=== PATIENT | female | born 1965 | race Caucasian/White ===

== ENCOUNTER 2018-10-06 17:13 | Inpatient (IN) | payer OTHER, MEDICAID ==
[~2018-10-06] VITALS: Ht 162.6 cm; Wt 74.8 kg
[2018-10-06 17:23] VITALS: BP_SYST 112
[2018-10-06] MEDS ORDERED: LORazepam 2 MG/ML VIAL (FOR ER USE) ONE (17:27)
[2018-10-06] MEDS ORDERED: LORazepam 2 MG/ML VIAL (FOR ER USE) IVP ONE (17:30)
[2018-10-06] MEDS ORDERED: LORA-259 GT (17:46)
[2018-10-06] MEDS ORDERED: FOLI-43 GT (17:46)
[2018-10-06] MEDS ORDERED: SENN8.6T19 GT (17:46)
[2018-10-06] MEDS ORDERED: FLUD0.1T GT (17:46)
[2018-10-06] MEDS ORDERED: MOM PO (17:46)
[2018-10-06] MEDS ORDERED: FER300L GT (17:46)
[2018-10-06] MEDS ORDERED: GENT3.5O7 GT (17:46)
[2018-10-06] MEDS ORDERED: LEVE1000 PO (17:46)
[2018-10-06] MEDS ORDERED: MULT-1117 GT (17:46)
[2018-10-06] MEDS ORDERED: BISA-79 RC (17:46)
[2018-10-06] MEDS ORDERED: LORA10TA7 GT (17:46)
[2018-10-06] MEDS ORDERED: ACET-2165 GT (17:46)
[2018-10-06] MEDS ORDERED: PIPE4.5F2 IV (17:46)
[2018-10-06] MEDS ORDERED: BALS750C6 PO (17:46)
[2018-10-06] MEDS ORDERED: CLOB10TA PO (17:46)
[2018-10-06] MEDS ORDERED: FLEETMO RC (17:46)
[2018-10-06] MEDS ORDERED: METO200T3 GT (17:46)
[2018-10-06] MEDS ORDERED: DOCU-144 PO (17:46)
[2018-10-06 17:52] LABS: BASOPHILS % (AUTO) 0.2 % (0.0-2.0); EOSINOPHILS % (AUTO) 0.4 % (0.0-4.0); HEMATOCRIT 37.8 % (36-48); HEMOGLOBIN 12.5 g/dL (12.0-16.0); LYMPHOCYTES # (AUTO) 0.9 K/uL (1.0-5.5); LYMPHOCYTES % (AUTO) 10.2 % (20.5-51.5); MEAN CORPUSCULAR HEMOGLOBIN 31 pg (27-31); MEAN CORPUSCULAR HGB CONC 33 % (32-36); MEAN CORPUSCULAR VOLUME 95 fL (79.0-98.0); MONOCYTES # (AUTO) 0.3 K/uL (0.0-1.0); MONOCYTES % (AUTO) 3.2 % (1.7-9.3); NEUTROPHILS # (AUTO) 7.3 K/uL (1.8-7.7); PLATELET COUNT (AUTO) 302 K/uL (130-430); RED BLOOD CELL COUNT(AUTO) 3.98 MIL/uL (4.2-6.2); RED CELL DISTRIBUTION WIDTH 13.2 % (9.0-15.0); WHITE BLOOD COUNT (AUTO) 8.5 K/uL (4.8-10.8)
[2018-10-06 18:04] LABS: INR 1.1 (0.8-1.2); PROTHROMBIN TIME 11.2 SECS (9.5-12.5)
[2018-10-06 18:14] LABS: CALCIUM 8.6 mg/dL (8.4-11.0); CREATININE 0.67 mg/dL (0.55-1.30); POTASSIUM 3.3 mmol/L (3.5-5.1)
[2018-10-06 18:19] LABS: ALBUMIN 2.8 g/dL (3.4-4.8); TOTAL BILIRUBIN 0.3 mg/dL (0.0-1.0)
[2018-10-06 18:29] LABS: BILIRUBIN,URINE NEGATIVE (NEGATIVE); BLOOD, URINE TRACE (NEGATIVE); CLARITY/URINE SL CLOUDY (CLEAR); COLOR,URINE YELLOW (YELLOW); GLUCOSE,URINE NEGATIVE (NEGATIVE); KETONES,URINE NEGATIVE (NEGATIVE); LEUKOCYTE ESTERASE ,URINE 3+ (NEGATIVE); NITRITE, URINE NEGATIVE (NEGATIVE); PH,URINE 7.5 (5.0-8.0); PROTEIN URINE 1+ (NEGATIVE); UROBILINOGEN,URINE 0.2 (0.2-1.0)
[2018-10-06 18:38] LABS: BACTERIA,URINE MANY /HPF (None Seen); WBC,URINE >100 /HPF (0-3)
[2018-10-06 18:40] LABS: BARBITURATE, URINE NEGATIVE (NEG <=200); BENZODIAZEPINE, URINE POSITIVE (NEG <=150); CANNABINOID, URINE NEGATIVE (NEG <=50); COCAINE, URINE NEGATIVE (NEG <=150); METHAMPHETAMINES SCREEN,URINE NEGATIVE (NEG <=500); OPIATE, URINE NEGATIVE (NEG <=100); PHENCYCLIDINE SCREEN,URINE NEGATIVE (NEG <=25); UR TRICYCLIC ANTIDEPRESSANTS NEGATIVE (NEG <=300); URINE AMPHETAMINE NEGATIVE (NEG <=500); URINE METHADONE NEGATIVE (NEG <=200); URINE OXYCODONE SCREEN NEGATIVE (NEG <=100); URINE PROPOXYPHENE SCREEN NEGATIVE (NEG <=300)
[2018-10-06] MEDS ORDERED: cefTRIAXone 1 GM IVPB PREMIX 50 ML IV ONE (18:45)
[2018-10-06] MEDS ORDERED: PIPERACILLIN/TAZO 3.375 GM in NS 50 ML IV ONE (19:15)
[2018-10-06] MEDS ORDERED: VANCOMYCIN HCL 1,000 MG in NS 250 ML IV ONE (19:15)
[2018-10-06] MEDS ORDERED: PIPERACILLIN/TAZOBACTAM 3.375 GM/VIAL (ZOSYN) IV ONE ×2 (19:16→22:13)
[2018-10-06] MEDS ORDERED: VANCOMYCIN HCL 1000 MG/VIAL IV ONE (19:17)
[2018-10-06 20:10] VITALS: BP_SYST 111
[2018-10-06] MEDS ORDERED: CLOBAZAM 10 MG PO SCH (21:00)
[2018-10-06] MEDS ORDERED: ACETAMINOPHEN 325 MG TABLET GT SCH (21:00)
[2018-10-06] MEDS: FOLIC ACID 1 MG TABLET GT SCH (22:54)
[2018-10-06] MEDS: levETIRAcetam 500 MG TABLET PO SCH (22:54)
[2018-10-06] MEDS: PIPERACILLIN/TAZO 3.375/DEX-IS 50 ML IV SCH (23:21)
[2018-10-07 00:28] VITALS: BP_SYST 97
[2018-10-07] MEDS: PIPERACILLIN/TAZO 3.375/DEX-IS 50 ML IV SCH ×2 (05:21→11:48)
[2018-10-07 07:39] LABS: BASOPHILS % (AUTO) 0.7 % (0.0-2.0); EOSINOPHILS # (AUTO) 0.1 K/uL (0.0-0.4); EOSINOPHILS % (AUTO) 1.5 % (0.0-4.0); HEMATOCRIT 34.1 % (36-48); HEMOGLOBIN 11.5 g/dL (12.0-16.0); LYMPHOCYTES # (AUTO) 1.2 K/uL (1.0-5.5); LYMPHOCYTES % (AUTO) 23.2 % (20.5-51.5); MEAN CORPUSCULAR HEMOGLOBIN 32 pg (27-31); MEAN CORPUSCULAR HGB CONC 34 % (32-36); MEAN CORPUSCULAR VOLUME 96 fL (79.0-98.0); MONOCYTES # (AUTO) 0.6 K/uL (0.0-1.0); MONOCYTES % (AUTO) 11.5 % (1.7-9.3); NEUTROPHILS # (AUTO) 3.1 K/uL (1.8-7.7); NEUTROPHILS % (AUTO) 63.1 % (40.0-70.0); PLATELET COUNT (AUTO) 251 K/uL (130-430); RED BLOOD CELL COUNT(AUTO) 3.57 MIL/uL (4.2-6.2); RED CELL DISTRIBUTION WIDTH 13.1 % (9.0-15.0)
[2018-10-07 07:51] LABS: ALBUMIN 2.6 g/dL (3.4-4.8); CALCIUM 8.5 mg/dL (8.4-11.0); CREATININE 0.52 mg/dL (0.55-1.30); POTASSIUM 3.8 mmol/L (3.5-5.1); THYROID STIMULATING HORMONE 0.14 uIu/mL (0.34-4.82); TOTAL BILIRUBIN 0.4 mg/dL (0.0-1.0)
[2018-10-07 07:58] VITALS: BP_SYST 94
[2018-10-07] MEDS ORDERED: METOPROLOL SUCCINATE 50 MG TAB.SR.24H (TOPROL XL) PO SCH (09:00)
[2018-10-07] MEDS ORDERED: DOCUSATE SODIUM 100 MG CAPSULE PO SCH (09:00)
[2018-10-07] MEDS: levETIRAcetam 500 MG TABLET PO SCH (09:22)
[2018-10-07] MEDS: FOLIC ACID 1 MG TABLET GT SCH ×2 (09:22→20:13)
[2018-10-07 11:40] VITALS: BP_SYST 102
[2018-10-07] MEDS ORDERED: cefTRIAXone 1 GM in D5W 50 ML IV SCH (13:00)
[2018-10-07] MEDS: metroNIDAZOLE 500 mg/NS 100 ML IV SCH (13:15)
[2018-10-07 16:02] VITALS: BP_SYST 122
[2018-10-07 20:00] VITALS: BP_SYST 123
[2018-10-07] MEDS: levETIRAcetam 500 MG TABLET GT SCH (20:13)
[2018-10-07] MEDS: LORazepam 2 MG/ML VIAL IVP PRN ×2 (21:14→23:43)
[2018-10-08] VITALS (14 sets, daily range): BP systolic 100–144
[2018-10-08] MEDS: metroNIDAZOLE 500 mg/NS 100 ML IV SCH ×2 (01:09→14:24)
[2018-10-08 08:27] LABS: ALBUMIN 3.1 g/dL (3.4-4.8); CALCIUM 9.6 mg/dL (8.4-11.0); CREATININE 0.63 mg/dL (0.55-1.30); POTASSIUM 3.9 mmol/L (3.5-5.1); TOTAL BILIRUBIN 0.3 mg/dL (0.0-1.0)
[2018-10-08 08:51] LABS: HEMATOCRIT 41.9 % (36-48); HEMOGLOBIN 13.8 g/dL (12.0-16.0); MEAN CORPUSCULAR HEMOGLOBIN 32 pg (27-31); MEAN CORPUSCULAR HGB CONC 33 % (32-36); MEAN CORPUSCULAR VOLUME 98 fL (79.0-98.0); RED BLOOD CELL COUNT(AUTO) 4.28 MIL/uL (4.2-6.2); WHITE BLOOD COUNT (AUTO) 11.3 K/uL (4.8-10.8)
[2018-10-08 08:52] LABS: BASOPHILS % (AUTO) 0.3 % (0.0-2.0); LYMPHOCYTES # (AUTO) 1.1 K/uL (1.0-5.5); LYMPHOCYTES % (AUTO) 9.5 % (20.5-51.5); MONOCYTES # (AUTO) 0.5 K/uL (0.0-1.0); MONOCYTES % (AUTO) 4.2 % (1.7-9.3); NEUTROPHILS # (AUTO) 9.7 K/uL (1.8-7.7); PLATELET COUNT (AUTO) 354 K/uL (130-430); RED CELL DISTRIBUTION WIDTH 14.4 % (9.0-15.0)
[2018-10-08] MEDS: FOLIC ACID 1 MG TABLET GT SCH ×2 (09:06→21:57)
[2018-10-08] MEDS: levETIRAcetam 500 MG TABLET GT SCH ×2 (09:06→21:57)
[2018-10-08] MEDS: DOCUSATE SODIUM 100 MG/10 ML UDC GT SCH (09:06)
[2018-10-08] MEDS: LORazepam 2 MG/ML VIAL IVP PRN ×5 (09:13→19:06)
[2018-10-08] MEDS: ACETAMINOPHEN 650 MG/20.3 ML UDC GT PRN ×2 (09:54→21:57)
[2018-10-08] MEDS ORDERED: IPRATROPIUM/ALBUTEROL SULFATE 3 ML AMPUL.NEB (DUONEB) INH ONE (11:15)
[2018-10-08] MEDS ORDERED: IPRATROPIUM/ALBUTEROL SULFATE 3 ML AMPUL.NEB (DUONEB) ONE (11:20)
[2018-10-08] MEDS ORDERED: METOPROLOL TARTRATE 25 MG TABLET GT ONE (11:30)
[2018-10-08] MEDS: NACL 0.9% 1,000 ML IV SCH ×2 (12:07→23:15)
[2018-10-08] MEDS ORDERED: clonazePAM 0.5 MG TABLET GT ONE (13:40)
[2018-10-08] MEDS ORDERED: CEFEPIME 1 GM in D5W 50 ML IV SCH (21:00)
[2018-10-08] MEDS: METOPROLOL TARTRATE 25 MG TABLET GT SCH (21:00)
[2018-10-08] MEDS: clonazePAM 0.5 MG TABLET GT SCH (21:58)
[2018-10-08] MEDS: PIPERACILLIN/TAZO 4.5GM/DEX-IS 100 ML IV SCH (22:00)
[2018-10-08] MEDS ORDERED: PIPERACILLIN/TAZOBACTAM 4.5 GM/VIAL (ZOSYN) IV ONE (22:36)
[2018-10-09] VITALS (19 sets, daily range): BP systolic 99–155
[2018-10-09] MEDS: metroNIDAZOLE 500 mg/NS 100 ML IV SCH ×2 (02:51→14:06)
[2018-10-09 05:56] LABS: CALCIUM 8.5 mg/dL (8.4-11.0); CREATININE 0.55 mg/dL (0.55-1.30); POTASSIUM 3.8 mmol/L (3.5-5.1)
[2018-10-09 06:04] LABS: ALBUMIN 2.6 g/dL (3.4-4.8); TOTAL BILIRUBIN 0.3 mg/dL (0.0-1.0)
[2018-10-09 06:16] LABS: HEMATOCRIT 32.9 % (36-48); HEMOGLOBIN 11.2 g/dL (12.0-16.0); MEAN CORPUSCULAR HEMOGLOBIN 34 pg (27-31); MEAN CORPUSCULAR HGB CONC 34 % (32-36); MEAN CORPUSCULAR VOLUME 98 fL (79.0-98.0); PLATELET COUNT (AUTO) 249 K/uL (130-430); RED BLOOD CELL COUNT(AUTO) 3.35 MIL/uL (4.2-6.2); RED CELL DISTRIBUTION WIDTH 14.4 % (9.0-15.0); WHITE BLOOD COUNT (AUTO) 6.6 K/uL (4.8-10.8)
[2018-10-09] MEDS: PIPERACILLIN/TAZO 4.5GM/DEX-IS 100 ML IV SCH ×4 (06:16→23:34)
[2018-10-09 06:17] LABS: BASOPHILS % (AUTO) 0.2 % (0.0-2.0); LYMPHOCYTES % (AUTO) 15.5 % (20.5-51.5); MONOCYTES % (AUTO) 7.7 % (1.7-9.3); NEUTROPHILS % (AUTO) 76.6 % (40.0-70.0)
[2018-10-09 06:18] LABS: MONOCYTES # (AUTO) 0.5 K/uL (0.0-1.0)
[2018-10-09] MEDS: NACL 0.9% 1,000 ML IV SCH ×2 (07:15→14:07)
[2018-10-09] MEDS: levETIRAcetam 500 MG TABLET GT SCH ×2 (08:35→23:26)
[2018-10-09] MEDS: FOLIC ACID 1 MG TABLET GT SCH ×2 (08:36→23:28)
[2018-10-09] MEDS: clonazePAM 0.5 MG TABLET GT SCH ×2 (08:36→23:28)
[2018-10-09] MEDS: DOCUSATE SODIUM 100 MG/10 ML UDC GT SCH (08:37)
[2018-10-09] MEDS: METOPROLOL TARTRATE 25 MG TABLET GT SCH ×2 (08:37→23:27)
[2018-10-09] MEDS: ACETAMINOPHEN 650 MG/20.3 ML UDC GT PRN (11:46)
[2018-10-09] MEDS: LORazepam 2 MG/ML VIAL IVP PRN (12:56)
[2018-10-09] MEDS: 0.45% NACL 1,000 ML IV SCH (16:19)
[2018-10-09] MEDS: BALSALAZIDE 750 MG GT SCH (16:22)
[2018-10-09] MEDS ORDERED: ENOXAPARIN SODIUM 40 MG/0.4 ML SYRINGE SUBCUT ONE (16:30)
[2018-10-10 00:22] VITALS: BP_SYST 117
[2018-10-10] MEDS: 0.45% NACL 1,000 ML IV SCH ×2 (01:55→11:43)
[2018-10-10] MEDS: metroNIDAZOLE 500 mg/NS 100 ML IV SCH ×2 (03:33→13:28)
[2018-10-10] MEDS: PIPERACILLIN/TAZO 4.5GM/DEX-IS 100 ML IV SCH ×3 (05:54→21:06)
[2018-10-10 08:24] LABS: CALCIUM 8.3 mg/dL (8.4-11.0); CREATININE 0.67 mg/dL (0.55-1.30); POTASSIUM 3.2 mmol/L (3.5-5.1)
[2018-10-10 08:45] VITALS: BP_SYST 127
[2018-10-10] MEDS: levETIRAcetam 500 MG TABLET GT SCH ×2 (08:48→20:57)
[2018-10-10] MEDS: ENOXAPARIN SODIUM 40 MG/0.4 ML SYRINGE SUBCUT SCH (08:48)
[2018-10-10] MEDS: DOCUSATE SODIUM 100 MG/10 ML UDC GT SCH (08:48)
[2018-10-10] MEDS: clonazePAM 0.5 MG TABLET GT SCH ×2 (08:49→20:58)
[2018-10-10] MEDS: METOPROLOL TARTRATE 25 MG TABLET GT SCH ×2 (08:49→21:00)
[2018-10-10] MEDS: FOLIC ACID 1 MG TABLET GT SCH ×2 (08:49→20:57)
[2018-10-10] MEDS: BALSALAZIDE 750 MG GT SCH ×3 (09:25→21:04)
[2018-10-10] MEDS: FLUDROCORTISONE 0.1 MG GT SCH (09:26)
[2018-10-10] MEDS: LORazepam 2 MG/ML VIAL IVP PRN (11:51)
[2018-10-10 12:22] VITALS: BP_SYST 113
[2018-10-10] MEDS ORDERED: POTASSIUM CHLORIDE 20 MEQ/PKT PACKET GT ONE (13:00)
[2018-10-10] MEDS: FLUCONAZOLE 100 mg/ NS 50 ML IV SCH (16:00)
[2018-10-10 16:25] VITALS: BP_SYST 121
[2018-10-10] MEDS: ACETAMINOPHEN 650 MG/20.3 ML UDC GT PRN (17:07)
[2018-10-10 19:05] VITALS: BP_SYST 99
[2018-10-11] VITALS (7 sets, daily range): BP systolic 98–136
[2018-10-11] MEDS: PIPERACILLIN/TAZO 4.5GM/DEX-IS 100 ML IV SCH ×3 (05:30→21:16)
[2018-10-11] MEDS: 0.45% NACL 1,000 ML IV SCH ×2 (05:30→22:04)
[2018-10-11 07:26] LABS: CREATININE 0.53 mg/dL (0.55-1.30); POTASSIUM 3.4 mmol/L (3.5-5.1)
[2018-10-11] MEDS: levETIRAcetam 500 MG TABLET GT SCH ×2 (08:02→21:08)
[2018-10-11] MEDS: METOPROLOL TARTRATE 25 MG TABLET GT SCH ×2 (08:03→21:00)
[2018-10-11] MEDS: FOLIC ACID 1 MG TABLET GT SCH ×2 (08:03→21:08)
[2018-10-11] MEDS: BALSALAZIDE 750 MG GT SCH ×3 (08:06→21:09)
[2018-10-11] MEDS: clonazePAM 0.5 MG TABLET GT SCH ×2 (08:06→21:09)
[2018-10-11] MEDS: ENOXAPARIN SODIUM 40 MG/0.4 ML SYRINGE SUBCUT SCH (08:08)
[2018-10-11] MEDS: FLUDROCORTISONE 0.1 MG GT SCH (08:09)
[2018-10-11] MEDS: DOCUSATE SODIUM 100 MG/10 ML UDC GT SCH (08:09)
[2018-10-11] MEDS: LORazepam 2 MG/ML VIAL IVP PRN ×2 (08:14→13:33)
[2018-10-11] MEDS: FLUCONAZOLE 100 mg/ NS 50 ML IV SCH (14:45)
[2018-10-11] MEDS ORDERED: POTASSIUM CHLORIDE 10 MEQ TAB.PRT.SR GT ONE (15:45)
[2018-10-12 00:06] VITALS: BP_SYST 105
[2018-10-12] MEDS: LORazepam 2 MG/ML VIAL IVP PRN ×2 (03:26→14:00)
[2018-10-12] MEDS: PIPERACILLIN/TAZO 4.5GM/DEX-IS 100 ML IV SCH (06:00)
[2018-10-12 07:50] VITALS: BP_SYST 100
[2018-10-12 07:59] LABS: CALCIUM 8.5 mg/dL (8.4-11.0); CREATININE 0.45 mg/dL (0.55-1.30); POTASSIUM 3.9 mmol/L (3.5-5.1)
[2018-10-12 08:23] LABS: WHITE BLOOD COUNT (AUTO) 3.8 K/uL (4.8-10.8)
[2018-10-12 08:24] LABS: EOSINOPHILS % (AUTO) 1.5 % (0.0-4.0); HEMATOCRIT 32.7 % (36-48); HEMOGLOBIN 11.1 g/dL (12.0-16.0); LYMPHOCYTES % (AUTO) 27.1 % (20.5-51.5); MEAN CORPUSCULAR HEMOGLOBIN 33 pg (27-31); MEAN CORPUSCULAR HGB CONC 34 % (32-36); MEAN CORPUSCULAR VOLUME 97 fL (79.0-98.0); MONOCYTES % (AUTO) 9.5 % (1.7-9.3); PLATELET COUNT (AUTO) 219 K/uL (130-430); RED BLOOD CELL COUNT(AUTO) 3.37 MIL/uL (4.2-6.2); RED CELL DISTRIBUTION WIDTH 14.7 % (9.0-15.0)
[2018-10-12] MEDS: METOPROLOL TARTRATE 25 MG TABLET GT SCH (09:00)
[2018-10-12] MEDS: FOLIC ACID 1 MG TABLET GT SCH (09:34)
[2018-10-12] MEDS: DOCUSATE SODIUM 100 MG/10 ML UDC GT SCH (09:34)
[2018-10-12] MEDS: FLUDROCORTISONE 0.1 MG GT SCH (09:35)
[2018-10-12] MEDS: BALSALAZIDE 750 MG GT SCH ×2 (09:37→15:12)
[2018-10-12] MEDS: levETIRAcetam 500 MG TABLET GT SCH (09:40)
[2018-10-12] MEDS: ENOXAPARIN SODIUM 40 MG/0.4 ML SYRINGE SUBCUT SCH (09:41)
[2018-10-12] MEDS: clonazePAM 0.5 MG TABLET GT SCH (09:42)
[2018-10-12 11:03] LABS: BASOPHILS % (AUTO) 0.6 % (0.0-2.0); EOSINOPHILS # (AUTO) 0.1 K/uL (0.0-0.4); MONOCYTES # (AUTO) 0.4 K/uL (0.0-1.0); NEUTROPHILS # (AUTO) 2.3 K/uL (1.8-7.7); NEUTROPHILS % (AUTO) 61.3 % (40.0-70.0)
[2018-10-12] MEDS ORDERED: cefTRIAXone 1 GM in D5W 50 ML IV SCH (11:15)
[2018-10-12 11:26] VITALS: BP_SYST 119
[2018-10-12] MEDS ORDERED: metroNIDAZOLE 500 mg/NS 100 ML IV SCH (14:00)
[2018-10-12] MEDS ORDERED: METO200T3 GT (15:08)
[2018-10-12] MEDS: FLUCONAZOLE 100 mg/ NS 50 ML IV SCH (15:13)
[2018-10-12 15:42] VITALS: BP_SYST 97
[2018-10-12 17:27] VITALS: BP_SYST 97
== END 2018-10-12 18:30 | DRG 871 ==
LOC: SED 17:13 → STU 19:09 → SIC 10-08 11:32 → STU 10-09 18:47
PROVIDERS: ADMIT Internal Medicine; ATTEND Internal Medicine
DX: A41.9 Sepsis, unspecified organism (principal); J69.0 Pneumonitis due to inhalation of food and vomit; J96.20 Acute and chronic respiratory failure, unspecified whether with hypoxia or hypercapnia; N39.0 Urinary tract infection, site not specified; G93.40 Encephalopathy, unspecified; K51.90 Ulcerative colitis, unspecified, without complications; B19.10 Unspecified viral hepatitis B without hepatic coma; E87.0 Hyperosmolality and hypernatremia; G40.401 Other generalized epilepsy and epileptic syndromes, not intractable, with status epilepticus; F79 Unspecified intellectual disabilities; G80.9 Cerebral palsy, unspecified; I10 Essential (primary) hypertension; R13.10 Dysphagia, unspecified; E87.6 Hypokalemia; Z79.899 Other long term (current) drug therapy; Z88.1 Allergy status to other antibiotic agents; Z87.440 Personal history of urinary (tract) infections; Z93.1 Gastrostomy status; Z74.01 Bed confinement status
CPT/HCPCS: 36415; 36600; 70450-TC; 71045; 80048; 80053; 80307; 81000-TC; 82803-TC; 83605; 83735-TC; 84439; 84443-TC; 84484; 84702-TC; 85025; 85610-TC; 85730-TC; 87040-TC; 87081; 87086; 87230-TC; 93005; 95816; 96365; 96366; 96367; 96375; 99285; G0378; G0480; G0481; J0692; J0696; J1450; J1650; J2060; J2543; J3370; J3490; J7030; J7060; J7620

== ENCOUNTER 2021-01-29 00:55 | Inpatient (IN) | payer OTHER, MEDICAID, SELFPAY ==
[2021-01-29] VITALS (27 sets, daily range): BP systolic 87–152
[~2021-01-29] VITALS: Ht 167.6 cm; Wt 85.3 kg
[~2021-01-29 00:55] MED LIST: ACET325T GT; BALS750C6 PO; BISA-79 RC; CLOB10TA PO; DOCU-144 PO; FER300L GT; FLEETMO RC; FLUD0.1T GT; FOLI-43 GT; GENT3.5O7 GT; LEVE1000 PO; LORA-259 GT; LORA10TA7 GT; METO200T3 GT; MOM PO; MULT-1117 GT; SENN8.6T19 GT
--- NOTE | 2021-01-29 00:55 | NUR ---
Patient to ER bed 1 to gown for evaluation. Side rails up. Report given to Carolina
--- NOTE | 2021-01-29 00:55 | NUR ---
Came in ER brought per gurluke brought by ALS paramedics from [facility] Chief complaints- hypotension and altered LOC Airway- trach to bag mask ventilation Breathing- spontaneous, bilateral chest clear Circulation- slightly cool to touch, pinkish face, bilateral hands mottled, left heel diabetic foot with PEG tube in place patent for feeding GCS- EYES-1 V- 1 ON TRACH, MOTOR-4 WITHDRAWS TO PAIN HX-Cerebral palsy, Seizure, dysphagia, UTI, COVID 19, PNEUMONIA,ANEMIA IN CKD, ULCERATIVE COLITIS, SEVERE MALNUTRITION, CHF, MRSA, CHRONIC RESPIRATORY FAILURE, DM 2, HTN, ADRENOCORTICAL INSUFFICIENCY, QUADRIPLEGIA, VENTILATOR DEPENDENT ALLERGY- Quinolones, Ciprofloxacin
--- NOTE | 2021-01-29 00:56 | NUR ---
Dr. Ramirez bedside for pt eval
--- NOTE | 2021-01-29 01:15 | NUR ---
Dr. Ramirez bedside for TLC Central Cath procedure, Pt remains VSS, and well tolerated
--- NOTE | 2021-01-29 01:33 | NUR ---
Dr. Ramirez remains bedside continuing TLC central line insertion
--- NOTE | 2021-01-29 02:10 | NUR ---
Dr. Ramirez attempted to insert a CENTRAL LINE guided ultrasound for 3 times but failed
--- NOTE | 2021-01-29 02:30 | NUR ---
# 20 gauge angiocath placed to righ groin. Use of asceptic technique. Opsite placed over site. Blood return noted. Flushed with 10 cc of normal saline. No evidence of infiltration noted. Patient tolerated well.
[2021-01-29 03:02] LABS: HEMATOCRIT 34.3 % (36-48); HEMOGLOBIN 11.1 g/dL (12.0-16.0); MEAN CORPUSCULAR HEMOGLOBIN 28 pg (27-31); MEAN CORPUSCULAR HGB CONC 32 % (32-36); MEAN CORPUSCULAR VOLUME 86 fL (79.0-98.0); PLATELET COUNT (AUTO) 132 K/uL (130-430); RED BLOOD CELL COUNT(AUTO) 4.01 MIL/uL (4.2-6.2); RED CELL DISTRIBUTION WIDTH 17.5 % (9.0-15.0); WHITE BLOOD COUNT (AUTO) 18.1 K/uL (4.8-10.8)
[2021-01-29 03:07] LABS: CALCIUM 9.1 mg/dL (8.4-11.0); CREATININE 2.72 mg/dL (0.55-1.30); POTASSIUM 4.5 mmol/L (3.5-5.1)
--- NOTE | 2021-01-29 03:10 | NUR ---
# 16 FR Ny catheter with use of sterile technique. Immediate return of 20 cc cloudy urine noted. Bedside drainage bag placed below level of bladder. Urine sample collected and sent to lab. Pt tolerated procedure well. Patient arrived with yn in place, changed due to standard of practice prior to admission. Patient unable to toilet self.
[2021-01-29] MEDS ORDERED: cefTRIAXone 1 GM in D5W 50 ML IV ONE (03:15)
[2021-01-29] MEDS ORDERED: NACL 0.9% 1,000 ML IV ONE ×2 (03:15→03:45)
[2021-01-29 03:22] LABS: ALBUMIN 2.4 g/dL (3.4-4.8); TOTAL BILIRUBIN 0.6 mg/dL (0.0-1.0)
[2021-01-29] MEDS ORDERED: cefTRIAXone 1 GM VIAL ONE (03:25)
[2021-01-29 03:42] LABS: BAND % (MANUAL) 26 % (0-6); BASOPHILS % (MANUAL) 0 % (0-2); EOSINOPHILS % (MANUAL) 0 % (0-7); LYMPHOCYTES % (MANUAL) 1 % (20-46); METAMYELOCYTES % 8 % (0-0); MONOCYTES % (MANUAL) 5 % (0-11)
--- NOTE | 2021-01-29 04:05 | NUR ---
Patient's code status is FULL CODE as per the POLST from [facility], paperwork completed and placed in chart.
[2021-01-29 04:11] LABS: BILIRUBIN,URINE NEGATIVE (NEGATIVE); BLOOD, URINE 3+ (NEGATIVE); CLARITY/URINE TURBID (CLEAR); COLOR,URINE YELLOW (YELLOW); GLUCOSE,URINE NEGATIVE (NEGATIVE); KETONES,URINE NEGATIVE (NEGATIVE); LEUKOCYTE ESTERASE ,URINE 3+ (NEGATIVE); NITRITE, URINE NEGATIVE (NEGATIVE); PROTEIN URINE 2+ (NEGATIVE); UROBILINOGEN,URINE 0.2 (0.2-1.0)
[2021-01-29] MEDS ORDERED: VANCOMYCIN HCL 1,000 MG in NS 250 ML IV ONE (04:15)
--- NOTE | 2021-01-29 04:15 | NUR ---
sap technical developer at bedside, Blood drawn for repeat lactic acid
[2021-01-29 04:22] LABS: BACTERIA,URINE MANY /HPF (None Seen); RBC,URINE 20-50 /HPF (0-3); WBC,URINE >100 /HPF (0-3)
[2021-01-29] MEDS ORDERED: BACL10TA PO (04:44)
[2021-01-29] MEDS ORDERED: INSU100V42 (04:44)
[2021-01-29] MEDS ORDERED: LANS30CA56 GT (04:44)
[2021-01-29] MEDS ORDERED: TRAM50TA PO (04:44)
[2021-01-29] MEDS ORDERED: LORA10TA7 PO (04:44)
[2021-01-29] MEDS ORDERED: LEVE750T66 PO (04:44)
[2021-01-29] MEDS ORDERED: CRAN1CAP5 PO (04:44)
[2021-01-29] MEDS ORDERED: ASCO500T20 PO (04:44)
[2021-01-29] MEDS ORDERED: CARB30DR OP (04:44)
[2021-01-29] MEDS ORDERED: ALBMDI INH (04:44)
[2021-01-29] MEDS ORDERED: AMIN30LI2 PO (04:44)
[2021-01-29] MEDS ORDERED: LACO10SO3 PO (04:44)
--- NOTE | 2021-01-29 04:44 | NUR ---
Medication reconciliation completed with information provided by medical record from [facility]. Any prior medication reconciliation on file was reviewed and corrected.
--- NOTE | 2021-01-29 05:01 | NUR ---
Portable X Ray bedside, well tolerated
--- NOTE | 2021-01-29 05:10 | NUR ---
Dr. Arrieta called back to adm pt to ICU
[2021-01-29] MEDS ORDERED: VANCOMYCIN HCL 1000 MG/VIAL IV ONE (05:12)
[2021-01-29] MEDS ORDERED: NOREPINEPHRINE BITARTRATE 32 MG in NS 218 ML IV PRN (05:15)
--- NOTE | 2021-01-29 05:23 | NUR ---
Patient will be admitted to care of as a case Septic Shock. Admitted to ICU unit. Will go to room 7. Belongings list completed. Complete and up to date summary report printed. SBAR report to be given at bedside with opportunity for questions.
--- NOTE | 2021-01-29 05:31 | NUR ---
Transfer to ICU 7 via ACLS protocol. Licensed nurse present. IV present no signs or symptoms of infiltration.
--- NOTE | 2021-01-29 06:00 | NUR ---
RECEIVED FROM ER DEPT A 55 YO W F W/ DIAGNOSIS OF SEPTIC SHOCK. OBTUNDED. RESPONDS TO PAINFUL STIMULI. TRACH TO VENT. SUCTIONED WITH SCANT MUCUS OBTAINED. RIGHT ARM CONTRACTED. LEGS CONTRACTED. LEFT HEEL WITH DIABETIC WOUND. GT CLAMPED. DUENAS CATH PATENT DRAINING SCANT CLEAR CLEAR YELLOW URINE TO GRAVITY. SINUS TACH. RIGHT GROIN PIV YUDELKA D/I.
--- NOTE | 2021-01-29 06:58 | NUR ---
OPENING NOTE: REPORT RCVD AT BEDSIDE FROM NOC RN, ALL CARES RCVD. ALL SAFETY PRECAUTIONS IN PLACE.
[2021-01-29] MEDS: D5NS 1,000 ML IV SCH ×3 (08:10→20:01)
[2021-01-29] MEDS: CEFEPIME 1 GM in D5W 50 ML IV SCH ×2 (08:10→21:21)
--- NOTE | 2021-01-29 08:28 | NUR ---
DR. JACKMAN: MD AT BEDSIDE, VERBAL REPORT GIVEN.
[2021-01-29] MEDS ORDERED: HEPARIN SODIUM,PORCINE 5,000 UNITS/ML VIAL SUBCUT ONE (09:15)
[2021-01-29] MEDS ORDERED: ASCORBIC ACID 500 MG TABLET PO ONE (09:15)
[2021-01-29] MEDS ORDERED: traMADol HCL HCL 50 MG TABLET (ULTRAM) PO PRN (09:15)
[2021-01-29] MEDS ORDERED: LORATADINE 10 MG TABLET GT PRN (09:15)
[2021-01-29] MEDS ORDERED: BACLOFEN 10 MG TABLET PO ONE (09:15)
[2021-01-29] MEDS ORDERED: ACETAMINOPHEN 325 MG TABLET GT PRN (09:15)
[2021-01-29] MEDS ORDERED: LANSOPRAZOLE 30 MG CAPSULE.DR GT ONE (10:00)
--- NOTE | 2021-01-29 10:28 | NUR ---
RT: AT BEDSIDE PERFORMING SPUTUM CULTURE ASPIRATE.
[2021-01-29] MEDS ORDERED: LACOSAMIDE 100 MG TABLET GT ONE (10:30)
--- NOTE | 2021-01-29 11:35 | NUR ---
FAMILY: SPOKE WITH FATHER OVER PHONE, VERBAL UPDATE GIVEN. CONSENT OBTAINED FOR PICC LINE PLACEMENT.
[2021-01-29 12:35] LABS: INR 1.2 (0.8-1.2); PROTHROMBIN TIME 12.3 SECS (9.5-12.5)
--- NOTE | 2021-01-29 13:55 | NUR ---
PICC NURSE: AT BEDSIDE PLACING NEW PICC LINE INTO PATIENT.
--- NOTE | 2021-01-29 14:10 | NUR ---
DR. HEIN AT BEDSIDE, VERBAL REPORT GIVEN.
--- NOTE | 2021-01-29 14:21 | NUR ---
PICC PLACED CONFIRMED WITH X-RAY
[2021-01-29] MEDS: BACLOFEN 10 MG TABLET PO SCH ×2 (14:22→21:21)
--- NOTE | 2021-01-29 15:34 | NUR ---
LAB RESULT: LAB REPORTED GRAM NEG RODS X 4 BOTTLES, MD DR. GILBERTO ADLER. PENDING RETURN CALL.
--- NOTE | 2021-01-29 15:45 | NUR ---
DR. MACIAS: AWARE OF LAB RESULTS, WILL COME AND SEE PATIENT AT BEDSIDE.
--- NOTE | 2021-01-29 17:00 | NUR ---
DR. MACIAS: MD AT BEDSIDE, VERBAL REPORT GIVEN. MD TO PLACE NEW ORDERS.
--- NOTE | 2021-01-29 18:59 | NUR ---
RN ROUNDS: PATIENT LINENS CHANGED, TURNED AND REPOSITIONED, ALL SAFETY PRECAUTIONS IN PLACE, BED LOW AND LOCKED.
[2021-01-29] MEDS ORDERED: GENTAMICIN 120 MG/ ISO-OSM 100 ML PREMIX IV SCH (20:00)
--- NOTE | 2021-01-29 20:00 | NUR ---
RESPONDS TO NOXIOUS STIMULI. TRACH TO VENT. SUCTIONED WITH SMALL AMOUNT OF THIN WHITE MUCUS OBTAINED. ORAL CARE GIVEN. GT FEEDING WITH GLUCERNA 1.2 AT 40CC/HR. RESIDUAL CHECK 0. LEFT UPPER ARM PICC LINE DRSG D/I. EXTREMITIES CONTRACTED. ON LEVOPHED AT 0.1 MCG/KG/MIN. DUENAS CATH PATENT DRAINING SCANT CAROL URINE TO GRAVITY. PARENTS VISITED MOMENTARILY. .
[2021-01-29] MEDS ORDERED: LACOSAMIDE 10 MG PO SCH (21:00)
[2021-01-29] MEDS: FERROUS SULFATE 300 MG/5 ML UDC GT SCH (21:20)
[2021-01-29] MEDS: FOLIC ACID 1 MG TABLET GT SCH (21:21)
[2021-01-29] MEDS: LACOSAMIDE 100 MG TABLET GT SCH (21:21)
[2021-01-29] MEDS: LevETIRAcetam 500 MG/5 ML UDC ORAL LIQUID PO SCH (21:22)
[2021-01-29] MEDS: HEPARIN SODIUM,PORCINE 5,000 UNITS/ML VIAL SUBCUT SCH (21:22)
--- NOTE | 2021-01-29 22:00 | NUR ---
HS CARE GIVEN.
[2021-01-30] VITALS (33 sets, daily range): BP systolic 99–138
--- NOTE | 2021-01-30 | NUR ---
GT FLUSHED WITH 100CC H2O. ORAL CARE DONE. SUCTIONED AND REPOSITIONED.
--- NOTE | 2021-01-30 04:00 | NUR ---
BP 131/77, LEVOPHED OFF. ORAL CARE DONE.
[2021-01-30] MEDS: D5NS 1,000 ML IV SCH (05:10)
--- NOTE | 2021-01-30 06:00 | NUR ---
UO ADEQUATE. 1 MODERATE FORMED SOFT BROWN STOOL DEFECATED, JUAN ALBERTO-CARE GIVEN. BACK CARE, DUENAS CARE, SKIN CARE RENDERED. PARTIAL LINEN CHANGE DONE. DOES NOT ASSIST WITH TURNING. SSEAR PROC WELL. GT FLUSHED WITH 100CC H2O. REMAINS IN GUARDED CONDITION.
[2021-01-30 06:33] LABS: CALCIUM 8.7 mg/dL (8.4-11.0); CREATININE 3.42 mg/dL (0.55-1.30)
--- NOTE | 2021-01-30 06:37 | NUR ---
Nutrition Update Ronnie Scale 13 noted. Pt admitted for Septic shock Diet: Glucerna 1.2 at 40ml/hr, FWF 100ml Q6H via GT BMI: 27.4 kg/m2 RD to follow per nutrition care standards.
[2021-01-30 06:41] LABS: BASOPHILS % (AUTO) 0.2 % (0.0-2.0); EOSINOPHILS # (AUTO) 0.1 K/uL (0.0-0.4); EOSINOPHILS % (AUTO) 0.7 % (0.0-4.0); HEMATOCRIT 27.5 % (36-48); HEMOGLOBIN 9.2 g/dL (12.0-16.0); MEAN CORPUSCULAR HEMOGLOBIN 28 pg (27-31); MEAN CORPUSCULAR HGB CONC 34 % (32-36); MEAN CORPUSCULAR VOLUME 84 fL (79.0-98.0); MONOCYTES # (AUTO) 0.7 K/uL (0.0-1.0); MONOCYTES % (AUTO) 5.3 % (1.7-9.3); NEUTROPHILS # (AUTO) 10.6 K/uL (1.8-7.7); NEUTROPHILS % (AUTO) 85.8 % (40.0-70.0); PLATELET COUNT (AUTO) 79 K/uL (130-430); RED BLOOD CELL COUNT(AUTO) 3.26 MIL/uL (4.2-6.2); RED CELL DISTRIBUTION WIDTH 17.8 % (9.0-15.0); WHITE BLOOD COUNT (AUTO) 12.3 K/uL (4.8-10.8)
--- NOTE | 2021-01-30 06:54 | NUR ---
OPENING NOTE: REPORT RC'VD AT BEDSIDE FROM GREGG ROMANO, ALL CARES RC'VD. ALL SAFETY PRECAUTIONS IN PLACE. Addendum: 01/30/21 at 0818 by Louise Caldera RN WRONG CHART
[2021-01-30 07:21] LABS: POTASSIUM 4.5 mmol/L (3.5-5.1)
--- NOTE | 2021-01-30 07:40 | NUR ---
Opening note patient resting in bed, eyes closed, does not open eyes to voice or tactile stimulation, does not follow commands, patient is trach to vent, vent settings AC 16, TV 450, Fio2 30%, peep 5, tolerating well thus far, G tube intact, no residual output at this time, left upper arm PICC line dressing is clean, dry and intact, infusing well, extremities are contracted, Amador Catheter draining to gravity, continuing to monitor patient, bed in lowest position, three side rails up, bed alarm on, fall and aspiration precautions in place.
--- NOTE | 2021-01-30 07:44 | NUR ---
Dr. Contreras rounds assessed patient, received order for Renal US and change in IVF, will follow up.
[2021-01-30] MEDS: CEFEPIME 1 GM in D5W 50 ML IV SCH ×2 (08:47→20:27)
[2021-01-30] MEDS: LACOSAMIDE 100 MG TABLET GT SCH ×2 (08:47→20:16)
[2021-01-30] MEDS: LevETIRAcetam 500 MG/5 ML UDC ORAL LIQUID PO SCH ×2 (08:47→20:19)
[2021-01-30] MEDS: FLUDROCORTISONE ACETATE 0.1 MG TABLET( FLORINEF) GT SCH (08:47)
[2021-01-30] MEDS: DOCUSATE SODIUM 100 MG/10 ML UDC GT SCH (08:47)
[2021-01-30] MEDS: BACLOFEN 10 MG TABLET PO SCH ×3 (08:48→20:17)
[2021-01-30] MEDS: ASCORBIC ACID 500 MG TABLET PO SCH (08:48)
[2021-01-30] MEDS: NACL 0.9% 1,000 ML IV SCH ×2 (08:48→16:18)
[2021-01-30] MEDS: MULTIVITAMINS TAB 1 TABLET GT SCH (08:48)
[2021-01-30] MEDS ORDERED: DOCUSATE SODIUM 100 MG CAPSULE PO SCH (09:00)
--- NOTE | 2021-01-30 09:32 | NUR ---
Called Pharmacy missing two medications scheduled for this morning, informed Raad in pharmacy, will follow up as needed.
[2021-01-30] MEDS: LANSOPRAZOLE 30 MG CAPSULE.DR GT SCH (09:39)
[2021-01-30] MEDS: FOLIC ACID 1 MG TABLET GT SCH ×2 (09:39→20:17)
[2021-01-30] MEDS: HEPARIN SODIUM,PORCINE 5,000 UNITS/ML VIAL SUBCUT SCH ×2 (09:40→20:22)
--- NOTE | 2021-01-30 10:45 | NUR ---
Called Ultrasound to follow up on Renal US orders from this morning, no answer in Radiology, will continue to follow up. Addendum: 01/30/21 at 1216 by Larry Martin RN Called to follow up on Renal US - spoke with Alena - US tech is with another patient but Alena will inform US tech to call when finished, will continue to follow up. Addendum: 01/30/21 at 1337 by Larry Martin RN Renal US being performed at this time, patient tolerating well. Noted new consult for Dr. Contreras for renal failure.
--- NOTE | 2021-01-30 12:10 | NUR ---
Dr. Arrieta rounds assessed patient, MD made aware of new orders from Dr. Contreras, patient's labs, and generalized edema - will follow up with any new orders.
--- NOTE | 2021-01-30 13:54 | NUR ---
CONSULT NEPHRO. CONSULTING MD: DR. LOVING PERSON NOTIFIED: ALONA DIALED: [phone] ORDERED BY: DR. HEIN
--- NOTE | 2021-01-30 14:24 | NUR ---
Wound Evaluation: Wound Consult ordered for Low Ronnie Score. Patient evaluated for a low Ronnie score of 13. Patient was obtunded, nonverbal, nonresponsive to verbal commands, on tracheostomy to ventilator, and received in a Pocola Bed with an Isoflex EBENEZER mattress. Patient is immobile and needs to be turned in bed. Skin assessment: 1. Left Posterior Heel: Scar tissue from a pressure ulcer of prior unknown stage, present on admission. Recommend: Cover site with foam dressing. Offload site at all times with one pillow lengthwise under each extremity at all times. Use an extra pillow if heel touches bed. Do not allow heel to touch bed or other surfaces at any time. Recommend reposition patient side to side only every 2 hours with pillow support. Elevate, off-load and float bilateral heels with pillows. Offload pressure areas with pillows for pressure re-distribution. Perform skin care and monitor skin integrity Q shift. Use moisture barrier cream on moisture susceptible areas QID and PRN for soiling. Initiate low air-loss therapy.
--- NOTE | 2021-01-30 14:42 | NUR ---
Dr. Contreras rounds assessed patient, updated on patient status - will follow up with any new orders.
--- NOTE | 2021-01-30 18:31 | NUR ---
Closing note patient resting in bed, eyes closed, breathing is even and unlabored, all needs met, will endorse report to NOC shift nurse, bed in lowest position, three side rails up, fall, aspiration and contact precautions in place.
--- NOTE | 2021-01-30 19:15 | NUR ---
OPENING NOTE: REPORT RECEIVED FROM RN USING SBAR REPORTING. ALL CARE ASSUMED.
[2021-01-30] MEDS: FERROUS SULFATE 300 MG/5 ML UDC GT SCH (20:16)
[2021-01-30] MEDS: MUPIROCIN 2% TOPICAL OINTMENT 22 GM TP SCH (20:19)
[2021-01-31] VITALS (35 sets, daily range): BP systolic 89–170
[2021-01-31] MEDS: NACL 0.9% 1,000 ML IV SCH ×2 (03:45→14:39)
--- NOTE | 2021-01-31 06:24 | NUR ---
PAGED FOR ORDERS DIALED: [phone] SPOKE TO: MEDINA
--- NOTE | 2021-01-31 07:24 | NUR ---
Opening Note Received plan of care via sbar from RN.
--- NOTE | 2021-01-31 07:30 | NUR ---
Dr. Contreras at bedside. Provided patient update. Received orders for daily cbc/bmp labs in AM.
--- NOTE | 2021-01-31 08:02 | NUR ---
CONSULT SURGERY CONSULTING MD: DR. MASON PERSON NOTIFIED: DR. MASON DIALED: [phone] ORDERED BY: DR. LOVING
--- NOTE | 2021-01-31 08:05 | NUR ---
Dr. Contreras at bedside. Provided patient update. Received order for dialysis and dialysis catheter placement.
[2021-01-31] MEDS: HEPARIN SODIUM,PORCINE 5,000 UNITS/ML VIAL SUBCUT SCH ×2 (09:00→20:24)
[2021-01-31 09:03] LABS: BASOPHILS % (AUTO) 0.6 % (0.0-2.0); EOSINOPHILS # (AUTO) 0.1 K/uL (0.0-0.4); EOSINOPHILS % (AUTO) 1.2 % (0.0-4.0); HEMATOCRIT 25.3 % (36-48); HEMOGLOBIN 8.5 g/dL (12.0-16.0); LYMPHOCYTES # (AUTO) 0.5 K/uL (1.0-5.5); MEAN CORPUSCULAR HEMOGLOBIN 28 pg (27-31); MEAN CORPUSCULAR HGB CONC 34 % (32-36); MEAN CORPUSCULAR VOLUME 84 fL (79.0-98.0); MONOCYTES # (AUTO) 0.1 K/uL (0.0-1.0); MONOCYTES % (AUTO) 2.7 % (1.7-9.3); NEUTROPHILS # (AUTO) 4.6 K/uL (1.8-7.7); NEUTROPHILS % (AUTO) 86.5 % (40.0-70.0); PLATELET COUNT (AUTO) 53 K/uL (130-430); RED BLOOD CELL COUNT(AUTO) 3.03 MIL/uL (4.2-6.2); RED CELL DISTRIBUTION WIDTH 17.6 % (9.0-15.0); WHITE BLOOD COUNT (AUTO) 5.3 K/uL (4.8-10.8)
[2021-01-31 09:17] LABS: CALCIUM 8.4 mg/dL (8.4-11.0); CREATININE 4.02 mg/dL (0.55-1.30); POTASSIUM 4.9 mmol/L (3.5-5.1)
[2021-01-31] MEDS: DOCUSATE SODIUM 100 MG/10 ML UDC GT SCH (09:40)
[2021-01-31] MEDS: MUPIROCIN 2% TOPICAL OINTMENT 22 GM TP SCH (09:40)
[2021-01-31] MEDS: FLUDROCORTISONE ACETATE 0.1 MG TABLET( FLORINEF) GT SCH (09:40)
[2021-01-31] MEDS: MULTIVITAMINS TAB 1 TABLET GT SCH (09:40)
[2021-01-31] MEDS: LACOSAMIDE 100 MG TABLET GT SCH ×2 (09:41→20:21)
[2021-01-31] MEDS: ASCORBIC ACID 500 MG TABLET PO SCH (09:41)
[2021-01-31] MEDS: FOLIC ACID 1 MG TABLET GT SCH ×2 (09:41→20:22)
[2021-01-31] MEDS: BACLOFEN 10 MG TABLET PO SCH ×3 (09:41→20:21)
[2021-01-31] MEDS: LevETIRAcetam 500 MG/5 ML UDC ORAL LIQUID PO SCH ×2 (09:41→20:21)
[2021-01-31] MEDS: LANSOPRAZOLE 30 MG CAPSULE.DR GT SCH (09:41)
[2021-01-31] MEDS: CEFEPIME 1 GM in D5W 50 ML IV SCH ×2 (09:41→20:22)
--- NOTE | 2021-01-31 11:41 | NUR ---
Dietitian Recommendations *Recommend: modify EN formula (pt will start dialysis). *Recommend: Nepro at 35ml/hr (goal rate) FWF per physician via GT Provides: 1512 kcal, 68gm protein and 610ml free water daily. Meets: 97% of estimated calorie needs and 89% of lower end of estimated protein needs. Please see Nutritional Assessment for details. CUSTODIAL, RD
--- NOTE | 2021-01-31 12:48 | NUR ---
Dr. Arrieta at bedside. Provided patient update. No new orders.
[2021-01-31] MEDS ORDERED: HEPARIN SODIUM,PORCINE 5,000 UNITS/ML VIAL SUBCUT ONE (13:30)
[2021-01-31] MEDS ORDERED: HEPARIN SODIUM,PORCINE 5,000 UNITS/ML VIAL ONE (13:35)
--- NOTE | 2021-01-31 17:44 | NUR ---
Called Dr. Contreras and provided update on cpap trial. Received orders to place patient back to full support, AC 18, TV 450, 40% FIO2, Peep 5. Cpap trial at 8AM for 1 hour followed by ABG and chest xray. Addendum: 01/31/21 at 1745 by Emmett Martinez RN placed note in error. Wrong patient.
--- NOTE | 2021-01-31 19:20 | NUR ---
OPENING NOTE: REPORT RECEIVED FROM RN USING SBAR REPORTING. ALL CARE ASSUMED.
[2021-01-31] MEDS ORDERED: HEPARIN SODIUM,PORCINE 5,000 UNITS/ML VIAL MC ONE ×2 (20:15)
[2021-01-31] MEDS: FERROUS SULFATE 300 MG/5 ML UDC GT SCH (20:21)
[2021-02-01] VITALS (36 sets, daily range): BP systolic 81–146
[2021-02-01] MEDS: NACL 0.9% 1,000 ML IV SCH ×2 (00:33→09:35)
[2021-02-01] MEDS: MUPIROCIN 2% TOPICAL OINTMENT 22 GM TP SCH ×3 (00:34→20:52)
[2021-02-01 06:47] LABS: CREATININE 3.07 mg/dL (0.55-1.30); POTASSIUM 4.2 mmol/L (3.5-5.1)
--- NOTE | 2021-02-01 07:16 | NUR ---
CLOSING NOTE: REPORT GIVEN TO RN USING SBAR REPORTING.
--- NOTE | 2021-02-01 07:30 | NUR ---
Opening Note Received plan of care via sbar from endorsing RN.
[2021-02-01 08:41] LABS: BASOPHILS % (AUTO) 0.4 % (0.0-2.0); EOSINOPHILS # (AUTO) 0.1 K/uL (0.0-0.4); EOSINOPHILS % (AUTO) 1.8 % (0.0-4.0); HEMATOCRIT 24.9 % (36-48); HEMOGLOBIN 8.4 g/dL (12.0-16.0); LYMPHOCYTES # (AUTO) 0.4 K/uL (1.0-5.5); LYMPHOCYTES % (AUTO) 10.6 % (20.5-51.5); MEAN CORPUSCULAR HEMOGLOBIN 28 pg (27-31); MEAN CORPUSCULAR HGB CONC 34 % (32-36); MEAN CORPUSCULAR VOLUME 84 fL (79.0-98.0); MONOCYTES # (AUTO) 0.4 K/uL (0.0-1.0); MONOCYTES % (AUTO) 8.9 % (1.7-9.3); NEUTROPHILS # (AUTO) 3.3 K/uL (1.8-7.7); RED BLOOD CELL COUNT(AUTO) 2.97 MIL/uL (4.2-6.2); WHITE BLOOD COUNT (AUTO) 4.2 K/uL (4.8-10.8)
[2021-02-01] MEDS: HEPARIN SODIUM,PORCINE 5,000 UNITS/ML VIAL SUBCUT SCH (09:00)
[2021-02-01 09:10] LABS: PLATELET COUNT (AUTO) 48 K/uL (130-430)
[2021-02-01 09:11] LABS: NEUTROPHILS % (AUTO) 78.3 % (40.0-70.0)
[2021-02-01] MEDS: MULTIVITAMINS TAB 1 TABLET GT SCH (09:33)
[2021-02-01] MEDS: LANSOPRAZOLE 30 MG CAPSULE.DR GT SCH (09:33)
[2021-02-01] MEDS: BACLOFEN 10 MG TABLET PO SCH ×3 (09:33→20:51)
[2021-02-01] MEDS: DOCUSATE SODIUM 100 MG/10 ML UDC GT SCH (09:33)
[2021-02-01] MEDS: FLUDROCORTISONE ACETATE 0.1 MG TABLET( FLORINEF) GT SCH (09:33)
[2021-02-01] MEDS: ASCORBIC ACID 500 MG TABLET PO SCH (09:34)
[2021-02-01] MEDS: FOLIC ACID 1 MG TABLET GT SCH ×2 (09:34→20:49)
[2021-02-01] MEDS: LACOSAMIDE 100 MG TABLET GT SCH ×2 (09:34→20:50)
[2021-02-01] MEDS: CEFEPIME 1 GM in D5W 50 ML IV SCH (09:56)
[2021-02-01] MEDS: LevETIRAcetam 500 MG/5 ML UDC ORAL LIQUID PO SCH ×2 (09:57→20:52)
--- NOTE | 2021-02-01 10:38 | NUR ---
Received call from Dr. Simmons, provided patient update. Discussed platelet count and MD to change antibiotics.
--- NOTE | 2021-02-01 12:18 | NUR ---
Dr. Contreras at bedside. Provided patient update. Received orders to DC heparin medication due to low platelet.
--- NOTE | 2021-02-01 16:04 | NUR ---
Called Dr. Connel[place] 21776 units heparin for alfredo catheter flush (dialysis).
--- NOTE | 2021-02-01 16:05 | NUR ---
HIGH ALERT NOTE: Called Dr. Contreras back at [phone] identified within the medical roster to verify physician authenticity.
[2021-02-01] MEDS ORDERED: HEPARIN SODIUM,PORCINE 5,000 UNITS/ML VIAL MC ONE (16:15)
[2021-02-01 19:21] LABS: INR 0.9 (0.8-1.2); PROTHROMBIN TIME 9.6 SECS (9.5-12.5)
--- NOTE | 2021-02-01 20:40 | NUR ---
PAGED DR. MACIAS ORDERS [phone] SPOKE TO CHINEDU
[2021-02-01] MEDS: MEROPENEM 500 MG in NS 50 ML IV SCH (20:50)
[2021-02-01] MEDS ORDERED: DEXMEDETOMIDINE HCL 200 MCG in NS 48 ML IV PRN (21:45)
[2021-02-01] MEDS ORDERED: OLANZapine IntraMuscular 10 MG VIAL (FOR I.M. INJECTION ONLY) IM ONE (21:45)
[2021-02-02] VITALS (36 sets, daily range): BP systolic 91–151
[2021-02-02 07:28] LABS: CALCIUM 8.7 mg/dL (8.4-11.0); CREATININE 2.58 mg/dL (0.55-1.30); POTASSIUM 3.7 mmol/L (3.5-5.1)
--- NOTE | 2021-02-02 07:30 | NUR ---
OPENING NOTE: REPORT RECEIVED FROM RN USING SBAR REPORTING. ALL CARE ASSUMED.
[2021-02-02 07:46] LABS: BASOPHILS % (AUTO) 0.5 % (0.0-2.0); EOSINOPHILS # (AUTO) 1.4 K/uL (0.0-0.4); LYMPHOCYTES # (AUTO) 0.7 K/uL (1.0-5.5); LYMPHOCYTES % (AUTO) 8.6 % (20.5-51.5); MEAN CORPUSCULAR HEMOGLOBIN 34 pg (27-31); MONOCYTES # (AUTO) 0.6 K/uL (0.0-1.0); MONOCYTES % (AUTO) 6.5 % (1.7-9.3); NEUTROPHILS # (AUTO) 5.8 K/uL (1.8-7.7); NEUTROPHILS % (AUTO) 67.4 % (40.0-70.0)
[2021-02-02] MEDS: MEROPENEM 500 MG in NS 50 ML IV SCH ×2 (08:33→21:41)
[2021-02-02] MEDS: FLUDROCORTISONE ACETATE 0.1 MG TABLET( FLORINEF) GT SCH (08:36)
[2021-02-02] MEDS: DOCUSATE SODIUM 100 MG/10 ML UDC GT SCH (08:36)
[2021-02-02] MEDS: BACLOFEN 10 MG TABLET PO SCH ×3 (08:36→21:41)
[2021-02-02] MEDS: LACOSAMIDE 100 MG TABLET GT SCH ×2 (08:36→21:41)
[2021-02-02] MEDS: FOLIC ACID 1 MG TABLET GT SCH ×2 (08:36→21:41)
[2021-02-02] MEDS: LevETIRAcetam 500 MG/5 ML UDC ORAL LIQUID PO SCH ×2 (08:36→21:41)
[2021-02-02] MEDS: MULTIVITAMINS TAB 1 TABLET GT SCH (08:37)
[2021-02-02] MEDS: ASCORBIC ACID 500 MG TABLET PO SCH (08:38)
[2021-02-02] MEDS: MUPIROCIN 2% TOPICAL OINTMENT 22 GM TP SCH ×2 (08:42→21:42)
[2021-02-02 09:22] LABS: HEMATOCRIT 22.1 % (36-48); MEAN CORPUSCULAR HGB CONC 40 % (32-36); MEAN CORPUSCULAR VOLUME 82 fL (79.0-98.0); PLATELET COUNT (AUTO) 356 K/uL (130-430); RED BLOOD CELL COUNT(AUTO) 2.68 MIL/uL (4.2-6.2); RED CELL DISTRIBUTION WIDTH 19.9 % (9.0-15.0); WHITE BLOOD COUNT (AUTO) 7.9 K/uL (4.8-10.8)
[2021-02-02] MEDS: LANSOPRAZOLE 30 MG CAPSULE.DR GT SCH (09:45)
--- NOTE | 2021-02-02 10:10 | NUR ---
RN ROUNDS: LINENS CHANGED, NEW GOWN APPLIED, ALL SAFETY PRECAUTIONS IN PLACE, BED LOW AND LOCKED.
[2021-02-02] MEDS ORDERED: HEPARIN SODIUM,PORCINE 5,000 UNITS/ML VIAL MC ONE (12:45)
--- NOTE | 2021-02-02 12:46 | NUR ---
HD: PATIENT RECEIVING HEMODIALYSIS, TOLERATING WELL AT THIS TIME.
--- NOTE | 2021-02-02 14:00 | NUR ---
MD JACKMAN: MD AT BEDSIDE, VERBAL REPORT GIVEN.
--- NOTE | 2021-02-02 16:06 | NUR ---
HD COMPLETE 3 LITERS REMOVED, PATIENT TOLERATED WELL WITH NO ADVERSE REACTION/
--- NOTE | 2021-02-02 17:13 | NUR ---
NUTRITION FOLLOW UP NOTE Admitting Diagnosis: Septic shock Medical History Comment: Pt w/: septic shock, Pneumonia, Urinary infection, dehydration, Acute renal failure, cerebral palsy, acute on chronic hypoxic respiratory failure, seizure disorder per MD notes. PSH: S/P Trach and PEG RD Note (02/02/21): Pt tolerating TF, GRV= 10 mL per pts primary nurse , Pts nurse reported that the pt has no urine output and that HD removing a lot of fluid. According to pts nurse, pt has been receiving FWF 50 mL Q6H due to pt accumulating fluid. Pt weighed at time of visit via bedscale, pt weighed 189.1 lbs. At time of visit, pt was beginning to receive dialysis, dialysis nurse at bedside. Per dialysis nurse, 3 L removed s/p dialysis. Pt will be transferring to [place] per pts primary RN. Current Diet Order/Nutrition Support: Nepro 35 mL/hr, 100 mL Q6H FWF EN infusion: 240 mL per nursing notes Pertinent Medications Colace, VIT C, MVI, Heparin, Keppra, Folic acid, Ferrous sulfate, lansoprazole Pertinent Labs: H/H: 9/22.1 L, BUN/create: 35/258 mL, est. GFR: 21L Skin Integrity Comment: Ronnie scale: 13. sustainability specialist note 01/30: 1. Left Posterior Heel: Scar tissue from a pressure ulcer of prior unknown stage, present on admission. Per nursing notes: L posterior heel scar Edema: Per RN notes, non-pitting edema bilateral generalized GI: Distended ABD, active bowel sounds, Last BM 02/02/21 x 1 Height: 5 ft 6 inch Weight: (02/02): 189.1 lbs, 85.6 kg via bedscale (01/31) 170 lbs, 77.091187 kilograms + 19.1 lbs- most likely fluid changes (pre- dialysis weight, 3 L removed from dialysis today) BMI: (02/02) 30.5 kg/m2 (01/31) 27.44 kg/m2 %IBW: 131 Labelle/Adjusted Body Weight : 130#/ 59kg; Adj IBWL 140#/ 64kg Weight Status: Overweight Estimated Energy Expenditure (kcals/day) 1552 kcal/day (PSU 2003b for vent support) Estimated Protein Required (g/day) 76-83 gm/day (1.2-1.3 Adj IBW for renal disease on HD) Estimated Fluid Required (l/day) 500-1000 mL/day + urine output or per MD (Renal Dz) Problem/Etiology/Signs/Symptoms 1)Altered nutrition related labs r/t renal dysfunction AEB elevated BUN/Creatinine levels, low GFR (modified, ongoing) 2)Increased nutrient needs r/t metabolic demands AEB estimated nutrient needs for sepsis (ongoing) Expected Outcomes/Goals Monitor EN tolerance and intake w/ goal of pt meeting more than 75% of estimated nutritional needs, labs trending WNL, normal GI function, skin integrity/wt maintenance. Dietitian Recommendations Continue Nepro at 35ml/hr (goal rate) FWF per physician via GT, Provides: 1512 kcal, 68gm protein and 610ml free water daily. FWF provides 400 mL daily. Total fluid with FWF: 1010 mL, Meets: 97% of estimated calorie needs and 89% of lower end of estimated protein needs. Follow Up High Risk: F/U in 2-3days KW, SE
--- NOTE | 2021-02-02 18:08 | NUR ---
RN ROUNDS: ALL CARES PROVIDED AND NEEDS MET AT THIS TIME. PATIENT REMAINS STABLE IN NO ACUTE DISTRESS AND OR DISCOMFORT. BED LOW AND LOCKED FOR SAFETY.
--- NOTE | 2021-02-02 19:25 | NUR ---
OPENING NOTE Received SBAR report from off coming RN for continuity of care. Pt laying in bed with eyes open, no s/s of distress noted. Pt on trach and intubated. Tube feeding infusing through G tube. Amador catheter in place, draining to gravity. Seizure precautions in place. Bed locked and in lowest position, safety precautions in place.
[2021-02-03] VITALS (16 sets, daily range): BP systolic 91–132
--- NOTE | 2021-02-03 00:14 | NUR ---
Pt laying in bed with eyes open, no s/s of distress noted. Pt does not follow commands but opens eyes spontaneously. Pt withdraws to painful stimuli. Pt has trach and is intubated. PO care and suctioning provided, pt tolerated well. Tube feeding infusing through G tube, no residuals obtained. Amador catheter in place, draining to gravity. Turned and repositioned, pt tolerated well. Seizure precautions in place. Bed locked and in lowest position, safety precautions in place.
--- NOTE | 2021-02-03 06:00 | NUR ---
Pt transferred to [facility] room 116 via bed accompanied by RN and RT following ACLS. Pt tolerated transfer well, no s/s of distress noted. All belongings sent with pt. Bedside report endorsed to RN, all questions answered.
--- NOTE | 2021-02-03 06:10 | NUR ---
Received pt from ICU Report received from JUAN ANTONIO Lee. Pt eyes open. Mechanical vent dependent. VSS, afebrile. GT feeding Glucerna 1.2. Suction set up done. PICC L. arm dressing C/D/I. Amador catheter draining to gravity clear, yellow drainage. Contact isolation maintained. Seizure precaution in place. Bed low, locked, siderails upx3, alarm on. To endorse to AM nurse.
[2021-02-03 07:14] LABS: CALCIUM 8.5 mg/dL (8.4-11.0); CREATININE 1.75 mg/dL (0.55-1.30); POTASSIUM 3.5 mmol/L (3.5-5.1)
--- NOTE | 2021-02-03 07:33 | NUR ---
Opening note received SBAR from night RN, patient in bed, vent settings as ordered, ny draining by gravity. Respirations even, non labored, bed in low and locked position, call light within reach, bed alarm on
[2021-02-03 08:24] LABS: BASOPHILS % (AUTO) 0.4 % (0.0-2.0); EOSINOPHILS # (AUTO) 0.1 K/uL (0.0-0.4); EOSINOPHILS % (AUTO) 1.3 % (0.0-4.0); LYMPHOCYTES # (AUTO) 1.1 K/uL (1.0-5.5); LYMPHOCYTES % (AUTO) 18.5 % (20.5-51.5); MEAN CORPUSCULAR HEMOGLOBIN 28 pg (27-31); MEAN CORPUSCULAR HGB CONC 34 % (32-36); MEAN CORPUSCULAR VOLUME 83 fL (79.0-98.0); MONOCYTES # (AUTO) 0.8 K/uL (0.0-1.0); NEUTROPHILS # (AUTO) 3.8 K/uL (1.8-7.7); NEUTROPHILS % (AUTO) 65.8 % (40.0-70.0); PLATELET COUNT (AUTO) 64 K/uL (130-430); RED BLOOD CELL COUNT(AUTO) 3.26 MIL/uL (4.2-6.2); RED CELL DISTRIBUTION WIDTH 17.9 % (9.0-15.0); WHITE BLOOD COUNT (AUTO) 5.8 K/uL (4.8-10.8)
[2021-02-03] MEDS: FLUDROCORTISONE ACETATE 0.1 MG TABLET( FLORINEF) GT SCH (08:50)
[2021-02-03] MEDS: LACOSAMIDE 100 MG TABLET GT SCH ×2 (08:50→20:52)
[2021-02-03] MEDS: DOCUSATE SODIUM 100 MG/10 ML UDC GT SCH (08:50)
[2021-02-03] MEDS: MEROPENEM 500 MG in NS 50 ML IV SCH ×2 (08:50→20:51)
[2021-02-03] MEDS: BACLOFEN 10 MG TABLET PO SCH ×3 (08:51→20:51)
[2021-02-03] MEDS: FOLIC ACID 1 MG TABLET GT SCH ×2 (08:51→20:52)
[2021-02-03] MEDS: MULTIVITAMINS TAB 1 TABLET GT SCH (08:51)
[2021-02-03] MEDS: LevETIRAcetam 500 MG/5 ML UDC ORAL LIQUID PO SCH ×2 (08:51→20:51)
[2021-02-03] MEDS: ASCORBIC ACID 500 MG TABLET PO SCH (08:51)
[2021-02-03] MEDS: MUPIROCIN 2% TOPICAL OINTMENT 22 GM TP SCH ×2 (08:52→20:53)
[2021-02-03] MEDS: LANSOPRAZOLE 30 MG CAPSULE.DR GT SCH (10:26)
--- NOTE | 2021-02-03 10:32 | NUR ---
NURSE NOTE ADMINISTERED MEDICATION VIA GTUBE, FLUSHED FREELY
--- NOTE | 2021-02-03 10:48 | NUR ---
scd applied bilateral scd's as ordered
--- NOTE | 2021-02-03 11:36 | NUR ---
NURSE NOTE PROVIDED ORAL CARE, SUCTIONED. NO SIGNS OF DISTRESS NOTED
--- NOTE | 2021-02-03 12:41 | NUR ---
GTUBE 0 RESIDUAL FLUSHED WITH 100ML OF WATER, NO SIGNS OF DISTRESS NOTED
--- NOTE | 2021-02-03 15:36 | NUR ---
NURSE NOTE PROVIDED PATIENT WITH BED BATH, INCONTINENT OF BOWEL, PROVIDED JUAN ALBERTO CARE, CHANGED LINENS, REPOSITIONED PATIENT, PROVIDED ORAL CARE, NO SIGNS OF DISTRESS NOTED
--- NOTE | 2021-02-03 16:18 | NUR ---
WOUND CARE CLEANSED WITH NS, APPLIED FOAM DRESSING. LEFT HEEL IS DRY AND FLAKEY WITH BLANCHABLE REDNESS, RIGHT HEEL BLANCHABLE REDNESS
--- NOTE | 2021-02-03 18:19 | NUR ---
nurse note hung new gtube feeding and tubing. flushed freely with 100ml water, attached feeding, running as ordered. no signs of distress noted
--- NOTE | 2021-02-03 19:08 | NUR ---
Closing note Provided SBAR to night RN, patient in bed, vent settings as ordered. PICC line flushed freely saline locked, IJ dressing clean dry intact. Amador draining by gravity, gtube feeding running as ordered. endorsed care to night RN
--- NOTE | 2021-02-03 22:15 | NUR ---
Patient non verbal Trach to Ventilator minimal vent. alarming noted HOB kept elevated Respirations Remain Regular also unlabored 02 SAT 96 %
--- NOTE | 2021-02-04 | NUR ---
TUBE FEEDING Nephro @ 35 ML hour Tube Residual 10 ML , patent water flush tolerate no s/sx of aspiration HOB kept elevated .
[2021-02-04 00:31] VITALS: BP_SYST 113
--- NOTE | 2021-02-04 05:09 | NUR ---
Trach suction up right position moderste amount of thick white sputum chest movement Remains symmetrical activity tolerated no SOB noted / .
--- NOTE | 2021-02-04 07:41 | NUR ---
OPENING NOTE RECEIVED PATIENT FROM NIGHT NURSE. PATIENT IS ON VENTILATOR, SETTINGS FIO2 30%, TV 450, AC 16, PEEP 5.0. TOLERATING WELL. PICC LINE IN LEFT UPPER ARM IS PATENT, SALINE LOCKED. G-TUBE FEEDINGS RUNNING AT 35 ML/HR. TOLERATING WELL. DUENAS CATHETER ATTACHED, DRAINING BY GRAVITY. BED LOCKED AND IN LOWEST POSITION. CALL LIGHT WITHIN REACH. BED ALARM ON. SAFETY, ASPIRATION, SEIZURE PRECAUTIONS IN PLACE. WILL CONTINUE TO MONITOR.
[2021-02-04 08:00] VITALS: BP_SYST 129
[2021-02-04] MEDS: BACLOFEN 10 MG TABLET PO SCH ×3 (08:54→21:52)
[2021-02-04] MEDS: ASCORBIC ACID 500 MG TABLET PO SCH (08:54)
[2021-02-04] MEDS: LACOSAMIDE 100 MG TABLET GT SCH ×2 (08:54→21:58)
[2021-02-04] MEDS: MULTIVITAMINS TAB 1 TABLET GT SCH (08:54)
[2021-02-04] MEDS: FOLIC ACID 1 MG TABLET GT SCH ×2 (08:54→21:52)
[2021-02-04] MEDS: DOCUSATE SODIUM 100 MG/10 ML UDC GT SCH (08:54)
[2021-02-04] MEDS: FLUDROCORTISONE ACETATE 0.1 MG TABLET( FLORINEF) GT SCH (08:54)
[2021-02-04] MEDS: MEROPENEM 500 MG in NS 50 ML IV SCH ×2 (08:55→21:52)
[2021-02-04] MEDS: LevETIRAcetam 500 MG/5 ML UDC ORAL LIQUID PO SCH ×2 (08:55→21:53)
[2021-02-04] MEDS: MUPIROCIN 2% TOPICAL OINTMENT 22 GM TP SCH (08:56)
[2021-02-04 09:00] VITALS: BP_SYST 113
[2021-02-04 09:11] LABS: BASOPHILS % (AUTO) 0.6 % (0.0-2.0); EOSINOPHILS # (AUTO) 0.1 K/uL (0.0-0.4); EOSINOPHILS % (AUTO) 1.5 % (0.0-4.0); HEMATOCRIT 26.8 % (36-48); HEMOGLOBIN 8.9 g/dL (12.0-16.0); LYMPHOCYTES # (AUTO) 1.1 K/uL (1.0-5.5); LYMPHOCYTES % (AUTO) 18.8 % (20.5-51.5); MEAN CORPUSCULAR HEMOGLOBIN 27 pg (27-31); MEAN CORPUSCULAR HGB CONC 33 % (32-36); MEAN CORPUSCULAR VOLUME 83 fL (79.0-98.0); MONOCYTES # (AUTO) 0.7 K/uL (0.0-1.0); MONOCYTES % (AUTO) 11.1 % (1.7-9.3); NEUTROPHILS # (AUTO) 4.1 K/uL (1.8-7.7); PLATELET COUNT (AUTO) 102 K/uL (130-430); RED BLOOD CELL COUNT(AUTO) 3.24 MIL/uL (4.2-6.2); RED CELL DISTRIBUTION WIDTH 17.3 % (9.0-15.0)
[2021-02-04 09:22] LABS: CALCIUM 9.9 mg/dL (8.4-11.0); CREATININE 1.2 mg/dL (0.55-1.30); POTASSIUM 3.2 mmol/L (3.5-5.1)
[2021-02-04] MEDS: LANSOPRAZOLE 30 MG CAPSULE.DR GT SCH (09:41)
[2021-02-04] MEDS ORDERED: LANSOPRAZOLE 30 MG CAPSULE.DR ONE (09:44)
[2021-02-04 12:08] VITALS: BP_SYST 146
[2021-02-04] MEDS ORDERED: POTASSIUM CHLORIDE 20 MEQ/PKT PACKET GT ONE (12:30)
[2021-02-04 16:05] VITALS: BP_SYST 137
--- NOTE | 2021-02-04 18:30 | NUR ---
CLOSING NOTE PATIENT IS RESTING IN BED, EYES CLOSED. PATIENT IS ON VENTILATOR, SETTINGS FIO2 30%, TV 450, AC 16, PEEP 5.0. TOLERATING WELL. PICC LINE IN LEFT UPPER ARM IS PATENT, SALINE LOCKED. G-TUBE FEEDINGS RUNNING AT 35 ML/HR. TOLERATING WELL. DUENAS CATHETER ATTACHED, DRAINING BY GRAVITY. BED LOCKED AND IN LOWEST POSITION. CALL LIGHT WITHIN REACH. BED ALARM ON. SAFETY, ASPIRATION, SEIZURE PRECAUTIONS REMAIN IN PLACE. ALL NEEDS MET THROUGHOUT SHIFT. WILL ENDORSE TO NIGHT NURSE.
--- NOTE | 2021-02-04 19:30 | NUR ---
OPENING NOTE RECEIVED PATIENT FROM DAY SHIFT RN. PATIENT IS ON VENTILATOR, SETTINGS FIO2 30%, TV 450, AC 16, PEEP 5.0. TOLERATING WELL. NO SIGNS OF RESPIRATORY DISTRESS NOTED. PICC LINE IN LEFT UPPER ARM IS PATENT, SALINE LOCKED. G-TUBE FEEDINGS RUNNING AT 35 ML/HR. TOLERATING WELL. DUENAS CATHETER ATTACHED, DRAINING BY GRAVITY. BED LOCKED AND IN LOWEST POSITION. CALL LIGHT WITHIN REACH. BED ALARM ON. SAFETY, ASPIRATION, SEIZURE PRECAUTIONS IN PLACE. WILL CONTINUE TO MONITOR.
[2021-02-04 20:00] VITALS: BP_SYST 135
[2021-02-05] VITALS (7 sets, daily range): BP systolic 118–142
--- NOTE | 2021-02-05 06:51 | NUR ---
CLOSING NOTE PATIENT REMAINS ON VENTILATOR SETTINGS FIO2 30%, TV 450, AC 16, PEEP 5.0. TOLERATING WELL. NO SIGNS OF RESPIRATORY DISTRESS NOTED. PICC LINE IN LEFT UPPER ARM IS PATENT, SALINE LOCKED. G-TUBE FEEDINGS RUNNING AT 35 ML/HR. TOLERATING WELL. DUENAS CATHETER ATTACHED, DRAINING BY GRAVITY. BED LOCKED AND IN LOWEST POSITION. CALL LIGHT WITHIN REACH. BED ALARM ON. SAFETY, ASPIRATION, SEIZURE PRECAUTIONS IN PLACE. WILL CONTINUE TO MONITOR UNTIL ENDORSE TO DAY SHIFT RN. Addendum: 02/05/21 at 0654 by Bg Natarajan RN DISCARD
--- NOTE | 2021-02-05 06:54 | NUR ---
CLOSING NOTE PATIENT REMAINS ON VENTILATOR SETTINGS FIO2 30%, TV 450, AC 16, PEEP 5.0. TOLERATING WELL. NO SIGNS OF RESPIRATORY DISTRESS NOTED. PICC LINE IN LEFT UPPER ARM IS PATENT, SALINE LOCKED. G-TUBE FEEDINGS RUNNING AT 35 ML/HR. TOLERATING WELL. DUENAS CATHETER ATTACHED, DRAINING BY GRAVITY. BED LOCKED AND IN LOWEST POSITION. CALL LIGHT WITHIN REACH. BED ALARM ON. SAFETY, ASPIRATION, SEIZURE PRECAUTIONS IN PLACE. ALL NEEDS ARE MET THROUGHOUT SHIFT. WILL CONTINUE TO MONITOR UNTIL ENDORSE TO DAY SHIFT RN.
[2021-02-05 07:30] LABS: BASOPHILS # (AUTO) 0.1 K/uL (0.0-0.2); BASOPHILS % (AUTO) 0.7 % (0.0-2.0); EOSINOPHILS # (AUTO) 0.1 K/uL (0.0-0.4); EOSINOPHILS % (AUTO) 0.8 % (0.0-4.0); HEMATOCRIT 25.1 % (36-48); HEMOGLOBIN 8.4 g/dL (12.0-16.0); LYMPHOCYTES # (AUTO) 1.3 K/uL (1.0-5.5); LYMPHOCYTES % (AUTO) 16.8 % (20.5-51.5); MEAN CORPUSCULAR HEMOGLOBIN 28 pg (27-31); MEAN CORPUSCULAR HGB CONC 34 % (32-36); MEAN CORPUSCULAR VOLUME 83 fL (79.0-98.0); MONOCYTES # (AUTO) 0.6 K/uL (0.0-1.0); MONOCYTES % (AUTO) 7.3 % (1.7-9.3); NEUTROPHILS # (AUTO) 5.8 K/uL (1.8-7.7); NEUTROPHILS % (AUTO) 74.4 % (40.0-70.0); PLATELET COUNT (AUTO) 124 K/uL (130-430); RED BLOOD CELL COUNT(AUTO) 3.02 MIL/uL (4.2-6.2); RED CELL DISTRIBUTION WIDTH 17.6 % (9.0-15.0); WHITE BLOOD COUNT (AUTO) 7.8 K/uL (4.8-10.8)
--- NOTE | 2021-02-05 07:30 | NUR ---
OPENING NOTES: RECEIVED PATIENT FROM NIGHT NURSE. PATIENT IS ON VENTILATOR, SETTINGS FIO2 30%, TV 450, AC 16, PEEP 5.0. TOLERATING WELL. PICC LINE IN LEFT UPPER ARM IS PATENT, SALINE LOCKED. G-TUBE FEEDINGS RUNNING AT 35 ML/HR. TOLERATING WELL. DUENAS CATHETER ATTACHED, DRAINING BY GRAVITY. BED LOCKED AND IN LOWEST POSITION. SAFETY, ASPIRATION, SEIZURE PRECAUTIONS ARE IN PLACE. BED LOCKED IN LOWEST POSITION AND CALL LIGHT IN REACH. WILL CONTINUE TO MONITOR PATIENT FOR ANY CHANGES.
[2021-02-05 07:48] LABS: CALCIUM 9.4 mg/dL (8.4-11.0); CREATININE 1.26 mg/dL (0.55-1.30); POTASSIUM 3.6 mmol/L (3.5-5.1)
[2021-02-05] MEDS: MEROPENEM 500 MG in NS 50 ML IV SCH ×2 (10:03→21:12)
[2021-02-05] MEDS: BACLOFEN 10 MG TABLET PO SCH ×3 (10:04→21:12)
[2021-02-05] MEDS: LevETIRAcetam 500 MG/5 ML UDC ORAL LIQUID PO SCH ×2 (10:04→21:13)
[2021-02-05] MEDS: FLUDROCORTISONE ACETATE 0.1 MG TABLET( FLORINEF) GT SCH (10:04)
[2021-02-05] MEDS: DOCUSATE SODIUM 100 MG/10 ML UDC GT SCH (10:04)
[2021-02-05] MEDS: ASCORBIC ACID 500 MG TABLET PO SCH (10:05)
[2021-02-05] MEDS: MULTIVITAMINS TAB 1 TABLET GT SCH (10:05)
[2021-02-05] MEDS: FOLIC ACID 1 MG TABLET GT SCH ×2 (10:05→21:12)
[2021-02-05] MEDS: LACOSAMIDE 100 MG TABLET GT SCH ×2 (10:21→21:12)
[2021-02-05] MEDS: LANSOPRAZOLE 30 MG CAPSULE.DR GT SCH (10:21)
--- NOTE | 2021-02-05 18:30 | NUR ---
CLOSING NOTES: PATIENT IS ON VENTILATOR, SETTINGS FIO2 30%, TV 450, AC 16, PEEP 5.0. TOLERATING WELL. PICC LINE IN LEFT UPPER ARM IS PATENT, SALINE LOCKED. G-TUBE FEEDINGS RUNNING AT 35 ML/HR. TOLERATING WELL. DUENAS CATHETER ATTACHED, DRAINING BY GRAVITY. SAFETY, ASPIRATION, SEIZURE PRECAUTIONS REMAINED IN PLACE. BED LOCKED IN LOWEST POSITION AND CALL LIGHT IN REACH. WILL ENDORSE PATIENT CARE TO ONCOMING HAND WASHER NURSE.
--- NOTE | 2021-02-05 19:15 | NUR ---
OPENING NOTES Patient resting in bed - no s/s pain or distress noted. Respirations even and unlabored - head of bed elevated ventilator support. IV site patent - no s/s redness, infection, or infiltration. Amador catheter secure and draining by gravity. Bed locked and in lowest position. Call light within reach - bed alarm on.
[2021-02-06] VITALS: BP_SYST 129
[2021-02-06 08:00] VITALS: BP_SYST 145
[2021-02-06] MEDS: FOLIC ACID 1 MG TABLET GT SCH (09:22)
[2021-02-06] MEDS: LANSOPRAZOLE 30 MG CAPSULE.DR GT SCH (09:22)
[2021-02-06] MEDS: DOCUSATE SODIUM 100 MG/10 ML UDC GT SCH (09:22)
[2021-02-06] MEDS: FLUDROCORTISONE ACETATE 0.1 MG TABLET( FLORINEF) GT SCH (09:22)
[2021-02-06] MEDS: MULTIVITAMINS TAB 1 TABLET GT SCH (09:22)
[2021-02-06] MEDS: ASCORBIC ACID 500 MG TABLET PO SCH (09:22)
[2021-02-06] MEDS: LACOSAMIDE 100 MG TABLET GT SCH (09:22)
[2021-02-06] MEDS: BACLOFEN 10 MG TABLET PO SCH ×2 (09:23→14:08)
[2021-02-06] MEDS: LevETIRAcetam 500 MG/5 ML UDC ORAL LIQUID PO SCH (09:24)
[2021-02-06] MEDS: MEROPENEM 500 MG in NS 50 ML IV SCH (09:26)
[2021-02-06 12:28] VITALS: BP_SYST 117
--- NOTE | 2021-02-06 13:47 | NUR ---
Nutrition F/U Admitting Diagnosis: Septic shock Medical History Comment: Pt w/: septic shock, Pneumonia, Urinary infection, dehydration, Acute renal failure, cerebral palsy, acute on chronic hypoxic respiratory failure, seizure disorder per MD notes. PSH: S/P Trach and PEG Subjective Information: Follow up done. Pt seen, EN infusing as ordered. Per EMR review, abdomen is soft and nondistended w/ active bowel sounds, last B< 02/04 x3, EN rate: 35ml (02/05), GRV: 0ml (02/05). Pt has been tolerating EN well, no issues per RN notes. Ronnie scale: 16. marketing technology specialist note 01/30, no pressure injury, 2+ pitting bilateral generalized edema. Current EN regimen remains adequate and appropriate. Current Diet Order/Nutrition Support: Nepro 35 mL/hr, FW 100 mL Q6H via GT Pertinent Medications Colace, VIT C, MVI, Heparin, Keppra, Folic acid Pertinent Labs: 02/05 Na 149H, K 3.6WNL, BG 126H, BUN 37H, Cre 1.26WNL. Height: 5 ft 6 inch Weight: (02/02): 189.1 lbs, 85.6 kg via bedscale (01/31) 170 lbs, 77.682609 kilograms; (02/05) 200#/ 90.8kg --30# weight gain, possibly d/t fluid shifts in renal disease. BMI: (02/02) 30.5 kg/m2 (01/31) 27.44 kg/m2; (02/05) 30.4 kg/m2. [place]/Adjusted Body Weight : 130#/ 59kg; Adj IBWL 140#/ 64kg Weight Status: Overweight NEW Estimated Energy Expenditure (kcals/day) 6517-9050 kcal/day (30-35 kcal/kg IBW for sepsis) NEW Estimated Protein Required (g/day) 71-77 gm/day (1.2-1.3 IBW for renal disease on HD) NEW Estimated Fluid Required (l/day) per MD (Renal Dz) Problem/Etiology/Signs/Symptoms Altered nutrition related labs r/t renal dysfunction AEB elevated BUN levels, low GFR (modified, ongoing) Increased nutrient needs r/t metabolic demands AEB estimated nutrient needs for sepsis (ongoing) Expected Outcomes/Goals Monitor EN tolerance and intake w/ goal of pt meeting more than 75% of estimated nutritional needs, labs trending WNL, normal GI function, skin integrity/wt maintenance. Dietitian Recommendations *Continue Nepro at 35ml/hr (goal rate) FWF per physician via GT Provides: 1512 kcal, 68gm protein and 611ml free water daily. Meets: 85% of lower end of estimated calorie needs and 89% of lower end of estimated protein needs. Follow Up High Risk: F/U in 2-3days
--- NOTE | 2021-02-06 13:55 | NUR ---
Dietitian Recommendations *Continue Nepro at 35ml/hr (goal rate) FWF per physician via GT Provides: 1512 kcal, 68gm protein and 611ml free water daily. Meets: 85% of lower end of estimated calorie needs and 89% of lower end of estimated protein needs. Please see Nutrition F/U note for details. RC, RD
--- NOTE | 2021-02-06 14:33 | NUR ---
CM note: Faxed dc order and referral package attn to [facility]. The pt is accepting back to room 43. Tata/mother made aware and agreed with the transfer back today. >> Booked with Will, dispatcher, Medic 1 for CCT transfer, picking machine operator helper time between 5:30 to 6 pm. -- JUAN ANTONIO Balderas aware, dc package placed in MST. Disposition : 03/sub acute.
[2021-02-06 15:37] VITALS: BP_SYST 117
--- NOTE | 2021-02-06 15:45 | NUR ---
CALLED SHIRLEY ATKINS AND SPOKE TO ADELA (JUAN ANTONIO) AND GAVE REPORT. FAMILY AWARE ABOUT THE TRANSFER.
--- NOTE | 2021-02-06 16:30 | NUR ---
SPOKE TO DR. HEIN AND GAVE ORDER TO D/C DUENAS CATHETER AND RIGHT IJ ORTEAG CATHETER.
[2021-02-06 16:40] VITALS: BP_SYST 131
--- NOTE | 2021-02-06 17:00 | NUR ---
RIGHT IJ ORTEGA CATHETER REMOVED WITH NO ACTIVE BLEEDING NOTED.
--- NOTE | 2021-02-06 18:46 | NUR ---
D/C Patient Patient relative given medication reconciliation form and D/C instructions. Exit Care provided. Patient relative verbalized understanding. discussed with patient relative the results and treatment provided. discharge Agustín Sime[facility]. Patient in stable condition, ID band removed. IV catheter removed, intact and dressing applied, no active bleeding. Patient educated on pain management. All belongings sent with patient.
== END 2021-02-06 18:46 | DRG 870 ==
LOC: SED 00:55 → SIC 05:10 → STU 02-03 06:00
PROVIDERS: ADMIT Family Medicine; ATTEND Family Medicine
PROC: 5A1955Z Respiratory Ventilation, Greater than 96 Consecutive Hours (ICD-10-PCS; principal; 2021-01-29)
PROC: 02HV33Z Insertion of Infusion Device into Superior Vena Cava, Percutaneous Approach (ICD-10-PCS; 2021-01-31)
PROC: B548ZZA Ultrasonography of Superior Vena Cava, Guidance (ICD-10-PCS; 2021-01-31)
PROC: 5A1D70Z Performance of Urinary Filtration, Intermittent, Less than 6 Hours Per Day (ICD-10-PCS; 2021-01-31)
PROC: 5A1D70Z Performance of Urinary Filtration, Intermittent, Less than 6 Hours Per Day (ICD-10-PCS; 2021-02-01)
PROC: 5A1D70Z Performance of Urinary Filtration, Intermittent, Less than 6 Hours Per Day (ICD-10-PCS; 2021-02-02)
DX: A41.50 Gram-negative sepsis, unspecified (principal); R65.21 Severe sepsis with septic shock; J18.9 Pneumonia, unspecified organism; J96.21 Acute and chronic respiratory failure with hypoxia; N17.9 Acute kidney failure, unspecified; Z99.11 Dependence on respirator [ventilator] status; N10 Acute pyelonephritis; E27.40 Unspecified adrenocortical insufficiency; G93.40 Encephalopathy, unspecified; I10 Essential (primary) hypertension; G40.909 Epilepsy, unspecified, not intractable, without status epilepticus; E86.0 Dehydration; G80.9 Cerebral palsy, unspecified; D69.6 Thrombocytopenia, unspecified; Z20.822 Contact with and (suspected) exposure to COVID-19; Z88.1 Allergy status to other antibiotic agents; Z88.8 Allergy status to other drugs, medicaments and biological substances; Z79.899 Other long term (current) drug therapy; Z93.0 Tracheostomy status
CPT/HCPCS: 36415; 36600; 71045; 74018; 76770; 80048; 80053; 80170; 81000; 82803-TC; 83605; 85007; 85025; 85027; 85384; 85610-TC; 85730-TC; 86710; 87040-TC; 87070-TC; 87081; 87086; 87205-TC; 94002; 94003; 94640; 94760; 96361; 96365; 96367; 99291; G0378; J0692; J0696; J1580; J1644; J2185; J3370; J3490; J7050; J7060

== ENCOUNTER 2022-02-16 12:07 | Inpatient (IN) | payer OTHER, MEDICAID ==
[~2022-02-16] VITALS: Ht 170.2 cm; Wt 88.9 kg
[~2022-02-16 12:07] MED LIST changes: +ALBMDI INH; +ALBU2.5V7 INH; +ASCO500T20 PO; +BACL10TA PO; -BALS750C6 PO; -BISA-79 RC; +CARB30DR OP; +CLON-433 GT; -DOCU-144 PO; +DOCU50CA13 GT; -FER300L GT; +FERR15DR25 PEG; +FERR220S6 GT; -FLEETMO RC; -FOLI-43 GT; +FOLI0.8C GT; -GENT3.5O7 GT; +GLYC2TAB21 GT; +IPRA0.2S6 INH; +LACO10SO3 PO; +LANS30CA56 GT; -LEVE1000 PO; +LEVE100S PEG; -LORA-259 GT; +LORA2DIS4 IM/IV; +LORA2TAB95 PEG; -METO200T3 GT; -MOM PO; +OMEP40CA PEG; -SENN8.6T19 GT; +TYLL650 PEG; +VALP500S4 GT; +[UNRECOGNIZED DRUG - OTHER] PEG
[2022-02-16 12:56] VITALS: BP_SYST 112
[2022-02-16] MEDS ORDERED: LIDOCAINE JECT 2% PF 100 MG/5ML SYRINGE ONE (12:59)
[2022-02-16] MEDS ORDERED: PIPERACILLIN/TAZO 3.38 GM in D5W 50 ML IV ONE (14:15)
[2022-02-16] MEDS ORDERED: VANCOMYCIN HCL 1,000 MG in D5W 250 ML IV ONE (14:15)
[2022-02-16] MEDS ORDERED: ACETAMINOPHEN 650 MG SUPP.RECT RC ONE (14:15)
[2022-02-16] MEDS ORDERED: NS 1000 ML IV.SOLN IV ONE (14:15)
[2022-02-16 14:31] LABS: BILIRUBIN,URINE NEGATIVE (NEGATIVE); BLOOD, URINE 1+ (NEGATIVE); COLOR,URINE YELLOW (YELLOW); GLUCOSE,URINE NEGATIVE (NEGATIVE); KETONES,URINE NEGATIVE (NEGATIVE); LEUKOCYTE ESTERASE ,URINE 3+ (NEGATIVE); NITRITE, URINE POSITIVE (NEGATIVE); PH,URINE 7.5 (5.0-8.0); PROTEIN URINE TRACE (NEGATIVE); UROBILINOGEN,URINE 0.2 (0.2-1.0)
[2022-02-16 14:33] LABS: CLARITY/URINE HAZY (CLEAR)
[2022-02-16 14:39] LABS: BASOPHILS % (AUTO) 0.3 % (0.0-2.0); EOSINOPHILS % (AUTO) 0.7 % (0.0-4.0); HEMATOCRIT 30.9 % (36-48); HEMOGLOBIN 10.6 g/dL (12.0-16.0); LYMPHOCYTES # (AUTO) 1.2 K/uL (1.0-5.5); LYMPHOCYTES % (AUTO) 31.7 % (20.5-51.5); MEAN CORPUSCULAR HEMOGLOBIN 35 pg (27-31); MEAN CORPUSCULAR HGB CONC 34 % (32-36); MEAN CORPUSCULAR VOLUME 101 fL (79.0-98.0); MONOCYTES # (AUTO) 0.4 K/uL (0.0-1.0); NEUTROPHILS # (AUTO) 2.1 K/uL (1.8-7.7); NEUTROPHILS % (AUTO) 57.3 % (40.0-70.0); PLATELET COUNT (AUTO) 81 K/uL (130-430); RED BLOOD CELL COUNT(AUTO) 3.08 MIL/uL (4.2-6.2); RED CELL DISTRIBUTION WIDTH 16.8 % (9.0-15.0); WHITE BLOOD COUNT (AUTO) 3.7 K/uL (4.8-10.8)
[2022-02-16 14:46] LABS: ANION GAP 8 (5-15); CALCIUM 8.5 mg/dL (8.4-11.0); CHLORIDE 105 mmol/L (98-107); CREATININE 0.97 mg/dL (0.55-1.30); GLUCOSE 91 mg/dL (70-99); POTASSIUM 4.1 mmol/L (3.5-5.1); SODIUM SERUM 141 mmol/L (136-145); UREA NITROGEN, BLOOD 33 mg/dL (8-21)
[2022-02-16 14:48] LABS: GFR AFRICAN AMERICAN 77 mL/min (>90)
[2022-02-16 14:49] LABS: PROTHROMBIN TIME 10.6 SECS (9.5-12.5)
[2022-02-16 14:51] LABS: BACTERIA,URINE MODERATE /HPF (None Seen); WBC,URINE 20-50 /HPF (0-3)
[2022-02-16 14:52] LABS: MUCUS,URINE 1+ /LPF (None Seen)
[2022-02-16] MEDS ORDERED: PIPERACILLIN/TAZOBACTAM 3.375 GM/VIAL (ZOSYN) IV ONE ×2 (14:58→23:36)
[2022-02-16 15:00] LABS: ALANINE AMINOTRANSFERASE 39 U/L (12-78); ALBUMIN 2.7 g/dL (3.4-4.8); ASPARTATE AMINOTRANSFERASE 37 U/L (10-37); TOTAL BILIRUBIN 0.5 mg/dL (0.0-1.0)
[2022-02-16] MEDS ORDERED: VANCOMYCIN HCL 1000 MG/VIAL IV ONE (15:00)
[2022-02-16] MEDS ORDERED: D5LR 500 ML IV ONE (16:00)
[2022-02-16] MEDS ORDERED: ACETAMINOPHEN 650 MG/20.3 ML UDC GT PRN (16:30)
[2022-02-16 16:46] VITALS: BP_SYST 99
[2022-02-16 17:15] LABS: THYROID STIMULATING HORMONE 6.25 uIu/mL (0.36-3.74)
[2022-02-16 17:21] VITALS: BP_SYST 112
[2022-02-16] MEDS: IPRATROPIUM BROM 0.5 MG/2.5 ML VIAL.NEB (ATROVENT) INH SCH ×2 (17:21→23:40)
[2022-02-16 19:30] VITALS: BP_SYST 108
[2022-02-16] MEDS ORDERED: LACOSAMIDE PO SCH (21:00)
[2022-02-16] MEDS: LevETIRAcetam 500 MG/5 ML UDC ORAL LIQUID GT SCH (21:00)
[2022-02-16] MEDS: HYDROCORTISONE 2.5%, 30 GM TOPICAL CREAM TP SCH (21:00)
[2022-02-16] MEDS ORDERED: CLOBAZAM 10 MG PO SCH (21:00)
[2022-02-16] MEDS: PEG 400/HYPROMELLOSE/GLYCERIN 15 ML DROPS BOTH EYES SCH (22:00)
[2022-02-16] MEDS ORDERED: levETIRAcetam 500 MG TABLET PO ONE (22:45)
[2022-02-16] MEDS: DOCUSATE SODIUM 100 MG/10 ML UDC GT SCH (23:33)
[2022-02-16] MEDS: BACLOFEN 10 MG TABLET GT SCH (23:33)
[2022-02-16] MEDS: GLYCOPYRROLATE 1 MG TABLET GT SCH (23:33)
[2022-02-16] MEDS: VALPROIC ACID ORAL SYRUP 250 MG/5 ML UDC GT SCH (23:33)
[2022-02-17] VITALS (7 sets, daily range): BP systolic 99–136
[2022-02-17] MEDS ORDERED: PIPERACILLIN/TAZO 3.375 GM in NS 50 ML IV SCH ×2
[2022-02-17] MEDS: PIPERACILLIN/TAZO 3.375 GM in NS 50 ML IV SCH ×4 (00:56→18:41)
[2022-02-17] MEDS: PEG 400/HYPROMELLOSE/GLYCERIN 15 ML DROPS BOTH EYES SCH ×3 (06:00→22:00)
[2022-02-17 07:41] LABS: BILIRUBIN,URINE NEGATIVE (NEGATIVE); BLOOD, URINE 3+ (NEGATIVE); CLARITY/URINE SL CLOUDY (CLEAR); COLOR,URINE YELLOW (YELLOW); GLUCOSE,URINE NEGATIVE (NEGATIVE); KETONES,URINE NEGATIVE (NEGATIVE); LEUKOCYTE ESTERASE ,URINE 3+ (NEGATIVE); NITRITE, URINE POSITIVE (NEGATIVE); PH,URINE 6.5 (5.0-8.0); PROTEIN URINE 2+ (NEGATIVE); UROBILINOGEN,URINE 0.2 (0.2-1.0)
[2022-02-17 07:59] LABS: BASOPHILS % (AUTO) 0.2 % (0.0-2.0); EOSINOPHILS % (AUTO) 0.8 % (0.0-4.0); HEMOGLOBIN 10.9 g/dL (12.0-16.0); LYMPHOCYTES # (AUTO) 0.3 K/uL (1.0-5.5); MEAN CORPUSCULAR HEMOGLOBIN 35 pg (27-31); MEAN CORPUSCULAR HGB CONC 34 % (32-36); MEAN CORPUSCULAR VOLUME 102 fL (79.0-98.0); MONOCYTES # (AUTO) 0.3 K/uL (0.0-1.0); MONOCYTES % (AUTO) 10.7 % (1.7-9.3); NEUTROPHILS % (AUTO) 77.3 % (40.0-70.0); PLATELET COUNT (AUTO) 70 K/uL (130-430); RED BLOOD CELL COUNT(AUTO) 3.15 MIL/uL (4.2-6.2); RED CELL DISTRIBUTION WIDTH 16.6 % (9.0-15.0); WHITE BLOOD COUNT (AUTO) 2.6 K/uL (4.8-10.8)
[2022-02-17 08:48] LABS: ALBUMIN 2.7 g/dL (3.4-4.8); CALCIUM 8.5 mg/dL (8.4-11.0); CREATININE 1.12 mg/dL (0.55-1.30); POTASSIUM 3.5 mmol/L (3.5-5.1); TOTAL BILIRUBIN 0.6 mg/dL (0.0-1.0)
[2022-02-17 08:55] LABS: RBC,URINE 20-50 /HPF (0-3)
[2022-02-17 08:56] LABS: BACTERIA,URINE FEW /HPF (None Seen); WBC,URINE 50-80 /HPF (0-3)
[2022-02-17] MEDS: DOCUSATE SODIUM 100 MG/10 ML UDC GT SCH ×2 (10:17→20:28)
[2022-02-17] MEDS: FERROUS SULFATE 300 MG/5 ML UDC PO SCH (10:17)
[2022-02-17] MEDS: ASCORBIC ACID 500 MG TABLET GT SCH (10:18)
[2022-02-17] MEDS: FOLIC ACID 1 MG TABLET GT SCH (10:18)
[2022-02-17] MEDS: LANSOPRAZOLE 30 MG CAPSULE.DR GT SCH (10:18)
[2022-02-17] MEDS: LORATADINE 10 MG TABLET GT SCH (10:18)
[2022-02-17] MEDS: MULTIVITAMINS TAB 1 TABLET GT SCH (10:18)
[2022-02-17] MEDS: BACLOFEN 10 MG TABLET GT SCH ×3 (10:18→20:29)
[2022-02-17] MEDS: GLYCOPYRROLATE 1 MG TABLET GT SCH ×3 (10:18→20:28)
[2022-02-17] MEDS: IPRATROPIUM BROM 0.5 MG/2.5 ML VIAL.NEB (ATROVENT) INH SCH ×3 (10:34→20:34)
[2022-02-17] MEDS: LevETIRAcetam 500 MG/5 ML UDC ORAL LIQUID GT SCH ×2 (11:15→20:29)
[2022-02-17] MEDS: HYDROCORTISONE 2.5%, 30 GM TOPICAL CREAM TP SCH ×3 (11:15→20:30)
[2022-02-17] MEDS: VALPROIC ACID ORAL SYRUP 250 MG/5 ML UDC GT SCH ×3 (11:16→20:29)
[2022-02-17] MEDS: FLUDROCORTISONE ACETATE 0.1 MG TABLET( FLORINEF) GT SCH (15:57)
[2022-02-17] MEDS ORDERED: VANCOMYCIN HCL 1.25 GM/NS 250 ML IV ONE (18:00)
[2022-02-17] MEDS: THEOPHYLLINE ANHYDROUS 300 MG TAB.SR.12H PO SCH (20:28)
[2022-02-18] VITALS: BP_SYST 149
[2022-02-18 01:30] VITALS: BP_SYST 149
[2022-02-18] MEDS: PIPERACILLIN/TAZO 3.375 GM in NS 50 ML IV SCH ×5 (05:49→17:01)
[2022-02-18] MEDS: PEG 400/HYPROMELLOSE/GLYCERIN 15 ML DROPS BOTH EYES SCH ×3 (05:50→21:59)
[2022-02-18] MEDS: LEVOTHYROXINE SODIUM 0.025 MG TABLET PO SCH (05:50)
[2022-02-18 07:30] LABS: BASOPHILS % (AUTO) 0.2 % (0.0-2.0); EOSINOPHILS % (AUTO) 0.9 % (0.0-4.0); HEMATOCRIT 30.1 % (36-48); HEMOGLOBIN 10.3 g/dL (12.0-16.0); LYMPHOCYTES # (AUTO) 0.5 K/uL (1.0-5.5); LYMPHOCYTES % (AUTO) 9.1 % (20.5-51.5); MEAN CORPUSCULAR HEMOGLOBIN 35 pg (27-31); MEAN CORPUSCULAR HGB CONC 34 % (32-36); MEAN CORPUSCULAR VOLUME 101 fL (79.0-98.0); MONOCYTES # (AUTO) 0.5 K/uL (0.0-1.0); NEUTROPHILS # (AUTO) 4.3 K/uL (1.8-7.7); NEUTROPHILS % (AUTO) 80.8 % (40.0-70.0); PLATELET COUNT (AUTO) 70 K/uL (130-430); RED BLOOD CELL COUNT(AUTO) 2.98 MIL/uL (4.2-6.2); RED CELL DISTRIBUTION WIDTH 16.7 % (9.0-15.0); WHITE BLOOD COUNT (AUTO) 5.4 K/uL (4.8-10.8)
[2022-02-18] MEDS: IPRATROPIUM BROM 0.5 MG/2.5 ML VIAL.NEB (ATROVENT) INH SCH ×4 (07:35→19:42)
[2022-02-18 08:00] VITALS: BP_SYST 122
[2022-02-18 08:06] LABS: FOLATE (FOLIC ACID) >20.0 ng/mL (>3.0)
[2022-02-18 08:10] LABS: CALCIUM 8.2 mg/dL (8.4-11.0); CREATININE 0.93 mg/dL (0.55-1.30); POTASSIUM 3.2 mmol/L (3.5-5.1)
[2022-02-18] MEDS: FLUDROCORTISONE ACETATE 0.1 MG TABLET( FLORINEF) GT SCH (09:00)
[2022-02-18] MEDS: THEOPHYLLINE ANHYDROUS 300 MG TAB.SR.12H PO SCH ×2 (09:00→22:06)
[2022-02-18] MEDS: LORATADINE 10 MG TABLET GT SCH (09:00)
[2022-02-18] MEDS: BACLOFEN 10 MG TABLET GT SCH ×3 (09:00→21:58)
[2022-02-18] MEDS: FERROUS SULFATE 300 MG/5 ML UDC PO SCH (09:00)
[2022-02-18] MEDS: DOCUSATE SODIUM 100 MG/10 ML UDC GT SCH ×2 (09:00→21:58)
[2022-02-18] MEDS: GLYCOPYRROLATE 1 MG TABLET GT SCH ×3 (09:00→22:06)
[2022-02-18] MEDS: FOLIC ACID 1 MG TABLET GT SCH (09:00)
[2022-02-18] MEDS: VALPROIC ACID ORAL SYRUP 250 MG/5 ML UDC GT SCH ×3 (09:00→21:00)
[2022-02-18] MEDS: LevETIRAcetam 500 MG/5 ML UDC ORAL LIQUID GT SCH ×2 (09:00→21:58)
[2022-02-18] MEDS: ASCORBIC ACID 500 MG TABLET GT SCH (09:00)
[2022-02-18] MEDS: MULTIVITAMINS TAB 1 TABLET GT SCH (09:10)
[2022-02-18] MEDS ORDERED: POTASSIUM CHLORIDE 20 MEQ/PKT PACKET GT ONE (09:45)
[2022-02-18] MEDS: LANSOPRAZOLE 30 MG CAPSULE.DR GT SCH (10:42)
[2022-02-18] MEDS: HYDROCORTISONE 2.5%, 30 GM TOPICAL CREAM TP SCH ×3 (10:42→22:02)
[2022-02-18] MEDS: VANCOMYCIN HCL 1,000 MG in NS 250 ML IV SCH ×2 (10:51→22:01)
[2022-02-18 12:00] VITALS: BP_SYST 130
[2022-02-18 16:00] VITALS: BP_SYST 110
[2022-02-18 20:00] VITALS: BP_SYST 145
[2022-02-18] MEDS: CLOBAZAM 10 MG PO SCH (21:00)
[2022-02-18] MEDS: LACOSAMIDE 100 MG TABLET PO SCH (22:06)
[2022-02-19] VITALS: BP_SYST 130
[2022-02-19] MEDS: PIPERACILLIN/TAZO 3.375 GM in NS 50 ML IV SCH ×4 (00:13→18:24)
[2022-02-19] MEDS: PEG 400/HYPROMELLOSE/GLYCERIN 15 ML DROPS BOTH EYES SCH ×3 (06:11→22:26)
[2022-02-19] MEDS: LEVOTHYROXINE SODIUM 0.025 MG TABLET PO SCH (06:14)
[2022-02-19 07:15] LABS: BASOPHILS % (AUTO) 0.3 % (0.0-2.0); EOSINOPHILS % (AUTO) 0.4 % (0.0-4.0); HEMATOCRIT 30.7 % (36-48); HEMOGLOBIN 10.5 g/dL (12.0-16.0); LYMPHOCYTES # (AUTO) 0.4 K/uL (1.0-5.5); LYMPHOCYTES % (AUTO) 10.1 % (20.5-51.5); MEAN CORPUSCULAR HEMOGLOBIN 35 pg (27-31); MEAN CORPUSCULAR HGB CONC 34 % (32-36); MEAN CORPUSCULAR VOLUME 102 fL (79.0-98.0); MONOCYTES # (AUTO) 0.3 K/uL (0.0-1.0); MONOCYTES % (AUTO) 7.7 % (1.7-9.3); NEUTROPHILS # (AUTO) 3.6 K/uL (1.8-7.7); NEUTROPHILS % (AUTO) 81.5 % (40.0-70.0); PLATELET COUNT (AUTO) 81 K/uL (130-430); RED BLOOD CELL COUNT(AUTO) 3.02 MIL/uL (4.2-6.2); RED CELL DISTRIBUTION WIDTH 16.2 % (9.0-15.0); WHITE BLOOD COUNT (AUTO) 4.4 K/uL (4.8-10.8)
[2022-02-19 07:51] LABS: ALBUMIN 2.7 g/dL (3.4-4.8); CALCIUM 8.9 mg/dL (8.4-11.0); CREATININE 0.96 mg/dL (0.55-1.30); POTASSIUM 4.5 mmol/L (3.5-5.1); TOTAL BILIRUBIN 0.8 mg/dL (0.0-1.0)
[2022-02-19 07:55] VITALS: BP_SYST 129
[2022-02-19] MEDS: IPRATROPIUM BROM 0.5 MG/2.5 ML VIAL.NEB (ATROVENT) INH SCH ×4 (07:58→20:26)
[2022-02-19 08:10] VITALS: BP_SYST 129
[2022-02-19] MEDS: CLOBAZAM 10 MG PO SCH ×2 (09:00→21:00)
[2022-02-19] MEDS: GLYCOPYRROLATE 1 MG TABLET GT SCH ×2 (10:35→15:43)
[2022-02-19] MEDS: FLUDROCORTISONE ACETATE 0.1 MG TABLET( FLORINEF) GT SCH (10:36)
[2022-02-19] MEDS: FOLIC ACID 1 MG TABLET GT SCH (10:36)
[2022-02-19] MEDS: BACLOFEN 10 MG TABLET GT SCH ×3 (10:36→21:05)
[2022-02-19] MEDS: MULTIVITAMINS TAB 1 TABLET GT SCH (10:36)
[2022-02-19] MEDS: FERROUS SULFATE 300 MG/5 ML UDC PO SCH (10:36)
[2022-02-19] MEDS: DOCUSATE SODIUM 100 MG/10 ML UDC GT SCH ×2 (10:36→21:05)
[2022-02-19] MEDS: LORATADINE 10 MG TABLET GT SCH (10:36)
[2022-02-19] MEDS: ASCORBIC ACID 500 MG TABLET GT SCH (10:36)
[2022-02-19] MEDS: HYDROCORTISONE 2.5%, 30 GM TOPICAL CREAM TP SCH ×3 (10:37→22:26)
[2022-02-19] MEDS: LevETIRAcetam 500 MG/5 ML UDC ORAL LIQUID GT SCH ×2 (10:37→22:25)
[2022-02-19] MEDS: LANSOPRAZOLE 30 MG CAPSULE.DR GT SCH (10:37)
[2022-02-19] MEDS: LACOSAMIDE 100 MG TABLET PO SCH (10:42)
[2022-02-19] MEDS: THEOPHYLLINE ANHYDROUS 300 MG TAB.SR.12H PO SCH (10:43)
[2022-02-19] MEDS: VALPROIC ACID ORAL SYRUP 250 MG/5 ML UDC GT SCH ×3 (11:00→22:25)
[2022-02-19] MEDS: LORazepam 2 MG/ML VIAL IVP PRN (11:14)
[2022-02-19] MEDS: VANCOMYCIN HCL 1,000 MG in NS 250 ML IV SCH (12:02)
[2022-02-19] MEDS ORDERED: THEOPHYLLINE ANHYDROUS 300 MG TAB.SR.12H PO SCH (15:00)
[2022-02-19] MEDS: THEOPHYLLINE ANHYDROUS 80 MG/15 ML UDC PO SCH ×2 (15:40→22:24)
[2022-02-19 15:50] VITALS: BP_SYST 113
[2022-02-19 20:00] VITALS: BP_SYST 112
[2022-02-20] VITALS (7 sets, daily range): BP systolic 99–127
[2022-02-20] MEDS: PIPERACILLIN/TAZO 3.375 GM in NS 50 ML IV SCH ×4 (00:59→17:00)
[2022-02-20] MEDS: GLYCOPYRROLATE 1 MG TABLET GT SCH ×4 (01:07→21:55)
[2022-02-20] MEDS: LACOSAMIDE 100 MG TABLET PO SCH ×3 (01:08→21:55)
[2022-02-20] MEDS: PEG 400/HYPROMELLOSE/GLYCERIN 15 ML DROPS BOTH EYES SCH ×3 (05:43→21:27)
[2022-02-20] MEDS: LEVOTHYROXINE SODIUM 0.025 MG TABLET PO SCH (05:48)
[2022-02-20 06:45] LABS: BASOPHILS % (AUTO) 0.3 % (0.0-2.0); EOSINOPHILS % (AUTO) 0.6 % (0.0-4.0); HEMATOCRIT 26.5 % (36-48); HEMOGLOBIN 9.1 g/dL (12.0-16.0); LYMPHOCYTES # (AUTO) 0.9 K/uL (1.0-5.5); LYMPHOCYTES % (AUTO) 25.8 % (20.5-51.5); MEAN CORPUSCULAR HEMOGLOBIN 35 pg (27-31); MEAN CORPUSCULAR HGB CONC 34 % (32-36); MEAN CORPUSCULAR VOLUME 101 fL (79.0-98.0); MONOCYTES # (AUTO) 0.4 K/uL (0.0-1.0); MONOCYTES % (AUTO) 11.6 % (1.7-9.3); NEUTROPHILS # (AUTO) 2.2 K/uL (1.8-7.7); NEUTROPHILS % (AUTO) 61.7 % (40.0-70.0); PLATELET COUNT (AUTO) 82 K/uL (130-430); RED BLOOD CELL COUNT(AUTO) 2.63 MIL/uL (4.2-6.2); RED CELL DISTRIBUTION WIDTH 16.9 % (9.0-15.0); WHITE BLOOD COUNT (AUTO) 3.5 K/uL (4.8-10.8)
[2022-02-20 07:45] LABS: CALCIUM 9.4 mg/dL (8.4-11.0); CREATININE 0.9 mg/dL (0.55-1.30); POTASSIUM 3.4 mmol/L (3.5-5.1)
[2022-02-20] MEDS: IPRATROPIUM BROM 0.5 MG/2.5 ML VIAL.NEB (ATROVENT) INH SCH ×4 (07:48→19:03)
[2022-02-20] MEDS: CLOBAZAM 10 MG PO SCH ×2 (09:00→21:00)
[2022-02-20 09:16] LABS: VANCOMYCIN,RANDOM 43.1 ug/mL
[2022-02-20] MEDS: FOLIC ACID 1 MG TABLET GT SCH (09:18)
[2022-02-20] MEDS: FERROUS SULFATE 300 MG/5 ML UDC PO SCH (09:19)
[2022-02-20] MEDS: BACLOFEN 10 MG TABLET GT SCH ×3 (09:19→21:25)
[2022-02-20] MEDS: LORATADINE 10 MG TABLET GT SCH (09:19)
[2022-02-20] MEDS: LANSOPRAZOLE 30 MG CAPSULE.DR GT SCH (09:19)
[2022-02-20] MEDS: MULTIVITAMINS TAB 1 TABLET GT SCH (09:19)
[2022-02-20] MEDS: ASCORBIC ACID 500 MG TABLET GT SCH (09:19)
[2022-02-20] MEDS: DOCUSATE SODIUM 100 MG/10 ML UDC GT SCH ×2 (09:21→21:00)
[2022-02-20] MEDS: THEOPHYLLINE ANHYDROUS 80 MG/15 ML UDC PO SCH ×3 (09:22→21:26)
[2022-02-20] MEDS: VALPROIC ACID ORAL SYRUP 250 MG/5 ML UDC GT SCH ×3 (09:23→21:27)
[2022-02-20] MEDS: LevETIRAcetam 500 MG/5 ML UDC ORAL LIQUID GT SCH ×2 (09:24→21:26)
[2022-02-20] MEDS: HYDROCORTISONE 2.5%, 30 GM TOPICAL CREAM TP SCH ×3 (09:31→21:56)
[2022-02-20] MEDS: FLUDROCORTISONE ACETATE 0.1 MG TABLET( FLORINEF) GT SCH (10:00)
[2022-02-20] MEDS ORDERED: POTASSIUM CHLORIDE 20 MEQ/PKT PACKET GT ONE (11:15)
[2022-02-21] VITALS (10 sets, daily range): BP systolic 91–154
[2022-02-21] MEDS: PIPERACILLIN/TAZO 3.375 GM in NS 50 ML IV SCH ×4 (01:53→18:50)
[2022-02-21] MEDS: LEVOTHYROXINE SODIUM 0.025 MG TABLET PO SCH (05:21)
[2022-02-21] MEDS: PEG 400/HYPROMELLOSE/GLYCERIN 15 ML DROPS BOTH EYES SCH ×3 (05:22→21:56)
[2022-02-21] MEDS: IPRATROPIUM BROM 0.5 MG/2.5 ML VIAL.NEB (ATROVENT) INH SCH ×4 (07:16→19:53)
[2022-02-21] MEDS: HYDROCORTISONE 2.5%, 30 GM TOPICAL CREAM TP SCH ×3 (09:00→21:56)
[2022-02-21] MEDS: CLOBAZAM 10 MG PO SCH (09:00)
[2022-02-21] MEDS: MULTIVITAMINS TAB 1 TABLET GT SCH (09:07)
[2022-02-21] MEDS: FERROUS SULFATE 300 MG/5 ML UDC PO SCH (09:07)
[2022-02-21] MEDS: ASCORBIC ACID 500 MG TABLET GT SCH (09:08)
[2022-02-21] MEDS: LORATADINE 10 MG TABLET GT SCH (09:08)
[2022-02-21] MEDS: BACLOFEN 10 MG TABLET GT SCH ×3 (09:08→20:44)
[2022-02-21] MEDS: FOLIC ACID 1 MG TABLET GT SCH (09:08)
[2022-02-21] MEDS: DOCUSATE SODIUM 100 MG/10 ML UDC GT SCH ×2 (09:09→21:00)
[2022-02-21] MEDS: LevETIRAcetam 500 MG/5 ML UDC ORAL LIQUID GT SCH ×2 (09:10→20:43)
[2022-02-21] MEDS: THEOPHYLLINE ANHYDROUS 80 MG/15 ML UDC PO SCH ×3 (09:10→20:43)
[2022-02-21] MEDS: VALPROIC ACID ORAL SYRUP 250 MG/5 ML UDC GT SCH ×3 (09:11→20:44)
[2022-02-21] MEDS: FLUDROCORTISONE ACETATE 0.1 MG TABLET( FLORINEF) GT SCH (10:17)
[2022-02-21] MEDS: LACOSAMIDE 100 MG TABLET PO SCH ×2 (10:17→21:20)
[2022-02-21] MEDS: LANSOPRAZOLE 30 MG CAPSULE.DR GT SCH (10:17)
[2022-02-21] MEDS: GLYCOPYRROLATE 1 MG TABLET GT SCH ×3 (10:17→21:20)
[2022-02-21] MEDS: LORazepam 2 MG/ML VIAL IVP PRN (20:52)
[2022-02-21] MEDS ORDERED: clonazePAM 0.5 MG TABLET GT ONE (21:45)
[2022-02-21] MEDS ORDERED: VANCOMYCIN HCL 1 GM/NS PREMIX 250 ML IV ONE (23:45)
[2022-02-22] VITALS (16 sets, daily range): BP systolic 65–122
[2022-02-22] MEDS: PIPERACILLIN/TAZO 3.375 GM in NS 50 ML IV SCH ×4 (00:08→18:44)
[2022-02-22] MEDS ORDERED: VANCOMYCIN HCL 1000 MG/VIAL IV ONE (00:40)
[2022-02-22] MEDS: LORazepam 2 MG/ML VIAL IVP PRN ×2 (04:59→09:07)
[2022-02-22] MEDS: LEVOTHYROXINE SODIUM 0.025 MG TABLET PO SCH (04:59)
[2022-02-22] MEDS ORDERED: NACL 0.9% 1,000 ML IV ONE (07:00)
[2022-02-22] MEDS: IPRATROPIUM BROM 0.5 MG/2.5 ML VIAL.NEB (ATROVENT) INH SCH ×4 (07:20→19:08)
[2022-02-22] MEDS ORDERED: THEOPHYLLINE ANHYDROUS 80 MG/15 ML UDC GT ONE (07:30)
[2022-02-22] MEDS: PEG 400/HYPROMELLOSE/GLYCERIN 15 ML DROPS BOTH EYES SCH ×3 (07:50→21:03)
[2022-02-22] MEDS: DOCUSATE SODIUM 100 MG/10 ML UDC GT SCH ×2 (09:00→21:10)
[2022-02-22] MEDS: BACLOFEN 10 MG TABLET GT SCH ×3 (09:31→21:10)
[2022-02-22] MEDS: LACOSAMIDE 100 MG TABLET PO SCH ×2 (09:31→21:11)
[2022-02-22] MEDS: GLYCOPYRROLATE 1 MG TABLET GT SCH ×3 (09:31→21:00)
[2022-02-22] MEDS: FERROUS SULFATE 300 MG/5 ML UDC PO SCH (09:32)
[2022-02-22] MEDS: FOLIC ACID 1 MG TABLET GT SCH (09:35)
[2022-02-22] MEDS: LORATADINE 10 MG TABLET GT SCH (09:35)
[2022-02-22] MEDS: clonazePAM 0.5 MG TABLET GT SCH ×3 (09:35→21:11)
[2022-02-22] MEDS: ASCORBIC ACID 500 MG TABLET GT SCH (09:35)
[2022-02-22] MEDS: MULTIVITAMINS TAB 1 TABLET GT SCH (09:35)
[2022-02-22] MEDS: HYDROCORTISONE 2.5%, 30 GM TOPICAL CREAM TP SCH ×3 (09:37→21:04)
[2022-02-22] MEDS: LevETIRAcetam 500 MG/5 ML UDC ORAL LIQUID GT SCH ×2 (09:38→21:10)
[2022-02-22] MEDS: VALPROIC ACID ORAL SYRUP 250 MG/5 ML UDC GT SCH ×3 (09:38→21:10)
[2022-02-22] MEDS: FLUDROCORTISONE ACETATE 0.1 MG TABLET( FLORINEF) GT SCH (09:42)
[2022-02-22] MEDS: LANSOPRAZOLE 30 MG CAPSULE.DR GT SCH (10:00)
[2022-02-22] MEDS ORDERED: ALBUMIN HUMAN 25% 100 ML IV ONE (10:00)
[2022-02-22 11:00] LABS: BASOPHILS % (AUTO) 0.6 % (0.0-2.0); EOSINOPHILS # (AUTO) 0.1 K/uL (0.0-0.4); EOSINOPHILS % (AUTO) 2.2 % (0.0-4.0); HEMATOCRIT 23.2 % (36-48); HEMOGLOBIN 7.9 g/dL (12.0-16.0); LYMPHOCYTES # (AUTO) 1.1 K/uL (1.0-5.5); LYMPHOCYTES % (AUTO) 43.9 % (20.5-51.5); MEAN CORPUSCULAR HEMOGLOBIN 35 pg (27-31); MEAN CORPUSCULAR HGB CONC 34 % (32-36); MEAN CORPUSCULAR VOLUME 102 fL (79.0-98.0); MONOCYTES # (AUTO) 0.4 K/uL (0.0-1.0); MONOCYTES % (AUTO) 15.5 % (1.7-9.3); NEUTROPHILS % (AUTO) 37.8 % (40.0-70.0); PLATELET COUNT (AUTO) 63 K/uL (130-430); RED BLOOD CELL COUNT(AUTO) 2.28 MIL/uL (4.2-6.2); RED CELL DISTRIBUTION WIDTH 16.8 % (9.0-15.0); WHITE BLOOD COUNT (AUTO) 2.5 K/uL (4.8-10.8)
[2022-02-22 11:17] LABS: CALCIUM 8.4 mg/dL (8.4-11.0); CREATININE 0.76 mg/dL (0.55-1.30)
[2022-02-22 11:19] LABS: POTASSIUM 4.4 mmol/L (3.5-5.1)
[2022-02-22 11:21] LABS: PROTHROMBIN TIME 10.6 SECS (9.5-12.5)
[2022-02-22 11:24] LABS: TOTAL BILIRUBIN 0.5 mg/dL (0.0-1.0)
[2022-02-22] MEDS: THEOPHYLLINE ANHYDROUS 80 MG/15 ML UDC PO SCH ×2 (16:32→21:21)
[2022-02-22] MEDS: HYDROCORTISONE SOD SUCC 100 MG/2 ML VIAL IVP SCH (18:43)
[2022-02-22] MEDS: CLOBAZAM 10 MG PO SCH (21:00)
[2022-02-23] VITALS (29 sets, daily range): BP systolic 79–151
[2022-02-23] MEDS: PIPERACILLIN/TAZO 3.375 GM in NS 50 ML IV SCH ×4 (00:13→17:37)
[2022-02-23] MEDS: HYDROCORTISONE SOD SUCC 100 MG/2 ML VIAL IVP SCH ×4 (00:14→17:37)
[2022-02-23] MEDS: LORazepam 2 MG/ML VIAL IVP PRN ×4 (03:45→19:35)
[2022-02-23] MEDS: PEG 400/HYPROMELLOSE/GLYCERIN 15 ML DROPS BOTH EYES SCH ×3 (06:05→20:44)
[2022-02-23 06:39] LABS: HEMATOCRIT 30.6 % (36-48); HEMOGLOBIN 10.7 g/dL (12.0-16.0); MEAN CORPUSCULAR HEMOGLOBIN 35 pg (27-31); MEAN CORPUSCULAR HGB CONC 35 % (32-36); MEAN CORPUSCULAR VOLUME 100 fL (79.0-98.0); PLATELET COUNT (AUTO) 93 K/uL (130-430); RED BLOOD CELL COUNT(AUTO) 3.06 MIL/uL (4.2-6.2); RED CELL DISTRIBUTION WIDTH 16.4 % (9.0-15.0); WHITE BLOOD COUNT (AUTO) 2.7 K/uL (4.8-10.8)
[2022-02-23 06:54] LABS: ALBUMIN 3.2 g/dL (3.4-4.8); CALCIUM 10.2 mg/dL (8.4-11.0); CREATININE 0.9 mg/dL (0.55-1.30); POTASSIUM 3.4 mmol/L (3.5-5.1); TOTAL BILIRUBIN 0.6 mg/dL (0.0-1.0)
[2022-02-23] MEDS: LEVOTHYROXINE SODIUM 0.025 MG TABLET PO SCH (07:43)
[2022-02-23] MEDS: IPRATROPIUM BROM 0.5 MG/2.5 ML VIAL.NEB (ATROVENT) INH SCH ×3 (08:08→19:57)
[2022-02-23] MEDS: FERROUS SULFATE 300 MG/5 ML UDC PO SCH (08:30)
[2022-02-23] MEDS: LORATADINE 10 MG TABLET GT SCH (08:30)
[2022-02-23] MEDS: PANTOPRAZOLE SODIUM 40 MG/VIAL (PROTONIX) IVP SCH (08:30)
[2022-02-23] MEDS: GLYCOPYRROLATE 1 MG TABLET GT SCH ×3 (08:30→20:41)
[2022-02-23] MEDS: MULTIVITAMINS TAB 1 TABLET GT SCH (08:30)
[2022-02-23] MEDS: LACOSAMIDE 100 MG TABLET PO SCH ×2 (08:32→20:41)
[2022-02-23] MEDS: clonazePAM 0.5 MG TABLET GT SCH ×3 (08:33→20:41)
[2022-02-23] MEDS: BACLOFEN 10 MG TABLET GT SCH ×3 (08:33→20:40)
[2022-02-23] MEDS: FLUDROCORTISONE ACETATE 0.1 MG TABLET( FLORINEF) GT SCH (08:33)
[2022-02-23] MEDS: FOLIC ACID 1 MG TABLET GT SCH (08:33)
[2022-02-23] MEDS: ASCORBIC ACID 500 MG TABLET GT SCH (08:33)
[2022-02-23] MEDS: THEOPHYLLINE ANHYDROUS 80 MG/15 ML UDC PO SCH ×3 (08:34→20:42)
[2022-02-23] MEDS: VALPROIC ACID ORAL SYRUP 250 MG/5 ML UDC GT SCH ×3 (08:34→20:42)
[2022-02-23] MEDS: LevETIRAcetam 500 MG/5 ML UDC ORAL LIQUID GT SCH ×2 (08:34→20:42)
[2022-02-23] MEDS: HYDROCORTISONE 2.5%, 30 GM TOPICAL CREAM TP SCH ×3 (08:35→20:44)
[2022-02-23] MEDS: DOCUSATE SODIUM 100 MG/10 ML UDC GT SCH ×2 (08:36→20:41)
[2022-02-23] MEDS: LANSOPRAZOLE 30 MG CAPSULE.DR GT SCH (10:14)
[2022-02-23] MEDS ORDERED: POTASSIUM CHLORIDE 20 MEQ/PKT PACKET PO ONE (12:30)
[2022-02-23 12:41] LABS: VANCOMYCIN,RANDOM 22.7 ug/mL
[2022-02-23 12:54] LABS: BAND % (MANUAL) 0 % (0-6); LYMPHOCYTES % (MANUAL) 24 % (20-46); MONOCYTES % (MANUAL) 15 % (0-11)
[2022-02-23 12:55] LABS: BASOPHILS % (MANUAL) 0 % (0-2); EOSINOPHILS % (MANUAL) 0 % (0-7)
[2022-02-23] MEDS: DOPamine PREMIX 250 ML IV PRN (15:42)
[2022-02-23] MEDS: MIDAZOLAM IN NACL,ISO-OSMOT/PF 100 ML IV PRN (16:15)
[2022-02-23] MEDS ORDERED: LORazepam 2 MG/ML VIAL ONE ×2 (20:30→20:51)
[2022-02-23] MEDS: CLOBAZAM 10 MG PO SCH (21:00)
[2022-02-23] MEDS: LORAZEPAM IV PRN (21:32)
[2022-02-23] MEDS: NS IV PRN (21:32)
[2022-02-24] VITALS (31 sets, daily range): BP systolic 117–178
[2022-02-24] MEDS: PIPERACILLIN/TAZO 3.375 GM in NS 50 ML IV SCH ×4 (00:13→17:05)
[2022-02-24] MEDS: HYDROCORTISONE SOD SUCC 100 MG/2 ML VIAL IVP SCH ×4 (00:15→17:06)
[2022-02-24] MEDS: MIDAZOLAM IN NACL,ISO-OSMOT/PF 100 ML IV PRN (03:44)
[2022-02-24] MEDS: PEG 400/HYPROMELLOSE/GLYCERIN 15 ML DROPS BOTH EYES SCH ×3 (06:00→20:55)
[2022-02-24] MEDS: LEVOTHYROXINE SODIUM 0.025 MG TABLET PO SCH (06:19)
[2022-02-24] MEDS: DOPamine PREMIX 250 ML IV PRN ×2 (06:34→15:11)
[2022-02-24] MEDS: IPRATROPIUM BROM 0.5 MG/2.5 ML VIAL.NEB (ATROVENT) INH SCH ×4 (07:35→22:11)
[2022-02-24] MEDS: LORAZEPAM IV PRN (08:07)
[2022-02-24] MEDS: NS IV PRN (08:07)
[2022-02-24 08:20] LABS: BASOPHILS % (AUTO) 0.2 % (0.0-2.0); HEMATOCRIT 26.3 % (36-48); LYMPHOCYTES # (AUTO) 0.7 K/uL (1.0-5.5); LYMPHOCYTES % (AUTO) 22.5 % (20.5-51.5); MEAN CORPUSCULAR HEMOGLOBIN 35 pg (27-31); MEAN CORPUSCULAR HGB CONC 34 % (32-36); MEAN CORPUSCULAR VOLUME 101 fL (79.0-98.0); MONOCYTES # (AUTO) 0.2 K/uL (0.0-1.0); MONOCYTES % (AUTO) 7.5 % (1.7-9.3); NEUTROPHILS # (AUTO) 2.2 K/uL (1.8-7.7); NEUTROPHILS % (AUTO) 69.8 % (40.0-70.0); PLATELET COUNT (AUTO) 105 K/uL (130-430); RED BLOOD CELL COUNT(AUTO) 2.59 MIL/uL (4.2-6.2); RED CELL DISTRIBUTION WIDTH 17.1 % (9.0-15.0); WHITE BLOOD COUNT (AUTO) 3.1 K/uL (4.8-10.8)
[2022-02-24] MEDS: FOLIC ACID 1 MG TABLET GT SCH (08:24)
[2022-02-24] MEDS: BACLOFEN 10 MG TABLET GT SCH ×3 (08:24→20:54)
[2022-02-24] MEDS: FLUDROCORTISONE ACETATE 0.1 MG TABLET( FLORINEF) GT SCH (08:25)
[2022-02-24] MEDS: LORATADINE 10 MG TABLET GT SCH (08:25)
[2022-02-24] MEDS: clonazePAM 0.5 MG TABLET GT SCH ×3 (08:25→20:54)
[2022-02-24] MEDS: FERROUS SULFATE 300 MG/5 ML UDC PO SCH (08:25)
[2022-02-24] MEDS: ASCORBIC ACID 500 MG TABLET GT SCH (08:26)
[2022-02-24] MEDS: MULTIVITAMINS TAB 1 TABLET GT SCH (08:26)
[2022-02-24] MEDS: LACOSAMIDE 100 MG TABLET PO SCH ×2 (08:26→20:54)
[2022-02-24] MEDS: GLYCOPYRROLATE 1 MG TABLET GT SCH ×3 (08:26→20:53)
[2022-02-24] MEDS: THEOPHYLLINE ANHYDROUS 80 MG/15 ML UDC PO SCH ×3 (08:27→20:52)
[2022-02-24] MEDS: HYDROCORTISONE 2.5%, 30 GM TOPICAL CREAM TP SCH ×3 (08:27→20:55)
[2022-02-24] MEDS: VALPROIC ACID ORAL SYRUP 250 MG/5 ML UDC GT SCH ×3 (08:28→20:53)
[2022-02-24] MEDS: LevETIRAcetam 500 MG/5 ML UDC ORAL LIQUID GT SCH ×2 (08:28→20:52)
[2022-02-24] MEDS: PANTOPRAZOLE SODIUM 40 MG/VIAL (PROTONIX) IVP SCH (08:29)
[2022-02-24] MEDS: DOCUSATE SODIUM 100 MG/10 ML UDC GT SCH ×2 (08:53→20:54)
[2022-02-24] MEDS: CLOBAZAM 10 MG PO SCH ×2 (08:54→20:55)
[2022-02-24 09:36] LABS: ALBUMIN 2.8 g/dL (3.4-4.8); CALCIUM 9.4 mg/dL (8.4-11.0); CREATININE 1.01 mg/dL (0.55-1.30); POTASSIUM 3.2 mmol/L (3.5-5.1); TOTAL BILIRUBIN 0.4 mg/dL (0.0-1.0)
[2022-02-24] MEDS: LANSOPRAZOLE 30 MG CAPSULE.DR GT SCH (10:11)
[2022-02-24] MEDS: POTASSIUM CHLORIDE 20 MEQ/PKT PACKET PO PRN (10:15)
[2022-02-24] MEDS: D5W 1,000 ML IV SCH ×2 (12:08→20:55)
[2022-02-24] MEDS: VANCOMYCIN HCL 1,500 MG in NS 250 ML IV SCH (12:08)
[2022-02-24] MEDS: LORazepam 2 MG/ML VIAL IVP PRN (17:27)
[2022-02-25] VITALS (31 sets, daily range): BP systolic 104–175
[2022-02-25] MEDS: PIPERACILLIN/TAZO 3.375 GM in NS 50 ML IV SCH ×4 (00:17→18:28)
[2022-02-25] MEDS: HYDROCORTISONE SOD SUCC 100 MG/2 ML VIAL IVP SCH ×4 (00:18→18:28)
[2022-02-25] MEDS: DOPamine PREMIX 250 ML IV PRN ×4 (03:14→20:52)
[2022-02-25] MEDS: LEVOTHYROXINE SODIUM 0.025 MG TABLET PO SCH (07:00)
[2022-02-25 07:25] LABS: ALBUMIN 2.8 g/dL (3.4-4.8); CALCIUM 9.6 mg/dL (8.4-11.0); CREATININE 0.96 mg/dL (0.55-1.30); POTASSIUM 3.6 mmol/L (3.5-5.1); TOTAL BILIRUBIN 0.6 mg/dL (0.0-1.0)
[2022-02-25] MEDS: IPRATROPIUM BROM 0.5 MG/2.5 ML VIAL.NEB (ATROVENT) INH SCH ×4 (07:27→19:08)
[2022-02-25] MEDS: D5W 1,000 ML IV SCH ×2 (07:30→18:28)
[2022-02-25] MEDS: PEG 400/HYPROMELLOSE/GLYCERIN 15 ML DROPS BOTH EYES SCH ×3 (07:50→21:51)
[2022-02-25] MEDS: PANTOPRAZOLE SODIUM 40 MG/VIAL (PROTONIX) IVP SCH (08:15)
[2022-02-25] MEDS: MULTIVITAMINS TAB 1 TABLET GT SCH (08:15)
[2022-02-25] MEDS: GLYCOPYRROLATE 1 MG TABLET GT SCH ×3 (08:15→21:47)
[2022-02-25] MEDS: ASCORBIC ACID 500 MG TABLET GT SCH (08:16)
[2022-02-25] MEDS: FLUDROCORTISONE ACETATE 0.1 MG TABLET( FLORINEF) GT SCH (08:16)
[2022-02-25] MEDS: LACOSAMIDE 100 MG TABLET PO SCH ×2 (08:16→21:50)
[2022-02-25] MEDS: FOLIC ACID 1 MG TABLET GT SCH (08:16)
[2022-02-25] MEDS: LORATADINE 10 MG TABLET GT SCH (08:16)
[2022-02-25] MEDS: BACLOFEN 10 MG TABLET GT SCH ×3 (08:16→21:47)
[2022-02-25] MEDS: clonazePAM 0.5 MG TABLET GT SCH ×3 (08:17→21:47)
[2022-02-25] MEDS: LevETIRAcetam 500 MG/5 ML UDC ORAL LIQUID GT SCH ×2 (08:17→21:49)
[2022-02-25] MEDS: VALPROIC ACID ORAL SYRUP 250 MG/5 ML UDC GT SCH ×3 (08:17→21:49)
[2022-02-25] MEDS: FERROUS SULFATE 300 MG/5 ML UDC PO SCH (08:18)
[2022-02-25] MEDS: THEOPHYLLINE ANHYDROUS 80 MG/15 ML UDC PO SCH ×3 (08:18→21:50)
[2022-02-25] MEDS: CLOBAZAM 10 MG PO SCH ×2 (08:19→21:00)
[2022-02-25] MEDS: HYDROCORTISONE 2.5%, 30 GM TOPICAL CREAM TP SCH ×3 (08:19→21:50)
[2022-02-25] MEDS: DOCUSATE SODIUM 100 MG/10 ML UDC GT SCH ×2 (08:19→21:46)
[2022-02-25] MEDS: LANSOPRAZOLE 30 MG CAPSULE.DR GT SCH (10:54)
[2022-02-25] MEDS: VANCOMYCIN HCL 1,500 MG in NS 250 ML IV SCH (11:01)
[2022-02-25] MEDS ORDERED: LORazepam 2 MG/ML VIAL IVP PRN ×2 (16:45→17:00)
[2022-02-26] VITALS (36 sets, daily range): BP systolic 89–157
[2022-02-26] MEDS: ACETAMINOPHEN 650 MG/20.3 ML UDC GT PRN (00:08)
[2022-02-26] MEDS: HYDROCORTISONE SOD SUCC 100 MG/2 ML VIAL IVP SCH ×5 (00:22→23:54)
[2022-02-26] MEDS: PIPERACILLIN/TAZO 3.375 GM in NS 50 ML IV SCH (00:23)
[2022-02-26] MEDS: D5W 1,000 ML IV SCH ×3 (03:30→23:55)
[2022-02-26] MEDS: PEG 400/HYPROMELLOSE/GLYCERIN 15 ML DROPS BOTH EYES SCH ×3 (06:00→20:52)
[2022-02-26 06:47] LABS: BASOPHILS # (AUTO) 0.1 K/uL (0.0-0.2); BASOPHILS % (AUTO) 0.7 % (0.0-2.0); EOSINOPHILS % (AUTO) 0.1 % (0.0-4.0); HEMATOCRIT 24.5 % (36-48); HEMOGLOBIN 8.7 g/dL (12.0-16.0); LYMPHOCYTES # (AUTO) 1.9 K/uL (1.0-5.5); LYMPHOCYTES % (AUTO) 22.4 % (20.5-51.5); MEAN CORPUSCULAR HEMOGLOBIN 35 pg (27-31); MEAN CORPUSCULAR HGB CONC 36 % (32-36); MEAN CORPUSCULAR VOLUME 98 fL (79.0-98.0); MONOCYTES # (AUTO) 0.6 K/uL (0.0-1.0); MONOCYTES % (AUTO) 7.5 % (1.7-9.3); NEUTROPHILS # (AUTO) 5.8 K/uL (1.8-7.7); NEUTROPHILS % (AUTO) 69.3 % (40.0-70.0); PLATELET COUNT (AUTO) 113 K/uL (130-430); RED BLOOD CELL COUNT(AUTO) 2.49 MIL/uL (4.2-6.2); RED CELL DISTRIBUTION WIDTH 16.7 % (9.0-15.0); WHITE BLOOD COUNT (AUTO) 8.4 K/uL (4.8-10.8)
[2022-02-26 06:48] LABS: CREATININE 0.95 mg/dL (0.55-1.30); PHOSPHORUS 3.5 mg/dL (2.7-4.5); POTASSIUM 3.2 mmol/L (3.5-5.1)
[2022-02-26] MEDS: LEVOTHYROXINE SODIUM 0.025 MG TABLET PO SCH (07:00)
[2022-02-26] MEDS: IPRATROPIUM BROM 0.5 MG/2.5 ML VIAL.NEB (ATROVENT) INH SCH ×4 (07:32→19:03)
[2022-02-26] MEDS: DOPamine PREMIX 250 ML IV PRN (08:17)
[2022-02-26] MEDS: CLOBAZAM 10 MG PO SCH ×2 (09:00→20:55)
[2022-02-26] MEDS: DOCUSATE SODIUM 100 MG/10 ML UDC GT SCH ×3 (09:00→20:48)
[2022-02-26] MEDS: LevETIRAcetam 500 MG/5 ML UDC ORAL LIQUID GT SCH ×2 (09:23→20:50)
[2022-02-26] MEDS: THEOPHYLLINE ANHYDROUS 80 MG/15 ML UDC PO SCH ×3 (09:24→20:50)
[2022-02-26] MEDS: VALPROIC ACID ORAL SYRUP 250 MG/5 ML UDC GT SCH ×3 (09:24→20:50)
[2022-02-26] MEDS: POTASSIUM CHLORIDE 20 MEQ/PKT PACKET PO PRN (09:25)
[2022-02-26] MEDS: FERROUS SULFATE 300 MG/5 ML UDC PO SCH (09:25)
[2022-02-26] MEDS: clonazePAM 0.5 MG TABLET GT SCH ×3 (09:26→20:51)
[2022-02-26] MEDS: PANTOPRAZOLE SODIUM 40 MG/VIAL (PROTONIX) IVP SCH (09:26)
[2022-02-26] MEDS: BACLOFEN 10 MG TABLET GT SCH ×3 (09:26→20:49)
[2022-02-26] MEDS: MULTIVITAMINS TAB 1 TABLET GT SCH (09:26)
[2022-02-26] MEDS: ASCORBIC ACID 500 MG TABLET GT SCH (09:27)
[2022-02-26] MEDS: LORATADINE 10 MG TABLET GT SCH (09:27)
[2022-02-26] MEDS: FOLIC ACID 1 MG TABLET GT SCH (09:27)
[2022-02-26] MEDS: LACOSAMIDE 100 MG TABLET PO SCH ×2 (09:27→20:51)
[2022-02-26] MEDS: GLYCOPYRROLATE 1 MG TABLET GT SCH ×3 (09:27→20:51)
[2022-02-26] MEDS: FLUDROCORTISONE ACETATE 0.1 MG TABLET( FLORINEF) GT SCH (09:28)
[2022-02-26] MEDS: HYDROCORTISONE 2.5%, 30 GM TOPICAL CREAM TP SCH ×3 (09:29→20:52)
[2022-02-26] MEDS: LANSOPRAZOLE 30 MG CAPSULE.DR GT SCH (12:13)
[2022-02-26] MEDS: VANCOMYCIN HCL 1,500 MG in NS 250 ML IV SCH (12:14)
[2022-02-26] MEDS ORDERED: POTASSIUM CHLORIDE 20 MEQ/PKT PACKET PO ONE (13:45)
[2022-02-26] MEDS ORDERED: MAGNESIUM SULFATE IN WATER 100 ML IV ONE (15:00)
[2022-02-27] VITALS (36 sets, daily range): BP systolic 94–130
[2022-02-27] MEDS: DOPamine PREMIX 250 ML IV PRN (01:49)
[2022-02-27] MEDS: PEG 400/HYPROMELLOSE/GLYCERIN 15 ML DROPS BOTH EYES SCH ×3 (05:40→21:07)
[2022-02-27] MEDS: HYDROCORTISONE SOD SUCC 100 MG/2 ML VIAL IVP SCH ×3 (05:40→17:22)
[2022-02-27 06:13] LABS: BASOPHILS % (AUTO) 0.3 % (0.0-2.0); EOSINOPHILS % (AUTO) 0.4 % (0.0-4.0); HEMATOCRIT 24.8 % (36-48); HEMOGLOBIN 8.9 g/dL (12.0-16.0); LYMPHOCYTES % (AUTO) 29.2 % (20.5-51.5); MEAN CORPUSCULAR HEMOGLOBIN 35 pg (27-31); MEAN CORPUSCULAR HGB CONC 36 % (32-36); MEAN CORPUSCULAR VOLUME 98 fL (79.0-98.0); MONOCYTES # (AUTO) 0.3 K/uL (0.0-1.0); MONOCYTES % (AUTO) 7.4 % (1.7-9.3); NEUTROPHILS # (AUTO) 2.2 K/uL (1.8-7.7); NEUTROPHILS % (AUTO) 62.7 % (40.0-70.0); PLATELET COUNT (AUTO) 71 K/uL (130-430); RED BLOOD CELL COUNT(AUTO) 2.54 MIL/uL (4.2-6.2); RED CELL DISTRIBUTION WIDTH 16.3 % (9.0-15.0); WHITE BLOOD COUNT (AUTO) 3.6 K/uL (4.8-10.8)
[2022-02-27 06:26] LABS: CALCIUM 8.8 mg/dL (8.4-11.0); CREATININE 0.86 mg/dL (0.55-1.30)
[2022-02-27] MEDS: LEVOTHYROXINE SODIUM 0.025 MG TABLET PO SCH (07:25)
[2022-02-27] MEDS: IPRATROPIUM BROM 0.5 MG/2.5 ML VIAL.NEB (ATROVENT) INH SCH ×3 (07:28→15:21)
[2022-02-27 08:12] LABS: TOTAL IRON BIND. CAPACITY 245 ug/dL (250-450)
[2022-02-27] MEDS: FERROUS SULFATE 300 MG/5 ML UDC PO SCH (08:58)
[2022-02-27] MEDS: LACOSAMIDE 100 MG TABLET PO SCH ×2 (08:58→21:00)
[2022-02-27] MEDS: VALPROIC ACID ORAL SYRUP 250 MG/5 ML UDC GT SCH ×3 (08:58→21:11)
[2022-02-27] MEDS: PANTOPRAZOLE SODIUM 40 MG/VIAL (PROTONIX) IVP SCH (08:59)
[2022-02-27] MEDS: THEOPHYLLINE ANHYDROUS 80 MG/15 ML UDC PO SCH ×3 (08:59→21:10)
[2022-02-27] MEDS: ASCORBIC ACID 500 MG TABLET GT SCH (08:59)
[2022-02-27] MEDS: FLUDROCORTISONE ACETATE 0.1 MG TABLET( FLORINEF) GT SCH (09:00)
[2022-02-27] MEDS: FOLIC ACID 1 MG TABLET GT SCH (09:00)
[2022-02-27] MEDS ORDERED: POTASSIUM CHLORIDE 20 MEQ/PKT PACKET PO SCH (09:00)
[2022-02-27] MEDS: CLOBAZAM 10 MG PO SCH ×2 (09:00→21:31)
[2022-02-27] MEDS: GLYCOPYRROLATE 1 MG TABLET GT SCH ×3 (09:00→21:17)
[2022-02-27] MEDS: clonazePAM 0.5 MG TABLET GT SCH ×3 (09:00→21:18)
[2022-02-27] MEDS: LORATADINE 10 MG TABLET GT SCH (09:00)
[2022-02-27] MEDS: DOCUSATE SODIUM 100 MG/10 ML UDC GT SCH ×2 (09:00→21:01)
[2022-02-27] MEDS: BACLOFEN 10 MG TABLET GT SCH ×3 (09:00→21:13)
[2022-02-27] MEDS: MULTIVITAMINS TAB 1 TABLET GT SCH (09:00)
[2022-02-27] MEDS: HYDROCORTISONE 2.5%, 30 GM TOPICAL CREAM TP SCH ×3 (09:01→21:08)
[2022-02-27] MEDS: LevETIRAcetam 500 MG/5 ML UDC ORAL LIQUID GT SCH ×2 (09:01→21:09)
[2022-02-27] MEDS: LANSOPRAZOLE 30 MG CAPSULE.DR GT SCH (11:19)
[2022-02-27] MEDS: D5W 1,000 ML IV SCH (11:20)
[2022-02-27] MEDS: SOD FERRIC GLUC COMPLEX/SUC 125 MG in NS 100 ML IV SCH (12:11)
[2022-02-27] MEDS: VANCOMYCIN HCL 1,500 MG in NS 250 ML IV SCH (13:11)
[2022-02-27] MEDS: POTASSIUM CHLORIDE 20 MEQ/PKT PACKET PO SCH (21:04)
[2022-02-28] VITALS (31 sets, daily range): BP systolic 89–132
[2022-02-28] MEDS: HYDROCORTISONE SOD SUCC 100 MG/2 ML VIAL IVP SCH ×4 (00:06→17:41)
[2022-02-28] MEDS: PEG 400/HYPROMELLOSE/GLYCERIN 15 ML DROPS BOTH EYES SCH ×3 (05:31→21:57)
[2022-02-28] MEDS: HYDROCORTISONE 2.5%, 30 GM TOPICAL CREAM TP SCH ×3 (05:32→20:42)
[2022-02-28 06:51] LABS: ALBUMIN 2.5 g/dL (3.4-4.8); CALCIUM 8.8 mg/dL (8.4-11.0); CREATININE 0.8 mg/dL (0.55-1.30); PHOSPHORUS 2.9 mg/dL (2.7-4.5); POTASSIUM 4.1 mmol/L (3.5-5.1); TOTAL BILIRUBIN 0.6 mg/dL (0.0-1.0)
[2022-02-28] MEDS: LEVOTHYROXINE SODIUM 0.025 MG TABLET PO SCH (07:36)
[2022-02-28] MEDS: IPRATROPIUM BROM 0.5 MG/2.5 ML VIAL.NEB (ATROVENT) INH SCH ×4 (07:36→21:17)
[2022-02-28 07:53] LABS: HEMATOCRIT 27.4 % (36-48); HEMOGLOBIN 9.8 g/dL (12.0-16.0); MEAN CORPUSCULAR HEMOGLOBIN 35 pg (27-31); MEAN CORPUSCULAR HGB CONC 36 % (32-36); MEAN CORPUSCULAR VOLUME 99 fL (79.0-98.0); PLATELET COUNT (AUTO) 77 K/uL (130-430); RED BLOOD CELL COUNT(AUTO) 2.76 MIL/uL (4.2-6.2); RED CELL DISTRIBUTION WIDTH 16.3 % (9.0-15.0); WHITE BLOOD COUNT (AUTO) 5.4 K/uL (4.8-10.8)
[2022-02-28] MEDS: FOLIC ACID 1 MG TABLET GT SCH (08:29)
[2022-02-28] MEDS: FLUDROCORTISONE ACETATE 0.1 MG TABLET( FLORINEF) GT SCH (08:29)
[2022-02-28] MEDS: PANTOPRAZOLE SODIUM 40 MG/VIAL (PROTONIX) IVP SCH (08:29)
[2022-02-28] MEDS: MULTIVITAMINS TAB 1 TABLET GT SCH (08:29)
[2022-02-28] MEDS: ASCORBIC ACID 500 MG TABLET GT SCH (08:29)
[2022-02-28] MEDS: BACLOFEN 10 MG TABLET GT SCH ×3 (08:30→20:40)
[2022-02-28] MEDS: LACOSAMIDE 100 MG TABLET PO SCH ×2 (08:30→20:43)
[2022-02-28] MEDS: LORATADINE 10 MG TABLET GT SCH (08:30)
[2022-02-28] MEDS: GLYCOPYRROLATE 1 MG TABLET GT SCH ×3 (08:30→20:46)
[2022-02-28] MEDS: clonazePAM 0.5 MG TABLET GT SCH ×3 (08:30→20:41)
[2022-02-28] MEDS: THEOPHYLLINE ANHYDROUS 80 MG/15 ML UDC PO SCH ×3 (08:31→20:42)
[2022-02-28] MEDS: FERROUS SULFATE 300 MG/5 ML UDC PO SCH (08:32)
[2022-02-28] MEDS: POTASSIUM CHLORIDE 20 MEQ/PKT PACKET PO SCH ×2 (08:32→20:42)
[2022-02-28] MEDS: DOCUSATE SODIUM 100 MG/10 ML UDC GT SCH ×2 (08:33→20:40)
[2022-02-28] MEDS: LevETIRAcetam 500 MG/5 ML UDC ORAL LIQUID GT SCH ×2 (08:34→20:41)
[2022-02-28] MEDS: CLOBAZAM 10 MG PO SCH ×2 (08:59→20:50)
[2022-02-28] MEDS: D5W 1,000 ML IV SCH (09:00)
[2022-02-28] MEDS: LANSOPRAZOLE 30 MG CAPSULE.DR GT SCH (09:18)
[2022-02-28] MEDS: VALPROIC ACID ORAL SYRUP 250 MG/5 ML UDC GT SCH ×3 (09:18→20:41)
[2022-02-28] MEDS: SOD FERRIC GLUC COMPLEX/SUC 125 MG in NS 100 ML IV SCH (10:17)
[2022-02-28 11:18] LABS: BAND % (MANUAL) 12 % (0-6); BASOPHILS % (MANUAL) 0 % (0-2); CORRECTED WHITE BLOOD COUNT 4.4 K/uL (4.5-11.0); EOSINOPHILS % (MANUAL) 0 % (0-7); LYMPHOCYTES % (MANUAL) 19 % (20-46); MONOCYTES % (MANUAL) 3 % (0-11)
[2022-02-28 11:19] LABS: METAMYELOCYTES % 2 % (0-0)
[2022-02-28] MEDS: VANCOMYCIN HCL 1,500 MG in NS 250 ML IV SCH (11:25)
[2022-03-01] VITALS (28 sets, daily range): BP systolic 93–133
[2022-03-01] MEDS: HYDROCORTISONE SOD SUCC 100 MG/2 ML VIAL IVP SCH ×4 (01:03→17:30)
[2022-03-01 05:58] LABS: BASOPHILS % (AUTO) 0.2 % (0.0-2.0); HEMATOCRIT 25.4 % (36-48); HEMOGLOBIN 8.8 g/dL (12.0-16.0); LYMPHOCYTES # (AUTO) 1.7 K/uL (1.0-5.5); LYMPHOCYTES % (AUTO) 15.5 % (20.5-51.5); MEAN CORPUSCULAR HEMOGLOBIN 35 pg (27-31); MEAN CORPUSCULAR HGB CONC 35 % (32-36); MEAN CORPUSCULAR VOLUME 101 fL (79.0-98.0); MONOCYTES # (AUTO) 0.4 K/uL (0.0-1.0); MONOCYTES % (AUTO) 3.9 % (1.7-9.3); NEUTROPHILS # (AUTO) 8.7 K/uL (1.8-7.7); PLATELET COUNT (AUTO) 68 K/uL (130-430); RED BLOOD CELL COUNT(AUTO) 2.52 MIL/uL (4.2-6.2); RED CELL DISTRIBUTION WIDTH 17.3 % (9.0-15.0); WHITE BLOOD COUNT (AUTO) 10.8 K/uL (4.8-10.8)
[2022-03-01 06:32] LABS: CALCIUM 8.9 mg/dL (8.4-11.0); CREATININE 0.88 mg/dL (0.55-1.30); POTASSIUM 3.9 mmol/L (3.5-5.1)
[2022-03-01] MEDS: PEG 400/HYPROMELLOSE/GLYCERIN 15 ML DROPS BOTH EYES SCH ×3 (06:58→21:01)
[2022-03-01 07:32] LABS: NEUTROPHILS % (AUTO) 80.4 % (40.0-70.0)
[2022-03-01] MEDS: IPRATROPIUM BROM 0.5 MG/2.5 ML VIAL.NEB (ATROVENT) INH SCH ×4 (07:39→19:19)
[2022-03-01] MEDS: CLOBAZAM 10 MG PO SCH ×2 (09:00→21:00)
[2022-03-01] MEDS: DOCUSATE SODIUM 100 MG/10 ML UDC GT SCH ×2 (09:26→21:12)
[2022-03-01] MEDS: FERROUS SULFATE 300 MG/5 ML UDC PO SCH (09:26)
[2022-03-01] MEDS: GLYCOPYRROLATE 1 MG TABLET GT SCH ×3 (09:27→21:11)
[2022-03-01] MEDS: clonazePAM 0.5 MG TABLET GT SCH ×3 (09:27→21:11)
[2022-03-01] MEDS: FLUDROCORTISONE ACETATE 0.1 MG TABLET( FLORINEF) GT SCH (09:27)
[2022-03-01] MEDS: LEVOTHYROXINE SODIUM 0.025 MG TABLET PO SCH (09:27)
[2022-03-01] MEDS: LACOSAMIDE 100 MG TABLET PO SCH ×2 (09:27→21:11)
[2022-03-01] MEDS: BACLOFEN 10 MG TABLET GT SCH ×3 (09:27→21:12)
[2022-03-01] MEDS: FOLIC ACID 1 MG TABLET GT SCH (09:27)
[2022-03-01] MEDS: ASCORBIC ACID 500 MG TABLET GT SCH (09:27)
[2022-03-01] MEDS: LevETIRAcetam 500 MG/5 ML UDC ORAL LIQUID GT SCH ×2 (09:33→20:59)
[2022-03-01] MEDS: PANTOPRAZOLE SODIUM 40 MG/VIAL (PROTONIX) IVP SCH (09:33)
[2022-03-01] MEDS: MULTIVITAMINS TAB 1 TABLET GT SCH (09:33)
[2022-03-01] MEDS: POTASSIUM CHLORIDE 20 MEQ/PKT PACKET PO SCH ×2 (09:33→21:12)
[2022-03-01] MEDS: LORATADINE 10 MG TABLET GT SCH (09:33)
[2022-03-01] MEDS: VALPROIC ACID ORAL SYRUP 250 MG/5 ML UDC GT SCH ×3 (09:34→20:59)
[2022-03-01] MEDS: HYDROCORTISONE 2.5%, 30 GM TOPICAL CREAM TP SCH ×3 (09:35→21:01)
[2022-03-01] MEDS: THEOPHYLLINE ANHYDROUS 80 MG/15 ML UDC PO SCH ×3 (09:50→21:00)
[2022-03-01] MEDS: LANSOPRAZOLE 30 MG CAPSULE.DR GT SCH (10:51)
[2022-03-01] MEDS: SOD FERRIC GLUC COMPLEX/SUC 125 MG in NS 100 ML IV SCH (11:01)
[2022-03-01] MEDS: VANCOMYCIN HCL 1,500 MG in NS 250 ML IV SCH (12:57)
[2022-03-01] MEDS: MIDODRINE HCL 5 MG TABLET (PROAMATINE) GT SCH ×2 (17:29→21:00)
[2022-03-02] VITALS (24 sets, daily range): BP systolic 92–172
[2022-03-02] MEDS: HYDROCORTISONE SOD SUCC 100 MG/2 ML VIAL IVP SCH ×3 (00:36→12:40)
[2022-03-02] MEDS: PEG 400/HYPROMELLOSE/GLYCERIN 15 ML DROPS BOTH EYES SCH ×3 (06:14→22:05)
[2022-03-02 06:42] LABS: BASOPHILS % (AUTO) 0.4 % (0.0-2.0); EOSINOPHILS % (AUTO) 0.3 % (0.0-4.0); HEMATOCRIT 25.8 % (36-48); HEMOGLOBIN 8.9 g/dL (12.0-16.0); LYMPHOCYTES # (AUTO) 3.5 K/uL (1.0-5.5); LYMPHOCYTES % (AUTO) 34.4 % (20.5-51.5); MEAN CORPUSCULAR HEMOGLOBIN 36 pg (27-31); MEAN CORPUSCULAR HGB CONC 35 % (32-36); MEAN CORPUSCULAR VOLUME 103 fL (79.0-98.0); MONOCYTES # (AUTO) 0.6 K/uL (0.0-1.0); MONOCYTES % (AUTO) 5.6 % (1.7-9.3); NEUTROPHILS # (AUTO) 6.1 K/uL (1.8-7.7); PLATELET COUNT (AUTO) 100 K/uL (130-430); WHITE BLOOD COUNT (AUTO) 10.3 K/uL (4.8-10.8)
[2022-03-02 07:30] LABS: CALCIUM 9.1 mg/dL (8.4-11.0); CREATININE 0.84 mg/dL (0.55-1.30); POTASSIUM 3.9 mmol/L (3.5-5.1)
[2022-03-02] MEDS: IPRATROPIUM BROM 0.5 MG/2.5 ML VIAL.NEB (ATROVENT) INH SCH ×4 (07:42→20:57)
[2022-03-02 08:11] LABS: NEUTROPHILS % (AUTO) 59.3 % (40.0-70.0)
[2022-03-02] MEDS: LORATADINE 10 MG TABLET GT SCH (08:57)
[2022-03-02] MEDS: FERROUS SULFATE 300 MG/5 ML UDC PO SCH (08:57)
[2022-03-02] MEDS: DOCUSATE SODIUM 100 MG/10 ML UDC GT SCH ×2 (08:57→22:03)
[2022-03-02] MEDS: MULTIVITAMINS TAB 1 TABLET GT SCH (08:57)
[2022-03-02] MEDS: FOLIC ACID 1 MG TABLET GT SCH (08:57)
[2022-03-02] MEDS: PANTOPRAZOLE SODIUM 40 MG/VIAL (PROTONIX) IVP SCH (08:57)
[2022-03-02] MEDS: BACLOFEN 10 MG TABLET GT SCH ×3 (08:57→22:02)
[2022-03-02] MEDS: FLUDROCORTISONE ACETATE 0.1 MG TABLET( FLORINEF) GT SCH (08:58)
[2022-03-02] MEDS: LACOSAMIDE 100 MG TABLET PO SCH ×2 (08:58→22:05)
[2022-03-02] MEDS: ASCORBIC ACID 500 MG TABLET GT SCH (08:58)
[2022-03-02] MEDS: GLYCOPYRROLATE 1 MG TABLET GT SCH ×3 (08:58→22:04)
[2022-03-02] MEDS: POTASSIUM CHLORIDE 20 MEQ/PKT PACKET PO SCH ×2 (08:58→22:04)
[2022-03-02] MEDS: clonazePAM 0.5 MG TABLET GT SCH ×3 (08:58→22:03)
[2022-03-02] MEDS: LEVOTHYROXINE SODIUM 0.025 MG TABLET PO SCH (08:58)
[2022-03-02] MEDS: CLOBAZAM 10 MG PO SCH ×2 (09:00→21:00)
[2022-03-02] MEDS: VALPROIC ACID ORAL SYRUP 250 MG/5 ML UDC GT SCH ×3 (09:01→22:03)
[2022-03-02] MEDS: THEOPHYLLINE ANHYDROUS 80 MG/15 ML UDC PO SCH ×3 (09:02→22:04)
[2022-03-02] MEDS: HYDROCORTISONE 2.5%, 30 GM TOPICAL CREAM TP SCH ×3 (09:03→22:05)
[2022-03-02] MEDS: LevETIRAcetam 500 MG/5 ML UDC ORAL LIQUID GT SCH ×2 (09:03→22:03)
[2022-03-02] MEDS: MIDODRINE HCL 5 MG TABLET (PROAMATINE) GT SCH ×3 (09:03→22:03)
[2022-03-02] MEDS: LANSOPRAZOLE 30 MG CAPSULE.DR GT SCH (09:04)
[2022-03-02] MEDS: SOD FERRIC GLUC COMPLEX/SUC 125 MG in NS 100 ML IV SCH (12:37)
[2022-03-02] MEDS: VANCOMYCIN HCL 1,500 MG in NS 250 ML IV SCH (12:39)
[2022-03-03] VITALS (24 sets, daily range): BP systolic 89–138
[2022-03-03] MEDS: HYDROCORTISONE SOD SUCC 100 MG/2 ML VIAL IVP SCH ×5 (01:04→23:52)
[2022-03-03 06:51] LABS: BASOPHILS # (AUTO) 0.1 K/uL (0.0-0.2); BASOPHILS % (AUTO) 0.5 % (0.0-2.0); EOSINOPHILS # (AUTO) 0.2 K/uL (0.0-0.4); EOSINOPHILS % (AUTO) 1.5 % (0.0-4.0); HEMATOCRIT 24.5 % (36-48); HEMOGLOBIN 8.5 g/dL (12.0-16.0); LYMPHOCYTES # (AUTO) 3.7 K/uL (1.0-5.5); LYMPHOCYTES % (AUTO) 32.7 % (20.5-51.5); MEAN CORPUSCULAR HEMOGLOBIN 37 pg (27-31); MEAN CORPUSCULAR HGB CONC 35 % (32-36); MEAN CORPUSCULAR VOLUME 105 fL (79.0-98.0); MONOCYTES # (AUTO) 0.7 K/uL (0.0-1.0); MONOCYTES % (AUTO) 5.9 % (1.7-9.3); NEUTROPHILS # (AUTO) 6.8 K/uL (1.8-7.7); NEUTROPHILS % (AUTO) 59.4 % (40.0-70.0); PLATELET COUNT (AUTO) 108 K/uL (130-430); RED BLOOD CELL COUNT(AUTO) 2.34 MIL/uL (4.2-6.2); RED CELL DISTRIBUTION WIDTH 17.9 % (9.0-15.0); WHITE BLOOD COUNT (AUTO) 11.4 K/uL (4.8-10.8)
[2022-03-03] MEDS: PEG 400/HYPROMELLOSE/GLYCERIN 15 ML DROPS BOTH EYES SCH ×3 (07:01→22:00)
[2022-03-03 07:12] LABS: CALCIUM 9.2 mg/dL (8.4-11.0); CREATININE 0.82 mg/dL (0.55-1.30); POTASSIUM 4.1 mmol/L (3.5-5.1)
[2022-03-03] MEDS: IPRATROPIUM BROM 0.5 MG/2.5 ML VIAL.NEB (ATROVENT) INH SCH ×4 (07:37→23:12)
[2022-03-03] MEDS: BACLOFEN 10 MG TABLET GT SCH ×3 (08:46→20:55)
[2022-03-03] MEDS: LACOSAMIDE 100 MG TABLET PO SCH ×2 (08:46→20:55)
[2022-03-03] MEDS: POTASSIUM CHLORIDE 20 MEQ/PKT PACKET PO SCH ×2 (08:46→20:55)
[2022-03-03] MEDS: FLUDROCORTISONE ACETATE 0.1 MG TABLET( FLORINEF) GT SCH (08:46)
[2022-03-03] MEDS: GLYCOPYRROLATE 1 MG TABLET GT SCH ×3 (08:47→20:55)
[2022-03-03] MEDS: FOLIC ACID 1 MG TABLET GT SCH (08:47)
[2022-03-03] MEDS: clonazePAM 0.5 MG TABLET GT SCH ×3 (08:47→20:55)
[2022-03-03] MEDS: DOCUSATE SODIUM 100 MG/10 ML UDC GT SCH ×2 (08:47→20:55)
[2022-03-03] MEDS: LORATADINE 10 MG TABLET GT SCH (08:47)
[2022-03-03] MEDS: MULTIVITAMINS TAB 1 TABLET GT SCH (08:47)
[2022-03-03] MEDS: ASCORBIC ACID 500 MG TABLET GT SCH (08:47)
[2022-03-03] MEDS: FERROUS SULFATE 300 MG/5 ML UDC PO SCH (08:48)
[2022-03-03] MEDS: PANTOPRAZOLE SODIUM 40 MG/VIAL (PROTONIX) IVP SCH (08:48)
[2022-03-03] MEDS: LevETIRAcetam 500 MG/5 ML UDC ORAL LIQUID GT SCH ×2 (08:52→20:54)
[2022-03-03] MEDS: VALPROIC ACID ORAL SYRUP 250 MG/5 ML UDC GT SCH ×3 (08:53→20:55)
[2022-03-03] MEDS: THEOPHYLLINE ANHYDROUS 80 MG/15 ML UDC PO SCH ×3 (08:54→20:54)
[2022-03-03] MEDS: MIDODRINE HCL 5 MG TABLET (PROAMATINE) GT SCH ×3 (08:55→20:55)
[2022-03-03] MEDS: HYDROCORTISONE 2.5%, 30 GM TOPICAL CREAM TP SCH ×3 (08:56→20:56)
[2022-03-03] MEDS: LEVOTHYROXINE SODIUM 0.025 MG TABLET PO SCH (09:00)
[2022-03-03] MEDS: CLOBAZAM 10 MG PO SCH ×2 (09:00→20:55)
[2022-03-03] MEDS: LANSOPRAZOLE 30 MG CAPSULE.DR GT SCH (10:46)
[2022-03-03] MEDS: SOD FERRIC GLUC COMPLEX/SUC 125 MG in NS 100 ML IV SCH (10:51)
[2022-03-03] MEDS: VANCOMYCIN HCL 750 MG in NS 250 ML IV SCH ×2 (16:13→19:30)
[2022-03-04] VITALS (31 sets, daily range): BP systolic 93–147
[2022-03-04] MEDS: PEG 400/HYPROMELLOSE/GLYCERIN 15 ML DROPS BOTH EYES SCH ×3 (05:51→21:27)
[2022-03-04] MEDS: HYDROCORTISONE SOD SUCC 100 MG/2 ML VIAL IVP SCH ×3 (06:27→17:14)
[2022-03-04] MEDS: LEVOTHYROXINE SODIUM 0.025 MG TABLET PO SCH (06:27)
[2022-03-04 06:50] LABS: CALCIUM 8.7 mg/dL (8.4-11.0); CREATININE 0.83 mg/dL (0.55-1.30)
[2022-03-04 07:05] LABS: BASOPHILS % (AUTO) 0.3 % (0.0-2.0); HEMOGLOBIN 8.5 g/dL (12.0-16.0); LYMPHOCYTES # (AUTO) 1.2 K/uL (1.0-5.5); LYMPHOCYTES % (AUTO) 17.8 % (20.5-51.5); MEAN CORPUSCULAR HEMOGLOBIN 36 pg (27-31); MEAN CORPUSCULAR HGB CONC 34 % (32-36); MEAN CORPUSCULAR VOLUME 105 fL (79.0-98.0); MONOCYTES # (AUTO) 0.3 K/uL (0.0-1.0); MONOCYTES % (AUTO) 3.8 % (1.7-9.3); NEUTROPHILS # (AUTO) 5.4 K/uL (1.8-7.7); NEUTROPHILS % (AUTO) 78.1 % (40.0-70.0); PLATELET COUNT (AUTO) 90 K/uL (130-430); RED BLOOD CELL COUNT(AUTO) 2.38 MIL/uL (4.2-6.2); RED CELL DISTRIBUTION WIDTH 19.7 % (9.0-15.0); WHITE BLOOD COUNT (AUTO) 6.9 K/uL (4.8-10.8)
[2022-03-04] MEDS: IPRATROPIUM BROM 0.5 MG/2.5 ML VIAL.NEB (ATROVENT) INH SCH ×4 (08:04→20:19)
[2022-03-04] MEDS: FERROUS SULFATE 300 MG/5 ML UDC PO SCH (08:43)
[2022-03-04] MEDS: THEOPHYLLINE ANHYDROUS 80 MG/15 ML UDC PO SCH ×3 (08:44→21:17)
[2022-03-04] MEDS: VALPROIC ACID ORAL SYRUP 250 MG/5 ML UDC GT SCH ×3 (08:45→21:05)
[2022-03-04] MEDS: LevETIRAcetam 500 MG/5 ML UDC ORAL LIQUID GT SCH ×2 (08:45→21:05)
[2022-03-04] MEDS: MIDODRINE HCL 5 MG TABLET (PROAMATINE) GT SCH ×3 (08:45→21:04)
[2022-03-04] MEDS: LORATADINE 10 MG TABLET GT SCH (08:45)
[2022-03-04] MEDS: FOLIC ACID 1 MG TABLET GT SCH (08:45)
[2022-03-04] MEDS: BACLOFEN 10 MG TABLET GT SCH ×3 (08:46→21:02)
[2022-03-04] MEDS: LACOSAMIDE 100 MG TABLET PO SCH ×2 (08:46→21:02)
[2022-03-04] MEDS: FLUDROCORTISONE ACETATE 0.1 MG TABLET( FLORINEF) GT SCH (08:46)
[2022-03-04] MEDS: ASCORBIC ACID 500 MG TABLET GT SCH (08:46)
[2022-03-04] MEDS: MULTIVITAMINS TAB 1 TABLET GT SCH (08:46)
[2022-03-04] MEDS: clonazePAM 0.5 MG TABLET GT SCH ×3 (08:46→21:02)
[2022-03-04] MEDS: GLYCOPYRROLATE 1 MG TABLET GT SCH ×3 (08:46→21:02)
[2022-03-04] MEDS: POTASSIUM CHLORIDE 20 MEQ/PKT PACKET PO SCH ×2 (08:46→21:01)
[2022-03-04] MEDS: PANTOPRAZOLE SODIUM 40 MG/VIAL (PROTONIX) IVP SCH (08:47)
[2022-03-04] MEDS: ACETAMINOPHEN 650 MG/20.3 ML UDC GT PRN (08:47)
[2022-03-04] MEDS: HYDROCORTISONE 2.5%, 30 GM TOPICAL CREAM TP SCH ×3 (08:48→21:09)
[2022-03-04] MEDS: CLOBAZAM 10 MG PO SCH ×2 (08:48→21:18)
[2022-03-04] MEDS: DOCUSATE SODIUM 100 MG/10 ML UDC GT SCH ×2 (08:48→21:01)
[2022-03-04] MEDS: LANSOPRAZOLE 30 MG CAPSULE.DR GT SCH (10:34)
[2022-03-04] MEDS: SOD FERRIC GLUC COMPLEX/SUC 125 MG in NS 100 ML IV SCH (11:01)
[2022-03-04] MEDS: VANCOMYCIN HCL 750 MG in NS 250 ML IV SCH (17:15)
[2022-03-05] VITALS (31 sets, daily range): BP systolic 91–159
[2022-03-05 00:26] LABS: THEOPHYLLINE 17.9 ug/mL (10.0-20.0)
[2022-03-05] MEDS: HYDROCORTISONE SOD SUCC 100 MG/2 ML VIAL IVP SCH ×4 (03:38→17:01)
[2022-03-05] MEDS: PEG 400/HYPROMELLOSE/GLYCERIN 15 ML DROPS BOTH EYES SCH ×3 (06:03→21:12)
[2022-03-05 06:28] LABS: BASOPHILS % (AUTO) 0.2 % (0.0-2.0); EOSINOPHILS % (AUTO) 0.1 % (0.0-4.0); HEMATOCRIT 24.7 % (36-48); HEMOGLOBIN 8.3 g/dL (12.0-16.0); LYMPHOCYTES # (AUTO) 1.4 K/uL (1.0-5.5); LYMPHOCYTES % (AUTO) 23.8 % (20.5-51.5); MEAN CORPUSCULAR HEMOGLOBIN 36 pg (27-31); MEAN CORPUSCULAR HGB CONC 34 % (32-36); MEAN CORPUSCULAR VOLUME 107 fL (79.0-98.0); MONOCYTES # (AUTO) 0.4 K/uL (0.0-1.0); MONOCYTES % (AUTO) 6.7 % (1.7-9.3); NEUTROPHILS # (AUTO) 4.2 K/uL (1.8-7.7); NEUTROPHILS % (AUTO) 69.2 % (40.0-70.0); PLATELET COUNT (AUTO) 87 K/uL (130-430); RED BLOOD CELL COUNT(AUTO) 2.32 MIL/uL (4.2-6.2); WHITE BLOOD COUNT (AUTO) 6.1 K/uL (4.8-10.8)
[2022-03-05] MEDS: LEVOTHYROXINE SODIUM 0.025 MG TABLET PO SCH (07:12)
[2022-03-05 07:28] LABS: CALCIUM 9.1 mg/dL (8.4-11.0); CREATININE 0.8 mg/dL (0.55-1.30); POTASSIUM 3.7 mmol/L (3.5-5.1); THYROID STIMULATING HORMONE 0.51 uIu/mL (0.36-3.74)
[2022-03-05] MEDS: THEOPHYLLINE ANHYDROUS 80 MG/15 ML UDC PO SCH ×3 (08:09→21:11)
[2022-03-05] MEDS: LevETIRAcetam 500 MG/5 ML UDC ORAL LIQUID GT SCH ×2 (08:10→21:10)
[2022-03-05] MEDS: PANTOPRAZOLE SODIUM 40 MG/VIAL (PROTONIX) IVP SCH (08:11)
[2022-03-05] MEDS: FERROUS SULFATE 300 MG/5 ML UDC PO SCH (08:11)
[2022-03-05] MEDS: MIDODRINE HCL 5 MG TABLET (PROAMATINE) GT SCH ×3 (08:12→21:10)
[2022-03-05] MEDS: POTASSIUM CHLORIDE 20 MEQ/PKT PACKET PO SCH ×2 (08:12→21:11)
[2022-03-05] MEDS: VALPROIC ACID ORAL SYRUP 250 MG/5 ML UDC GT SCH ×3 (08:12→21:09)
[2022-03-05] MEDS: ASCORBIC ACID 500 MG TABLET GT SCH (08:12)
[2022-03-05] MEDS: BACLOFEN 10 MG TABLET GT SCH ×3 (08:12→21:09)
[2022-03-05] MEDS: GLYCOPYRROLATE 1 MG TABLET GT SCH ×3 (08:13→21:10)
[2022-03-05] MEDS: MULTIVITAMINS TAB 1 TABLET GT SCH (08:13)
[2022-03-05] MEDS: LACOSAMIDE 100 MG TABLET PO SCH ×2 (08:13→21:11)
[2022-03-05] MEDS: clonazePAM 0.5 MG TABLET GT SCH ×3 (08:13→21:10)
[2022-03-05] MEDS: FLUDROCORTISONE ACETATE 0.1 MG TABLET( FLORINEF) GT SCH (08:13)
[2022-03-05] MEDS: FOLIC ACID 1 MG TABLET GT SCH (08:13)
[2022-03-05] MEDS: LORATADINE 10 MG TABLET GT SCH (08:13)
[2022-03-05] MEDS: HYDROCORTISONE 2.5%, 30 GM TOPICAL CREAM TP SCH ×3 (08:14→21:12)
[2022-03-05] MEDS: CLOBAZAM 10 MG PO SCH (08:14)
[2022-03-05] MEDS: IPRATROPIUM BROM 0.5 MG/2.5 ML VIAL.NEB (ATROVENT) INH SCH ×4 (08:15→19:44)
[2022-03-05] MEDS: DOCUSATE SODIUM 100 MG/10 ML UDC GT SCH ×2 (08:15→21:09)
[2022-03-05 08:23] LABS: RED CELL DISTRIBUTION WIDTH 22.4 % (9.0-15.0)
[2022-03-05] MEDS: LANSOPRAZOLE 30 MG CAPSULE.DR GT SCH (10:05)
[2022-03-05] MEDS: SOD FERRIC GLUC COMPLEX/SUC 125 MG in NS 100 ML IV SCH (10:05)
[2022-03-05] MEDS: VANCOMYCIN HCL 750 MG in NS 250 ML IV SCH (16:59)
[2022-03-06] VITALS (24 sets, daily range): BP systolic 102–154
[2022-03-06] MEDS: HYDROCORTISONE SOD SUCC 100 MG/2 ML VIAL IVP SCH ×5 (00:32→23:47)
[2022-03-06] MEDS: PEG 400/HYPROMELLOSE/GLYCERIN 15 ML DROPS BOTH EYES SCH ×3 (05:43→21:24)
[2022-03-06] MEDS: LEVOTHYROXINE SODIUM 0.025 MG TABLET PO SCH (05:44)
[2022-03-06] MEDS: IPRATROPIUM BROM 0.5 MG/2.5 ML VIAL.NEB (ATROVENT) INH SCH ×4 (07:49→21:38)
[2022-03-06] MEDS: FERROUS SULFATE 300 MG/5 ML UDC PO SCH (08:09)
[2022-03-06] MEDS: PANTOPRAZOLE SODIUM 40 MG/VIAL (PROTONIX) IVP SCH (08:09)
[2022-03-06] MEDS: VALPROIC ACID ORAL SYRUP 250 MG/5 ML UDC GT SCH ×3 (08:09→20:14)
[2022-03-06] MEDS: LevETIRAcetam 500 MG/5 ML UDC ORAL LIQUID GT SCH ×2 (08:10→20:14)
[2022-03-06] MEDS: POTASSIUM CHLORIDE 20 MEQ/PKT PACKET PO SCH ×2 (08:10→20:17)
[2022-03-06] MEDS: FOLIC ACID 1 MG TABLET GT SCH (08:11)
[2022-03-06] MEDS: LORATADINE 10 MG TABLET GT SCH (08:11)
[2022-03-06] MEDS: GLYCOPYRROLATE 1 MG TABLET GT SCH ×3 (08:11→20:13)
[2022-03-06] MEDS: clonazePAM 0.5 MG TABLET GT SCH ×3 (08:11→20:13)
[2022-03-06] MEDS: MULTIVITAMINS TAB 1 TABLET GT SCH (08:11)
[2022-03-06] MEDS: BACLOFEN 10 MG TABLET GT SCH ×3 (08:11→20:12)
[2022-03-06] MEDS: ASCORBIC ACID 500 MG TABLET GT SCH (08:11)
[2022-03-06] MEDS: FLUDROCORTISONE ACETATE 0.1 MG TABLET( FLORINEF) GT SCH (08:11)
[2022-03-06] MEDS: DOCUSATE SODIUM 100 MG/10 ML UDC GT SCH ×2 (08:12→20:13)
[2022-03-06] MEDS: LACOSAMIDE 100 MG TABLET PO SCH ×2 (08:12→20:13)
[2022-03-06] MEDS: CLOBAZAM 10 MG PO SCH ×2 (08:12→20:17)
[2022-03-06] MEDS: HYDROCORTISONE 2.5%, 30 GM TOPICAL CREAM TP SCH ×3 (08:13→20:17)
[2022-03-06 08:27] LABS: ALBUMIN 2.9 g/dL (3.4-4.8); CALCIUM 8.9 mg/dL (8.4-11.0); CREATININE 0.82 mg/dL (0.55-1.30); POTASSIUM 4.1 mmol/L (3.5-5.1); TOTAL BILIRUBIN 0.4 mg/dL (0.0-1.0)
[2022-03-06] MEDS: MIDODRINE HCL 5 MG TABLET (PROAMATINE) GT SCH ×3 (08:27→20:13)
[2022-03-06] MEDS ORDERED: THEOPHYLLINE ANHYDROUS 80 MG/15 ML UDC PO SCH ×2 (09:00→10:47)
[2022-03-06] MEDS: SOD FERRIC GLUC COMPLEX/SUC 125 MG in NS 100 ML IV SCH (10:13)
[2022-03-06] MEDS: LANSOPRAZOLE 30 MG CAPSULE.DR GT SCH (10:13)
[2022-03-06] MEDS: THEOPHYLLINE ANHYDROUS 80 MG/15 ML UDC GT SCH ×2 (15:05→20:15)
[2022-03-06] MEDS: VANCOMYCIN HCL 750 MG in NS 250 ML IV SCH (17:33)
[2022-03-07] VITALS (32 sets, daily range): BP systolic 98–163
[2022-03-07] MEDS: THEOPHYLLINE ANHYDROUS 80 MG/15 ML UDC GT SCH ×4 (03:10→21:38)
[2022-03-07] MEDS: LEVOTHYROXINE SODIUM 0.025 MG TABLET PO SCH (06:25)
[2022-03-07] MEDS: PEG 400/HYPROMELLOSE/GLYCERIN 15 ML DROPS BOTH EYES SCH ×3 (06:25→21:39)
[2022-03-07] MEDS: HYDROCORTISONE SOD SUCC 100 MG/2 ML VIAL IVP SCH ×4 (06:25→23:38)
[2022-03-07 06:36] LABS: BASOPHILS % (AUTO) 0.5 % (0.0-2.0); EOSINOPHILS % (AUTO) 0.1 % (0.0-4.0); HEMATOCRIT 26.8 % (36-48); LYMPHOCYTES % (AUTO) 23.2 % (20.5-51.5); MEAN CORPUSCULAR HEMOGLOBIN 36 pg (27-31); MEAN CORPUSCULAR HGB CONC 34 % (32-36); MEAN CORPUSCULAR VOLUME 106 fL (79.0-98.0); MONOCYTES # (AUTO) 0.4 K/uL (0.0-1.0); MONOCYTES % (AUTO) 8.9 % (1.7-9.3); NEUTROPHILS # (AUTO) 2.9 K/uL (1.8-7.7); NEUTROPHILS % (AUTO) 67.3 % (40.0-70.0); PLATELET COUNT (AUTO) 148 K/uL (130-430); RED BLOOD CELL COUNT(AUTO) 2.54 MIL/uL (4.2-6.2); RED CELL DISTRIBUTION WIDTH 21.6 % (9.0-15.0); WHITE BLOOD COUNT (AUTO) 4.4 K/uL (4.8-10.8)
[2022-03-07 06:39] LABS: ALBUMIN 2.6 g/dL (3.4-4.8); CALCIUM 8.7 mg/dL (8.4-11.0); CREATININE 0.83 mg/dL (0.55-1.30); POTASSIUM 3.6 mmol/L (3.5-5.1); TOTAL BILIRUBIN 0.3 mg/dL (0.0-1.0)
[2022-03-07] MEDS: IPRATROPIUM BROM 0.5 MG/2.5 ML VIAL.NEB (ATROVENT) INH SCH (07:16)
[2022-03-07] MEDS ORDERED: LORazepam 2 MG/ML VIAL IVP PRN (08:45)
[2022-03-07] MEDS: DOCUSATE SODIUM 100 MG/10 ML UDC GT SCH ×2 (09:00→21:37)
[2022-03-07] MEDS: CLOBAZAM 10 MG PO SCH ×2 (09:00→21:00)
[2022-03-07] MEDS: FERROUS SULFATE 300 MG/5 ML UDC PO SCH (09:36)
[2022-03-07] MEDS: FOLIC ACID 1 MG TABLET GT SCH (09:37)
[2022-03-07] MEDS: clonazePAM 0.5 MG TABLET GT SCH ×3 (09:37→21:37)
[2022-03-07] MEDS: BACLOFEN 10 MG TABLET GT SCH ×3 (09:37→21:37)
[2022-03-07] MEDS: ASCORBIC ACID 500 MG TABLET GT SCH (09:37)
[2022-03-07] MEDS: LACOSAMIDE 100 MG TABLET PO SCH ×2 (09:37→21:37)
[2022-03-07] MEDS: MULTIVITAMINS TAB 1 TABLET GT SCH (09:37)
[2022-03-07] MEDS: FLUDROCORTISONE ACETATE 0.1 MG TABLET( FLORINEF) GT SCH (09:37)
[2022-03-07] MEDS: GLYCOPYRROLATE 1 MG TABLET GT SCH ×3 (09:37→21:37)
[2022-03-07] MEDS: LORATADINE 10 MG TABLET GT SCH (09:37)
[2022-03-07] MEDS: POTASSIUM CHLORIDE 20 MEQ/PKT PACKET PO SCH ×2 (09:37→21:36)
[2022-03-07] MEDS: MIDODRINE HCL 5 MG TABLET (PROAMATINE) GT SCH ×3 (09:38→21:37)
[2022-03-07] MEDS: LevETIRAcetam 500 MG/5 ML UDC ORAL LIQUID GT SCH ×2 (09:38→21:38)
[2022-03-07] MEDS: PANTOPRAZOLE SODIUM 40 MG/VIAL (PROTONIX) IVP SCH (09:38)
[2022-03-07] MEDS: VALPROIC ACID ORAL SYRUP 250 MG/5 ML UDC GT SCH ×3 (09:48→21:37)
[2022-03-07] MEDS: MENTHOL/ZINC OXIDE 113 GM OINT. TP PRN (09:48)
[2022-03-07] MEDS: HYDROCORTISONE 2.5%, 30 GM TOPICAL CREAM TP SCH ×3 (09:49→21:38)
[2022-03-07] MEDS: LANSOPRAZOLE 30 MG CAPSULE.DR GT SCH (11:16)
[2022-03-07] MEDS ORDERED: VANCOMYCIN HCL 500 MG in NS 100 ML IV SCH (17:00)
[2022-03-08] VITALS (28 sets, daily range): BP systolic 102–157
[2022-03-08] MEDS: THEOPHYLLINE ANHYDROUS 80 MG/15 ML UDC GT SCH ×3 (02:38→14:13)
[2022-03-08] MEDS: HYDROCORTISONE SOD SUCC 100 MG/2 ML VIAL IVP SCH ×4 (05:43→23:51)
[2022-03-08] MEDS: PEG 400/HYPROMELLOSE/GLYCERIN 15 ML DROPS BOTH EYES SCH ×3 (05:43→20:57)
[2022-03-08] MEDS: LEVOTHYROXINE SODIUM 0.05 MG TABLET PO SCH (06:23)
[2022-03-08] MEDS: IPRATROPIUM BROM 0.5 MG/2.5 ML VIAL.NEB (ATROVENT) INH SCH ×4 (07:17→22:29)
[2022-03-08 07:32] LABS: CALCIUM 9.1 mg/dL (8.4-11.0); CREATININE 0.71 mg/dL (0.55-1.30); POTASSIUM 4.9 mmol/L (3.5-5.1)
[2022-03-08] MEDS: ASCORBIC ACID 500 MG TABLET GT SCH (08:14)
[2022-03-08] MEDS: POTASSIUM CHLORIDE 20 MEQ/PKT PACKET PO SCH ×2 (08:14→20:56)
[2022-03-08] MEDS: FLUDROCORTISONE ACETATE 0.1 MG TABLET( FLORINEF) GT SCH (08:15)
[2022-03-08] MEDS: GLYCOPYRROLATE 1 MG TABLET GT SCH ×3 (08:15→20:56)
[2022-03-08] MEDS: FOLIC ACID 1 MG TABLET GT SCH (08:15)
[2022-03-08] MEDS: clonazePAM 0.5 MG TABLET GT SCH ×3 (08:15→20:56)
[2022-03-08] MEDS: LORATADINE 10 MG TABLET GT SCH (08:15)
[2022-03-08] MEDS: MULTIVITAMINS TAB 1 TABLET GT SCH (08:15)
[2022-03-08] MEDS: LACOSAMIDE 100 MG TABLET PO SCH ×2 (08:15→20:56)
[2022-03-08] MEDS: PANTOPRAZOLE SODIUM 40 MG/VIAL (PROTONIX) IVP SCH (08:15)
[2022-03-08] MEDS: BACLOFEN 10 MG TABLET GT SCH ×3 (08:15→20:56)
[2022-03-08] MEDS: FERROUS SULFATE 300 MG/5 ML UDC PO SCH (08:16)
[2022-03-08] MEDS: LevETIRAcetam 500 MG/5 ML UDC ORAL LIQUID GT SCH ×2 (08:16→20:55)
[2022-03-08] MEDS: VALPROIC ACID ORAL SYRUP 250 MG/5 ML UDC GT SCH ×3 (08:17→20:55)
[2022-03-08] MEDS: HYDROCORTISONE 2.5%, 30 GM TOPICAL CREAM TP SCH ×3 (08:18→20:58)
[2022-03-08] MEDS: DOCUSATE SODIUM 100 MG/10 ML UDC GT SCH ×2 (08:18→20:55)
[2022-03-08] MEDS: CLOBAZAM 10 MG PO SCH ×2 (08:19→20:57)
[2022-03-08] MEDS: MIDODRINE HCL 5 MG TABLET (PROAMATINE) GT SCH ×3 (08:19→20:56)
[2022-03-08 08:39] LABS: BASOPHILS % (AUTO) 0.4 % (0.0-2.0); EOSINOPHILS % (AUTO) 0.1 % (0.0-4.0); HEMATOCRIT 29.3 % (36-48); HEMOGLOBIN 9.7 g/dL (12.0-16.0); LYMPHOCYTES # (AUTO) 0.7 K/uL (1.0-5.5); LYMPHOCYTES % (AUTO) 17.9 % (20.5-51.5); MEAN CORPUSCULAR HEMOGLOBIN 35 pg (27-31); MEAN CORPUSCULAR HGB CONC 33 % (32-36); MEAN CORPUSCULAR VOLUME 105 fL (79.0-98.0); MONOCYTES # (AUTO) 0.3 K/uL (0.0-1.0); MONOCYTES % (AUTO) 8.5 % (1.7-9.3); NEUTROPHILS # (AUTO) 2.8 K/uL (1.8-7.7); NEUTROPHILS % (AUTO) 73.1 % (40.0-70.0); PLATELET COUNT (AUTO) 143 K/uL (130-430); WHITE BLOOD COUNT (AUTO) 3.8 K/uL (4.8-10.8)
[2022-03-08] MEDS: LANSOPRAZOLE 30 MG CAPSULE.DR GT SCH (09:07)
[2022-03-08 09:20] LABS: RED CELL DISTRIBUTION WIDTH 20.9 % (9.0-15.0)
[2022-03-08 19:40] LABS: THEOPHYLLINE 25.8 ug/mL (10.0-20.0)
[2022-03-09] VITALS (37 sets, daily range): BP systolic 118–169
[2022-03-09] MEDS: PEG 400/HYPROMELLOSE/GLYCERIN 15 ML DROPS BOTH EYES SCH ×3 (06:38→20:38)
[2022-03-09] MEDS: HYDROCORTISONE SOD SUCC 100 MG/2 ML VIAL IVP SCH ×4 (06:39→23:57)
[2022-03-09] MEDS: THEOPHYLLINE ANHYDROUS 80 MG/15 ML UDC GT SCH ×3 (06:39→20:37)
[2022-03-09] MEDS: LEVOTHYROXINE SODIUM 0.05 MG TABLET PO SCH (06:39)
[2022-03-09] MEDS: IPRATROPIUM BROM 0.5 MG/2.5 ML VIAL.NEB (ATROVENT) INH SCH ×4 (07:21→21:02)
[2022-03-09] MEDS: FERROUS SULFATE 300 MG/5 ML UDC PO SCH (08:07)
[2022-03-09] MEDS: FLUDROCORTISONE ACETATE 0.1 MG TABLET( FLORINEF) GT SCH (08:07)
[2022-03-09] MEDS: LORATADINE 10 MG TABLET GT SCH (08:07)
[2022-03-09] MEDS: GLYCOPYRROLATE 1 MG TABLET GT SCH ×3 (08:07→20:36)
[2022-03-09] MEDS: LevETIRAcetam 500 MG/5 ML UDC ORAL LIQUID GT SCH ×2 (08:07→20:36)
[2022-03-09] MEDS: VALPROIC ACID ORAL SYRUP 250 MG/5 ML UDC GT SCH ×3 (08:07→20:36)
[2022-03-09] MEDS: CLOBAZAM 10 MG PO SCH ×2 (08:08→20:38)
[2022-03-09] MEDS: clonazePAM 0.5 MG TABLET GT SCH ×3 (08:08→20:36)
[2022-03-09] MEDS: ASCORBIC ACID 500 MG TABLET GT SCH (08:08)
[2022-03-09] MEDS: MULTIVITAMINS TAB 1 TABLET GT SCH (08:08)
[2022-03-09] MEDS: PANTOPRAZOLE SODIUM 40 MG/VIAL (PROTONIX) IVP SCH (08:08)
[2022-03-09] MEDS: BACLOFEN 10 MG TABLET GT SCH ×3 (08:08→20:38)
[2022-03-09] MEDS: LACOSAMIDE 100 MG TABLET PO SCH ×2 (08:08→20:36)
[2022-03-09] MEDS: FOLIC ACID 1 MG TABLET GT SCH (08:08)
[2022-03-09] MEDS: MIDODRINE HCL 5 MG TABLET (PROAMATINE) GT SCH ×3 (08:09→20:36)
[2022-03-09] MEDS: HYDROCORTISONE 2.5%, 30 GM TOPICAL CREAM TP SCH ×3 (08:09→20:37)
[2022-03-09] MEDS: POTASSIUM CHLORIDE 20 MEQ/PKT PACKET PO SCH ×2 (08:09→20:36)
[2022-03-09] MEDS: DOCUSATE SODIUM 100 MG/10 ML UDC GT SCH ×2 (08:09→20:35)
[2022-03-09] MEDS: LANSOPRAZOLE 30 MG CAPSULE.DR GT SCH (10:30)
[2022-03-09 11:15] LABS: BASOPHILS % (AUTO) 0.8 % (0.0-2.0); EOSINOPHILS % (AUTO) 1.3 % (0.0-4.0); HEMATOCRIT 30.4 % (36-48); HEMOGLOBIN 10.4 g/dL (12.0-16.0); LYMPHOCYTES # (AUTO) 0.6 K/uL (1.0-5.5); LYMPHOCYTES % (AUTO) 16.5 % (20.5-51.5); MEAN CORPUSCULAR HEMOGLOBIN 35 pg (27-31); MEAN CORPUSCULAR HGB CONC 34 % (32-36); MEAN CORPUSCULAR VOLUME 103 fL (79.0-98.0); MONOCYTES # (AUTO) 0.3 K/uL (0.0-1.0); MONOCYTES % (AUTO) 7.6 % (1.7-9.3); NEUTROPHILS # (AUTO) 2.7 K/uL (1.8-7.7); NEUTROPHILS % (AUTO) 73.8 % (40.0-70.0); PLATELET COUNT (AUTO) 156 K/uL (130-430); RED BLOOD CELL COUNT(AUTO) 2.95 MIL/uL (4.2-6.2); WHITE BLOOD COUNT (AUTO) 3.7 K/uL (4.8-10.8)
[2022-03-09 11:48] LABS: CALCIUM 9.1 mg/dL (8.4-11.0); CREATININE 0.81 mg/dL (0.55-1.30); POTASSIUM 3.9 mmol/L (3.5-5.1)
[2022-03-10] VITALS (24 sets, daily range): BP systolic 103–175
[2022-03-10] MEDS: HYDROCORTISONE SOD SUCC 100 MG/2 ML VIAL IVP SCH ×3 (06:07→18:05)
[2022-03-10] MEDS: PEG 400/HYPROMELLOSE/GLYCERIN 15 ML DROPS BOTH EYES SCH ×3 (06:07→22:53)
[2022-03-10] MEDS: LEVOTHYROXINE SODIUM 0.05 MG TABLET PO SCH (06:07)
[2022-03-10] MEDS: THEOPHYLLINE ANHYDROUS 80 MG/15 ML UDC GT SCH ×3 (06:07→21:08)
[2022-03-10] MEDS: IPRATROPIUM BROM 0.5 MG/2.5 ML VIAL.NEB (ATROVENT) INH SCH ×3 (07:17→16:03)
[2022-03-10] MEDS: FLUDROCORTISONE ACETATE 0.1 MG TABLET( FLORINEF) GT SCH (08:10)
[2022-03-10] MEDS: MULTIVITAMINS TAB 1 TABLET GT SCH (08:10)
[2022-03-10] MEDS: BACLOFEN 10 MG TABLET GT SCH ×3 (08:10→21:09)
[2022-03-10] MEDS: PANTOPRAZOLE SODIUM 40 MG/VIAL (PROTONIX) IVP SCH (08:10)
[2022-03-10] MEDS: FOLIC ACID 1 MG TABLET GT SCH (08:10)
[2022-03-10] MEDS: GLYCOPYRROLATE 1 MG TABLET GT SCH ×3 (08:10→21:57)
[2022-03-10] MEDS: POTASSIUM CHLORIDE 20 MEQ/PKT PACKET PO SCH ×2 (08:10→21:09)
[2022-03-10] MEDS: LevETIRAcetam 500 MG/5 ML UDC ORAL LIQUID GT SCH ×2 (08:11→21:00)
[2022-03-10] MEDS: clonazePAM 0.5 MG TABLET GT SCH ×3 (08:11→21:09)
[2022-03-10] MEDS: LACOSAMIDE 100 MG TABLET PO SCH ×2 (08:11→21:57)
[2022-03-10] MEDS: VALPROIC ACID ORAL SYRUP 250 MG/5 ML UDC GT SCH ×3 (08:11→21:09)
[2022-03-10] MEDS: LORATADINE 10 MG TABLET GT SCH (08:11)
[2022-03-10] MEDS: LANSOPRAZOLE 30 MG CAPSULE.DR GT SCH (08:12)
[2022-03-10] MEDS: DOCUSATE SODIUM 100 MG/10 ML UDC GT SCH ×2 (08:14→21:09)
[2022-03-10] MEDS: MIDODRINE HCL 5 MG TABLET (PROAMATINE) GT SCH ×3 (08:14→21:09)
[2022-03-10] MEDS: HYDROCORTISONE 2.5%, 30 GM TOPICAL CREAM TP SCH ×3 (08:14→21:00)
[2022-03-10] MEDS: CLOBAZAM 10 MG PO SCH ×2 (08:14→21:00)
[2022-03-10 09:16] LABS: CALCIUM 9.3 mg/dL (8.4-11.0); CREATININE 0.82 mg/dL (0.55-1.30)
[2022-03-10 09:23] LABS: BASOPHILS % (AUTO) 0.4 % (0.0-2.0); EOSINOPHILS % (AUTO) 0.2 % (0.0-4.0); HEMATOCRIT 33.9 % (36-48); HEMOGLOBIN 11.4 g/dL (12.0-16.0); LYMPHOCYTES # (AUTO) 0.6 K/uL (1.0-5.5); LYMPHOCYTES % (AUTO) 9.7 % (20.5-51.5); MEAN CORPUSCULAR HEMOGLOBIN 35 pg (27-31); MEAN CORPUSCULAR HGB CONC 34 % (32-36); MEAN CORPUSCULAR VOLUME 104 fL (79.0-98.0); MONOCYTES # (AUTO) 0.5 K/uL (0.0-1.0); MONOCYTES % (AUTO) 8.5 % (1.7-9.3); NEUTROPHILS % (AUTO) 81.2 % (40.0-70.0); PLATELET COUNT (AUTO) 167 K/uL (130-430); RED BLOOD CELL COUNT(AUTO) 3.26 MIL/uL (4.2-6.2); RED CELL DISTRIBUTION WIDTH 19.7 % (9.0-15.0)
[2022-03-10 12:31] LABS: WHITE BLOOD COUNT (AUTO) 6.2 K/uL (4.8-10.8)
[2022-03-10] MEDS: MENTHOL/ZINC OXIDE 113 GM OINT. TP PRN (21:23)
[2022-03-11 00:53] VITALS: BP_SYST 117
[2022-03-11] MEDS: HYDROCORTISONE SOD SUCC 100 MG/2 ML VIAL IVP SCH ×4 (06:00→18:00)
[2022-03-11 06:43] LABS: BASOPHILS % (AUTO) 0.5 % (0.0-2.0); EOSINOPHILS % (AUTO) 0.4 % (0.0-4.0); HEMATOCRIT 32.1 % (36-48); HEMOGLOBIN 10.9 g/dL (12.0-16.0); LYMPHOCYTES # (AUTO) 1.9 K/uL (1.0-5.5); LYMPHOCYTES % (AUTO) 33.3 % (20.5-51.5); MEAN CORPUSCULAR HEMOGLOBIN 36 pg (27-31); MEAN CORPUSCULAR HGB CONC 34 % (32-36); MEAN CORPUSCULAR VOLUME 104 fL (79.0-98.0); MONOCYTES # (AUTO) 0.5 K/uL (0.0-1.0); MONOCYTES % (AUTO) 9.2 % (1.7-9.3); NEUTROPHILS # (AUTO) 3.2 K/uL (1.8-7.7); NEUTROPHILS % (AUTO) 56.6 % (40.0-70.0); PLATELET COUNT (AUTO) 148 K/uL (130-430); RED BLOOD CELL COUNT(AUTO) 3.07 MIL/uL (4.2-6.2); RED CELL DISTRIBUTION WIDTH 19.7 % (9.0-15.0); WHITE BLOOD COUNT (AUTO) 5.7 K/uL (4.8-10.8)
[2022-03-11] MEDS: THEOPHYLLINE ANHYDROUS 80 MG/15 ML UDC GT SCH ×3 (06:46→21:33)
[2022-03-11] MEDS: LEVOTHYROXINE SODIUM 0.05 MG TABLET PO SCH (06:46)
[2022-03-11] MEDS: PEG 400/HYPROMELLOSE/GLYCERIN 15 ML DROPS BOTH EYES SCH ×3 (06:46→20:53)
[2022-03-11] MEDS: IPRATROPIUM BROM 0.5 MG/2.5 ML VIAL.NEB (ATROVENT) INH SCH ×4 (07:23→23:37)
[2022-03-11 08:23] LABS: CALCIUM 8.8 mg/dL (8.4-11.0); CREATININE 0.74 mg/dL (0.55-1.30); POTASSIUM 4.1 mmol/L (3.5-5.1)
[2022-03-11] MEDS: CLOBAZAM 10 MG PO SCH ×2 (09:00→21:00)
[2022-03-11] MEDS: MENTHOL/ZINC OXIDE 113 GM OINT. TP PRN ×2 (10:13→21:15)
[2022-03-11] MEDS: PANTOPRAZOLE SODIUM 40 MG/VIAL (PROTONIX) IVP SCH (10:16)
[2022-03-11] MEDS: DOCUSATE SODIUM 100 MG/10 ML UDC GT SCH ×2 (10:17→20:53)
[2022-03-11] MEDS: FOLIC ACID 1 MG TABLET GT SCH (10:17)
[2022-03-11] MEDS: LANSOPRAZOLE 30 MG CAPSULE.DR GT SCH (10:18)
[2022-03-11] MEDS: POTASSIUM CHLORIDE 20 MEQ/PKT PACKET PO SCH ×2 (10:18→20:52)
[2022-03-11] MEDS: MIDODRINE HCL 5 MG TABLET (PROAMATINE) GT SCH ×3 (10:18→20:52)
[2022-03-11] MEDS: clonazePAM 0.5 MG TABLET GT SCH ×3 (10:18→20:52)
[2022-03-11] MEDS: MULTIVITAMINS TAB 1 TABLET GT SCH (10:19)
[2022-03-11] MEDS: LORATADINE 10 MG TABLET GT SCH (10:19)
[2022-03-11] MEDS: BACLOFEN 10 MG TABLET GT SCH ×3 (10:19→20:52)
[2022-03-11] MEDS: FLUDROCORTISONE ACETATE 0.1 MG TABLET( FLORINEF) GT SCH (10:50)
[2022-03-11] MEDS: GLYCOPYRROLATE 1 MG TABLET GT SCH ×3 (10:50→22:16)
[2022-03-11] MEDS: LACOSAMIDE 100 MG TABLET PO SCH ×2 (10:50→22:16)
[2022-03-11] MEDS: VALPROIC ACID ORAL SYRUP 250 MG/5 ML UDC GT SCH ×3 (10:59→20:53)
[2022-03-11] MEDS: LevETIRAcetam 500 MG/5 ML UDC ORAL LIQUID GT SCH ×2 (11:10→20:53)
[2022-03-11] MEDS: HYDROCORTISONE 2.5%, 30 GM TOPICAL CREAM TP SCH ×3 (11:10→21:12)
[2022-03-11 11:21] VITALS: BP_SYST 149
[2022-03-11 15:29] VITALS: BP_SYST 141
[2022-03-11 20:03] VITALS: BP_SYST 150
[2022-03-11 20:36] LABS: THEOPHYLLINE 11.3 ug/mL (10.0-20.0)
[2022-03-12] VITALS: BP_SYST 146
[2022-03-12] MEDS: IPRATROPIUM BROM 0.5 MG/2.5 ML VIAL.NEB (ATROVENT) INH SCH ×3 (07:06→15:19)
[2022-03-12] MEDS: LEVOTHYROXINE SODIUM 0.05 MG TABLET PO SCH (07:19)
[2022-03-12] MEDS: HYDROCORTISONE SOD SUCC 100 MG/2 ML VIAL IVP SCH ×2 (07:20→12:00)
[2022-03-12] MEDS: PEG 400/HYPROMELLOSE/GLYCERIN 15 ML DROPS BOTH EYES SCH (07:20)
[2022-03-12] MEDS: THEOPHYLLINE ANHYDROUS 80 MG/15 ML UDC GT SCH (07:21)
[2022-03-12 07:48] VITALS: BP_SYST 126
[2022-03-12] MEDS: clonazePAM 0.5 MG TABLET GT SCH (09:40)
[2022-03-12] MEDS: MIDODRINE HCL 5 MG TABLET (PROAMATINE) GT SCH (09:40)
[2022-03-12] MEDS: LANSOPRAZOLE 30 MG CAPSULE.DR GT SCH (09:40)
[2022-03-12] MEDS: FOLIC ACID 1 MG TABLET GT SCH (09:40)
[2022-03-12] MEDS: BACLOFEN 10 MG TABLET GT SCH (09:40)
[2022-03-12] MEDS: LORATADINE 10 MG TABLET GT SCH (09:40)
[2022-03-12] MEDS: DOCUSATE SODIUM 100 MG/10 ML UDC GT SCH (09:40)
[2022-03-12] MEDS: MULTIVITAMINS TAB 1 TABLET GT SCH (09:40)
[2022-03-12] MEDS: POTASSIUM CHLORIDE 20 MEQ/PKT PACKET PO SCH (09:41)
[2022-03-12] MEDS: LevETIRAcetam 500 MG/5 ML UDC ORAL LIQUID GT SCH (09:43)
[2022-03-12] MEDS: VALPROIC ACID ORAL SYRUP 250 MG/5 ML UDC GT SCH (09:43)
[2022-03-12] MEDS: HYDROCORTISONE 2.5%, 30 GM TOPICAL CREAM TP SCH (10:07)
[2022-03-12 11:34] VITALS: BP_SYST 142
[2022-03-12] MEDS: PANTOPRAZOLE SODIUM 40 MG/VIAL (PROTONIX) IVP SCH (12:04)
[2022-03-12] MEDS: GLYCOPYRROLATE 1 MG TABLET GT SCH (14:04)
[2022-03-12] MEDS: FLUDROCORTISONE ACETATE 0.1 MG TABLET( FLORINEF) GT SCH (14:04)
[2022-03-12 14:32] VITALS: BP_SYST 142
[2022-03-12 15:27] VITALS: BP_SYST 162
[2022-03-13] MEDS ORDERED: ENOXAPARIN SODIUM 40 MG/0.4 ML SYRINGE SUBCUT SCH (09:00)
== END 2022-03-12 16:35 | disposition short-term general hospital (02) | DRG 870 ==
LOC: SED 12:07 → STU 15:44 → SIC 02-22 10:29 → STU 03-10 19:30
PROVIDERS: ADMIT Internal Medicine; ATTEND Internal Medicine
PROC: 5A1955Z Respiratory Ventilation, Greater than 96 Consecutive Hours (ICD-10-PCS; principal; 2022-02-16)
PROC: 05HY33Z Insertion of Infusion Device into Upper Vein, Percutaneous Approach (ICD-10-PCS; 2022-02-16)
PROC: B54NZZA Ultrasonography of Left Upper Extremity Veins, Guidance (ICD-10-PCS; 2022-02-16)
PROC: 02HV33Z Insertion of Infusion Device into Superior Vena Cava, Percutaneous Approach (ICD-10-PCS; 2022-02-22)
PROC: B548ZZA Ultrasonography of Superior Vena Cava, Guidance (ICD-10-PCS; 2022-02-22)
DX: A40.9 Streptococcal sepsis, unspecified (principal); R65.21 Severe sepsis with septic shock; J95.851 Ventilator associated pneumonia; D61.818 Other pancytopenia; E44.0 Moderate protein-calorie malnutrition; N39.0 Urinary tract infection, site not specified; J96.10 Chronic respiratory failure, unspecified whether with hypoxia or hypercapnia; Z99.11 Dependence on respirator [ventilator] status; G93.1 Anoxic brain damage, not elsewhere classified; E87.0 Hyperosmolality and hypernatremia; G80.9 Cerebral palsy, unspecified; Z20.822 Contact with and (suspected) exposure to COVID-19; D69.6 Thrombocytopenia, unspecified; I50.9 Heart failure, unspecified; D63.8 Anemia in other chronic diseases classified elsewhere; G40.901 Epilepsy, unspecified, not intractable, with status epilepticus; E87.6 Hypokalemia; B96.4 Proteus (mirabilis) (morganii) as the cause of diseases classified elsewhere; E03.9 Hypothyroidism, unspecified; I11.0 Hypertensive heart disease with heart failure; E66.9 Obesity, unspecified; T48.6X5A Adverse effect of antiasthmatics, initial encounter; Y92.89 Other specified places as the place of occurrence of the external cause; Z88.8 Allergy status to other drugs, medicaments and biological substances; Z88.1 Allergy status to other antibiotic agents; Z79.899 Other long term (current) drug therapy; Z68.30 Body mass index [BMI] 30.0-30.9, adult; Z93.1 Gastrostomy status; Z93.0 Tracheostomy status; Z74.01 Bed confinement status
CPT/HCPCS: 36415; 36600; 71045; 76700-TC; 80048; 80053; 80164; 80198; 80202; 81000; 82272; 82607; 82728; 82746; 82803-TC; 83540; 83550; 83605; 83735; 84100; 84439; 84443; 84484; 85007; 85025; 85027; 85610-TC; 85730-TC; 87040; 87070-TC; 87081; 87086; 87186-TC; 87205-TC; 87230-TC; 93005; 93306; 94002; 94003; 94640; 94760; 95816; 96374; 96375; 99285; C9113; G0378; J1265; J1720; J2060; J2543; J2916; J3370; J3475; J7030; J7050

== ENCOUNTER 2022-10-17 11:37 | Inpatient (IN) | payer OTHER, MEDICAID ==
[~2022-10-17] VITALS: Ht 147.3 cm; Wt 82.6 kg
[2022-10-17 11:44] VITALS: BP_SYST 167
--- NOTE | 2022-10-17 12:00 | NUR ---
BIB EMS FROM "[facility]" WITH C/O ABN DISTENTION FOR 3 DAYS. PER EMS, PT HAS HAD DIAHRREA AND INCONTIENT FOR THE LAST 3 DAYS. HX: CEREBRAL PA CKD, SIEZURE, HTN, DM, HYPER LIP, ANEMIA, QUADRIPLE, TRACH VENT PT. PT IS AAX01, VSS, NAD, PT IS ON VENTILATOR AND IS BREATHING EVEN AND UNLABORED, PT IS IN GOWN, ON MOTORCYCLE MECHANIC SHOW NSR. SAFETY PRECAUTIONS AND COMFORT MEASURES IN PLACE. PENDING MD COLLINS AND ORDERS.
--- NOTE | 2022-10-17 12:02 | NUR ---
DR. JUSTIN AT BEDSIDE EXAMINING THE PT.
[2022-10-17 12:14] LABS: BASOPHILS % (AUTO) 0.6 % (0.0-2.0); EOSINOPHILS % (AUTO) 0.4 % (0.0-4.0); HEMATOCRIT 37.3 % (36-48); HEMOGLOBIN 12.4 g/dL (12.0-16.0); LYMPHOCYTES # (AUTO) 1.5 K/uL (1.0-5.5); MEAN CORPUSCULAR HEMOGLOBIN 32 pg (27-31); MEAN CORPUSCULAR HGB CONC 33 % (32-36); MEAN CORPUSCULAR VOLUME 95 fL (79.0-98.0); MONOCYTES # (AUTO) 0.8 K/uL (0.0-1.0); MONOCYTES % (AUTO) 9.8 % (1.7-9.3); NEUTROPHILS # (AUTO) 5.5 K/uL (1.8-7.7); NEUTROPHILS % (AUTO) 70.2 % (40.0-70.0); PLATELET COUNT (AUTO) 186 K/uL (130-430); RED BLOOD CELL COUNT(AUTO) 3.92 MIL/uL (4.2-6.2); RED CELL DISTRIBUTION WIDTH 18.1 % (9.0-15.0); WHITE BLOOD COUNT (AUTO) 7.8 K/uL (4.8-10.8)
[2022-10-17 12:25] LABS: CALCIUM 9.8 mg/dL (8.4-11.0); CREATININE 1.14 mg/dL (0.55-1.30)
[2022-10-17 12:29] LABS: ALBUMIN 3.2 g/dL (3.4-4.8); TOTAL BILIRUBIN 0.4 mg/dL (0.0-1.0)
[2022-10-17 13:37] LABS: BILIRUBIN,URINE NEGATIVE (NEGATIVE); BLOOD, URINE 1+ (NEGATIVE); CLARITY/URINE SL CLOUDY (CLEAR); COLOR,URINE YELLOW (YELLOW); GLUCOSE,URINE NEGATIVE (NEGATIVE); KETONES,URINE NEGATIVE (NEGATIVE); LEUKOCYTE ESTERASE ,URINE 3+ (NEGATIVE); NITRITE, URINE POSITIVE (NEGATIVE); PROTEIN URINE 1+ (NEGATIVE); UROBILINOGEN,URINE 0.2 (0.2-1.0)
[2022-10-17 14:04] LABS: BACTERIA,URINE FEW /HPF (None Seen)
[2022-10-17 14:05] LABS: TRIPLE PHOSPHATE CRYSTAL,UR 0-10 /HPF (None Seen)
[2022-10-17 14:06] LABS: THYROID STIMULATING HORMONE 0.81 uIu/mL (0.34-4.82)
[2022-10-17] MEDS ORDERED: PIPERACILLIN/TAZO 3.375 GM in NS 50 ML IV ONE (17:30)
--- NOTE | 2022-10-17 17:51 | NUR ---
Admit bed requested Patient will be admitted to care of . Admitted to ICU unit. Diagnosis SEPSIS, PNA Inpatient (Yes or No) YES Observation (Yes or No) NNO Orientation concerns or request close to nursing station (Yes or No) NO Covid Status NEG On vent or bipap YES Isolation requirements YES Needs a sitter NO From Home (Yes or if No enter name of facility) NO, [facility] Requires Dialysis (Yes or No) NO Med Rec Completed (Yes of No) YES
--- NOTE | 2022-10-17 18:04 | NUR ---
MRSA OBTAINED AND SENT TO LAB
[2022-10-17] MEDS ORDERED: PIPERACILLIN/TAZOBACTAM 3.375 GM/VIAL (ZOSYN) IV ONE (18:12)
[2022-10-17] MEDS ORDERED: THEO80SO4 PO (18:28)
[2022-10-17] MEDS ORDERED: FURO-149 PO (18:28)
[2022-10-17] MEDS ORDERED: LACT10SO6 PO (18:28)
[2022-10-17] MEDS ORDERED: MIDO10TA PO (18:28)
[2022-10-17] MEDS ORDERED: POTA-197 PO (18:28)
[2022-10-17] MEDS ORDERED: SYN50 PO (18:28)
[2022-10-17 19:00] VITALS: BP_SYST 110; BP_SYST 139
[2022-10-17] MEDS ORDERED: KCL 20 mEq in D5NS 1000 mL 1,000 ML IV ONE (19:00)
[2022-10-17 21:00] VITALS: BP_SYST 137
[2022-10-17] MEDS: LevETIRAcetam 500 MG/5 ML UDC ORAL LIQUID GT SCH (21:15)
[2022-10-17] MEDS: ALBUTEROL SULFATE 0.083% 2.5 MG/3 ML VIAL.NEB INH SCH (21:15)
--- NOTE | 2022-10-17 21:28 | NUR ---
LATE ENTRY: Care assumed @1930, patient resting in bed with eyes closed, nonresponsive to verbal stimuli, Trach remains intact to vent with settings of tv 450-fio2 35%- ac 14 peep of 5, abd distended with peg tube in place and positive bowel sounds noted, generalized edema noted, left forearm HL intact. side rail pulled up, no s/s of any distress noted, will continue to monitor. IVF infusing as per order.
[2022-10-17] MEDS ORDERED: LORazepam 2 MG/ML VIAL IVP PRN (21:30)
[2022-10-17 21:38] LABS: PROTHROMBIN TIME 10.4 SECS (9.5-12.5)
[2022-10-17 22:00] VITALS: BP_SYST 124; BP_SYST 128
[2022-10-17] MEDS: PEG 400/HYPROMELLOSE/GLYCERIN 15 ML DROPS OP SCH (22:00)
[2022-10-17] MEDS ORDERED: ENOXAPARIN SODIUM 40 MG/0.4 ML SYRINGE SUBCUT ONE (22:00)
--- NOTE | 2022-10-17 22:11 | NUR ---
Patient to icu via gurney, report given to accepting nurse, patients remained stable in transport to unit.
[2022-10-17 23:00] VITALS: BP_SYST 174
[2022-10-17 23:17] VITALS: BP_SYST 135
[2022-10-18] VITALS (35 sets, daily range): BP systolic 98–161
[2022-10-18] MEDS ORDERED: CEFEPIME 1 GM/DEXT-ISO-OSM 50 ML IV ONE
[2022-10-18] MEDS: D5/0.45 NS 1,000 ML IV SCH ×2 (02:02→17:58)
[2022-10-18] MEDS ORDERED: CEFEPIME 1 GM/VIAL (MAXIPIME) ONE (02:27)
[2022-10-18] MEDS: PEG 400/HYPROMELLOSE/GLYCERIN 15 ML DROPS OP SCH ×3 (06:00→21:53)
--- NOTE | 2022-10-18 06:00 | NUR ---
RECIEVED PT FROM ER PT IS VENTED GOT REPORT FROM TONO ROMANO. THE PT IS FROM [facility]. THE PT IS HERE FOR A DISTENDED ABDOMEN. IT APPEARS HARD FIRM AND ROUND. WHEN YOU SUCTION THE PT IT APPEARS THAT A SMELL OF BOWEL COMES UP WITH THE SUCTION A FOUL SMELL. PT HAS A TRACH INTACT DSG . PT IS A QUADREPLEGIC IT IS UNKNOWN WHAT THE CAUSE WAS. ALEKSANDRA Peters SUBSTATION ENGINEER FROM [facility] CALLED TO GET UPDATE ON PT AND GIVE MORE INFO ON HER WELL. SHE HAS NO SKIN BREAKDOWN. SHE HAS GENERALIZED EDEMA AND SHINY SKIN ON THE CASTELLANO AREA. SHE HAS 1 IV RUNNING SODIUM POTASSIUM RUNNING. SHE IS UNABLE TO WITHDRAW FROM MOVEMENT OR TOUCH. SHE CAN BLINK HER EYES CANT FOLLOW COMMANDS. SHE IS AFEBRILE. PT IS STABLE RESP, AND PULDAY CORDOBA AT BEDSIDE. WILL CONTINUE TO MONITOR HER PROGRESS.
--- NOTE | 2022-10-18 06:49 | NUR ---
SPOKE WITH RAMON AT DR. MACK'S ANSWERING EXCHANGE REGARDING NEW CONSULT ORDERED BY DR. HEIN FOR RESPIRATORY FAILURE.
--- NOTE | 2022-10-18 06:51 | NUR ---
SPOKE WITH ZAC AT DR. WEISS'S ANSWERING EXCHANGE REGARDING NEW CONSULT ORDERED BY DR. HEIN FOR SEPSIS.
[2022-10-18] MEDS: LEVOTHYROXINE SODIUM 0.05 MG TABLET PO SCH (07:00)
[2022-10-18] MEDS: IPRATROPIUM BROM 0.5 MG/2.5 ML VIAL.NEB (ATROVENT) INH SCH ×4 (07:27→19:28)
[2022-10-18] MEDS: ALBUTEROL SULFATE 0.083% 2.5 MG/3 ML VIAL.NEB INH SCH ×4 (07:27→19:28)
--- NOTE | 2022-10-18 07:30 | NUR ---
RECIEVED PT FROM JUAN ANTONIO ESCOBEDO. PT IS TRACH TO VENT. THE PT IS FROM [facility]. THE PT IS HERE FOR A DISTENDED ABDOMEN. IT APPEARS HARD FIRM AND ROUND. PT HAS A TRACH INTACT DSG . PT IS A QUADREPLEGIC IT IS UNKNOWN WHAT THE CAUSE WAS. SHE HAS NO SKIN BREAKDOWN. SHE HAS GENERALIZED EDEMA AND SHINY SKIN ON THE CASTELLANO AREA. SHE IS UNABLE TO WITHDRAW FROM MOVEMENT OR TOUCH. SHE CAN BLINK HER EYES, CANNOT FOLLOW COMMANDS. SHE IS AFEBRILE. PT IS STABLE, NAD, VSS, WILL CONTINUE TO MONITOR HER PROGRESS.
[2022-10-18 07:54] LABS: CALCIUM 9.6 mg/dL (8.4-11.0); CREATININE 0.89 mg/dL (0.55-1.30)
[2022-10-18] MEDS: FLUDROCORTISONE ACETATE 0.1 MG TABLET( FLORINEF) GT SCH (08:00)
[2022-10-18] MEDS: VALPROIC ACID ORAL SYRUP 250 MG/5 ML UDC GT SCH ×3 (08:00→21:00)
[2022-10-18] MEDS: FERROUS SULFATE 300 MG/5 ML UDC GT SCH (08:00)
[2022-10-18] MEDS: LORATADINE 10 MG TABLET GT SCH (08:00)
[2022-10-18] MEDS: DOCUSATE SODIUM 100 MG/10 ML UDC GT SCH ×2 (08:00→21:00)
[2022-10-18] MEDS: LACOSAMIDE 100 MG TABLET PO SCH ×2 (08:01→21:00)
[2022-10-18] MEDS: ASCORBIC ACID 500 MG TABLET PO SCH (08:01)
[2022-10-18] MEDS: POTASSIUM CHLORIDE 20 MEQ TAB.PRT.SR PO SCH (08:01)
[2022-10-18] MEDS: MULTIVITAMINS TAB 1 TABLET GT SCH (08:01)
[2022-10-18] MEDS: MIDODRINE HCL 5 MG TABLET (PROAMATINE) PO SCH ×2 (08:01→21:00)
[2022-10-18] MEDS: THEOPHYLLINE ANHYDROUS 80 MG/15 ML UDC PO SCH ×2 (08:01→21:00)
[2022-10-18] MEDS: LevETIRAcetam 500 MG/5 ML UDC ORAL LIQUID GT SCH (08:01)
[2022-10-18] MEDS: BACLOFEN 10 MG TABLET PO SCH ×3 (08:01→21:00)
[2022-10-18] MEDS: CEFEPIME 1 GM in D5W 50 ML IV SCH ×2 (08:52→21:54)
[2022-10-18] MEDS ORDERED: OMEPRAZOLE Non-Formulary 20 MG CAPSULE.DR GT SCH (09:00)
[2022-10-18] MEDS ORDERED: CLOBAZAM 10 MG PO SCH (09:00)
[2022-10-18] MEDS ORDERED: FLUDROCORTISONE PEG SCH (09:00)
[2022-10-18] MEDS: LANSOPRAZOLE 30 MG CAPSULE.DR GT SCH (10:00)
[2022-10-18 10:41] LABS: BASOPHILS % (AUTO) 0.5 % (0.0-2.0); EOSINOPHILS % (AUTO) 0.5 % (0.0-4.0); HEMATOCRIT 36.2 % (36-48); HEMOGLOBIN 11.9 g/dL (12.0-16.0); LYMPHOCYTES # (AUTO) 0.7 K/uL (1.0-5.5); MEAN CORPUSCULAR HEMOGLOBIN 32 pg (27-31); MEAN CORPUSCULAR HGB CONC 33 % (32-36); MEAN CORPUSCULAR VOLUME 96 fL (79.0-98.0); NEUTROPHILS # (AUTO) 6.2 K/uL (1.8-7.7); PLATELET COUNT (AUTO) 173 K/uL (130-430); RED BLOOD CELL COUNT(AUTO) 3.75 MIL/uL (4.2-6.2); RED CELL DISTRIBUTION WIDTH 18.2 % (9.0-15.0); WHITE BLOOD COUNT (AUTO) 8.9 K/uL (4.8-10.8)
--- NOTE | 2022-10-18 11:17 | NUR ---
RT NOTES 1117 TITRATED FIO2 TO 30%, PT SATURATING 96%. WILL CONT TO MONITOR PT.
[2022-10-18] MEDS ORDERED: levETIRAcetam 1,500 MG in NS 85 ML IV ONE (13:15)
[2022-10-18] MEDS: metroNIDAZOLE 500 mg/NS 100 ML IV SCH ×2 (13:32→21:52)
[2022-10-18] MEDS ORDERED: FUROSEMIDE 20 MG/2 ML VIAL IVP ONE (15:15)
[2022-10-18] MEDS: ENOXAPARIN SODIUM 40 MG/0.4 ML SYRINGE SUBCUT SCH (21:52)
[2022-10-18] MEDS: levETIRAcetam 1,500 MG in NS 85 ML IV SCH (21:53)
[2022-10-19] VITALS (34 sets, daily range): BP systolic 83–145
[2022-10-19] MEDS: PEG 400/HYPROMELLOSE/GLYCERIN 15 ML DROPS OP SCH ×3 (06:13→21:36)
[2022-10-19] MEDS: metroNIDAZOLE 500 mg/NS 100 ML IV SCH ×3 (06:13→20:57)
[2022-10-19] MEDS: LEVOTHYROXINE SODIUM 0.05 MG TABLET PO SCH (06:19)
[2022-10-19] MEDS: INSULIN REGULAR, HUMAN 100 UNITS/ML, 3 ML VIAL (humuLIN R) SUBCUT PRN (06:23)
[2022-10-19] MEDS: ALBUTEROL SULFATE 0.083% 2.5 MG/3 ML VIAL.NEB INH SCH ×4 (07:11→19:47)
[2022-10-19] MEDS: IPRATROPIUM BROM 0.5 MG/2.5 ML VIAL.NEB (ATROVENT) INH SCH ×4 (07:12→19:48)
--- NOTE | 2022-10-19 07:20 | NUR ---
Received report to assume care of the patient. Pt resting comfortably on the current vent settings.
[2022-10-19] MEDS: CEFEPIME 1 GM in D5W 50 ML IV SCH ×2 (08:29→20:54)
[2022-10-19] MEDS: FUROSEMIDE 20 MG/2 ML VIAL IVP SCH (08:29)
[2022-10-19] MEDS: levETIRAcetam 1,500 MG in NS 85 ML IV SCH ×2 (08:30→20:59)
[2022-10-19] MEDS: FERROUS SULFATE 300 MG/5 ML UDC GT SCH (09:00)
[2022-10-19] MEDS: MIDODRINE HCL 5 MG TABLET (PROAMATINE) PO SCH ×2 (09:00→20:55)
[2022-10-19] MEDS: VALPROIC ACID ORAL SYRUP 250 MG/5 ML UDC GT SCH ×3 (09:00→20:54)
[2022-10-19] MEDS: DOCUSATE SODIUM 100 MG/10 ML UDC GT SCH ×2 (09:00→20:55)
[2022-10-19] MEDS: FLUDROCORTISONE ACETATE 0.1 MG TABLET( FLORINEF) GT SCH (09:00)
[2022-10-19] MEDS: LACOSAMIDE 100 MG TABLET PO SCH ×2 (09:00→20:55)
[2022-10-19] MEDS: POTASSIUM CHLORIDE 20 MEQ TAB.PRT.SR PO SCH (09:00)
[2022-10-19] MEDS: MULTIVITAMINS TAB 1 TABLET GT SCH (09:00)
[2022-10-19] MEDS: THEOPHYLLINE ANHYDROUS 80 MG/15 ML UDC PO SCH ×2 (09:00→20:53)
[2022-10-19] MEDS: LORATADINE 10 MG TABLET GT SCH (09:00)
[2022-10-19] MEDS: BACLOFEN 10 MG TABLET PO SCH ×3 (09:00→20:55)
[2022-10-19] MEDS: ASCORBIC ACID 500 MG TABLET PO SCH (09:00)
[2022-10-19] MEDS: LANSOPRAZOLE 30 MG CAPSULE.DR GT SCH (10:00)
[2022-10-19 11:53] LABS: BASOPHILS % (AUTO) 0.5 % (0.0-2.0); EOSINOPHILS % (AUTO) 0.3 % (0.0-4.0); HEMATOCRIT 35.6 % (36-48); HEMOGLOBIN 11.9 g/dL (12.0-16.0); LYMPHOCYTES # (AUTO) 0.9 K/uL (1.0-5.5); LYMPHOCYTES % (AUTO) 13.8 % (20.5-51.5); MEAN CORPUSCULAR HEMOGLOBIN 31 pg (27-31); MEAN CORPUSCULAR HGB CONC 33 % (32-36); MEAN CORPUSCULAR VOLUME 94 fL (79.0-98.0); MONOCYTES # (AUTO) 0.6 K/uL (0.0-1.0); MONOCYTES % (AUTO) 9.5 % (1.7-9.3); NEUTROPHILS # (AUTO) 5.2 K/uL (1.8-7.7); NEUTROPHILS % (AUTO) 75.9 % (40.0-70.0); PLATELET COUNT (AUTO) 164 K/uL (130-430); RED BLOOD CELL COUNT(AUTO) 3.78 MIL/uL (4.2-6.2); RED CELL DISTRIBUTION WIDTH 18.6 % (9.0-15.0)
[2022-10-19 11:54] LABS: WHITE BLOOD COUNT (AUTO) 6.8 K/uL (4.8-10.8)
--- NOTE | 2022-10-19 12:24 | NUR ---
SPOKE WITH KIMBERLI REQUESTING ORDERS FROM DR. ARCHIBALD.
--- NOTE | 2022-10-19 12:27 | NUR ---
Dietitian Recommendations * Consider Nepro at 35 ml/hr (goal rate) via GT if/when medically appropriate Provides: 1672 kcal/day, 73 gm protein/day, and 611 ml free water/day Meets: 96% of upper end of estimated caloric needs and 97% of upper end of estimated protein needs * Free Water Flush per physician d/t Hx of CKD * If EN support is not warranted within 1-2 days, consider TPN/PPN support to optimize nutritional status LP, MS, RD Please refer to Nutrition Assessment for details. Addendum: 10/19/22 at [address] Amended: Links added.
[2022-10-19 12:35] LABS: TOTAL BILIRUBIN 0.5 mg/dL (0.0-1.0)
[2022-10-19 12:59] LABS: ALBUMIN 2.9 g/dL (3.4-4.8); CALCIUM 9.5 mg/dL (8.4-11.0); CREATININE 1.04 mg/dL (0.55-1.30)
--- NOTE | 2022-10-19 13:02 | NUR ---
SPOKE WITH MELANIE REQUESTING ORDERS FROM DR. HEIN.
[2022-10-19] MEDS ORDERED: KCL 40 mEq in 100 mL (PREMIX) 100 ML IV ONE ×2 (13:45→14:45)
[2022-10-19] MEDS ORDERED: POTASSIUM CHLORIDE 20 mEq in 100 mL (PREMIX) 100 ML x 2 doses IV SCH (14:15)
--- NOTE | 2022-10-19 14:45 | NUR ---
Dr. Patterson in to see the patient. Ordered a GI consult with Dr. Rock.
--- NOTE | 2022-10-19 15:36 | NUR ---
Dr. Rock in to see pt. Orders left for enemas and turning with lifting legs to chest to release gas. Informed him that pt is a quad and contracted. He left the order anyway.
--- NOTE | 2022-10-19 16:10 | NUR ---
Dr. Rock in to see pt. Orders left. He said it is ok to start feeding the patient through the GT and left orders.
[2022-10-19 16:35] LABS: INR 1.1 (0.8-1.2); PROTHROMBIN TIME 10.9 SECS (9.5-12.5)
[2022-10-19] MEDS ORDERED: MINERAL OIL 30 ML UDC PO ONE (17:30)
[2022-10-19] MEDS: KCL 20 mEq in D5/0.45NS 1000mL 1,000 ML IV SCH (17:36)
--- NOTE | 2022-10-19 18:16 | NUR ---
Warm tap water enema given 400cc with return of moderate amt of liquid brown stool. Sacral area with blanchable pinkness. Foam dressing removed for enema and will endorse replacement of foam dressing to shift production supervisor.
--- NOTE | 2022-10-19 19:30 | NUR ---
Report given to oncoming staff to assume care of pt.
[2022-10-19] MEDS: ENOXAPARIN SODIUM 40 MG/0.4 ML SYRINGE SUBCUT SCH (20:54)
[2022-10-19] MEDS: METOCLOPRAMIDE HCL 10 MG/2 ML VIAL IVP SCH (21:35)
[2022-10-20] VITALS (34 sets, daily range): BP systolic 83–158
[2022-10-20] MEDS: INSULIN REGULAR, HUMAN 100 UNITS/ML, 3 ML VIAL (humuLIN R) SUBCUT PRN (00:06)
[2022-10-20] MEDS: metroNIDAZOLE 500 mg/NS 100 ML IV SCH ×3 (05:45→21:43)
[2022-10-20] MEDS: PEG 400/HYPROMELLOSE/GLYCERIN 15 ML DROPS OP SCH ×3 (05:45→21:43)
[2022-10-20] MEDS: METOCLOPRAMIDE HCL 10 MG/2 ML VIAL IVP SCH ×3 (05:45→21:42)
[2022-10-20 06:26] LABS: BASOPHILS # (AUTO) 0.1 K/uL (0.0-0.2); BASOPHILS % (AUTO) 0.8 % (0.0-2.0); EOSINOPHILS # (AUTO) 0.1 K/uL (0.0-0.4); EOSINOPHILS % (AUTO) 1.1 % (0.0-4.0); HEMATOCRIT 32.3 % (36-48); HEMOGLOBIN 10.8 g/dL (12.0-16.0); LYMPHOCYTES # (AUTO) 1.3 K/uL (1.0-5.5); LYMPHOCYTES % (AUTO) 19.9 % (20.5-51.5); MEAN CORPUSCULAR HEMOGLOBIN 31 pg (27-31); MEAN CORPUSCULAR HGB CONC 33 % (32-36); MEAN CORPUSCULAR VOLUME 94 fL (79.0-98.0); MONOCYTES # (AUTO) 0.6 K/uL (0.0-1.0); MONOCYTES % (AUTO) 10.1 % (1.7-9.3); NEUTROPHILS # (AUTO) 4.3 K/uL (1.8-7.7); NEUTROPHILS % (AUTO) 68.1 % (40.0-70.0); PLATELET COUNT (AUTO) 150 K/uL (130-430); RED BLOOD CELL COUNT(AUTO) 3.43 MIL/uL (4.2-6.2); WHITE BLOOD COUNT (AUTO) 6.3 K/uL (4.8-10.8)
[2022-10-20 06:54] LABS: CALCIUM 9.3 mg/dL (8.4-11.0); CREATININE 1.07 mg/dL (0.55-1.30)
[2022-10-20] MEDS: IPRATROPIUM BROM 0.5 MG/2.5 ML VIAL.NEB (ATROVENT) INH SCH ×4 (07:28→19:42)
[2022-10-20] MEDS: ALBUTEROL SULFATE 0.083% 2.5 MG/3 ML VIAL.NEB INH SCH ×4 (07:28→19:42)
[2022-10-20] MEDS: KCL 20 mEq in D5/0.45NS 1000mL 1,000 ML IV SCH (10:53)
[2022-10-20] MEDS: levETIRAcetam 1,500 MG in NS 85 ML IV SCH ×2 (10:54→20:49)
[2022-10-20] MEDS: THEOPHYLLINE ANHYDROUS 80 MG/15 ML UDC PO SCH ×2 (10:55→20:45)
[2022-10-20] MEDS: CEFEPIME 1 GM in D5W 50 ML IV SCH ×2 (10:55→20:49)
[2022-10-20] MEDS: LANSOPRAZOLE 30 MG CAPSULE.DR GT SCH (10:56)
[2022-10-20] MEDS: LACOSAMIDE 100 MG TABLET PO SCH ×2 (10:56→20:45)
[2022-10-20] MEDS: ASCORBIC ACID 500 MG TABLET PO SCH (10:56)
[2022-10-20] MEDS: POTASSIUM CHLORIDE 20 MEQ TAB.PRT.SR PO SCH (10:56)
[2022-10-20] MEDS: BACLOFEN 10 MG TABLET PO SCH ×3 (10:57→20:45)
[2022-10-20] MEDS: LEVOTHYROXINE SODIUM 0.05 MG TABLET PO SCH (10:57)
[2022-10-20] MEDS: LORATADINE 10 MG TABLET GT SCH (10:57)
[2022-10-20] MEDS: VALPROIC ACID ORAL SYRUP 250 MG/5 ML UDC GT SCH ×3 (10:58→20:45)
[2022-10-20] MEDS: MULTIVITAMINS TAB 1 TABLET GT SCH (10:58)
[2022-10-20] MEDS: FLUDROCORTISONE ACETATE 0.1 MG TABLET( FLORINEF) GT SCH (10:58)
[2022-10-20] MEDS: MIDODRINE HCL 5 MG TABLET (PROAMATINE) PO SCH ×2 (10:59→20:46)
[2022-10-20] MEDS: FUROSEMIDE 20 MG/2 ML VIAL IVP SCH (11:00)
[2022-10-20] MEDS: MINERAL OIL 30 ML UDC PO SCH (11:01)
[2022-10-20] MEDS: DOCUSATE SODIUM 100 MG/10 ML UDC GT SCH ×2 (11:01→20:45)
[2022-10-20] MEDS ORDERED: MINERAL OIL 133 ML ENEMA RC ONE (17:00)
--- NOTE | 2022-10-20 19:20 | NUR ---
RECEIVED REPORT FROM JUAN ANTONIO VIRAMONTES, ASSUMED CARE, AND STARTED ASSESSMENT.
[2022-10-20] MEDS: ENOXAPARIN SODIUM 40 MG/0.4 ML SYRINGE SUBCUT SCH (20:47)
[2022-10-21] VITALS (25 sets, daily range): BP systolic 98–159
[2022-10-21] MEDS: INSULIN REGULAR, HUMAN 100 UNITS/ML, 3 ML VIAL (humuLIN R) SUBCUT PRN (00:32)
--- NOTE | 2022-10-21 03:00 | NUR ---
FLEETS ENEMA GIVEN PER MD ORDERS, AND FLEXISEAL PLACED BACK ON PATIENT. COMPLETE BEDBATH AND LINEN CHANGE GIVEN. WILL CONTINUE TO MONITOR AND ASSESS FOR SAFETY AND COMFORT.
[2022-10-21 06:03] LABS: CALCIUM 9.8 mg/dL (8.4-11.0); CREATININE 0.89 mg/dL (0.55-1.30)
[2022-10-21] MEDS: PEG 400/HYPROMELLOSE/GLYCERIN 15 ML DROPS OP SCH ×3 (06:39→21:48)
[2022-10-21] MEDS: METOCLOPRAMIDE HCL 10 MG/2 ML VIAL IVP SCH ×3 (06:39→21:48)
[2022-10-21] MEDS: metroNIDAZOLE 500 mg/NS 100 ML IV SCH ×3 (06:39→21:48)
[2022-10-21] MEDS: LEVOTHYROXINE SODIUM 0.05 MG TABLET PO SCH (06:40)
--- NOTE | 2022-10-21 07:06 | NUR ---
REPORT GIVEN TO JUAN ANTONIO NUNEZ, AND CARE WAS TURNED OVER TO HER.
[2022-10-21] MEDS: IPRATROPIUM BROM 0.5 MG/2.5 ML VIAL.NEB (ATROVENT) INH SCH ×4 (07:21→19:14)
[2022-10-21] MEDS: ALBUTEROL SULFATE 0.083% 2.5 MG/3 ML VIAL.NEB INH SCH ×4 (07:21→19:13)
[2022-10-21 08:25] LABS: BASOPHILS % (AUTO) 0.5 % (0.0-2.0); EOSINOPHILS # (AUTO) 0.1 K/uL (0.0-0.4); HEMOGLOBIN 10.5 g/dL (12.0-16.0); LYMPHOCYTES # (AUTO) 1.1 K/uL (1.0-5.5); LYMPHOCYTES % (AUTO) 21.9 % (20.5-51.5); MEAN CORPUSCULAR HEMOGLOBIN 31 pg (27-31); MEAN CORPUSCULAR HGB CONC 33 % (32-36); MEAN CORPUSCULAR VOLUME 95 fL (79.0-98.0); MONOCYTES # (AUTO) 0.6 K/uL (0.0-1.0); MONOCYTES % (AUTO) 12.1 % (1.7-9.3); NEUTROPHILS # (AUTO) 3.2 K/uL (1.8-7.7); NEUTROPHILS % (AUTO) 63.5 % (40.0-70.0); PLATELET COUNT (AUTO) 147 K/uL (130-430); RED BLOOD CELL COUNT(AUTO) 3.38 MIL/uL (4.2-6.2); RED CELL DISTRIBUTION WIDTH 17.7 % (9.0-15.0); WHITE BLOOD COUNT (AUTO) 5.1 K/uL (4.8-10.8)
[2022-10-21] MEDS: KCL 20 mEq in D5/0.45NS 1000mL 1,000 ML IV SCH (09:38)
[2022-10-21] MEDS: VALPROIC ACID ORAL SYRUP 250 MG/5 ML UDC GT SCH ×3 (09:39→21:45)
[2022-10-21] MEDS: MIDODRINE HCL 5 MG TABLET (PROAMATINE) PO SCH ×2 (09:40→21:47)
[2022-10-21] MEDS: FLUDROCORTISONE ACETATE 0.1 MG TABLET( FLORINEF) GT SCH (09:40)
[2022-10-21] MEDS: THEOPHYLLINE ANHYDROUS 80 MG/15 ML UDC PO SCH ×2 (09:42→21:47)
[2022-10-21] MEDS: BACLOFEN 10 MG TABLET PO SCH ×3 (09:42→21:46)
[2022-10-21] MEDS: ASCORBIC ACID 500 MG TABLET PO SCH (09:42)
[2022-10-21] MEDS: LACOSAMIDE 100 MG TABLET PO SCH ×2 (09:42→21:47)
[2022-10-21] MEDS: MULTIVITAMINS TAB 1 TABLET GT SCH (09:42)
[2022-10-21] MEDS: MINERAL OIL 30 ML UDC PO SCH (09:42)
[2022-10-21] MEDS: POTASSIUM CHLORIDE 20 MEQ TAB.PRT.SR PO SCH (09:42)
[2022-10-21] MEDS: CEFEPIME 1 GM in D5W 50 ML IV SCH ×2 (09:43→21:46)
[2022-10-21] MEDS: LANSOPRAZOLE 30 MG CAPSULE.DR GT SCH (09:43)
[2022-10-21] MEDS: levETIRAcetam 1,500 MG in NS 85 ML IV SCH ×2 (09:43→21:46)
[2022-10-21] MEDS: LORATADINE 10 MG TABLET GT SCH (09:44)
[2022-10-21] MEDS: DOCUSATE SODIUM 100 MG/10 ML UDC GT SCH ×2 (09:44→21:45)
[2022-10-21] MEDS: FUROSEMIDE 20 MG/2 ML VIAL IVP SCH (09:45)
[2022-10-21] MEDS ORDERED: *TPN PER PHARMACY XX PRN (14:00)
[2022-10-21] MEDS: ENOXAPARIN SODIUM 40 MG/0.4 ML SYRINGE SUBCUT SCH (21:47)
[2022-10-22] VITALS (30 sets, daily range): BP systolic 92–156
[2022-10-22] MEDS: METOCLOPRAMIDE HCL 10 MG/2 ML VIAL IVP SCH ×3 (05:48→20:42)
[2022-10-22] MEDS: metroNIDAZOLE 500 mg/NS 100 ML IV SCH ×3 (05:48→20:36)
[2022-10-22] MEDS: PEG 400/HYPROMELLOSE/GLYCERIN 15 ML DROPS OP SCH ×3 (05:49→20:46)
[2022-10-22] MEDS: LEVOTHYROXINE SODIUM 0.05 MG TABLET PO SCH (06:17)
[2022-10-22 06:41] LABS: ALBUMIN 2.6 g/dL (3.4-4.8); CALCIUM 9.5 mg/dL (8.4-11.0); CREATININE 0.81 mg/dL (0.55-1.30); PHOSPHORUS 3.6 mg/dL (2.7-4.5); TOTAL BILIRUBIN 0.4 mg/dL (0.0-1.0)
[2022-10-22 07:14] LABS: BASOPHILS % (AUTO) 0.8 % (0.0-2.0); EOSINOPHILS # (AUTO) 0.1 K/uL (0.0-0.4); EOSINOPHILS % (AUTO) 1.9 % (0.0-4.0); HEMATOCRIT 31.2 % (36-48); HEMOGLOBIN 10.4 g/dL (12.0-16.0); LYMPHOCYTES # (AUTO) 1.1 K/uL (1.0-5.5); LYMPHOCYTES % (AUTO) 22.1 % (20.5-51.5); MEAN CORPUSCULAR HEMOGLOBIN 31 pg (27-31); MEAN CORPUSCULAR HGB CONC 33 % (32-36); MEAN CORPUSCULAR VOLUME 95 fL (79.0-98.0); MONOCYTES # (AUTO) 0.6 K/uL (0.0-1.0); MONOCYTES % (AUTO) 12.5 % (1.7-9.3); NEUTROPHILS # (AUTO) 3.1 K/uL (1.8-7.7); NEUTROPHILS % (AUTO) 62.7 % (40.0-70.0); PLATELET COUNT (AUTO) 170 K/uL (130-430); RED CELL DISTRIBUTION WIDTH 17.8 % (9.0-15.0)
[2022-10-22] MEDS: ALBUTEROL SULFATE 0.083% 2.5 MG/3 ML VIAL.NEB INH SCH ×4 (07:20→18:59)
[2022-10-22] MEDS: IPRATROPIUM BROM 0.5 MG/2.5 ML VIAL.NEB (ATROVENT) INH SCH ×4 (07:20→18:59)
[2022-10-22] MEDS: VALPROIC ACID ORAL SYRUP 250 MG/5 ML UDC GT SCH ×3 (09:03→20:44)
[2022-10-22] MEDS: ASCORBIC ACID 500 MG TABLET PO SCH (09:04)
[2022-10-22] MEDS: MINERAL OIL 30 ML UDC PO SCH (09:04)
[2022-10-22] MEDS: MULTIVITAMINS TAB 1 TABLET GT SCH (09:04)
[2022-10-22] MEDS: POTASSIUM CHLORIDE 20 MEQ TAB.PRT.SR PO SCH (09:04)
[2022-10-22] MEDS: LACOSAMIDE 100 MG TABLET PO SCH ×2 (09:04→20:41)
[2022-10-22] MEDS: FUROSEMIDE 20 MG/2 ML VIAL IVP SCH (09:05)
[2022-10-22] MEDS: LORATADINE 10 MG TABLET GT SCH (09:06)
[2022-10-22] MEDS: DOCUSATE SODIUM 100 MG/10 ML UDC GT SCH ×2 (09:06→20:41)
[2022-10-22] MEDS: MIDODRINE HCL 5 MG TABLET (PROAMATINE) PO SCH ×2 (09:06→20:42)
[2022-10-22] MEDS: BACLOFEN 10 MG TABLET PO SCH ×3 (09:06→20:40)
[2022-10-22] MEDS: FLUDROCORTISONE ACETATE 0.1 MG TABLET( FLORINEF) GT SCH (09:06)
[2022-10-22] MEDS: levETIRAcetam 1,500 MG in NS 85 ML IV SCH ×2 (09:18→20:37)
[2022-10-22] MEDS: CEFEPIME 1 GM in D5W 50 ML IV SCH ×2 (09:31→20:43)
[2022-10-22] MEDS: LANSOPRAZOLE 30 MG CAPSULE.DR GT SCH (09:37)
[2022-10-22] MEDS: THEOPHYLLINE ANHYDROUS 80 MG/15 ML UDC PO SCH ×2 (11:12→20:44)
--- NOTE | 2022-10-22 19:56 | NUR ---
Patient non verbal Trach to Ventilator suction moderate amount of thick benjamin sputum up right position 02 SAT 97 % Respirations Remain Regular also unlabored General edema is noted position change on schedule tolerated no SOB noted / .
[2022-10-22] MEDS: ENOXAPARIN SODIUM 40 MG/0.4 ML SYRINGE SUBCUT SCH (20:41)
[2022-10-22] MEDS: KCL 20 mEq in D5/0.45NS 1000mL 1,000 ML IV SCH (20:45)
[2022-10-22] MEDS ORDERED: TPN CENTRAL 0.0001 ML, SODIUM ACETATE 40 MEQ, POTASSIUM CHLORIDE 20 MEQ, K PHOS 9 MM, M... IV SCH ×9 (21:00)
[2022-10-23] VITALS (23 sets, daily range): BP systolic 113–156
[2022-10-23] MEDS: INSULIN REGULAR, HUMAN 100 UNITS/ML, 3 ML VIAL (humuLIN R) SUBCUT PRN ×3 (01:11→23:16)
[2022-10-23 06:07] LABS: ALBUMIN 2.2 g/dL (3.4-4.8); CALCIUM 9.4 mg/dL (8.4-11.0); CREATININE 0.67 mg/dL (0.55-1.30); PHOSPHORUS 3.1 mg/dL (2.7-4.5); TOTAL BILIRUBIN 0.3 mg/dL (0.0-1.0)
[2022-10-23] MEDS: KCL 20 mEq in D5/0.45NS 1000mL 1,000 ML IV SCH (06:14)
[2022-10-23] MEDS: metroNIDAZOLE 500 mg/NS 100 ML IV SCH ×3 (06:14→22:45)
[2022-10-23] MEDS: PEG 400/HYPROMELLOSE/GLYCERIN 15 ML DROPS OP SCH ×3 (06:15→21:21)
[2022-10-23] MEDS: METOCLOPRAMIDE HCL 10 MG/2 ML VIAL IVP SCH ×3 (06:15→21:21)
[2022-10-23] MEDS: LEVOTHYROXINE SODIUM 0.05 MG TABLET PO SCH (06:16)
[2022-10-23] MEDS: IPRATROPIUM BROM 0.5 MG/2.5 ML VIAL.NEB (ATROVENT) INH SCH ×3 (07:18→15:44)
[2022-10-23] MEDS: ALBUTEROL SULFATE 0.083% 2.5 MG/3 ML VIAL.NEB INH SCH ×3 (07:18→15:44)
--- NOTE | 2022-10-23 07:30 | NUR ---
RECIEVED PT FROM JUAN ANTONIO ESCOBEDO. PT IS TRACH TO VENT. THE PT IS FROM [facility]. THE PT IS HERE FOR A DISTENDED ABDOMEN. PT HAS A TRACH INTACT DSG . PT IS A QUADREPLEGIC IT IS UNKNOWN WHAT THE CAUSE WAS. SHE HAS NO SKIN BREAKDOWN. SHE HAS GENERALIZED EDEMA AND SHINY SKIN ON THE CASTELL[place]O AREA. SHE IS UNABLE TO WITHDRAW FROM MOVEMENT OR TOUCH. SHE CAN BLINK HER EYES, CANNOT FOLLOW COMMANDS. SHE IS AFEBRILE. PT IS STABLE, NAD, VSS, WILL CONTINUE TO MONITOR HER PROGRESS.
[2022-10-23] MEDS: MIDODRINE HCL 5 MG TABLET (PROAMATINE) PO SCH ×2 (08:28→21:20)
[2022-10-23] MEDS: MINERAL OIL 30 ML UDC PO SCH (09:36)
[2022-10-23] MEDS: FLUDROCORTISONE ACETATE 0.1 MG TABLET( FLORINEF) GT SCH (09:36)
[2022-10-23] MEDS: DOCUSATE SODIUM 100 MG/10 ML UDC GT SCH ×2 (09:36→21:19)
[2022-10-23] MEDS: VALPROIC ACID ORAL SYRUP 250 MG/5 ML UDC GT SCH ×3 (09:36→21:19)
[2022-10-23] MEDS: LACOSAMIDE 100 MG TABLET PO SCH ×2 (09:36→21:20)
[2022-10-23] MEDS: MULTIVITAMINS TAB 1 TABLET GT SCH (09:36)
[2022-10-23] MEDS: FUROSEMIDE 20 MG/2 ML VIAL IVP SCH (09:36)
[2022-10-23] MEDS: POTASSIUM CHLORIDE 20 MEQ TAB.PRT.SR PO SCH (09:36)
[2022-10-23] MEDS: BACLOFEN 10 MG TABLET PO SCH ×3 (09:36→21:20)
[2022-10-23] MEDS: THEOPHYLLINE ANHYDROUS 80 MG/15 ML UDC PO SCH ×2 (09:36→21:20)
[2022-10-23] MEDS: ASCORBIC ACID 500 MG TABLET PO SCH (09:36)
[2022-10-23] MEDS: LORATADINE 10 MG TABLET GT SCH (09:36)
[2022-10-23] MEDS: LANSOPRAZOLE 30 MG CAPSULE.DR GT SCH (09:37)
[2022-10-23] MEDS: CEFEPIME 1 GM in D5W 50 ML IV SCH ×2 (09:42→21:20)
[2022-10-23] MEDS: levETIRAcetam 1,500 MG in NS 85 ML IV SCH ×2 (09:42→21:19)
--- NOTE | 2022-10-23 13:00 | NUR ---
Senior Vice President & General Counsel COOKER CASING received a referral to see pt. from Dr. Arrieta. Since pt. is on a vent, COOKER CASING tried calling pts. mom a couple of times, no luck and phone voice mail has not be set up. COOKER CASING called sales department managerRichie Sloan to ask if pts' mom comes to visit. Arben stated she has not had visitors, but pts. dad, Christopher Perkins returns Rns' msgs. Christopher can be reached at [phone]. COOKER CASING called and left a msg.
--- NOTE | 2022-10-23 15:56 | NUR ---
Nutrition F/U RD reviewed pts current EMR including diet hx, physician notes, nursing notes, pertinent labs/meds/procedures, care trends and care activity. Short note d/t high workload Subjective Information RD attended ICU rounds and s/w primary RN about pt. RN reports that pt has swelling and blisters on arms; wound care is consulted. Pt is on both TPN and TF d/t having BM residuals in her GT and TF had to be turned off. That issue seems to have resolved. Pt is now receiving 25mL of Nepro and tolerating it well, minimal residuals (10mL and less) documented. Strong laxatives have been used for this pt and she has been having BMs and now has flexiseal. Per EMR review: abd distended w/ hypoactive bowel sounds. Current Diet Order/Nutrition Support Nepro @ 10mL/hr (goal) via GT & TPN: D30, AA 8.5% @ 50mL/hr via Central Line begins tonight @ 2100 Provides (both EN and TPN): 1248 kcal, 70 g PRO, 1374 mL free water Meets: 83% of lower est kcal, 93% of upper est PRO needs % PO intake NPO Last BM 10/22 x 1 large BM; currently pt has flexiseal with good output per RN Estimated Energy Expenditure (kcals/day) 7955-4169 (30-35 kcal/kg Adj IBW d/t quadriplegia, sepsis) Estimated Protein Required (g/day) 50-75 (1-1.5 gm/kg Adj IBW d/t CKD no CRRT, quadriplegia, sepsis) Estimated Fluid Required (l/day) Per physician d/t Hx CKD Problem/Etiology/Signs/Symptoms Complicated GI function R/T unknown etiology AEB NGT to LIS and plan for possible GI eval/US of the abd (improving). Inadequate nutritional intakes R/T metabolic demands AEB no current nutrition support to meet estimated nutritional requirements for sepsis (improving). Expected Outcomes/Goals - Monitor provision of EN support w/ goal of pt meeting >80% of estimated nutritional needs, labs trending WNL, normal GI function, and skin integrity/wt maintenance Dietitian Recommendations * Advance to Nepro at 35 ml/hr (goal rate) slowly via GT if/when medically appropriate Provides: 1672 kcal/day, 73 gm protein/day, and 611 ml free water/day Meets: 96% of upper end of estimated caloric needs and 97% of upper end of estimated protein needs * Free Water Flush per physician d/t Hx of CKD * Consider DC TPN when pt is at goal rate, as pt is tolerating TF and having BMs * Ordered: Jaime BID (provides 180 kcal and 5 g PRO) Follow up *High risk: f/u in 2-3 days GS, MPH, RD
--- NOTE | 2022-10-23 16:00 | NUR ---
Dietitian Recommendations * Advance to Nepro at 35 ml/hr (goal rate) slowly via GT if/when medically appropriate Provides: 1672 kcal/day, 73 gm protein/day, and 611 ml free water/day Meets: 96% of upper end of estimated caloric needs and 97% of upper end of estimated protein needs * Free Water Flush per physician d/t Hx of CKD * Consider DC TPN when pt is at goal rate, as pt is tolerating TF and having BMs * Ordered: Jaime BID (provides 180 kcal and 5 g PRO) GS, MPH, RD Please refer to Nutrition F/U for further details. Thanks!
--- NOTE | 2022-10-23 17:00 | NUR ---
RT NOTES Assisted in transporting the pt. to rm 133. Pt. was bagged with 100% O2 via resus. bag to trach tube. Placed pt back on the vent with same settings once in the room. A/w remains secure/patent. Vent to red outlet. Resus. bag and spare trach remains at bedside. Alarms are set and audible at nurse's station.
--- NOTE | 2022-10-23 17:00 | NUR ---
HANDOFF SBAR GIVEN TO RADHA COX RN FOR CONTINUITY OF CARE. PT IS STABLE, NAD, VSS. TOLERATED TRANSFER TO FLOOR.
--- NOTE | 2022-10-23 17:05 | NUR ---
RECEIVED PT FROM ICU Received report from Luther ROMANO. Received pt with eyes closed now verbal, withdraws to touch. No s/s resp distress, on vent via trach-vent settings verified. No s/s pain or discomfort. Pt on air mattress. Noted dressing to left arm clean, dry and intact. IVF and TPN are infusing well to LANDRY PICC line at ordered rates with no s/s infiltration to site. Noted generalized edema, pt given oral care and lubricant put on lips by SNA due to dryness. Nepro infusing well at ordered rate with no residual noted. Flexiseal in place, ny catheter draining to gravity with yellow urine. HOB elevated for aspiration precautions. Side rails up x3, bed alarm on, room close to nursing station for safety.
--- NOTE | 2022-10-23 19:12 | NUR ---
CLOSING NOTE Pt resting quietly in bed, suctioned via mouth with small amount of thin, clear sputum. No s/s resp distress, no s/s pain or discomfort. Pt on air mattress. IVF and TPN are infusing well to LANDRY PICC line at ordered rates with no s/s infiltration to site. Nepro infusing well at ordered rate with no residual noted. Flexiseal in place, Amador catheter draining to gravity with yellow urine. HOB elevated for aspiration precautions. Endorsed care to night custodian nurse. Side rails up x3, bed alarm on, room close to nursing station for safety.
--- NOTE | 2022-10-23 19:15 | NUR ---
OPENING NOTE REPORT RECEIVED FROM DAYSHIFT NURSE. PATIENT RECEIVED LYING IN BED, EYES CLOSED, RESTING, NO S/S OF ACUTE DISTRESS. BREATHING EVEN AND UNLABORED. HOB RAISED, VENT TO TRACH ATTACHED AND OPERATING. IVF INFUSING. IV SITE PATENT, NO SIGNS OF INFILTRATION OR INFECTION NOTED. DUENAS AND FLEXISEAL ATTACHED AND DRAINING BY GRAVITY. BED ALARM ON. BED IS LOCKED AND AT LOWEST POSITION. WILL CONTINUE TO MONITOR.
[2022-10-23] MEDS ORDERED: TPN CENTRAL 0.0001 ML, SODIUM ACETATE 40 MEQ, POTASSIUM CHLORIDE 30 MEQ, K PHOS 9 MM, M... IV SCH ×8 (21:00)
[2022-10-23] MEDS: ENOXAPARIN SODIUM 40 MG/0.4 ML SYRINGE SUBCUT SCH (21:20)
--- NOTE | 2022-10-23 23:15 | NUR ---
ROUNDS/ACCUCHECK ACCUCHECK DONE, BS AT 206, INSULIN ADMINISTERED PER SLIDING SCALE. ALL NEEDS MET. WILL MONITOR.
[2022-10-24] VITALS: BP_SYST 127
[2022-10-24] MEDS: KCL 20 mEq in D5/0.45NS 1000mL 1,000 ML IV SCH (02:42)
--- NOTE | 2022-10-24 03:00 | NUR ---
ROUNDS NO CHANGES. ALL NEEDS MET. WILL MONITOR.
[2022-10-24] MEDS: INSULIN REGULAR, HUMAN 100 UNITS/ML, 3 ML VIAL (humuLIN R) SUBCUT PRN ×2 (05:36→12:01)
[2022-10-24] MEDS: PEG 400/HYPROMELLOSE/GLYCERIN 15 ML DROPS OP SCH ×3 (05:37→21:30)
[2022-10-24] MEDS: METOCLOPRAMIDE HCL 10 MG/2 ML VIAL IVP SCH ×3 (05:39→21:29)
[2022-10-24] MEDS: metroNIDAZOLE 500 mg/NS 100 ML IV SCH ×2 (05:40→14:52)
[2022-10-24] MEDS: ALBUTEROL SULFATE 0.083% 2.5 MG/3 ML VIAL.NEB INH SCH ×4 (06:07→20:06)
[2022-10-24] MEDS: IPRATROPIUM BROM 0.5 MG/2.5 ML VIAL.NEB (ATROVENT) INH SCH ×4 (06:07→20:06)
[2022-10-24] MEDS: LEVOTHYROXINE SODIUM 0.05 MG TABLET PO SCH (06:16)
--- NOTE | 2022-10-24 06:16 | NUR ---
CLOSING NOTE PATIENT IN BED, RESTING. NO S/S OF ACUTE DISTRESS NOTED. BREATHING EVEN AND UNLABORED. HOB RAISED. IVF AND TUBE FEEDING INFUSING WELL. DUENAS AND FLEXISEAL ATTACHED AND DRAINING BY GRAVITY. SKIN WARM AND DRY TO TOUCH. ALL NEEDS MET THROUGHOUT SHIFT. FALL, SAFETY PRECAUTIONS MAINTAINED THROUGHOUT SHIFT. WILL CONTINUE TO MONITOR UNTIL PATIENT CARE IS ENDORSED TO ONCOMING DAYSHIFT NURSE.
[2022-10-24 07:09] LABS: ALBUMIN 2.5 g/dL (3.4-4.8); CALCIUM 9.6 mg/dL (8.4-11.0); CREATININE 0.74 mg/dL (0.55-1.30); PHOSPHORUS 2.3 mg/dL (2.7-4.5); TOTAL BILIRUBIN 0.3 mg/dL (0.0-1.0)
[2022-10-24 08:00] VITALS: BP_SYST 117
[2022-10-24] MEDS: LACOSAMIDE 100 MG TABLET PO SCH ×2 (09:00→21:30)
[2022-10-24] MEDS: CEFEPIME 1 GM in D5W 50 ML IV SCH ×2 (09:00→21:30)
[2022-10-24] MEDS: levETIRAcetam 1,500 MG in NS 85 ML IV SCH ×2 (09:01→21:28)
[2022-10-24] MEDS: DOCUSATE SODIUM 100 MG/10 ML UDC GT SCH ×2 (09:02→21:29)
[2022-10-24] MEDS: MINERAL OIL 30 ML UDC PO SCH (09:02)
[2022-10-24] MEDS: BACLOFEN 10 MG TABLET PO SCH ×3 (09:04→21:29)
[2022-10-24] MEDS: FUROSEMIDE 20 MG/2 ML VIAL IVP SCH (09:04)
[2022-10-24] MEDS: MULTIVITAMINS TAB 1 TABLET GT SCH (09:06)
[2022-10-24] MEDS: LANSOPRAZOLE 30 MG CAPSULE.DR GT SCH (09:06)
[2022-10-24] MEDS: LORATADINE 10 MG TABLET GT SCH (09:06)
[2022-10-24] MEDS: MIDODRINE HCL 5 MG TABLET (PROAMATINE) PO SCH ×2 (09:06→21:29)
[2022-10-24] MEDS: ASCORBIC ACID 500 MG TABLET PO SCH (09:06)
[2022-10-24] MEDS: FLUDROCORTISONE ACETATE 0.1 MG TABLET( FLORINEF) GT SCH (09:06)
[2022-10-24] MEDS: POTASSIUM CHLORIDE 20 MEQ TAB.PRT.SR PO SCH (09:06)
[2022-10-24] MEDS: VALPROIC ACID ORAL SYRUP 250 MG/5 ML UDC GT SCH ×3 (09:08→21:29)
[2022-10-24] MEDS: THEOPHYLLINE ANHYDROUS 80 MG/15 ML UDC PO SCH ×2 (09:08→21:29)
[2022-10-24 12:10] VITALS: BP_SYST 154
--- NOTE | 2022-10-24 15:31 | NUR ---
CM: DC back to sub acute per dr. Arrieta: Per Guero, the pt is accepting back to room 46 A , report # [phone]. Pending CCT ambulance set up, dc TPN order from dr. Arrieta, and ID clearance .
[2022-10-24 16:00] VITALS: BP_SYST 138
--- NOTE | 2022-10-24 19:15 | NUR ---
OPENING NOTE REPORT RECEIVED FROM DAYSHIFT NURSE. PATIENT RECEIVED LYING IN BED, RESTING. NO S/S OF ACUTE DISTRESS. BREATHING EVEN AND UNLABORED. HOB RAISED, VENT TO TRACH ATTACHED AND OPERATING, PATIENT TOLERATING WELL. IVF AND TUBE FEEDING INFUSING WELL. DUENAS AND FLEXISEAL ATTACHED AND DRAINING BY GRAVITY. BED ALARM ON. BED IS LOCKED AND AT LOWEST POSITION. WILL CONTINUE TO MONITOR.
[2022-10-24] MEDS ORDERED: TPN CENTRAL IV SCH ×9 (21:00)
[2022-10-24] MEDS ORDERED: [UNRECOGNIZED DRUG - OTHER] IV SCH ×9 (21:00)
[2022-10-24] MEDS ORDERED: SODIUM ACETATE IV SCH ×9 (21:00)
[2022-10-24] MEDS ORDERED: K PHOS IV SCH ×9 (21:00)
[2022-10-24] MEDS ORDERED: POTASSIUM CHLORIDE IV SCH ×9 (21:00)
[2022-10-24] MEDS: ENOXAPARIN SODIUM 40 MG/0.4 ML SYRINGE SUBCUT SCH (21:30)
--- NOTE | 2022-10-24 23:00 | NUR ---
ROUNDS PATIENT IN BED, NO SIGNS OF DISCOMFORT. ALL NEEDS MET AT THIS TIME. WILL MONITOR.
[2022-10-25] VITALS: BP_SYST 102
[2022-10-25] MEDS: KCL 20 mEq in D5/0.45NS 1000mL 1,000 ML IV SCH (00:10)
[2022-10-25] MEDS: INSULIN REGULAR, HUMAN 100 UNITS/ML, 3 ML VIAL (humuLIN R) SUBCUT PRN (00:11)
--- NOTE | 2022-10-25 03:00 | NUR ---
ROUNDS PATIENT IN BED, RESTING. NO SIGNS OF DISCOMFORT. ALL NEEDS MET. WILL MONITOR.
[2022-10-25] MEDS: METOCLOPRAMIDE HCL 10 MG/2 ML VIAL IVP SCH ×3 (05:43→20:56)
[2022-10-25] MEDS: PEG 400/HYPROMELLOSE/GLYCERIN 15 ML DROPS OP SCH ×3 (05:43→20:58)
[2022-10-25] MEDS: LEVOTHYROXINE SODIUM 0.05 MG TABLET PO SCH (06:01)
--- NOTE | 2022-10-25 06:07 | NUR ---
CLOSING NOTE PATIENT IN BED, RESTING. NO S/S OF ACUTE DISTRESS. BREATHING IS EVEN AND UNLABORED. HOB RAISED, TRACH TO VENT ATTACHED, AND OPERATING, PATIENT TOLERATING WELL. IVF AND TUBE FEEDING INFUSING WELL. IV SITE PATENT, NO SIGNS OF INFILTRATION OR INFECTION NOTED. DUENAS AND FLEXISEAL ATTACHED, AND DRAINING BY GRAVITY. ALL NEEDS MET THROUGHOUT SHIFT. FALL, SAFETY PRECAUTIONS MAINTAINED THROUGHOUT SHIFT. WILL CONTINUE TO MONITOR UNTIL PATIENT CARE IS ENDORSED TO ONCOMING DAYSHIFT NURSE.
[2022-10-25] MEDS: ALBUTEROL SULFATE 0.083% 2.5 MG/3 ML VIAL.NEB INH SCH ×3 (07:15→15:38)
[2022-10-25] MEDS: IPRATROPIUM BROM 0.5 MG/2.5 ML VIAL.NEB (ATROVENT) INH SCH ×3 (07:15→15:39)
[2022-10-25 08:00] VITALS: BP_SYST 112
[2022-10-25] MEDS: LACOSAMIDE 100 MG TABLET PO SCH ×2 (10:00→22:08)
[2022-10-25] MEDS: MIDODRINE HCL 5 MG TABLET (PROAMATINE) PO SCH ×2 (10:00→22:07)
[2022-10-25] MEDS: MULTIVITAMINS TAB 1 TABLET GT SCH (10:00)
[2022-10-25] MEDS: POTASSIUM CHLORIDE 20 MEQ TAB.PRT.SR PO SCH (10:00)
[2022-10-25] MEDS: LORATADINE 10 MG TABLET GT SCH (10:00)
[2022-10-25] MEDS: FUROSEMIDE 20 MG/2 ML VIAL IVP SCH (10:01)
[2022-10-25] MEDS: BACLOFEN 10 MG TABLET PO SCH ×3 (10:01→20:57)
[2022-10-25] MEDS: FLUDROCORTISONE ACETATE 0.1 MG TABLET( FLORINEF) GT SCH (10:01)
[2022-10-25] MEDS: LANSOPRAZOLE 30 MG CAPSULE.DR GT SCH (10:01)
[2022-10-25] MEDS: ASCORBIC ACID 500 MG TABLET PO SCH (10:01)
[2022-10-25] MEDS: DOCUSATE SODIUM 100 MG/10 ML UDC GT SCH ×2 (10:02→20:53)
[2022-10-25] MEDS: MINERAL OIL 30 ML UDC PO SCH (10:02)
[2022-10-25] MEDS: THEOPHYLLINE ANHYDROUS 80 MG/15 ML UDC PO SCH ×2 (10:02→20:54)
[2022-10-25] MEDS: VALPROIC ACID ORAL SYRUP 250 MG/5 ML UDC GT SCH ×3 (10:03→20:53)
[2022-10-25] MEDS: levETIRAcetam 1,500 MG in NS 85 ML IV SCH ×2 (10:04→20:56)
[2022-10-25 12:46] VITALS: BP_SYST 120
[2022-10-25] MEDS: CEFEPIME 1 GM in D5W 50 ML IV SCH ×2 (12:50→22:06)
--- NOTE | 2022-10-25 13:11 | NUR ---
DR. FIELDS MADE AWARE REGARDING FLUSHED FACE AND TEMP 99.8. VERBALIZED THAT PT. HAS H/O ROSACEA AND CONT. WITH COOLING MEASURES.
--- NOTE | 2022-10-25 14:01 | NUR ---
PT DISCHARGE TO [facility] ROOM#[id number] PHONE # [phone], MEDIC 1 AMBULANCE BOOKER TIME 6:00PM PHONE # [phone].
[2022-10-25 16:28] VITALS: BP_SYST 117
--- NOTE | 2022-10-25 17:13 | NUR ---
Contacted [facility], spoke with ALEKSANDRA/RN at [facility] and gave report.
--- NOTE | 2022-10-25 18:14 | NUR ---
Received from [facility] ambulance, spoke with Aidan. RT is not available at this time. Pt. will be picked-up on 10/26/22 at 10AM
[2022-10-25] MEDS: ENOXAPARIN SODIUM 40 MG/0.4 ML SYRINGE SUBCUT SCH (20:57)
[2022-10-26] MEDS: ALBUTEROL SULFATE 0.083% 2.5 MG/3 ML VIAL.NEB INH SCH ×2 (00:11→07:17)
[2022-10-26] MEDS: IPRATROPIUM BROM 0.5 MG/2.5 ML VIAL.NEB (ATROVENT) INH SCH ×2 (00:11→07:17)
[2022-10-26 00:12] VITALS: BP_SYST 129
[2022-10-26] MEDS: KCL 20 mEq in D5/0.45NS 1000mL 1,000 ML IV SCH (00:38)
[2022-10-26 00:44] VITALS: BP_SYST 129
--- NOTE | 2022-10-26 01:02 | NUR ---
pt resting in bed, scheduled medicines administered. pt resting in bed. no distress noted.
[2022-10-26 01:29] VITALS: BP_SYST 116
[2022-10-26] MEDS: METOCLOPRAMIDE HCL 10 MG/2 ML VIAL IVP SCH (05:42)
[2022-10-26] MEDS: PEG 400/HYPROMELLOSE/GLYCERIN 15 ML DROPS OP SCH (05:43)
[2022-10-26 05:48] VITALS: BP_SYST 117
[2022-10-26] MEDS: LEVOTHYROXINE SODIUM 0.05 MG TABLET PO SCH (06:34)
--- NOTE | 2022-10-26 07:55 | NUR ---
Initial notes Received patient A/Oxo nonverbal. Tracheostomy #7 to vent setting: AC 14, TV 450 Fi02@30% Peep 5. PICC line to right upper arm patent,. G-tube Nepro at 35ml/hr, clap for transport, Amador catheter patent draining bret yellow urine to gravity. Continue to maintain safety precaution, bed in low position and call light w/in reached
[2022-10-26 09:00] VITALS: BP_SYST 117
[2022-10-26] MEDS: FUROSEMIDE 20 MG/2 ML VIAL IVP SCH (09:14)
[2022-10-26] MEDS: MINERAL OIL 30 ML UDC PO SCH (09:16)
[2022-10-26] MEDS: ASCORBIC ACID 500 MG TABLET PO SCH (09:18)
[2022-10-26] MEDS: levETIRAcetam 1,500 MG in NS 85 ML IV SCH (09:19)
[2022-10-26] MEDS: BACLOFEN 10 MG TABLET PO SCH (09:24)
[2022-10-26] MEDS: FLUDROCORTISONE ACETATE 0.1 MG TABLET( FLORINEF) GT SCH (09:25)
[2022-10-26] MEDS: LORATADINE 10 MG TABLET GT SCH (09:25)
[2022-10-26] MEDS: DOCUSATE SODIUM 100 MG/10 ML UDC GT SCH (09:25)
[2022-10-26] MEDS: MULTIVITAMINS TAB 1 TABLET GT SCH (09:25)
[2022-10-26] MEDS: POTASSIUM CHLORIDE 20 MEQ TAB.PRT.SR PO SCH (09:26)
[2022-10-26] MEDS: LANSOPRAZOLE 30 MG CAPSULE.DR GT SCH (09:35)
[2022-10-26] MEDS: VALPROIC ACID ORAL SYRUP 250 MG/5 ML UDC GT SCH (09:35)
[2022-10-26] MEDS: MIDODRINE HCL 5 MG TABLET (PROAMATINE) PO SCH (09:35)
--- NOTE | 2022-10-26 09:46 | NUR ---
Nutrition F/U RD reviewed pts current EMR including diet hx, physician notes, nursing notes, pertinent labs/meds/procedures, care trends and care activity. Short note d/t high workload Subjective Information RD visited pt room and s/w RN. RN attested that pt was supposed to be transferred to [facility] yesterday but now she is going @ 1000 today. Current Diet Order/Nutrition Support Nepro @ 35mL/hr (goal) via GT x 3 days % PO intake NPO Last BM 10/19/22 x 1 Dietitian Recommendations *Continue Nepro @ 35mL/hr (goal), Jaime BID via GT Provides( w/ Jaime): 1692 kcal, 73 g PRO *Consider bowel regimen as no documented BM since 10/19 Follow up *Moderate risk: see pt in 3-5 days GORGE, MPH, RD
[2022-10-26] MEDS: THEOPHYLLINE ANHYDROUS 80 MG/15 ML UDC PO SCH (10:12)
[2022-10-26] MEDS: LACOSAMIDE 100 MG TABLET PO SCH (10:12)
--- NOTE | 2022-10-26 10:58 | NUR ---
Discharged notes Discharge to [facility] per order report given to receiving nurse (Raheel) at facilty. Patient A/Oxo nonverbal. Tracheostomy #7 to vent setting: AC 14, TV 450 Fi02@30% Peep 5. PICC line to right upper arm patent,. G-tube Nepro at 35ml/hr, clap for transport, Amador catheter patent draining clear yellow urine. Sacrum redness applied Mepilex for protection. Ambulance lifeline 613 Respiratory therapist( Brynn) , EMT Suzi w/ assistance accompany patient to facility.
== END 2022-10-26 11:00 | DRG 870 ==
LOC: SED 11:37 → SIC 17:25 → STU 10-23 16:54 → SMU 10-25 16:52 → STU 10-25 18:51
PROVIDERS: ADMIT Family Medicine; ATTEND Family Medicine
PROC: 5A1955Z Respiratory Ventilation, Greater than 96 Consecutive Hours (ICD-10-PCS; principal; 2022-10-17)
PROC: 05HY33Z Insertion of Infusion Device into Upper Vein, Percutaneous Approach (ICD-10-PCS; 2022-10-17)
DX: A41.9 Sepsis, unspecified organism (principal); J15.1 Pneumonia due to Pseudomonas; J96.10 Chronic respiratory failure, unspecified whether with hypoxia or hypercapnia; Z99.11 Dependence on respirator [ventilator] status; N39.0 Urinary tract infection, site not specified; K56.7 Ileus, unspecified; E03.9 Hypothyroidism, unspecified; G40.909 Epilepsy, unspecified, not intractable, without status epilepticus; G80.9 Cerebral palsy, unspecified; K21.9 Gastro-esophageal reflux disease without esophagitis; N20.0 Calculus of kidney; L71.9 Rosacea, unspecified; Z20.822 Contact with and (suspected) exposure to COVID-19; R13.10 Dysphagia, unspecified; Z88.1 Allergy status to other antibiotic agents; Z88.8 Allergy status to other drugs, medicaments and biological substances; Z79.899 Other long term (current) drug therapy; Z93.0 Tracheostomy status; Z93.1 Gastrostomy status; Z74.01 Bed confinement status
CPT/HCPCS: 36415; 71045; 74018; 76376; 76700-TC; 80048; 80053; 81000; 82962; 83605; 83690; 83735; 84100; 84443; 84478; 84484; 85025; 85610-TC; 85730-TC; 87070-TC; 87081; 87086; 87101; 87205-TC; 87230-TC; 93005; 93971; 94003; 94640; 94760; 96365; 96372; 99285; G0378; J0692; J1650; J1815; J1940; J1953; J2543; J2765; J3475; J3480; J3490; J7060; J7613

== ENCOUNTER 2022-11-01 21:29 | Inpatient (IN) | payer OTHER, MEDICAID ==
[~2022-11-01] VITALS: Ht 167.6 cm; Wt 84.8 kg
[2022-11-01 21:29] VITALS: BP_SYST 130
[~2022-11-01 21:29] MED LIST changes: +ASCO500T20 GT; -ASCO500T20 PO; +BACL10TA GT; -BACL10TA PO; +FURO-149 GT; +LACO10SO3 GT; -LACO10SO3 PO; +LACT10SO6 GT; +LORA2TAB95 GT; -LORA2TAB95 PEG; +MIDO10TA GT; +POTA-197 PO; +SYN50 GT; +THEO80SO4 GT; +TYLL650 GT; -TYLL650 PEG
--- NOTE | 2022-11-01 21:29 | NUR ---
Placed in room 08 . Placed on case monitor, blood pressure machine and pulse oximeter. To gown for exam. Side rails up. Report given to german pereira
[2022-11-01] MEDS ORDERED: NACL 0.9% 1,000 ML IV ONE (22:00)
[2022-11-01] MEDS ORDERED: CRAN450T9 GT (22:13)
[2022-11-01] MEDS ORDERED: CHLO473M5 PO (22:13)
[2022-11-01] MEDS ORDERED: LOVI40 SQ (22:13)
[2022-11-01] MEDS ORDERED: PROP10DR4 BOTH EYES (22:13)
[2022-11-01] MEDS ORDERED: MINO30 GT (22:13)
[2022-11-01] MEDS ORDERED: ONDA4TAB11 GT (22:13)
[2022-11-01] MEDS ORDERED: CEFE1PIG3 (22:13)
--- NOTE | 2022-11-01 22:16 | NUR ---
Medication reconciliation completed with information provided by SHIRLEY ATKINS. Any prior medication reconciliation on file was reviewed and corrected.
--- NOTE | 2022-11-01 22:26 | NUR ---
LATE ENTRY: Patient to room #8 @ 0396, placed on monitor, informed of plan of care, MD at bedside for exam. Respiratory at bedside for vent placement, settings tv:450, ac:14, fio2: 35%, peep:5. Eyes open, non verbal, face is flushed, BUE edema noted left arm with dressing dry and intact RUE with mid line, abd distended with positive bowel sounds, left buttock with small open area without drainage, ny intact from facility, BLE foot drop, and edema. MD was assisted with exam, positioned for comfort, side rails up, will continue to monitor.
[2022-11-01 22:31] LABS: BASOPHILS # (AUTO) 0.1 K/uL (0.0-0.2); BASOPHILS % (AUTO) 0.3 % (0.0-2.0); EOSINOPHILS % (AUTO) 0.2 % (0.0-4.0); HEMATOCRIT 39.9 % (36-48); HEMOGLOBIN 13.1 g/dL (12.0-16.0); LYMPHOCYTES % (AUTO) 6.5 % (20.5-51.5); MEAN CORPUSCULAR HEMOGLOBIN 31 pg (27-31); MEAN CORPUSCULAR HGB CONC 33 % (32-36); MEAN CORPUSCULAR VOLUME 94 fL (79.0-98.0); MONOCYTES # (AUTO) 0.9 K/uL (0.0-1.0); MONOCYTES % (AUTO) 5.6 % (1.7-9.3); NEUTROPHILS # (AUTO) 13.6 K/uL (1.8-7.7); NEUTROPHILS % (AUTO) 87.4 % (40.0-70.0); PLATELET COUNT (AUTO) 153 K/uL (130-430); RED BLOOD CELL COUNT(AUTO) 4.23 MIL/uL (4.2-6.2); RED CELL DISTRIBUTION WIDTH 17.8 % (9.0-15.0); WHITE BLOOD COUNT (AUTO) 15.5 K/uL (4.8-10.8)
--- NOTE | 2022-11-01 22:33 | NUR ---
Bedside EKG done for MD review, lab at bedside, new 16fr ny cath placed, awaiting urine. Patient was urinating at time of placement.
[2022-11-01 22:39] LABS: ALBUMIN 2.7 g/dL (3.4-4.8); CALCIUM 10.5 mg/dL (8.4-11.0); CREATININE 0.99 mg/dL (0.55-1.30); TOTAL BILIRUBIN 0.3 mg/dL (0.0-1.0)
--- NOTE | 2022-11-01 22:44 | NUR ---
IVF infusing as per order.
--- NOTE | 2022-11-01 23:44 | NUR ---
Repositioned for comfort.
[2022-11-02] VITALS (22 sets, daily range): BP systolic 109–148
[2022-11-02] MEDS ORDERED: VANCOMYCIN HCL 1000 MG/VIAL IV ONE (00:26)
[2022-11-02] MEDS ORDERED: NACL 0.9% 2,500 ML IV ONE (00:30)
[2022-11-02] MEDS ORDERED: MEROPENEM 1 GM IVPB PREMIX 50 ML IV ONE (00:30)
[2022-11-02] MEDS ORDERED: VANCOMYCIN HCL 1,000 MG in NS 250 ML IV ONE (00:30)
[2022-11-02 00:39] LABS: BILIRUBIN,URINE NEGATIVE (NEGATIVE); BLOOD, URINE 2+ (NEGATIVE); CLARITY/URINE CLEAR (CLEAR); COLOR,URINE YELLOW (YELLOW); GLUCOSE,URINE NEGATIVE (NEGATIVE); KETONES,URINE TRACE (NEGATIVE); LEUKOCYTE ESTERASE ,URINE 1+ (NEGATIVE); NITRITE, URINE NEGATIVE (NEGATIVE); PROTEIN URINE 2+ (NEGATIVE); UROBILINOGEN,URINE 0.2 (0.2-1.0)
[2022-11-02 00:55] LABS: URINE SULFO SALICYLIC ACID NEGATIVE (NEGATIVE)
[2022-11-02 00:56] LABS: BACTERIA,URINE FEW /HPF (None Seen); MUCUS,URINE None Seen /LPF (None Seen); WBC,URINE 20-50 /HPF (0-3)
--- NOTE | 2022-11-02 01:02 | NUR ---
#20g established in left wrist area, vanco infusing as per order. Repositioned for comfort.
[2022-11-02] MEDS ORDERED: MEROPENEM 1 GM VIAL IV ONE (01:16)
--- NOTE | 2022-11-02 01:31 | NUR ---
Patient has been to CT via [facility] and has returned to room. Placed back on monitor.
[2022-11-02] MEDS ORDERED: NACL 0.9% 1,000 ML IV SCH (02:30)
[2022-11-02] MEDS ORDERED: PIPERACILLIN/TAZO 3.375 GM in NS 50 ML IV ONE (02:30)
[2022-11-02] MEDS ORDERED: PIPERACILLIN/TAZOBACTAM 3.375 GM/VIAL (ZOSYN) IV ONE (02:31)
--- NOTE | 2022-11-02 02:32 | NUR ---
Admit bed requested Patient will be admitted to care of . Admitted to ICU unit. Diagnosis COLITIS AND GI BLEED Inpatient (Yes or No) Y Observation (Yes or No) N Orientation concerns or request close to nursing station (Yes or No) Y Covid Status NEG On vent or bipap Y Isolation requirements Y ; MDRO, ESBL URINE; LANDSCAPE CREW MEMBER-SPUTUM Needs a sitter N From Home (Yes or if No enter name of facility) [facility] Requires Dialysis (Yes or No) N Med Rec Completed (Yes of No) Y
--- NOTE | 2022-11-02 02:38 | NUR ---
SPOKE TO JUAN ANTONIO JENNINGS CHARGE NURSE. PT WILL BE ICU HOLD UNTIL AM.
--- NOTE | 2022-11-02 03:35 | NUR ---
A.M. care done at this time. Incontinent of moderate loose stool, bed change and repositioned for comfort. Side rails remain up will continue to monitor.
--- NOTE | 2022-11-02 04:55 | NUR ---
Patient resting no s/s of any distress noted. HOB elevated, pillow placed under arm, side rails remain up, will continue to monitor.
--- NOTE | 2022-11-02 06:35 | NUR ---
Patient repositioned for comfort, no change in prior assessment, vent settings remain unchanged. IVF infusing via pump to left wrist HL. Side rails up will continue to monitor.
--- NOTE | 2022-11-02 10:00 | NUR ---
RT NOTE: 1000 Patient transferred from ER 8 to ICU 5 on ventilator on current settings. No issues during transport. Trach is patent/secure.
--- NOTE | 2022-11-02 10:05 | NUR ---
Patient will be admitted to care of DR DOW. Admitted to ICU unit. Will go to room 5. Belongings list completed. Complete and up to date summary report printed. SBAR report to be given at bedside with opportunity for questions.
--- NOTE | 2022-11-02 10:35 | NUR ---
Patient arrived to hospital floor ICU 5 from ER for c/o abdominal bleeding, colitis. [facility] On g-tube clamped. Patient turned as appropriate. Changed into new gown. Patient on fluids. IV and PICC lines checked. IV antibiotics utilized. Stool specimen collected. Patient has left arm blister and skin issues. Pictures taken. Will continue to monitor. Call light within reach.
[2022-11-02] MEDS: metroNIDAZOLE 500 mg/NS 100 ML IV SCH ×2 (10:44→17:00)
--- NOTE | 2022-11-02 11:15 | NUR ---
spoke felipa moody and patient is isolation for INTERMEDIATE CARD TENDER (contact) isolation and Nepro 1.8 at rate of 35 mL/hr with FWF 150 mL every 8 hours.
--- NOTE | 2022-11-02 11:15 | NUR ---
blood sugar check 138
[2022-11-02] MEDS ORDERED: ACETAMINOPHEN 650 MG/20.3 ML UDC GT PRN ×3 (11:45→12:00)
[2022-11-02] MEDS ORDERED: LORazepam 1 MG TABLET GT PRN (11:45)
[2022-11-02] MEDS ORDERED: ONDANSETRON 4 MG ODT TAB GT PRN (11:45)
[2022-11-02] MEDS ORDERED: FLUDROCORTISONE ACETATE 0.1 MG TABLET( FLORINEF) GT ONE (12:00)
[2022-11-02] MEDS ORDERED: LEVOTHYROXINE SODIUM 0.05 MG TABLET GT ONE (12:00)
[2022-11-02] MEDS ORDERED: LORATADINE 10 MG TABLET GT ONE (12:00)
[2022-11-02] MEDS ORDERED: FUROSEMIDE 40 MG TABLET GT ONE (12:00)
[2022-11-02] MEDS ORDERED: LANSOPRAZOLE 30 MG CAPSULE.DR GT ONE (12:00)
[2022-11-02] MEDS ORDERED: ASCORBIC ACID 500 MG TABLET GT ONE (12:00)
--- NOTE | 2022-11-02 12:14 | NUR ---
Spoke with Robert caser, at , regarding patient in ICU at [facility]. child welfare caseworker said to call father regarding any consents for patient.
[2022-11-02] MEDS ORDERED: LACTULOSE 20 GM/30 ML UDC GT ONE (12:15)
[2022-11-02] MEDS ORDERED: MULTIVITAMINS TAB 1 TABLET GT ONE (12:15)
[2022-11-02] MEDS ORDERED: CHLORHEXIDINE GLUC 0.12% 15 ML MOUTHWASH UDC MM SCH (12:15)
[2022-11-02] MEDS ORDERED: DOCUSATE SODIUM 100 MG/10 ML UDC GT ONE (12:15)
[2022-11-02] MEDS ORDERED: LACOSAMIDE 100 MG TABLET GT ONE (12:15)
[2022-11-02] MEDS ORDERED: DOCUSATE SODIUM 100 MG/10 ML UDC PO ONE (12:15)
[2022-11-02] MEDS ORDERED: MINERAL OIL 30 ML UDC GT ONE (12:30)
[2022-11-02] MEDS ORDERED: LevETIRAcetam 500 MG/5 ML UDC ORAL LIQUID GT ONE (12:30)
[2022-11-02] MEDS ORDERED: MIDODRINE HCL 5 MG TABLET (PROAMATINE) GT ONE (12:30)
[2022-11-02] MEDS ORDERED: THEOPHYLLINE ANHYDROUS 80 MG/15 ML UDC GT ONE (12:30)
[2022-11-02] MEDS: D5/0.45 NS 1,000 ML IV SCH (13:11)
[2022-11-02] MEDS: PEG 400/HYPROMELLOSE/GLYCERIN 15 ML DROPS BOTH EYES SCH ×2 (14:00→21:29)
[2022-11-02] MEDS: BACLOFEN 10 MG TABLET GT SCH ×2 (15:00→21:00)
--- NOTE | 2022-11-02 18:28 | NUR ---
Dr. Patterson said to hold tube feeding for patient due to abdominal distension and colitis.
[2022-11-02] MEDS: MEROPENEM 500 MG in NS 50 ML IV SCH ×2 (18:57→21:09)
[2022-11-02] MEDS: VALPROIC ACID ORAL SYRUP 250 MG/5 ML UDC GT SCH ×2 (18:58→21:00)
--- NOTE | 2022-11-02 19:29 | NUR ---
Report given to JUAN ANTONIO Watts for continuity of care. Patient in stable condition. No distress noted.
[2022-11-02] MEDS: LevETIRAcetam 500 MG/5 ML UDC ORAL LIQUID GT SCH (20:51)
[2022-11-02] MEDS: ENOXAPARIN SODIUM 40 MG/0.4 ML SYRINGE SQ SCH (21:00)
[2022-11-02] MEDS: LACOSAMIDE 100 MG TABLET GT SCH (21:00)
[2022-11-02] MEDS: THEOPHYLLINE ANHYDROUS 80 MG/15 ML UDC GT SCH (21:00)
[2022-11-02] MEDS: DOCUSATE SODIUM 100 MG/10 ML UDC GT SCH (21:23)
[2022-11-02] MEDS: MIDODRINE HCL 5 MG TABLET (PROAMATINE) GT SCH (21:24)
[2022-11-03] VITALS (30 sets, daily range): BP systolic 103–156
[2022-11-03] MEDS: metroNIDAZOLE 500 mg/NS 100 ML IV SCH ×3 (00:11→17:54)
[2022-11-03] MEDS: MEROPENEM 500 MG in NS 50 ML IV SCH (05:10)
[2022-11-03] MEDS: PEG 400/HYPROMELLOSE/GLYCERIN 15 ML DROPS BOTH EYES SCH ×3 (05:11→21:33)
[2022-11-03 05:43] LABS: BASOPHILS % (AUTO) 0.4 % (0.0-2.0); EOSINOPHILS # (AUTO) 0.2 K/uL (0.0-0.4); EOSINOPHILS % (AUTO) 2.2 % (0.0-4.0); HEMATOCRIT 32.3 % (36-48); HEMOGLOBIN 10.7 g/dL (12.0-16.0); MEAN CORPUSCULAR HEMOGLOBIN 31 pg (27-31); MEAN CORPUSCULAR HGB CONC 33 % (32-36); MEAN CORPUSCULAR VOLUME 95 fL (79.0-98.0); MONOCYTES # (AUTO) 0.5 K/uL (0.0-1.0); MONOCYTES % (AUTO) 7.8 % (1.7-9.3); NEUTROPHILS % (AUTO) 74.6 % (40.0-70.0); PLATELET COUNT (AUTO) 137 K/uL (130-430); RED CELL DISTRIBUTION WIDTH 17.8 % (9.0-15.0); WHITE BLOOD COUNT (AUTO) 6.8 K/uL (4.8-10.8)
[2022-11-03 05:45] LABS: PROTHROMBIN TIME 10.2 SECS (9.5-12.5)
[2022-11-03 06:15] LABS: ALBUMIN 2.4 g/dL (3.4-4.8); CALCIUM 9.1 mg/dL (8.4-11.0); CREATININE 0.82 mg/dL (0.55-1.30); TOTAL BILIRUBIN 0.3 mg/dL (0.0-1.0)
[2022-11-03] MEDS: LEVOTHYROXINE SODIUM 0.05 MG TABLET GT SCH ×2 (06:55→10:16)
[2022-11-03] MEDS ORDERED: KCL 40 mEq in 100 mL (PREMIX) 100 ML IV ONE (07:00)
[2022-11-03] MEDS: LACTULOSE 20 GM/30 ML UDC GT SCH (10:17)
[2022-11-03] MEDS: LANSOPRAZOLE 30 MG CAPSULE.DR GT SCH (10:17)
[2022-11-03] MEDS: VALPROIC ACID ORAL SYRUP 250 MG/5 ML UDC GT SCH ×3 (10:17→21:33)
[2022-11-03] MEDS: BACLOFEN 10 MG TABLET GT SCH ×3 (10:17→21:33)
[2022-11-03] MEDS: MINERAL OIL 30 ML UDC GT SCH (10:18)
[2022-11-03] MEDS: LACOSAMIDE 100 MG TABLET GT SCH ×2 (10:18→21:33)
[2022-11-03] MEDS: DOCUSATE SODIUM 100 MG/10 ML UDC GT SCH ×2 (10:18→21:33)
[2022-11-03] MEDS: FLUDROCORTISONE ACETATE 0.1 MG TABLET( FLORINEF) GT SCH (10:19)
[2022-11-03] MEDS: LevETIRAcetam 500 MG/5 ML UDC ORAL LIQUID GT SCH ×2 (10:19→21:33)
[2022-11-03] MEDS: MIDODRINE HCL 5 MG TABLET (PROAMATINE) GT SCH ×2 (10:19→21:33)
[2022-11-03] MEDS: MULTIVITAMINS TAB 1 TABLET GT SCH (10:20)
[2022-11-03] MEDS: THEOPHYLLINE ANHYDROUS 80 MG/15 ML UDC GT SCH ×2 (10:22→21:33)
[2022-11-03] MEDS: FUROSEMIDE 40 MG TABLET GT SCH (10:24)
[2022-11-03] MEDS: LORATADINE 10 MG TABLET GT SCH (10:24)
[2022-11-03] MEDS: ASCORBIC ACID 500 MG TABLET GT SCH (10:26)
[2022-11-03] MEDS ORDERED: *TPN PER PHARMACY XX PRN (12:45)
[2022-11-03] MEDS: D5/0.45 NS 1,000 ML IV SCH (14:08)
[2022-11-03] MEDS: VANCOMYCIN HCL ORAL SOLUTION 250 MG/5 ML, 80 ML GT SCH ×3 (14:09→23:35)
[2022-11-03] MEDS ORDERED: SACCHAROMYCES BOULARDII 250 MG CAPSULE (FLORASTOR) GT SCH (21:00)
[2022-11-03] MEDS: LACTOBACILLUS RHAMNOSUS GG 1 CAP CAPSULE GT SCH (21:33)
[2022-11-03] MEDS: ENOXAPARIN SODIUM 40 MG/0.4 ML SYRINGE SQ SCH (21:35)
[2022-11-04] VITALS (24 sets, daily range): BP systolic 120–158
[2022-11-04] MEDS: metroNIDAZOLE 500 mg/NS 100 ML IV SCH ×3 (00:06→16:29)
[2022-11-04] MEDS: D5/0.45 NS 1,000 ML IV SCH (03:48)
[2022-11-04] MEDS: PEG 400/HYPROMELLOSE/GLYCERIN 15 ML DROPS BOTH EYES SCH ×3 (05:45→20:37)
[2022-11-04] MEDS: VANCOMYCIN HCL ORAL SOLUTION 250 MG/5 ML, 80 ML GT SCH ×3 (05:45→17:01)
[2022-11-04 06:50] LABS: BASOPHILS % (AUTO) 0.8 % (0.0-2.0); EOSINOPHILS # (AUTO) 0.1 K/uL (0.0-0.4); EOSINOPHILS % (AUTO) 2.4 % (0.0-4.0); HEMATOCRIT 31.2 % (36-48); HEMOGLOBIN 10.4 g/dL (12.0-16.0); LYMPHOCYTES # (AUTO) 1.7 K/uL (1.0-5.5); LYMPHOCYTES % (AUTO) 32.8 % (20.5-51.5); MEAN CORPUSCULAR HEMOGLOBIN 32 pg (27-31); MEAN CORPUSCULAR HGB CONC 34 % (32-36); MEAN CORPUSCULAR VOLUME 95 fL (79.0-98.0); MONOCYTES # (AUTO) 0.6 K/uL (0.0-1.0); MONOCYTES % (AUTO) 10.6 % (1.7-9.3); NEUTROPHILS # (AUTO) 2.8 K/uL (1.8-7.7); NEUTROPHILS % (AUTO) 53.4 % (40.0-70.0); PLATELET COUNT (AUTO) 163 K/uL (130-430); RED CELL DISTRIBUTION WIDTH 17.3 % (9.0-15.0); WHITE BLOOD COUNT (AUTO) 5.2 K/uL (4.8-10.8)
[2022-11-04] MEDS: VALPROIC ACID ORAL SYRUP 250 MG/5 ML UDC GT SCH ×3 (08:15→20:36)
[2022-11-04] MEDS: LevETIRAcetam 500 MG/5 ML UDC ORAL LIQUID GT SCH ×2 (08:20→20:36)
[2022-11-04] MEDS: MULTIVITAMINS TAB 1 TABLET GT SCH (08:20)
[2022-11-04] MEDS: THEOPHYLLINE ANHYDROUS 80 MG/15 ML UDC GT SCH ×2 (08:20→20:36)
[2022-11-04] MEDS: LACOSAMIDE 100 MG TABLET GT SCH ×2 (08:21→20:36)
[2022-11-04] MEDS: LACTOBACILLUS RHAMNOSUS GG 1 CAP CAPSULE GT SCH ×2 (08:21→20:36)
[2022-11-04] MEDS: FLUDROCORTISONE ACETATE 0.1 MG TABLET( FLORINEF) GT SCH (08:21)
[2022-11-04] MEDS: BACLOFEN 10 MG TABLET GT SCH ×3 (08:22→20:36)
[2022-11-04] MEDS: ASCORBIC ACID 500 MG TABLET GT SCH (08:22)
[2022-11-04] MEDS: MIDODRINE HCL 5 MG TABLET (PROAMATINE) GT SCH ×2 (08:22→20:36)
[2022-11-04] MEDS: FUROSEMIDE 40 MG TABLET GT SCH (08:22)
[2022-11-04] MEDS: LORATADINE 10 MG TABLET GT SCH (08:22)
[2022-11-04] MEDS: MINERAL OIL 30 ML UDC GT SCH (08:23)
[2022-11-04] MEDS: LACTULOSE 20 GM/30 ML UDC GT SCH (08:23)
[2022-11-04] MEDS: DOCUSATE SODIUM 100 MG/10 ML UDC GT SCH ×2 (08:23→20:36)
--- NOTE | 2022-11-04 09:30 | NUR ---
PAGED DR HEIN FOR BRADYCARDIA, AWAITING CALL BACK.
[2022-11-04] MEDS: LANSOPRAZOLE 30 MG CAPSULE.DR GT SCH (09:46)
--- NOTE | 2022-11-04 10:40 | NUR ---
DR. HEIN NOTIFIED OF PATIENT HAVING LUIS CARDIA INTO THE LOW 40S. NO NEW ORDERS, NO CARDIOLOGY CONSULT OF NOW. NO S/SX DISTRESS, NO CHANGES AT THIS TIME. PER DR. HEIN CONTINUE TO MONITOR.
--- NOTE | 2022-11-04 10:47 | NUR ---
Dietitian Recommendations * Initiate Nepro @ 35mL/hr, free water flush 150 q4h via GT when medically appropriate. Best to use gut before moving to TPN. Provides: 1512 kcal, 68 g PRO, 1511 mL (inc fwf) free water Meets:103% lower est kcal, 103% of upper PRO, 108% of lower est fluid needs GS, MPH, RD Please refer to RD Assessment for further details. Thanks! Addendum: 11/04/22 at [address] Amended: Links added.
[2022-11-04 10:49] LABS: ALBUMIN 2.6 g/dL (3.4-4.8); CALCIUM 8.9 mg/dL (8.4-11.0); CREATININE 0.75 mg/dL (0.55-1.30); TOTAL BILIRUBIN 0.3 mg/dL (0.0-1.0)
--- NOTE | 2022-11-04 11:15 | NUR ---
HIGH ALERT NOTE: Called Dr. HEIN back at identified within the medical roster to verify physician authenticity. KRIDER 40 MEQ ONCE VIA PICC LINE POTASSIUM CHLORIDE 40 MEQ PACKET VIA G TUBE, READ BACK VERIFIED.
[2022-11-04] MEDS ORDERED: POTASSIUM CHLORIDE 20 MEQ/PKT PACKET GT ONE (11:30)
[2022-11-04] MEDS ORDERED: KCL 40 mEq in 100 mL (PREMIX) 100 ML IV ONE (11:30)
[2022-11-04] MEDS ORDERED: *TPN PER PHARMACY XX PRN (15:00)
--- NOTE | 2022-11-04 15:00 | NUR ---
Wound Evaluation: Wound Consult ordered for Low Ronnie Score. Patient evaluated for a low Ronnie score of 13. Patient was nonverbal, nonresponsive to verbal commands, and received in a [place] Bed with an Isoflex EBENEZER mattress with low air loss therapy initiated. Patient needs to be turned in bed. Skin assessment: 1. Left Lateral Upper Extremity, Inferior to Elbow: Healing large blister site, present on admission. Site has 50% pink tissue, 50% brown residual skin/scab. No odor, scant tacky serous drainage. Site measures 7.0 cm x 10.0 cm. Recommend: Cleanse site with normal saline. Gently pat dry. Apply Eucerin cream to brown residual skin/scab area. Apply calcium alginate dressing to pink tacky areas. Apply Xeroform dressings to total involved area. Cover with ABD pad. Wrap with Tri wrap. 2. Left Posterior Lateral Upper Extremity, Inferior to Elbow Healing blister site, present on admission. Site has 100% brown residual skin/scab. No odor, no drainage. Site measures 2.8 cm x 1.3 cm. Recommend: Cleanse site with normal saline. Gently pat dry. Apply Eucerin cream to brown residual skin/scab area. Cover with same ABD pad used in Site 1. Wrap with same Tri wrap used in site 1. 3. Left Medial Bicep: Healing very large blister site, present on admission. Site has 90% pink tissue, 10% brown residual skin/scab. No odor, scant tacky serous drainage. Site measures 17.0 cm x 15.0 cm. Recommend: Cleanse site with normal saline. Gently pat dry. Apply calcium alginate dressing to pink tacky areas. Apply Xeroform dressings to total involved area. Cover with ABD pad. Wrap with Tri wrap. 4. Buttocks/Bilateral Intergluteal Clefts: Blanchable redness from IAD, present on admission. No odor, no drainage. Recommend: Cleanse involved areas with mild soap and water. Pat dry. Apply Calmoseptine cream to involved areas. Perform site care 4 times daily and as needed for soiling 5. Left Posterior Heel: Blanchable redness, present on admission. 6. Right Posterior Heel: Blanchable redness, present on admission. Recommend: Elevate, offload and float bilateral heels with 1 pillow lengthwise and each extremity at all times. Do not allow heels to touch bed or other surfaces at any time. Recommend reposition patient side to side only every 2 hours with pillow support. Elevate, off-load and float bilateral heels with pillows. Offload pressure areas with pillows for pressure re-distribution. Perform skin care and monitor skin integrity Q shift. Use moisture barrier cream on moisture susceptible areas QID and PRN for soiling. Maintain patient on a low air-loss mattress.
[2022-11-04] MEDS ORDERED: MENTHOL/ZINC OXIDE 113 GM OINT. TP PRN (16:15)
[2022-11-04] MEDS ORDERED: LANOLIN ALCOHOL/MO/W.PET/CERES 57 GM CREAM..G. TP ONE (16:15)
--- NOTE | 2022-11-04 18:50 | NUR ---
PER DR. MACK ONCE PATIENT STARTS TPN, TURN OFF HER FLUIDS. ENDORSED TO NIGHT NURSE JUAN ANTONIO MICHELE
[2022-11-04] MEDS: ENOXAPARIN SODIUM 40 MG/0.4 ML SYRINGE SQ SCH (20:37)
[2022-11-04] MEDS ORDERED: POTASSIUM CHLORIDE IV SCH ×7 (21:00)
[2022-11-04] MEDS ORDERED: [UNRECOGNIZED DRUG - OTHER] IV SCH ×7 (21:00)
[2022-11-04] MEDS ORDERED: K PHOS IV SCH ×7 (21:00)
[2022-11-04] MEDS ORDERED: MVI IV SCH ×7 (21:00)
[2022-11-04] MEDS ORDERED: TPN CENTRAL IV SCH ×7 (21:00)
[2022-11-05] VITALS (25 sets, daily range): BP systolic 113–159
[2022-11-05] MEDS: D5/0.45 NS 1,000 ML IV SCH ×2 (00:10→20:01)
[2022-11-05] MEDS: metroNIDAZOLE 500 mg/NS 100 ML IV SCH ×3 (00:10→17:17)
[2022-11-05] MEDS: VANCOMYCIN HCL ORAL SOLUTION 250 MG/5 ML, 80 ML GT SCH ×5 (00:10→23:03)
[2022-11-05] MEDS ORDERED: LORazepam 2 MG/ML VIAL ONE (02:50)
[2022-11-05] MEDS ORDERED: LORazepam 2 MG/ML VIAL IVP PRN (04:45)
[2022-11-05] MEDS: PEG 400/HYPROMELLOSE/GLYCERIN 15 ML DROPS BOTH EYES SCH ×3 (05:11→20:32)
[2022-11-05 05:50] LABS: BASOPHILS % (AUTO) 0.3 % (0.0-2.0); EOSINOPHILS # (AUTO) 0.1 K/uL (0.0-0.4); HEMOGLOBIN 9.7 g/dL (12.0-16.0); LYMPHOCYTES % (AUTO) 17.8 % (20.5-51.5); MEAN CORPUSCULAR HEMOGLOBIN 31 pg (27-31); MEAN CORPUSCULAR HGB CONC 33 % (32-36); MEAN CORPUSCULAR VOLUME 93 fL (79.0-98.0); MONOCYTES # (AUTO) 0.4 K/uL (0.0-1.0); MONOCYTES % (AUTO) 8.3 % (1.7-9.3); NEUTROPHILS # (AUTO) 3.8 K/uL (1.8-7.7); NEUTROPHILS % (AUTO) 71.6 % (40.0-70.0); PLATELET COUNT (AUTO) 178 K/uL (130-430); RED BLOOD CELL COUNT(AUTO) 3.11 MIL/uL (4.2-6.2); RED CELL DISTRIBUTION WIDTH 16.9 % (9.0-15.0); WHITE BLOOD COUNT (AUTO) 5.4 K/uL (4.8-10.8)
[2022-11-05 06:43] LABS: ALBUMIN 2.5 g/dL (3.4-4.8); CALCIUM 8.9 mg/dL (8.4-11.0); CREATININE 0.77 mg/dL (0.55-1.30); PHOSPHORUS 2.8 mg/dL (2.7-4.5); TOTAL BILIRUBIN 0.3 mg/dL (0.0-1.0)
[2022-11-05] MEDS: LEVOTHYROXINE SODIUM 0.05 MG TABLET GT SCH (07:33)
--- NOTE | 2022-11-05 08:00 | NUR ---
patient in bed, no signs or symptoms of distress. PICC with two ports Right upper arm running TPN with one port occluded. trach to vent shiley 7 settings ac rate 14, tv 450, 355, peep 5. generalized edema, bilateral foot drop, and right arm contracted. intermittent bradycardia as low as 40 beats per minute, dr ruiz aware, no change in orders. ny draining urine to gravity. abdominal distension noted. left upper extremity wound seen by wound care nurse yesterday, 11/04. bed in lowest locked position, call light within reach, safety measures in place.
[2022-11-05] MEDS: MINERAL OIL 30 ML UDC GT SCH (08:57)
[2022-11-05] MEDS: DOCUSATE SODIUM 100 MG/10 ML UDC GT SCH ×2 (08:57→20:31)
[2022-11-05] MEDS: LACTULOSE 20 GM/30 ML UDC GT SCH (08:57)
[2022-11-05] MEDS: LANSOPRAZOLE 30 MG CAPSULE.DR GT SCH (09:00)
[2022-11-05] MEDS: LANOLIN ALCOHOL/MO/W.PET/CERES 57 GM CREAM..G. TP SCH (09:02)
[2022-11-05] MEDS: VALPROIC ACID ORAL SYRUP 250 MG/5 ML UDC GT SCH ×3 (09:02→20:31)
[2022-11-05] MEDS: THEOPHYLLINE ANHYDROUS 80 MG/15 ML UDC GT SCH ×2 (09:03→20:31)
[2022-11-05] MEDS: FUROSEMIDE 40 MG TABLET GT SCH (09:04)
[2022-11-05] MEDS: LACOSAMIDE 100 MG TABLET GT SCH ×2 (09:04→20:31)
[2022-11-05] MEDS: FLUDROCORTISONE ACETATE 0.1 MG TABLET( FLORINEF) GT SCH (09:04)
[2022-11-05] MEDS: LACTOBACILLUS RHAMNOSUS GG 1 CAP CAPSULE GT SCH ×2 (09:04→20:31)
[2022-11-05] MEDS: MIDODRINE HCL 5 MG TABLET (PROAMATINE) GT SCH ×2 (09:05→20:31)
[2022-11-05] MEDS: MULTIVITAMINS TAB 1 TABLET GT SCH (09:05)
[2022-11-05] MEDS: ASCORBIC ACID 500 MG TABLET GT SCH (09:05)
[2022-11-05] MEDS: LORATADINE 10 MG TABLET GT SCH (09:05)
[2022-11-05] MEDS: BACLOFEN 10 MG TABLET GT SCH ×3 (09:05→20:31)
--- NOTE | 2022-11-05 10:26 | NUR ---
HIGH ALERT NOTE: Called Dr. Patterson back at [phone] identified within the medical roster to verify physician authenticity. accu checks q6h with regular sliding scale and hypoglycemia protocol ordered since patient is now on TPN. read back verified.
[2022-11-05] MEDS ORDERED: DEXTROSE 50% JECT 50 ML DISP.SYRIN IVP PRN (10:30)
[2022-11-05] MEDS ORDERED: INSULIN REGULAR, HUMAN 100 UNITS/ML, 3 ML VIAL (humuLIN R) SUBCUT PRN (10:30)
[2022-11-05] MEDS ORDERED: D5W 1,000 ML IV PRN (10:30)
--- NOTE | 2022-11-05 11:31 | NUR ---
RICARDO LAWLER PROBATE PANEL MACHINE OPERATOR AT BED SIDE TO READ PATIENT RIGHTS TO PATIENT FOR [facility]. HE PROVIDED HIS CARD WITH HIS CONTACT INFORMATION INCLUDING PHONE NUMBER [phone] [email or web address] [place] [id number] PROPER USE OF PPE EDUCATION PROVIDED.
[2022-11-05] MEDS ORDERED: CHLORHEXIDINE GLUC 0.12% 15 ML MOUTHWASH UDC MM SCH (12:45)
--- NOTE | 2022-11-05 12:57 | NUR ---
Short Nutrition Note RD rec'd a call from INDUSTRIAL FURNACE FABRICATOR that Dr wants to start GT feed slowly. RD called ICU and verbally gave rec. RD rec below: Start Nepro @ 20mL via GT Provides: 864 kcal, 39 g PRO, 349mL free water Advance as tolerated. Goal: Nepro @ 35mL/hr, free water flush 150 q4h via GT Provides: 1512 kcal, 68 g PRO, 1511 mL (inc fwf) free water Meets:103% lower est kcal, 103% of upper PRO, 108% of lower est fluid needs Pt will be seen for f/u on 11/07 GS, MPH, RD
[2022-11-05] MEDS: levETIRAcetam 1,500 MG in NS 85 ML IV SCH ×2 (14:58→20:32)
--- NOTE | 2022-11-05 16:10 | NUR ---
PAGED DR HEIN TO NOTIFY OF THE HEART RATE REPEATEDLY DROPPING TO THE 40s, AWAITING CALL BACK.
--- NOTE | 2022-11-05 19:09 | NUR ---
DR HEIN ROUNDED ON PATIENT, NOTIFIED OF BRADYCARDIA INTO THE 40S, NO NEW ORDERS AT THIS TIME. NOTIFIED DR HEIN THAT PATIENT TUBE FEEDING IS STARTED AT 20ML/HR AND ORDERED TO CONTINUE TPN. ENDORSED CONTINUATION TO COVER SEAMER RN.
[2022-11-05] MEDS: CHLORHEXIDINE GLUC 0.12% 15 ML MOUTHWASH UDC MM SCH (20:31)
[2022-11-05] MEDS: ENOXAPARIN SODIUM 40 MG/0.4 ML SYRINGE SQ SCH (20:32)
[2022-11-05] MEDS ORDERED: TPN CENTRAL IV SCH ×8 (21:00)
[2022-11-05] MEDS ORDERED: K PHOS IV SCH ×8 (21:00)
[2022-11-05] MEDS ORDERED: POTASSIUM CHLORIDE IV SCH ×8 (21:00)
[2022-11-05] MEDS ORDERED: [UNRECOGNIZED DRUG - OTHER] IV SCH ×8 (21:00)
[2022-11-06] VITALS (30 sets, daily range): BP systolic 105–171
[2022-11-06] MEDS: metroNIDAZOLE 500 mg/NS 100 ML IV SCH ×3 (00:09→17:54)
[2022-11-06] MEDS: PEG 400/HYPROMELLOSE/GLYCERIN 15 ML DROPS BOTH EYES SCH ×3 (05:03→21:00)
[2022-11-06] MEDS: levETIRAcetam 1,500 MG in NS 85 ML IV SCH ×3 (05:04→22:00)
[2022-11-06] MEDS: VANCOMYCIN HCL ORAL SOLUTION 250 MG/5 ML, 80 ML GT SCH ×3 (05:04→17:55)
[2022-11-06 05:48] LABS: ALBUMIN 2.8 g/dL (3.4-4.8); CALCIUM 8.9 mg/dL (8.4-11.0); CREATININE 0.76 mg/dL (0.55-1.30); PHOSPHORUS 3.1 mg/dL (2.7-4.5); TOTAL BILIRUBIN 0.2 mg/dL (0.0-1.0)
--- NOTE | 2022-11-06 08:00 | NUR ---
patient in bed, no signs or symptoms of distress. PICC with two ports Right upper arm running TPN with one port occluded. trach to vent shiley 7 settings ac rate 14, tv 450, 355, peep 5. generalized edema, bilateral foot drop, and right arm contracted. intermittent bradycardia as low as 40 beats per minute, dr ruiz aware, no change in orders. ny draining urine to gravity. tube feeding nepro 30ml/hr. bed in lowest locked position, call light within reach, safety measures in place.
[2022-11-06] MEDS: ALBUTEROL SULFATE 0.083% 2.5 MG/3 ML VIAL.NEB INH PRN ×2 (08:06→11:36)
[2022-11-06] MEDS: DOCUSATE SODIUM 100 MG/10 ML UDC GT SCH ×2 (09:00→21:00)
[2022-11-06] MEDS: MINERAL OIL 30 ML UDC GT SCH (09:00)
[2022-11-06] MEDS: LACTULOSE 20 GM/30 ML UDC GT SCH (09:00)
[2022-11-06] MEDS: VALPROIC ACID ORAL SYRUP 250 MG/5 ML UDC GT SCH ×3 (09:16→21:00)
[2022-11-06] MEDS: MIDODRINE HCL 5 MG TABLET (PROAMATINE) GT SCH ×2 (09:17→21:00)
[2022-11-06] MEDS: FLUDROCORTISONE ACETATE 0.1 MG TABLET( FLORINEF) GT SCH (09:17)
[2022-11-06] MEDS: THEOPHYLLINE ANHYDROUS 80 MG/15 ML UDC GT SCH ×2 (09:17→21:00)
[2022-11-06] MEDS: LANSOPRAZOLE 30 MG CAPSULE.DR GT SCH (09:17)
[2022-11-06] MEDS: MULTIVITAMINS TAB 1 TABLET GT SCH (09:17)
[2022-11-06] MEDS: FUROSEMIDE 40 MG TABLET GT SCH (09:17)
[2022-11-06] MEDS: LORATADINE 10 MG TABLET GT SCH (09:18)
[2022-11-06] MEDS: ASCORBIC ACID 500 MG TABLET GT SCH (09:18)
[2022-11-06] MEDS: BACLOFEN 10 MG TABLET GT SCH ×3 (09:18→21:00)
[2022-11-06] MEDS: LACTOBACILLUS RHAMNOSUS GG 1 CAP CAPSULE GT SCH ×2 (09:18→21:00)
[2022-11-06] MEDS: LEVOTHYROXINE SODIUM 0.05 MG TABLET GT SCH (09:18)
[2022-11-06] MEDS: CHLORHEXIDINE GLUC 0.12% 15 ML MOUTHWASH UDC MM SCH ×2 (09:18→21:00)
[2022-11-06] MEDS: LACOSAMIDE 100 MG TABLET GT SCH ×2 (09:18→21:00)
[2022-11-06] MEDS: LANOLIN ALCOHOL/MO/W.PET/CERES 57 GM CREAM..G. TP SCH (09:19)
--- NOTE | 2022-11-06 09:47 | NUR ---
Nutrition F/U RD reviewed pts current EMR including diet hx, physician notes, nursing notes, pertinent labs/meds/procedures, care trends and care activity. Subjective Information RD attended ICU rounds and s/w furnace charger. He said she is on ISO for C.diff, ESBL, PAYLOADER MACHINE OPERATOR, etc. 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 She is currently receiving both TPN and EN nutrition. RN said she is at 30mL/hr; RD said we could likely DC TPN when she is at goal. He said that she is tolerating TF well, no notable residuals. Pt is meeting nutritional needs at this time. Current Diet Order/Nutrition Support Nepro @ 35mL/hr (goal), FWF 150mL q4h via GT & TPN: D40, AA8.5% @ 50mL /hr via central line % PO intake NPO Last BM 11/05 x 1 Estimated Energy Expenditure (kcals/day) 1475- 1770 kcal (25-30 kcal/kg IBW d/t BMI) Estimated Protein Required (g/day) 53-66 g (0.8-1g/kg ABW d/t renal labs, rash) Estimated Fluid Required (l/day) 1.4-1.7L (1mL/kcal maintenance) Problem/Etiology/Signs/Symptoms * Inadequate oral intake r/t diet order AEB none ordered since 11/02 (Initial) Expected Outcomes/Goals EN tolerated at goal rate, EN provides >95% estimated nutritional needs, improvements in skin integrity, nutrition-related labs trending WNL, BM q 1-3 days Dietitian Recommendations * Continue Nepro @ 35mL/hr, free water flush 150 q4h via GT Provides: 1512 kcal, 68 g PRO, 1511 mL (inc fwf) free water Meets:103% lower est kcal, 103% of upper PRO, 108% of lower est fluid Needs * Consider DC TPN * Ordered Jaime BID Follow up *Moderate risk: f/u in 3-5 days GS, MPH, RD
--- NOTE | 2022-11-06 09:48 | NUR ---
Dietitian Recommendations * Continue Nepro @ 35mL/hr, free water flush 150 q4h via GT Provides: 1512 kcal, 68 g PRO, 1511 mL (inc fwf) free water Meets:103% lower est kcal, 103% of upper PRO, 108% of lower est fluid Needs * Consider DC TPN * Ordered Jaime BID GS, MPH, RD Please refer to Nutrition F/U for further details. Thanks!
--- NOTE | 2022-11-06 10:46 | NUR ---
HIGH ALERT NOTE: Called Dr. HEIN back at [phone] identified within the medical roster to verify physician authenticity. ORDERED POTASSIUM CHLORIDE 40 MEQ GT PACKET ONCE. READ BACK VERIFIED.
[2022-11-06] MEDS ORDERED: POTASSIUM CHLORIDE 20 MEQ/PKT PACKET GT ONE (11:00)
[2022-11-06] MEDS ORDERED: NS IV SCH (12:00)
[2022-11-06] MEDS ORDERED: TOBRAMYCIN SULFATE IV SCH (12:00)
[2022-11-06] MEDS: TOBRAMYCIN SULFATE IV SCH (16:28)
[2022-11-06] MEDS: NS IV SCH (16:28)
[2022-11-06] MEDS ORDERED: SODIUM ACETATE IV SCH ×10 (21:00)
[2022-11-06] MEDS ORDERED: POTASSIUM ACETATE IV SCH ×10 (21:00)
[2022-11-06] MEDS ORDERED: TPN CENTRAL IV SCH ×10 (21:00)
[2022-11-06] MEDS: ENOXAPARIN SODIUM 40 MG/0.4 ML SYRINGE SQ SCH (21:00)
[2022-11-06] MEDS ORDERED: [UNRECOGNIZED DRUG - OTHER] IV SCH ×10 (21:00)
[2022-11-07] VITALS (27 sets, daily range): BP systolic 99–156
[2022-11-07] MEDS: VANCOMYCIN HCL ORAL SOLUTION 250 MG/5 ML, 80 ML GT SCH ×4 (00:11→17:26)
[2022-11-07] MEDS: metroNIDAZOLE 500 mg/NS 100 ML IV SCH ×3 (00:12→16:55)
[2022-11-07] MEDS: TOBRAMYCIN SULFATE IV SCH ×2 (03:15→17:26)
[2022-11-07] MEDS: NS IV SCH ×2 (03:15→17:26)
[2022-11-07] MEDS: PEG 400/HYPROMELLOSE/GLYCERIN 15 ML DROPS BOTH EYES SCH ×3 (05:30→21:26)
[2022-11-07] MEDS: levETIRAcetam 1,500 MG in NS 85 ML IV SCH ×3 (05:31→21:24)
[2022-11-07] MEDS: LEVOTHYROXINE SODIUM 0.05 MG TABLET GT SCH (06:02)
[2022-11-07 06:26] LABS: ALBUMIN 2.7 g/dL (3.4-4.8); CALCIUM 8.6 mg/dL (8.4-11.0); CREATININE 0.81 mg/dL (0.55-1.30); PHOSPHORUS 3.1 mg/dL (2.7-4.5); TOTAL BILIRUBIN 0.3 mg/dL (0.0-1.0)
[2022-11-07] MEDS: BACLOFEN 10 MG TABLET GT SCH ×3 (08:44→21:25)
[2022-11-07] MEDS: LACTULOSE 20 GM/30 ML UDC GT SCH (08:44)
[2022-11-07] MEDS: ASCORBIC ACID 500 MG TABLET GT SCH (08:44)
[2022-11-07] MEDS: DOCUSATE SODIUM 100 MG/10 ML UDC GT SCH ×2 (08:44→21:24)
[2022-11-07] MEDS: FLUDROCORTISONE ACETATE 0.1 MG TABLET( FLORINEF) GT SCH (08:44)
[2022-11-07] MEDS: FUROSEMIDE 40 MG TABLET GT SCH ×2 (08:47→08:51)
[2022-11-07] MEDS: LANSOPRAZOLE 30 MG CAPSULE.DR GT SCH (08:48)
[2022-11-07] MEDS: LACTOBACILLUS RHAMNOSUS GG 1 CAP CAPSULE GT SCH ×2 (08:48→21:25)
[2022-11-07] MEDS: LACOSAMIDE 100 MG TABLET GT SCH ×2 (08:48→21:26)
[2022-11-07] MEDS: LORATADINE 10 MG TABLET GT SCH (08:55)
[2022-11-07] MEDS: MULTIVITAMINS TAB 1 TABLET GT SCH (08:55)
[2022-11-07] MEDS: THEOPHYLLINE ANHYDROUS 80 MG/15 ML UDC GT SCH ×2 (08:55→21:27)
[2022-11-07] MEDS: MIDODRINE HCL 5 MG TABLET (PROAMATINE) GT SCH ×2 (08:56→21:25)
[2022-11-07] MEDS: VALPROIC ACID ORAL SYRUP 250 MG/5 ML UDC GT SCH ×3 (08:56→21:25)
[2022-11-07] MEDS: MINERAL OIL 30 ML UDC GT SCH (08:57)
[2022-11-07] MEDS: LANOLIN ALCOHOL/MO/W.PET/CERES 57 GM CREAM..G. TP SCH (11:20)
[2022-11-07] MEDS: CHLORHEXIDINE GLUC 0.12% 15 ML MOUTHWASH UDC MM SCH ×2 (11:20→21:26)
--- NOTE | 2022-11-07 12:00 | NUR ---
WOUND CARE DONE AND PT'S CLEANED AFTER A SMALL LOOSE BM.
--- NOTE | 2022-11-07 12:45 | NUR ---
PER PHYLLIS SIFUENTES, RECEIVED OK TO DOWNGRADE PT TO TELEMETRY UNIT PER MD HEIN.
--- NOTE | 2022-11-07 18:31 | NUR ---
PT HAD 2X LOOSE BM TODAY. CONTINUED TO BE ON CDIFF/CONTACT ISOLATION. PT WAITIING TO BE TRANSFERRED TO [facility].
--- NOTE | 2022-11-07 19:10 | NUR ---
PT ON STABLE CONDITION. ENDORSED TO NIGHT NUR5SE.
--- NOTE | 2022-11-07 19:45 | NUR ---
RN NOTES PATIENT IS AWAKE AND ALERT, UNABLE TO FOLLOW COMMANDS. NOT IN ACUTE DISTRESS. WITH TRACHEOSTOMY TO VENT. PATIENT IS ON AC - 14, VT - 450, FIO2 30%, PEEP - 5, SPO2 GOOD. GT FEEDING GOING ON, RESIDUAL CHECKED - 5ML HAD BOWEL MOVEMENT X1. KEPT CLEAN AND DRY. PATIENT MADE COMFORTABLE.
--- NOTE | 2022-11-07 20:00 | NUR ---
PATIENT IS AWAKE AND ALERT, UNABLE TO FOLLOW COMMANDS. NOT IN ACUTE DISTRESS. WITH TRACHEOSTOMY TO VENT. PATIENT IS ON AC - 14, VT - 450, FIO2 30%, PEEP - 5, SPO2 GOOD. GT FEEDING GOING ON, RESIDUAL CHECKED - 0ml . DRESSNGS KEPT CLEAN AND DRY. TUBEFEEDING NEPRO @35 GOAL MET, PATIENT MADE COMFORTABLE.
--- NOTE | 2022-11-07 20:10 | NUR ---
RT NOTES ASSISTED WITH TRANSFER FROM ICU TO TELE. TRANSFERRED WITH VENTILATOR ATTACHED TO ETANK. NO SOB NOTED. TRACH IS SECURE AND INTACT. Addendum: 11/07/22 at 2112 by Elian Bowens RT Amended: Links added.
--- NOTE | 2022-11-07 20:10 | NUR ---
RN NOTES TRANSFERRED TO TELEMETRY IN STABLE CONDITION. REPORT GIVEN TO Serafin FAJARDO RN.
[2022-11-07] MEDS: ENOXAPARIN SODIUM 40 MG/0.4 ML SYRINGE SQ SCH (21:26)
--- NOTE | 2022-11-07 22:00 | NUR ---
recieved CL from jan. trobamycin trough 4.1, notified ID
--- NOTE | 2022-11-07 23:44 | NUR ---
WIRE PHOTO OPERATOR SPOKE TO PHARMACY, HOLD THE NEXT DOSE FOR 0400. SPOKE TO MARCI, PHARMACIST
--- NOTE | 2022-11-07 23:54 | NUR ---
CALLED BACK: DR BECKER CALLED BACK , NOTIFIED MD ABOUT THE TOBRAMYCIN TROUGH 4.1 , ALSO INFORMED HER THAT PHARMACY ASKED TO HOLD THE NEXT DOSE .MD STATED OK TO HOLD AND PHARMACY CAN FOLLOW UP .PRIMARY RN MADE AWARE .
[2022-11-08] VITALS: BP_SYST 132
[2022-11-08] MEDS: VANCOMYCIN HCL ORAL SOLUTION 250 MG/5 ML, 80 ML GT SCH ×5 (00:07→23:45)
[2022-11-08] MEDS: metroNIDAZOLE 500 mg/NS 100 ML IV SCH ×3 (00:07→17:39)
[2022-11-08] MEDS: TOBRAMYCIN SULFATE IV SCH (00:14)
[2022-11-08] MEDS: NS IV SCH (00:14)
[2022-11-08] MEDS: levETIRAcetam 1,500 MG in NS 85 ML IV SCH ×3 (05:48→23:44)
[2022-11-08 05:49] LABS: BASOPHILS % (AUTO) 0.6 % (0.0-2.0); EOSINOPHILS # (AUTO) 0.2 K/uL (0.0-0.4); EOSINOPHILS % (AUTO) 2.8 % (0.0-4.0); HEMATOCRIT 30.9 % (36-48); HEMOGLOBIN 10.6 g/dL (12.0-16.0); LYMPHOCYTES # (AUTO) 1.8 K/uL (1.0-5.5); LYMPHOCYTES % (AUTO) 32.6 % (20.5-51.5); MEAN CORPUSCULAR HEMOGLOBIN 32 pg (27-31); MEAN CORPUSCULAR HGB CONC 34 % (32-36); MEAN CORPUSCULAR VOLUME 94 fL (79.0-98.0); MONOCYTES # (AUTO) 0.5 K/uL (0.0-1.0); MONOCYTES % (AUTO) 9.5 % (1.7-9.3); NEUTROPHILS % (AUTO) 54.5 % (40.0-70.0); PLATELET COUNT (AUTO) 239 K/uL (130-430); RED BLOOD CELL COUNT(AUTO) 3.29 MIL/uL (4.2-6.2); RED CELL DISTRIBUTION WIDTH 17.6 % (9.0-15.0); WHITE BLOOD COUNT (AUTO) 5.6 K/uL (4.8-10.8)
[2022-11-08] MEDS: LEVOTHYROXINE SODIUM 0.05 MG TABLET GT SCH (05:49)
[2022-11-08] MEDS: PEG 400/HYPROMELLOSE/GLYCERIN 15 ML DROPS BOTH EYES SCH ×3 (05:49→23:47)
[2022-11-08 06:34] LABS: ALBUMIN 2.5 g/dL (3.4-4.8); CALCIUM 8.7 mg/dL (8.4-11.0); CREATININE 0.73 mg/dL (0.55-1.30); TOTAL BILIRUBIN 0.3 mg/dL (0.0-1.0)
--- NOTE | 2022-11-08 06:54 | NUR ---
cl REPORTED BY LAB k+ 2.3. CONTACTED MD RAMEY ORDERED. 40 KCL IV STAT. 40 KDUR THROUGH G TUBE STAT.
[2022-11-08] MEDS ORDERED: KCL 40 mEq in 100 mL (PREMIX) 100 ML IV ONE (07:00)
[2022-11-08] MEDS ORDERED: POTASSIUM CHLORIDE 20 MEQ/PKT PACKET PO ONE (07:00)
[2022-11-08] MEDS: DOCUSATE SODIUM 100 MG/10 ML UDC GT SCH ×2 (08:18→21:28)
[2022-11-08] MEDS: LACTULOSE 20 GM/30 ML UDC GT SCH (08:20)
[2022-11-08] MEDS: MINERAL OIL 30 ML UDC GT SCH (09:00)
[2022-11-08 09:27] VITALS: BP_SYST 132
[2022-11-08] MEDS: LACOSAMIDE 100 MG TABLET GT SCH ×2 (09:29→21:30)
[2022-11-08] MEDS: CHLORHEXIDINE GLUC 0.12% 15 ML MOUTHWASH UDC MM SCH ×2 (09:31→21:31)
[2022-11-08] MEDS: THEOPHYLLINE ANHYDROUS 80 MG/15 ML UDC GT SCH ×2 (09:31→21:29)
[2022-11-08] MEDS: LACTOBACILLUS RHAMNOSUS GG 1 CAP CAPSULE GT SCH ×2 (09:32→21:00)
[2022-11-08] MEDS: VALPROIC ACID ORAL SYRUP 250 MG/5 ML UDC GT SCH ×3 (09:32→21:28)
[2022-11-08] MEDS: MIDODRINE HCL 5 MG TABLET (PROAMATINE) GT SCH ×2 (09:32→21:29)
[2022-11-08] MEDS: LORATADINE 10 MG TABLET GT SCH (09:32)
[2022-11-08] MEDS: FUROSEMIDE 40 MG TABLET GT SCH (09:33)
[2022-11-08] MEDS: ASCORBIC ACID 500 MG TABLET GT SCH (09:33)
[2022-11-08] MEDS: FLUDROCORTISONE ACETATE 0.1 MG TABLET( FLORINEF) GT SCH (09:33)
[2022-11-08] MEDS: MULTIVITAMINS TAB 1 TABLET GT SCH (09:33)
[2022-11-08] MEDS: BACLOFEN 10 MG TABLET GT SCH ×3 (09:33→21:30)
[2022-11-08] MEDS: LANOLIN ALCOHOL/MO/W.PET/CERES 57 GM CREAM..G. TP SCH (09:35)
[2022-11-08] MEDS: LANSOPRAZOLE 30 MG CAPSULE.DR GT SCH (09:43)
[2022-11-08 11:48] VITALS: BP_SYST 126
--- NOTE | 2022-11-08 13:59 | NUR ---
CM: Discussed DCP with dr. Arrieta: said planing to send pt back to the sub acute after repeat K lab result. (K=2.8 this am, the K rider completed ) Per Guero: given bed #43 and ready, report # [phone]. The discharge is pending the final dc order from dr. Arrieta and [facility] ambulance set up. . Addendum: 11/08/22 at 1409 by Eddie Greenberg RN [facility] notified the discharge plan to pillowcase cleaner Makenna: Mayra Santillan # [phone] Addendum: 11/08/22 at 1612 by Eddie Greenberg RN Robert called back and authorized the transfer back to [facility] [place] [facility] today. Addendum: 11/08/22 at 1615 by Eddie Greenberg RN JUAN ANTONIO Gil made aware of the above info, and to get the final dc from dr. Arrieta and to cancel the ride if pt is not dc today. [facility] ambulance set up with [facility] for sweet pickled fruit maker at 3:30 PM . DC package placed in nursing unit.
[2022-11-08] MEDS ORDERED: POTASSIUM CHLORIDE 20 MEQ/PKT PACKET GT ONE (16:00)
[2022-11-08 16:13] VITALS: BP_SYST 126
--- NOTE | 2022-11-08 18:40 | NUR ---
PT NONVERBAL,WITH TACH ON VENT AC 14,TIDAL VOLUME 450,FIO2 30% PEEP 5,SAT 95%,ON TUBE FEEDING NEPRO 35CC PER HR VIA GT.NO RESIDUAL PER GT,TOLERATED WELL FOR FEEDING,DRESSING IN LEFT ARM WOUND DRY AND INTACT DUENAS CATH DRAINS YELLOW URINE BY GRAVITY,PICC LINE IN R UPPER ARM PATENT AND INTACT GIVE ANTIBIOTIC DUE,NO ADVERSE REACTIONS NOTED, CAME AND SEEN PT.ORDER RECEIVED TO D/C PT BACK TO [facility],REPORT CALL[facility] AND [facility] ETA 830 PM,CONTINUE TO MONITOR PT.
--- NOTE | 2022-11-08 19:20 | NUR ---
CHANGE OF SHIFT; endorsed pt. 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
[2022-11-08 20:00] VITALS: BP_SYST 121
--- NOTE | 2022-11-08 20:20 | NUR ---
NOTES: called Dr. Arrieta and informed him about PICC line and ny need to be discontinued before discharge.
--- NOTE | 2022-11-08 21:09 | NUR ---
NOTES: charge nurse Rosado informed about pt. transport. will follow up with ambulance.
[2022-11-08] MEDS: ENOXAPARIN SODIUM 40 MG/0.4 ML SYRINGE SQ SCH (21:39)
--- NOTE | 2022-11-08 21:47 | NUR ---
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 kept PICC line and ny for now. due medications given per G tube, will resume feeding.
--- NOTE | 2022-11-08 22:29 | NUR ---
NOTES: called [facility] and spoke to nurse that pt. is not transferring tonight due to RT is not available and will be discharge @ 1000.
[2022-11-09] VITALS: BP_SYST 141
--- NOTE | 2022-11-09 00:27 | NUR ---
NOTES: BS checked 95, no coverage. G tube started @ 35 cc/hr. flushed with water. IV medication in progress via PICC line on rt. arm. ny intact. opens eyes on stimulation. oral suction done. RT here and suction via trach. FIO2 @ 30% TV 450 PEEP 5 AC rate 14.
[2022-11-09] MEDS: metroNIDAZOLE 500 mg/NS 100 ML IV SCH ×2 (02:05→08:34)
--- NOTE | 2022-11-09 02:47 | NUR ---
NOTES: complete am care/jamarcus care done. had another bm. repositioned. oral care done.
--- NOTE | 2022-11-09 03:00 | NUR ---
NOTES: left arm wound dressing changed, pictures taken.
[2022-11-09] MEDS: levETIRAcetam 1,500 MG in NS 85 ML IV SCH (05:43)
[2022-11-09] MEDS: PEG 400/HYPROMELLOSE/GLYCERIN 15 ML DROPS BOTH EYES SCH (05:44)
--- NOTE | 2022-11-09 06:00 | NUR ---
NOTES: repositioned. ny in place, will discontinue upon discharge as ordered and also PICC line.g tube feed continuous @ 35 cc/hr. trach #7 via vent with same settings. HOB elevated. oral care done.
[2022-11-09] MEDS: LEVOTHYROXINE SODIUM 0.05 MG TABLET GT SCH (06:18)
[2022-11-09] MEDS: VANCOMYCIN HCL ORAL SOLUTION 250 MG/5 ML, 80 ML GT SCH (06:19)
--- NOTE | 2022-11-09 06:45 | NUR ---
CLOSING NOTES; pt. still with trach to vent @ 30% FIO2. pt. non verbal, always sticks out her tongue, suctioned. no distress. PICC line in place and ny. will be discharge to [facility] this am will endorse to incoming shift. left arm dressing intact.for further care and observation.
[2022-11-09 07:45] VITALS: BP_SYST 124
[2022-11-09] MEDS: ASCORBIC ACID 500 MG TABLET GT SCH (08:30)
[2022-11-09] MEDS: LACOSAMIDE 100 MG TABLET GT SCH (08:30)
[2022-11-09] MEDS: MIDODRINE HCL 5 MG TABLET (PROAMATINE) GT SCH (08:30)
[2022-11-09] MEDS: FUROSEMIDE 40 MG TABLET GT SCH (08:30)
[2022-11-09] MEDS: LORATADINE 10 MG TABLET GT SCH (08:31)
[2022-11-09] MEDS: BACLOFEN 10 MG TABLET GT SCH (08:31)
[2022-11-09] MEDS: MULTIVITAMINS TAB 1 TABLET GT SCH (08:31)
[2022-11-09] MEDS: LACTOBACILLUS RHAMNOSUS GG 1 CAP CAPSULE GT SCH (08:31)
[2022-11-09] MEDS: FLUDROCORTISONE ACETATE 0.1 MG TABLET( FLORINEF) GT SCH (08:31)
[2022-11-09] MEDS: VALPROIC ACID ORAL SYRUP 250 MG/5 ML UDC GT SCH (08:32)
[2022-11-09] MEDS: THEOPHYLLINE ANHYDROUS 80 MG/15 ML UDC GT SCH (08:34)
[2022-11-09] MEDS: CHLORHEXIDINE GLUC 0.12% 15 ML MOUTHWASH UDC MM SCH (08:36)
[2022-11-09] MEDS: LACTULOSE 20 GM/30 ML UDC GT SCH (08:37)
[2022-11-09] MEDS: MINERAL OIL 30 ML UDC GT SCH (08:37)
[2022-11-09] MEDS: DOCUSATE SODIUM 100 MG/10 ML UDC GT SCH (08:37)
[2022-11-09] MEDS: LANOLIN ALCOHOL/MO/W.PET/CERES 57 GM CREAM..G. TP SCH (08:37)
[2022-11-09 08:43] LABS: BASOPHILS % (AUTO) 0.7 % (0.0-2.0); EOSINOPHILS # (AUTO) 0.1 K/uL (0.0-0.4); EOSINOPHILS % (AUTO) 2.5 % (0.0-4.0); HEMATOCRIT 29.3 % (36-48); HEMOGLOBIN 9.9 g/dL (12.0-16.0); LYMPHOCYTES # (AUTO) 1.9 K/uL (1.0-5.5); LYMPHOCYTES % (AUTO) 37.8 % (20.5-51.5); MEAN CORPUSCULAR HEMOGLOBIN 32 pg (27-31); MEAN CORPUSCULAR HGB CONC 34 % (32-36); MEAN CORPUSCULAR VOLUME 95 fL (79.0-98.0); MONOCYTES # (AUTO) 0.6 K/uL (0.0-1.0); MONOCYTES % (AUTO) 11.4 % (1.7-9.3); NEUTROPHILS # (AUTO) 2.4 K/uL (1.8-7.7); NEUTROPHILS % (AUTO) 47.6 % (40.0-70.0); PLATELET COUNT (AUTO) 235 K/uL (130-430); RED CELL DISTRIBUTION WIDTH 17.3 % (9.0-15.0); WHITE BLOOD COUNT (AUTO) 4.9 K/uL (4.8-10.8)
[2022-11-09 08:58] LABS: ALBUMIN 2.5 g/dL (3.4-4.8); CREATININE 0.76 mg/dL (0.55-1.30); TOTAL BILIRUBIN 0.2 mg/dL (0.0-1.0)
--- NOTE | 2022-11-09 09:41 | NUR ---
ATTENDING MD SEWAGE SCREEN OPERATOR, DR FIELDS WAS PAGED, RE: K LEVEL OF 3.3. SPOKE TO PASCALE.
[2022-11-09 09:50] VITALS: BP_SYST 144
--- NOTE | 2022-11-09 10:01 | NUR ---
sbar report given to xenia moody rn, Alysia.
[2022-11-09] MEDS: LANSOPRAZOLE 30 MG CAPSULE.DR GT SCH (10:09)
[2022-11-09] MEDS ORDERED: POTASSIUM CHLORIDE 20 MEQ/PKT PACKET PO ONE (10:15)
--- NOTE | 2022-11-09 11:39 | NUR ---
PT PICKED UP BY [facility] FOR TRANSFER BACK TO [facility]. PT ON STABLE CONDITION. VITALS WNL.
--- NOTE | 2022-11-09 11:45 | NUR ---
D/C Patient Patient given medication reconciliation form and D/C instructions. Exit Care provided. Patient UNABLE TO verbalized understanding. Pt is non-ambulatory with for discharge to [facility]. Patient in stable condition, ID band removed. IV catheter removed, intact and dressing applied, no active bleeding.Amador cath removed. No Rx of given. All belongings sent with patient.
[2022-11-09 11:58] VITALS: BP_SYST 143
[2022-11-10] MEDS ORDERED: POTASSIUM CHLORIDE 20 MEQ/PKT PACKET GT SCH (09:00)
== END 2022-11-09 11:40 | DRG 870 ==
LOC: SED 21:29 → SIC 11-02 02:25 → STU 11-07 20:11
PROVIDERS: ADMIT Family Medicine; ATTEND Family Medicine
PROC: 5A1955Z Respiratory Ventilation, Greater than 96 Consecutive Hours (ICD-10-PCS; principal; 2022-11-02)
DX: A41.9 Sepsis, unspecified organism (principal); R53.2 Functional quadriplegia; E43 Unspecified severe protein-calorie malnutrition; A04.72 Enterocolitis due to Clostridium difficile, not specified as recurrent; J96.10 Chronic respiratory failure, unspecified whether with hypoxia or hypercapnia; N39.0 Urinary tract infection, site not specified; Z99.11 Dependence on respirator [ventilator] status; K56.7 Ileus, unspecified; J98.11 Atelectasis; Z93.0 Tracheostomy status; G80.9 Cerebral palsy, unspecified; G40.909 Epilepsy, unspecified, not intractable, without status epilepticus; E03.9 Hypothyroidism, unspecified; R13.10 Dysphagia, unspecified; F79 Unspecified intellectual disabilities; L71.9 Rosacea, unspecified; E66.9 Obesity, unspecified; I10 Essential (primary) hypertension; R00.1 Bradycardia, unspecified; Z20.822 Contact with and (suspected) exposure to COVID-19; Z88.1 Allergy status to other antibiotic agents; Z88.8 Allergy status to other drugs, medicaments and biological substances; Z79.899 Other long term (current) drug therapy; Z93.1 Gastrostomy status; Z68.30 Body mass index [BMI] 30.0-30.9, adult; D63.8 Anemia in other chronic diseases classified elsewhere
CPT/HCPCS: 36415; 71045; 74018; 76376; 80048; 80053; 80164; 80200; 81000; 82272; 82962; 83605; 83690; 83735; 84100; 84132; 84443; 84478; 85025; 85610-TC; 85730-TC; 87040; 87070-TC; 87081; 87086; 87101; 87205-TC; 87230-TC; 89055; 93005; 94002; 94003; 94640; 94760; 99291; G0378; J1650; J1815; J1953; J2060; J2185; J2543; J3260; J3370; J3475; J3480; J3490; J7613; Q0162

== ENCOUNTER 2023-05-15 00:53 | Inpatient (IN) | payer OTHER, MEDICAID ==
[2023-05-15] VITALS (16 sets, daily range): BP systolic 95–141; PULSE 65–100; RESP 14–20; TEMP 97.1–98.6; O2SAT 94–100
[~2023-05-15] VITALS: Ht 165.1 cm; Wt 98.0 kg
[~2023-05-15 00:53] MED LIST changes: -ACET325T GT; -ALBMDI INH; -CARB30DR OP; +CHLO473M5 PO; -CLOB10TA PO; -CLON-433 GT; +CRAN450T9 GT; -FERR15DR25 PEG; -FERR220S6 GT; -FOLI0.8C GT; -FURO-149 GT; -GLYC2TAB21 GT; -IPRA0.2S6 INH; -LORA2DIS4 IM/IV; +LOVI40 SQ; +MINO30 GT; -OMEP40CA PEG; +ONDA4TAB11 GT; -POTA-197 PO; +PROP10DR4 BOTH EYES; -[UNRECOGNIZED DRUG - OTHER] PEG
[2023-05-15 02:13] LABS: CREATININE 1.35 mg/dL (0.55-1.30); POTASSIUM 3.6 mmol/L (3.5-5.1)
[2023-05-15 02:17] LABS: ALBUMIN 2.6 g/dL (3.4-4.8); TOTAL BILIRUBIN 0.4 mg/dL (0.0-1.0); TOTAL PROTEIN, SERUM 7.6 g/dL (6.4-8.3)
[2023-05-15 02:21] LABS: BILIRUBIN,URINE 1+ (NEGATIVE); BLOOD, URINE 3+ (NEGATIVE); CLARITY/URINE Cloudy (CLEAR); GLUCOSE,URINE NEGATIVE (NEGATIVE); LEUKOCYTE ESTERASE ,URINE 3+ (NEGATIVE); NITRITE, URINE NEGATIVE (NEGATIVE); PH,URINE 8.5 (5.0-8.0); PROTEIN URINE 3+ (NEGATIVE); UROBILINOGEN,URINE 0.2 (0.2-1.0)
[2023-05-15 02:22] LABS: CALCIUM 12.5 mg/dL (8.4-11.0)
[2023-05-15 02:25] LABS: INR 0.9 (0.8-1.2); PROTHROMBIN TIME 9.8 SECS (9.5-12.5)
[2023-05-15 02:27] LABS: COLOR,URINE BROWN (YELLOW); KETONES,URINE TRACE (NEGATIVE)
[2023-05-15 02:29] LABS: BACTERIA,URINE MANY /HPF (None Seen); RBC,URINE 20-50 /HPF (0-3); WBC,URINE >100 /HPF (0-3)
[2023-05-15 02:36] LABS: BASOPHILS % (AUTO) 0.3 % (0.0-2.0); EOSINOPHILS % (AUTO) 0.4 % (0.0-4.0); HEMATOCRIT 27.5 % (36-48); HEMOGLOBIN 9.2 g/dL (12.0-16.0); LYMPHOCYTES # (AUTO) 1.7 K/uL (1.0-5.5); LYMPHOCYTES % (AUTO) 21.7 % (20.5-51.5); MEAN CORPUSCULAR HEMOGLOBIN 30 pg (27-31); MEAN CORPUSCULAR HGB CONC 34 % (32-36); MEAN CORPUSCULAR VOLUME 91 fL (79.0-98.0); MONOCYTES # (AUTO) 0.6 K/uL (0.0-1.0); NEUTROPHILS # (AUTO) 5.4 K/uL (1.8-7.7); NEUTROPHILS % (AUTO) 69.6 % (40.0-70.0); PLATELET COUNT (AUTO) 300 K/uL (130-430); RED BLOOD CELL COUNT(AUTO) 3.03 MIL/uL (4.2-6.2); RED CELL DISTRIBUTION WIDTH 16.8 % (9.0-15.0); WHITE BLOOD COUNT (AUTO) 7.8 K/uL (4.8-10.8)
[2023-05-15] MEDS ORDERED: NACL 0.9% 3,000 ML IV ONE (02:45)
[2023-05-15] MEDS ORDERED: NACL 0.9% 1,000 ML IV ONE (02:45)
[2023-05-15] MEDS ORDERED: cefTRIAXone 1 GM in D5W 50 ML IV ONE (02:45)
[2023-05-15] MEDS ORDERED: cefTRIAXone 1 GM VIAL ONE (02:46)
[2023-05-15] MEDS ORDERED: LORA-259 GT (04:12)
[2023-05-15] MEDS ORDERED: OMEP20CA15 GT (04:12)
[2023-05-15] MEDS ORDERED: TYLL650 GT (04:12)
[2023-05-15] MEDS ORDERED: ALBU2.5V7 INH (04:12)
[2023-05-15] MEDS ORDERED: SIME80TA15 GT (04:12)
[2023-05-15] MEDS ORDERED: FER300L GT (04:12)
[2023-05-15] MEDS ORDERED: MOM GT (04:12)
[2023-05-15] MEDS: CEFEPIME 1 GM in D5W 50 ML IV SCH ×2 (08:51→21:46)
[2023-05-15] MEDS: NACL 0.9% 1,000 ML IV SCH ×2 (08:51→22:50)
[2023-05-15] MEDS ORDERED: ACETAMINOPHEN 650 MG/20.3 ML UDC GT PRN ×2 (14:45→17:00)
[2023-05-15] MEDS ORDERED: ACETAMINOPHEN 650 MG/20.3 ML UDC GT SCH (14:45)
[2023-05-15] MEDS ORDERED: LORazepam 1 MG TABLET GT PRN (14:45)
[2023-05-15] MEDS ORDERED: PROPYLENE GLYCOL BOTH EYES SCH (14:45)
[2023-05-15] MEDS ORDERED: ALBUTEROL SULFATE 0.083% 2.5 MG/3 ML VIAL.NEB INH PRN (14:45)
[2023-05-15] MEDS ORDERED: SIMETHICONE 80 MG TAB.CHEW GT SCH (15:00)
[2023-05-15] MEDS ORDERED: LORazepam 1 MG TABLET GT SCH (15:00)
[2023-05-15] MEDS ORDERED: VALPROIC ACID 500 MG GT SCH (15:00)
[2023-05-15] MEDS: BACLOFEN 10 MG TABLET GT SCH ×2 (17:42→21:47)
[2023-05-15] MEDS: ALBUTEROL SULFATE 0.083% 2.5 MG/3 ML VIAL.NEB INH SCH (20:12)
[2023-05-15] MEDS ORDERED: LACOSAMIDE GT SCH (21:00)
[2023-05-15] MEDS ORDERED: DOCUSATE SODIUM 100 MG GT SCH (21:00)
[2023-05-15] MEDS: CHLORHEXIDINE GLUC 0.12% 15 ML MOUTHWASH UDC MM SCH ×2 (21:00→22:20)
[2023-05-15] MEDS: FERROUS SULFATE 300 MG/5 ML UDC GT SCH (21:46)
[2023-05-15] MEDS: ENOXAPARIN SODIUM 30 MG/0.3 ML SYRINGE SUBCUT SCH (21:47)
[2023-05-15] MEDS: MILK OF MAGNESIA 30 ML UDC GT SCH (21:47)
[2023-05-15] MEDS: LACOSAMIDE 100 MG TABLET GT SCH (21:47)
[2023-05-15] MEDS: MIDODRINE HCL 5 MG TABLET (PROAMATINE) GT SCH (21:47)
[2023-05-15] MEDS: DOCUSATE SODIUM 100 MG/10 ML UDC GT SCH (21:47)
[2023-05-15] MEDS: THEOPHYLLINE ANHYDROUS 80 MG/15 ML UDC GT SCH (21:48)
[2023-05-15] MEDS: LevETIRAcetam 500 MG/5 ML UDC ORAL LIQUID GT SCH (21:48)
[2023-05-15] MEDS: VALPROIC ACID ORAL SYRUP 250 MG/5 ML UDC GT SCH (21:49)
[2023-05-15] MEDS: PEG 400/HYPROMELLOSE/GLYCERIN 15 ML DROPS BOTH EYES SCH (21:52)
[2023-05-16] VITALS (16 sets, daily range): BP systolic 124–160; PULSE 75–104; RESP 14–16; TEMP 98.2–99.1; O2SAT 98–100
[2023-05-16] MEDS: ALBUTEROL SULFATE 0.083% 2.5 MG/3 ML VIAL.NEB INH SCH ×4 (01:06→19:55)
[2023-05-16 06:37] LABS: BASOPHILS % (AUTO) 0.4 % (0.0-2.0); EOSINOPHILS % (AUTO) 0.2 % (0.0-4.0); HEMATOCRIT 27.1 % (36-48); LYMPHOCYTES # (AUTO) 1.3 K/uL (1.0-5.5); LYMPHOCYTES % (AUTO) 17.4 % (20.5-51.5); MEAN CORPUSCULAR HEMOGLOBIN 31 pg (27-31); MEAN CORPUSCULAR HGB CONC 33 % (32-36); MEAN CORPUSCULAR VOLUME 93 fL (79.0-98.0); MONOCYTES # (AUTO) 0.7 K/uL (0.0-1.0); MONOCYTES % (AUTO) 8.5 % (1.7-9.3); NEUTROPHILS # (AUTO) 5.6 K/uL (1.8-7.7); NEUTROPHILS % (AUTO) 73.5 % (40.0-70.0); PLATELET COUNT (AUTO) 311 K/uL (130-430); RED BLOOD CELL COUNT(AUTO) 2.92 MIL/uL (4.2-6.2); WHITE BLOOD COUNT (AUTO) 7.7 K/uL (4.8-10.8)
[2023-05-16] MEDS: LEVOTHYROXINE SODIUM 0.05 MG TABLET GT SCH (06:46)
[2023-05-16] MEDS: PEG 400/HYPROMELLOSE/GLYCERIN 15 ML DROPS BOTH EYES SCH ×3 (06:46→21:43)
[2023-05-16 06:56] LABS: ALBUMIN 2.4 g/dL (3.4-4.8); CALCIUM 11.2 mg/dL (8.4-11.0); CREATININE 1.33 mg/dL (0.55-1.30); POTASSIUM 3.4 mmol/L (3.5-5.1); TOTAL BILIRUBIN 0.4 mg/dL (0.0-1.0)
[2023-05-16] MEDS: NACL 0.9% 1,000 ML IV SCH ×2 (08:40→13:19)
[2023-05-16] MEDS: CEFEPIME 1 GM in D5W 50 ML IV SCH ×2 (09:00→21:37)
[2023-05-16] MEDS ORDERED: LACTULOSE GT SCH (09:00)
[2023-05-16] MEDS ORDERED: NON-FORMULARY MEDICATION (Cranberry Fruit (Cranberry) 425 MG) GT SCH (09:00)
[2023-05-16] MEDS: CHLORHEXIDINE GLUC 0.12% 15 ML MOUTHWASH UDC MM SCH ×2 (09:29→21:39)
[2023-05-16] MEDS: LACTULOSE 20 GM/30 ML UDC GT SCH (09:29)
[2023-05-16] MEDS: FERROUS SULFATE 300 MG/5 ML UDC GT SCH ×2 (09:29→21:38)
[2023-05-16] MEDS: MINERAL OIL 30 ML UDC GT SCH (09:29)
[2023-05-16] MEDS: MULTIVITAMINS TAB 1 TABLET GT SCH (09:30)
[2023-05-16] MEDS: ASCORBIC ACID 500 MG TABLET GT SCH (09:31)
[2023-05-16] MEDS: MIDODRINE HCL 5 MG TABLET (PROAMATINE) GT SCH ×2 (09:31→21:39)
[2023-05-16] MEDS: DOCUSATE SODIUM 100 MG/10 ML UDC GT SCH ×2 (09:31→21:40)
[2023-05-16] MEDS: LORATADINE 10 MG TABLET GT SCH (09:31)
[2023-05-16] MEDS: BACLOFEN 10 MG TABLET GT SCH ×3 (09:31→21:37)
[2023-05-16] MEDS: LACOSAMIDE 100 MG TABLET GT SCH ×2 (09:48→22:23)
[2023-05-16] MEDS: FLUDROCORTISONE ACETATE 0.1 MG TABLET( FLORINEF) GT SCH (09:48)
[2023-05-16] MEDS: LANSOPRAZOLE 30 MG CAPSULE.DR GT SCH (09:48)
[2023-05-16] MEDS: LevETIRAcetam 500 MG/5 ML UDC ORAL LIQUID GT SCH ×2 (10:59→21:40)
[2023-05-16] MEDS: VALPROIC ACID ORAL SYRUP 250 MG/5 ML UDC GT SCH ×3 (11:00→21:38)
[2023-05-16] MEDS: THEOPHYLLINE ANHYDROUS 80 MG/15 ML UDC GT SCH ×2 (11:00→21:41)
[2023-05-16] MEDS ORDERED: POTASSIUM CHLORIDE 20 MEQ/PKT PACKET PO ONE (13:30)
[2023-05-16] MEDS: hydrALAZINE HCL 25 MG TABLET GT SCH ×2 (14:00→21:42)
[2023-05-16] MEDS: ENOXAPARIN SODIUM 30 MG/0.3 ML SYRINGE SUBCUT SCH (21:38)
[2023-05-16] MEDS: MILK OF MAGNESIA 30 ML UDC GT SCH (21:38)
[2023-05-17] VITALS (17 sets, daily range): BP systolic 95–145; PULSE 75–109; RESP 14–21; TEMP 97.9–99.9; O2SAT 95–100
[2023-05-17] MEDS: ALBUTEROL SULFATE 0.083% 2.5 MG/3 ML VIAL.NEB INH SCH ×4 (01:50→20:35)
[2023-05-17] MEDS: NACL 0.9% 1,000 ML IV SCH ×2 (01:54→22:50)
[2023-05-17] MEDS: PEG 400/HYPROMELLOSE/GLYCERIN 15 ML DROPS BOTH EYES SCH ×3 (06:13→22:50)
[2023-05-17] MEDS: LEVOTHYROXINE SODIUM 0.05 MG TABLET GT SCH (06:13)
[2023-05-17] MEDS: hydrALAZINE HCL 25 MG TABLET GT SCH ×3 (06:20→22:50)
[2023-05-17 07:29] LABS: BASOPHILS % (AUTO) 0.4 % (0.0-2.0); EOSINOPHILS % (AUTO) 0.3 % (0.0-4.0); HEMATOCRIT 27.5 % (36-48); HEMOGLOBIN 8.7 g/dL (12.0-16.0); LYMPHOCYTES # (AUTO) 1.8 K/uL (1.0-5.5); LYMPHOCYTES % (AUTO) 21.5 % (20.5-51.5); MEAN CORPUSCULAR HEMOGLOBIN 31 pg (27-31); MEAN CORPUSCULAR HGB CONC 32 % (32-36); MEAN CORPUSCULAR VOLUME 96 fL (79.0-98.0); MONOCYTES # (AUTO) 0.9 K/uL (0.0-1.0); MONOCYTES % (AUTO) 10.4 % (1.7-9.3); NEUTROPHILS # (AUTO) 5.6 K/uL (1.8-7.7); NEUTROPHILS % (AUTO) 67.4 % (40.0-70.0); PLATELET COUNT (AUTO) 274 K/uL (130-430); RED BLOOD CELL COUNT(AUTO) 2.86 MIL/uL (4.2-6.2); RED CELL DISTRIBUTION WIDTH 17.1 % (9.0-15.0); WHITE BLOOD COUNT (AUTO) 8.3 K/uL (4.8-10.8)
[2023-05-17 07:40] LABS: ALBUMIN 2.2 g/dL (3.4-4.8); CALCIUM 10.3 mg/dL (8.4-11.0); CREATININE 1.17 mg/dL (0.55-1.30); POTASSIUM 3.8 mmol/L (3.5-5.1); TOTAL BILIRUBIN 0.3 mg/dL (0.0-1.0); TOTAL PROTEIN, SERUM 6.8 g/dL (6.4-8.3)
[2023-05-17] MEDS: FERROUS SULFATE 300 MG/5 ML UDC GT SCH ×2 (12:20→22:31)
[2023-05-17] MEDS: BACLOFEN 10 MG TABLET GT SCH ×3 (12:20→22:31)
[2023-05-17] MEDS: LORATADINE 10 MG TABLET GT SCH (12:20)
[2023-05-17] MEDS: DOCUSATE SODIUM 100 MG/10 ML UDC GT SCH ×2 (12:20→22:31)
[2023-05-17] MEDS: LACTULOSE 20 GM/30 ML UDC GT SCH (12:20)
[2023-05-17] MEDS: MINERAL OIL 30 ML UDC GT SCH (12:20)
[2023-05-17] MEDS: FLUDROCORTISONE ACETATE 0.1 MG TABLET( FLORINEF) GT SCH (12:21)
[2023-05-17] MEDS: LANSOPRAZOLE 30 MG CAPSULE.DR GT SCH (12:21)
[2023-05-17] MEDS: MULTIVITAMINS TAB 1 TABLET GT SCH (12:21)
[2023-05-17] MEDS: LACOSAMIDE 100 MG TABLET GT SCH ×3 (12:21→22:54)
[2023-05-17] MEDS: MIDODRINE HCL 5 MG TABLET (PROAMATINE) GT SCH ×2 (12:21→22:31)
[2023-05-17] MEDS: CHLORHEXIDINE GLUC 0.12% 15 ML MOUTHWASH UDC MM SCH ×2 (12:28→22:33)
[2023-05-17] MEDS: LevETIRAcetam 500 MG/5 ML UDC ORAL LIQUID GT SCH ×2 (12:29→22:32)
[2023-05-17] MEDS: VALPROIC ACID ORAL SYRUP 250 MG/5 ML UDC GT SCH ×3 (12:29→22:33)
[2023-05-17] MEDS: THEOPHYLLINE ANHYDROUS 80 MG/15 ML UDC GT SCH ×2 (12:30→22:33)
[2023-05-17] MEDS: ASCORBIC ACID 500 MG TABLET GT SCH (12:43)
[2023-05-17] MEDS: CEFEPIME 1 GM in D5W 50 ML IV SCH ×2 (12:43→22:34)
[2023-05-17] MEDS: MILK OF MAGNESIA 30 ML UDC GT SCH (22:31)
[2023-05-17] MEDS: ENOXAPARIN SODIUM 30 MG/0.3 ML SYRINGE SUBCUT SCH (22:31)
[2023-05-18] VITALS (16 sets, daily range): BP systolic 127–153; PULSE 65–109; RESP 16–20; TEMP 97.1–99.3; O2SAT 95–100
[2023-05-18] MEDS: ALBUTEROL SULFATE 0.083% 2.5 MG/3 ML VIAL.NEB INH SCH ×4 (01:50→19:59)
[2023-05-18] MEDS: LEVOTHYROXINE SODIUM 0.05 MG TABLET GT SCH (06:05)
[2023-05-18] MEDS: PEG 400/HYPROMELLOSE/GLYCERIN 15 ML DROPS BOTH EYES SCH ×3 (06:06→21:46)
[2023-05-18] MEDS: hydrALAZINE HCL 25 MG TABLET GT SCH ×3 (06:06→21:42)
[2023-05-18 08:33] LABS: CALCIUM 10.3 mg/dL (8.4-11.0); CREATININE 1.06 mg/dL (0.55-1.30); POTASSIUM 3.6 mmol/L (3.5-5.1)
[2023-05-18 08:46] LABS: BASOPHILS # (AUTO) 0.1 K/uL (0.0-0.2); BASOPHILS % (AUTO) 0.7 % (0.0-2.0); EOSINOPHILS % (AUTO) 0.3 % (0.0-4.0); HEMATOCRIT 26.3 % (36-48); HEMOGLOBIN 8.4 g/dL (12.0-16.0); LYMPHOCYTES # (AUTO) 1.2 K/uL (1.0-5.5); LYMPHOCYTES % (AUTO) 12.6 % (20.5-51.5); MEAN CORPUSCULAR HEMOGLOBIN 30 pg (27-31); MEAN CORPUSCULAR HGB CONC 32 % (32-36); MEAN CORPUSCULAR VOLUME 95 fL (79.0-98.0); MONOCYTES # (AUTO) 0.6 K/uL (0.0-1.0); MONOCYTES % (AUTO) 6.8 % (1.7-9.3); NEUTROPHILS # (AUTO) 7.5 K/uL (1.8-7.7); NEUTROPHILS % (AUTO) 79.6 % (40.0-70.0); PLATELET COUNT (AUTO) 291 K/uL (130-430); RED BLOOD CELL COUNT(AUTO) 2.76 MIL/uL (4.2-6.2); RED CELL DISTRIBUTION WIDTH 17.7 % (9.0-15.0); WHITE BLOOD COUNT (AUTO) 9.5 K/uL (4.8-10.8)
[2023-05-18] MEDS: ASCORBIC ACID 500 MG TABLET GT SCH (09:00)
[2023-05-18] MEDS: CHLORHEXIDINE GLUC 0.12% 15 ML MOUTHWASH UDC MM SCH ×2 (09:00→21:46)
[2023-05-18 10:01] LABS: TOTAL IRON BIND. CAPACITY 275 ug/dL (250-450)
[2023-05-18] MEDS: CEFEPIME 1 GM in D5W 50 ML IV SCH ×2 (11:49→20:41)
[2023-05-18] MEDS: MINERAL OIL 30 ML UDC GT SCH (11:50)
[2023-05-18] MEDS: DOCUSATE SODIUM 100 MG/10 ML UDC GT SCH ×2 (11:50→21:44)
[2023-05-18] MEDS: LORATADINE 10 MG TABLET GT SCH (11:50)
[2023-05-18] MEDS: LACTULOSE 20 GM/30 ML UDC GT SCH (11:50)
[2023-05-18] MEDS: FERROUS SULFATE 300 MG/5 ML UDC GT SCH ×2 (11:50→21:44)
[2023-05-18] MEDS: MULTIVITAMINS TAB 1 TABLET GT SCH (11:51)
[2023-05-18] MEDS: LANSOPRAZOLE 30 MG CAPSULE.DR GT SCH (11:51)
[2023-05-18] MEDS: BACLOFEN 10 MG TABLET GT SCH ×3 (11:51→21:45)
[2023-05-18] MEDS: MIDODRINE HCL 5 MG TABLET (PROAMATINE) GT SCH ×2 (11:52→21:41)
[2023-05-18] MEDS: FLUDROCORTISONE ACETATE 0.1 MG TABLET( FLORINEF) GT SCH (12:11)
[2023-05-18] MEDS: LACOSAMIDE 100 MG TABLET GT SCH ×2 (12:11→21:45)
[2023-05-18] MEDS: NACL 0.9% 1,000 ML IV SCH (14:00)
[2023-05-18] MEDS: VALPROIC ACID ORAL SYRUP 250 MG/5 ML UDC GT SCH ×3 (14:30→21:42)
[2023-05-18] MEDS: THEOPHYLLINE ANHYDROUS 80 MG/15 ML UDC GT SCH ×2 (14:30→21:00)
[2023-05-18] MEDS: LevETIRAcetam 500 MG/5 ML UDC ORAL LIQUID GT SCH ×2 (14:31→21:43)
[2023-05-18] MEDS: ENOXAPARIN SODIUM 30 MG/0.3 ML SYRINGE SUBCUT SCH (21:42)
[2023-05-18] MEDS: MILK OF MAGNESIA 30 ML UDC GT SCH (21:44)
[2023-05-19] VITALS (17 sets, daily range): BP systolic 117–140; PULSE 75–110; RESP 14–17; TEMP 97.3–98.6; O2SAT 98–100
[2023-05-19] MEDS: ALBUTEROL SULFATE 0.083% 2.5 MG/3 ML VIAL.NEB INH SCH ×4 (02:05→20:03)
[2023-05-19] MEDS: NACL 0.9% 1,000 ML IV SCH ×2 (06:08→22:06)
[2023-05-19] MEDS: LEVOTHYROXINE SODIUM 0.05 MG TABLET GT SCH (06:08)
[2023-05-19] MEDS: PEG 400/HYPROMELLOSE/GLYCERIN 15 ML DROPS BOTH EYES SCH ×3 (06:10→21:32)
[2023-05-19] MEDS: hydrALAZINE HCL 25 MG TABLET GT SCH ×3 (06:11→22:08)
[2023-05-19 08:06] LABS: FERRITIN 979 ng/mL (15-150)
[2023-05-19] MEDS: LORATADINE 10 MG TABLET GT SCH (08:57)
[2023-05-19] MEDS: ASCORBIC ACID 500 MG TABLET GT SCH (08:58)
[2023-05-19] MEDS: DOCUSATE SODIUM 100 MG/10 ML UDC GT SCH ×2 (08:59→22:06)
[2023-05-19] MEDS: LACTULOSE 20 GM/30 ML UDC GT SCH (08:59)
[2023-05-19] MEDS: MULTIVITAMINS TAB 1 TABLET GT SCH (08:59)
[2023-05-19] MEDS: MINERAL OIL 30 ML UDC GT SCH (08:59)
[2023-05-19] MEDS: CEFEPIME 1 GM in D5W 50 ML IV SCH ×2 (09:00→21:31)
[2023-05-19] MEDS: LevETIRAcetam 500 MG/5 ML UDC ORAL LIQUID GT SCH ×2 (09:00→22:44)
[2023-05-19] MEDS: BACLOFEN 10 MG TABLET GT SCH ×3 (09:01→22:08)
[2023-05-19] MEDS: FERROUS SULFATE 300 MG/5 ML UDC GT SCH ×2 (09:01→22:06)
[2023-05-19] MEDS: CHLORHEXIDINE GLUC 0.12% 15 ML MOUTHWASH UDC MM SCH ×2 (09:02→22:45)
[2023-05-19] MEDS: MIDODRINE HCL 5 MG TABLET (PROAMATINE) GT SCH ×2 (09:29→22:06)
[2023-05-19] MEDS: LACOSAMIDE 100 MG TABLET GT SCH ×2 (09:29→22:44)
[2023-05-19] MEDS: FLUDROCORTISONE ACETATE 0.1 MG TABLET( FLORINEF) GT SCH (09:29)
[2023-05-19] MEDS: VALPROIC ACID ORAL SYRUP 250 MG/5 ML UDC GT SCH ×3 (12:49→22:44)
[2023-05-19] MEDS: THEOPHYLLINE ANHYDROUS 80 MG/15 ML UDC GT SCH ×2 (12:50→22:45)
[2023-05-19] MEDS: LANSOPRAZOLE 30 MG CAPSULE.DR GT SCH (13:26)
[2023-05-19] MEDS: MILK OF MAGNESIA 30 ML UDC GT SCH (22:07)
[2023-05-19] MEDS: ENOXAPARIN SODIUM 30 MG/0.3 ML SYRINGE SUBCUT SCH (22:10)
[2023-05-19] MEDS: LORazepam 2 MG/ML VIAL IVP PRN (23:05)
[2023-05-20] VITALS (16 sets, daily range): BP systolic 116–140; PULSE 75–104; RESP 16–20; TEMP 97.5–98.4; O2SAT 95–100
[2023-05-20] MEDS: ALBUTEROL SULFATE 0.083% 2.5 MG/3 ML VIAL.NEB INH SCH ×4 (01:00→20:51)
[2023-05-20 02:07] LABS: FOLATE (FOLIC ACID) >20.0 ng/mL (>3.0)
[2023-05-20 05:04] LABS: BASOPHILS % (AUTO) 0.6 % (0.0-2.0); EOSINOPHILS % (AUTO) 0.7 % (0.0-4.0); HEMATOCRIT 24.5 % (36-48); HEMOGLOBIN 8.1 g/dL (12.0-16.0); LYMPHOCYTES # (AUTO) 1.4 K/uL (1.0-5.5); LYMPHOCYTES % (AUTO) 21.2 % (20.5-51.5); MEAN CORPUSCULAR HEMOGLOBIN 31 pg (27-31); MEAN CORPUSCULAR HGB CONC 33 % (32-36); MEAN CORPUSCULAR VOLUME 94 fL (79.0-98.0); MONOCYTES # (AUTO) 0.6 K/uL (0.0-1.0); MONOCYTES % (AUTO) 9.3 % (1.7-9.3); NEUTROPHILS # (AUTO) 4.4 K/uL (1.8-7.7); NEUTROPHILS % (AUTO) 68.2 % (40.0-70.0); PLATELET COUNT (AUTO) 254 K/uL (130-430); RED CELL DISTRIBUTION WIDTH 18.2 % (9.0-15.0); WHITE BLOOD COUNT (AUTO) 6.4 K/uL (4.8-10.8)
[2023-05-20 05:27] LABS: CALCIUM 9.3 mg/dL (8.4-11.0); CREATININE 1.03 mg/dL (0.55-1.30)
[2023-05-20 05:41] LABS: POTASSIUM 2.5 mmol/L (3.5-5.1)
[2023-05-20] MEDS: NACL 0.9% 1,000 ML IV SCH ×2 (06:00→17:04)
[2023-05-20] MEDS: PEG 400/HYPROMELLOSE/GLYCERIN 15 ML DROPS BOTH EYES SCH ×3 (07:51→22:05)
[2023-05-20] MEDS: LEVOTHYROXINE SODIUM 0.05 MG TABLET GT SCH (07:51)
[2023-05-20] MEDS: hydrALAZINE HCL 25 MG TABLET GT SCH ×3 (07:52→21:47)
[2023-05-20] MEDS: LevETIRAcetam 500 MG/5 ML UDC ORAL LIQUID GT SCH ×2 (11:49→21:51)
[2023-05-20] MEDS: THEOPHYLLINE ANHYDROUS 80 MG/15 ML UDC GT SCH ×2 (11:51→21:57)
[2023-05-20] MEDS: VALPROIC ACID ORAL SYRUP 250 MG/5 ML UDC GT SCH ×3 (11:54→21:54)
[2023-05-20] MEDS: FERROUS SULFATE 300 MG/5 ML UDC GT SCH ×2 (11:55→21:49)
[2023-05-20] MEDS: CHLORHEXIDINE GLUC 0.12% 15 ML MOUTHWASH UDC MM SCH ×2 (11:59→21:50)
[2023-05-20] MEDS: LORazepam 2 MG/ML VIAL IVP PRN (12:04)
[2023-05-20] MEDS: MINERAL OIL 30 ML UDC GT SCH (12:05)
[2023-05-20] MEDS: DOCUSATE SODIUM 100 MG/10 ML UDC GT SCH ×2 (12:06→21:49)
[2023-05-20] MEDS: LACTULOSE 20 GM/30 ML UDC GT SCH (12:08)
[2023-05-20] MEDS: BACLOFEN 10 MG TABLET GT SCH ×3 (12:09→21:48)
[2023-05-20] MEDS: MULTIVITAMINS TAB 1 TABLET GT SCH (12:10)
[2023-05-20] MEDS: MIDODRINE HCL 5 MG TABLET (PROAMATINE) GT SCH ×2 (12:10→21:48)
[2023-05-20] MEDS: LANSOPRAZOLE 30 MG CAPSULE.DR GT SCH (12:10)
[2023-05-20] MEDS: FLUDROCORTISONE ACETATE 0.1 MG TABLET( FLORINEF) GT SCH (12:10)
[2023-05-20] MEDS: LORATADINE 10 MG TABLET GT SCH (12:11)
[2023-05-20] MEDS: LACOSAMIDE 100 MG TABLET GT SCH ×2 (12:12→22:10)
[2023-05-20] MEDS: ASCORBIC ACID 500 MG TABLET GT SCH (12:12)
[2023-05-20] MEDS: CEFEPIME 1 GM in D5W 50 ML IV SCH ×2 (12:13→22:03)
[2023-05-20] MEDS: ENOXAPARIN SODIUM 30 MG/0.3 ML SYRINGE SUBCUT SCH (21:48)
[2023-05-20] MEDS: MILK OF MAGNESIA 30 ML UDC GT SCH (21:49)
[2023-05-21] VITALS (16 sets, daily range): BP systolic 100–116; PULSE 85–108; RESP 14–18; TEMP 98–98.4; O2SAT 97–100
[2023-05-21] MEDS: ALBUTEROL SULFATE 0.083% 2.5 MG/3 ML VIAL.NEB INH SCH ×4 (01:29→19:29)
[2023-05-21] MEDS: PEG 400/HYPROMELLOSE/GLYCERIN 15 ML DROPS BOTH EYES SCH ×3 (06:36→21:43)
[2023-05-21] MEDS: LEVOTHYROXINE SODIUM 0.05 MG TABLET GT SCH (06:36)
[2023-05-21] MEDS: hydrALAZINE HCL 25 MG TABLET GT SCH ×3 (06:36→22:00)
[2023-05-21] MEDS: CEFEPIME 1 GM in D5W 50 ML IV SCH ×2 (09:32→21:39)
[2023-05-21 10:05] LABS: BASOPHILS # (AUTO) 0.1 K/uL (0.0-0.2); BASOPHILS % (AUTO) 0.8 % (0.0-2.0); EOSINOPHILS % (AUTO) 0.4 % (0.0-4.0); HEMATOCRIT 28.1 % (36-48); HEMOGLOBIN 9.2 g/dL (12.0-16.0); LYMPHOCYTES # (AUTO) 1.3 K/uL (1.0-5.5); LYMPHOCYTES % (AUTO) 14.7 % (20.5-51.5); MEAN CORPUSCULAR HEMOGLOBIN 32 pg (27-31); MEAN CORPUSCULAR HGB CONC 33 % (32-36); MEAN CORPUSCULAR VOLUME 96 fL (79.0-98.0); MONOCYTES # (AUTO) 0.7 K/uL (0.0-1.0); MONOCYTES % (AUTO) 7.7 % (1.7-9.3); NEUTROPHILS # (AUTO) 6.8 K/uL (1.8-7.7); NEUTROPHILS % (AUTO) 76.4 % (40.0-70.0); PLATELET COUNT (AUTO) 240 K/uL (130-430); RED BLOOD CELL COUNT(AUTO) 2.93 MIL/uL (4.2-6.2); RED CELL DISTRIBUTION WIDTH 18.5 % (9.0-15.0)
[2023-05-21 10:09] LABS: WHITE BLOOD COUNT (AUTO) 8.9 K/uL (4.8-10.8)
[2023-05-21 10:13] LABS: CALCIUM 8.6 mg/dL (8.4-11.0); CREATININE 0.93 mg/dL (0.55-1.30)
[2023-05-21 10:21] LABS: POTASSIUM 2.7 mmol/L (3.5-5.1)
[2023-05-21] MEDS ORDERED: COMMUNICATION ORDER XX ONE (10:30)
[2023-05-21] MEDS: ASCORBIC ACID 500 MG TABLET GT SCH (10:36)
[2023-05-21] MEDS: BACLOFEN 10 MG TABLET GT SCH ×3 (10:36→21:42)
[2023-05-21] MEDS: LORATADINE 10 MG TABLET GT SCH (10:37)
[2023-05-21] MEDS: MIDODRINE HCL 5 MG TABLET (PROAMATINE) GT SCH ×2 (10:37→21:42)
[2023-05-21] MEDS: FERROUS SULFATE 300 MG/5 ML UDC GT SCH ×2 (10:37→21:42)
[2023-05-21] MEDS: MULTIVITAMINS TAB 1 TABLET GT SCH (10:37)
[2023-05-21] MEDS: MINERAL OIL 30 ML UDC GT SCH (10:38)
[2023-05-21] MEDS: LACTULOSE 20 GM/30 ML UDC GT SCH (10:38)
[2023-05-21] MEDS: DOCUSATE SODIUM 100 MG/10 ML UDC GT SCH ×2 (10:38→21:42)
[2023-05-21] MEDS: LevETIRAcetam 500 MG/5 ML UDC ORAL LIQUID GT SCH ×2 (10:40→21:42)
[2023-05-21] MEDS: VALPROIC ACID ORAL SYRUP 250 MG/5 ML UDC GT SCH ×3 (10:41→21:40)
[2023-05-21] MEDS: THEOPHYLLINE ANHYDROUS 80 MG/15 ML UDC GT SCH ×2 (10:42→21:41)
[2023-05-21] MEDS: CHLORHEXIDINE GLUC 0.12% 15 ML MOUTHWASH UDC MM SCH ×2 (10:43→21:40)
[2023-05-21] MEDS: FLUDROCORTISONE ACETATE 0.1 MG TABLET( FLORINEF) GT SCH (11:01)
[2023-05-21] MEDS: LACOSAMIDE 100 MG TABLET GT SCH ×2 (11:01→21:38)
[2023-05-21] MEDS: LANSOPRAZOLE 30 MG CAPSULE.DR GT SCH (11:09)
[2023-05-21] MEDS ORDERED: POTASSIUM CHLORIDE 20 MEQ/PKT PACKET PO ONE ×2 (11:30→16:00)
[2023-05-21] MEDS: NACL 0.9% 1,000 ML IV SCH ×2 (14:31→22:00)
[2023-05-21] MEDS: ENOXAPARIN SODIUM 30 MG/0.3 ML SYRINGE SUBCUT SCH (21:40)
[2023-05-21] MEDS: MILK OF MAGNESIA 30 ML UDC GT SCH (21:42)
[2023-05-22] VITALS (14 sets, daily range): BP systolic 87–132; PULSE 64–99; RESP 16–22; TEMP 97.5–98.6; O2SAT 97–99
[2023-05-22] MEDS: ALBUTEROL SULFATE 0.083% 2.5 MG/3 ML VIAL.NEB INH SCH ×3 (01:14→13:35)
[2023-05-22] MEDS: PEG 400/HYPROMELLOSE/GLYCERIN 15 ML DROPS BOTH EYES SCH ×2 (06:10→14:18)
[2023-05-22] MEDS: LEVOTHYROXINE SODIUM 0.05 MG TABLET GT SCH (06:10)
[2023-05-22] MEDS: hydrALAZINE HCL 25 MG TABLET GT SCH ×2 (06:11→14:17)
[2023-05-22 06:33] LABS: HEMATOCRIT 26.8 % (36-48); HEMOGLOBIN 8.4 g/dL (12.0-16.0); MEAN CORPUSCULAR HEMOGLOBIN 31 pg (27-31); MEAN CORPUSCULAR HGB CONC 32 % (32-36); MEAN CORPUSCULAR VOLUME 97 fL (79.0-98.0); PLATELET COUNT (AUTO) 240 K/uL (130-430); RED BLOOD CELL COUNT(AUTO) 2.76 MIL/uL (4.2-6.2); RED CELL DISTRIBUTION WIDTH 19.9 % (9.0-15.0); WHITE BLOOD COUNT (AUTO) 8.1 K/uL (4.8-10.8)
[2023-05-22 07:23] LABS: CALCIUM 8.5 mg/dL (8.4-11.0); CREATININE 0.84 mg/dL (0.55-1.30); POTASSIUM 3.5 mmol/L (3.5-5.1)
[2023-05-22] MEDS: NACL 0.9% 1,000 ML IV SCH (07:27)
[2023-05-22 08:46] LABS: ANISOCYTOSIS 1+; POLYCHROMASIA 1+
[2023-05-22] MEDS: DOCUSATE SODIUM 100 MG/10 ML UDC GT SCH (09:00)
[2023-05-22] MEDS: LACTULOSE 20 GM/30 ML UDC GT SCH (09:00)
[2023-05-22] MEDS: MINERAL OIL 30 ML UDC GT SCH (09:00)
[2023-05-22] MEDS: CEFEPIME 1 GM in D5W 50 ML IV SCH (09:22)
[2023-05-22] MEDS: LevETIRAcetam 500 MG/5 ML UDC ORAL LIQUID GT SCH (09:24)
[2023-05-22] MEDS: VALPROIC ACID ORAL SYRUP 250 MG/5 ML UDC GT SCH ×2 (09:25→14:18)
[2023-05-22] MEDS: THEOPHYLLINE ANHYDROUS 80 MG/15 ML UDC GT SCH (09:25)
[2023-05-22] MEDS: FERROUS SULFATE 300 MG/5 ML UDC GT SCH (09:25)
[2023-05-22] MEDS: BACLOFEN 10 MG TABLET GT SCH ×2 (09:26→14:17)
[2023-05-22] MEDS: ASCORBIC ACID 500 MG TABLET GT SCH (09:26)
[2023-05-22] MEDS: LORATADINE 10 MG TABLET GT SCH (09:26)
[2023-05-22] MEDS: MIDODRINE HCL 5 MG TABLET (PROAMATINE) GT SCH (09:26)
[2023-05-22] MEDS: LANSOPRAZOLE 30 MG CAPSULE.DR GT SCH (09:26)
[2023-05-22] MEDS: MULTIVITAMINS TAB 1 TABLET GT SCH (09:26)
[2023-05-22] MEDS: CHLORHEXIDINE GLUC 0.12% 15 ML MOUTHWASH UDC MM SCH (09:28)
[2023-05-22] MEDS: FLUDROCORTISONE ACETATE 0.1 MG TABLET( FLORINEF) GT SCH (09:40)
[2023-05-22] MEDS: LACOSAMIDE 100 MG TABLET GT SCH (09:41)
== END 2023-05-22 21:20 | DRG 207 ==
LOC: SED 00:53 → SIC 05:46 → STU 08:00
PROVIDERS: ADMIT Family Medicine; ATTEND Family Medicine
PROC: 5A1955Z Respiratory Ventilation, Greater than 96 Consecutive Hours (ICD-10-PCS; principal; 2023-05-15)
PROC: 05HY33Z Insertion of Infusion Device into Upper Vein, Percutaneous Approach (ICD-10-PCS; 2023-05-16)
PROC: B54NZZA Ultrasonography of Left Upper Extremity Veins, Guidance (ICD-10-PCS; 2023-05-16)
DX: J96.21 Acute and chronic respiratory failure with hypoxia (principal); N39.0 Urinary tract infection, site not specified; E44.0 Moderate protein-calorie malnutrition; G93.49 Other encephalopathy; Z99.11 Dependence on respirator [ventilator] status; N17.9 Acute kidney failure, unspecified; E83.52 Hypercalcemia; E03.9 Hypothyroidism, unspecified; I12.9 Hypertensive chronic kidney disease with stage 1 through stage 4 chronic kidney disease, or unspecified chronic kidney disease; E11.22 Type 2 diabetes mellitus with diabetic chronic kidney disease; N18.9 Chronic kidney disease, unspecified; D64.9 Anemia, unspecified; E86.0 Dehydration; G80.9 Cerebral palsy, unspecified; G40.909 Epilepsy, unspecified, not intractable, without status epilepticus; E87.6 Hypokalemia; Z93.1 Gastrostomy status; Z88.1 Allergy status to other antibiotic agents; Z88.8 Allergy status to other drugs, medicaments and biological substances; Z79.899 Other long term (current) drug therapy; Z93.0 Tracheostomy status; Z68.35 Body mass index [BMI] 35.0-35.9, adult
CPT/HCPCS: 36415; 71045; 80048; 80053; 81000; 82330; 82542; 82607; 82728; 82746; 83540; 83550; 83605; 83735; 83970; 85025; 85610-TC; 85730-TC; 87040; 87070-TC; 87081; 87086; 87205-TC; 93005; 94002; 94003; 94640; 94760; 96365; 99291; G0378; J0692; J0696; J1650; J2060; J7060

== ENCOUNTER 2023-09-24 09:28 | Inpatient (IN) | payer OTHER, MEDICAID ==
[2023-09-24] VITALS (28 sets, daily range): BP systolic 97–123; PULSE 67–104; RESP 11–28; TEMP 91.7–97.8; O2SAT 90–100
[~2023-09-24] VITALS: Ht 167.6 cm; Wt 108.9 kg
[~2023-09-24 09:28] MED LIST changes: +FER300L GT; +LORA-259 GT; -LOVI40 SQ; +MOM GT; +OMEP20CA15 GT; +SIME80TA15 GT
[2023-09-24] MEDS: NACL 0.9% 2,000 ML IV ONE (09:56)
[2023-09-24] MEDS ORDERED: EPOE20005 SQ (09:59)
[2023-09-24] MEDS ORDERED: FENO145T GT (09:59)
[2023-09-24 10:41] LABS: COVID19 ANTIGEN SOFIA FIA NEGATIVE (NEGATIVE)
[2023-09-24 10:42] LABS: BASOPHILS % (AUTO) 0.2 % (0.0-2.0); EOSINOPHILS % (AUTO) 0.2 % (0.0-4.0); LYMPHOCYTES # (AUTO) 0.1 K/uL (1.0-5.5); LYMPHOCYTES % (AUTO) 4.7 % (20.5-51.5); MEAN CORPUSCULAR HEMOGLOBIN 31 pg (27-31); MEAN CORPUSCULAR HGB CONC 32 % (32-36); MEAN CORPUSCULAR VOLUME 96 fL (79.0-98.0); MONOCYTES # (AUTO) 0.1 K/uL (0.0-1.0); MONOCYTES % (AUTO) 3.6 % (1.7-9.3); NEUTROPHILS # (AUTO) 2.2 K/uL (1.8-7.7); NEUTROPHILS % (AUTO) 91.3 % (40.0-70.0); RED BLOOD CELL COUNT(AUTO) 2.09 MIL/uL (4.2-6.2); RED CELL DISTRIBUTION WIDTH 19.6 % (9.0-15.0); WHITE BLOOD COUNT (AUTO) 2.4 K/uL (4.8-10.8)
[2023-09-24 10:45] LABS: HEMOGLOBIN 6.5 g/dL (12.0-16.0)
[2023-09-24 10:48] LABS: INFLUENZA TYPE A Negative (NEGATIVE); INFLUENZA TYPE B NEGATIVE (NEGATIVE)
[2023-09-24 10:53] LABS: ANION GAP 10 (5-15); CALCIUM 11.5 mg/dL (8.4-11.0); CARBON DIOXIDE 26 mmol/L (23-29); CHLORIDE 87 mmol/L (98-107); CREATININE 1.56 mg/dL (0.55-1.30); GFR AFRICAN AMERICAN 44 mL/min (>90); GLUCOSE 78 mg/dL (74-106); POTASSIUM 4.1 mmol/L (3.5-5.1); SODIUM SERUM 123 mmol/L (136-145); UREA NITROGEN, BLOOD 50 mg/dL (8-21)
[2023-09-24 10:55] LABS: GFR NON AFRICAN-AMERICAN 36 mL/min (>90); INR 1.2 (0.8-1.2); PROTHROMBIN TIME 12.8 SECS (9.5-12.5)
[2023-09-24 11:00] LABS: ALANINE AMINOTRANSFERASE 46 U/L (12-78); ALBUMIN 1.9 g/dL (3.4-4.8); ASPARTATE AMINOTRANSFERASE 60 U/L (10-37); BILIRUBIN,DIRECT 0.6 mg/dL (0.0-0.3); TOTAL BILIRUBIN 0.9 mg/dL (0.0-1.0); TOTAL PROTEIN, SERUM 6.8 g/dL (6.4-8.3)
[2023-09-24] MEDS: PIPERACILLIN/TAZO 4.5 GM in NS 100 ML IV ONE (11:12)
[2023-09-24] MEDS ORDERED: PIPERACILLIN/TAZOBACTAM 4.5 GM/VIAL (ZOSYN) IV ONE (11:13)
[2023-09-24 11:22] LABS: PLATELET COUNT (AUTO) 36 K/uL (130-430)
[2023-09-24 11:26] LABS: BILIRUBIN,URINE 1+ (NEGATIVE); BLOOD, URINE 3+ (NEGATIVE); CLARITY/URINE CLOUDY (CLEAR); COLOR,URINE BROWN (YELLOW); GLUCOSE,URINE NEGATIVE (NEGATIVE); KETONES,URINE NEGATIVE (NEGATIVE); LEUKOCYTE ESTERASE ,URINE 3+ (NEGATIVE); NITRITE, URINE POSITIVE (NEGATIVE); PROTEIN URINE 2+ (NEGATIVE)
[2023-09-24] MEDS ORDERED: NOREPINEPHRINE 4 MG/4 ML VIAL IV ONE (11:35)
[2023-09-24 11:57] LABS: BACTERIA,URINE MODERATE /HPF (None Seen); RBC,URINE 50-80 /HPF (0-3); WBC,URINE 20-50 /HPF (0-3)
[2023-09-24 11:58] LABS: URINE AMORPHOUS URATE 3+ /HPF (None Seen)
[2023-09-24] MEDS: NOREPINEPHRINE BITARTRATE 4 MG in NS 246 ML IV ONE (12:37)
[2023-09-24] MEDS ORDERED: LORA2TAB95 GT (12:55)
[2023-09-24] MEDS ORDERED: DOCU100T9 PO (12:55)
[2023-09-24] MEDS ORDERED: OMEG100037 GT (12:55)
[2023-09-24] MEDS ORDERED: LEVO75TA7 GT (12:55)
[2023-09-24] MEDS: METHYLPREDNISOLONE SOD SUCC 40 MG/ML VIAL IVP ONE (13:30)
[2023-09-24 13:34] LABS: ABG O2 SAT% ESTIMATE 95.9 % (94.0-100.0); BLOOD GAS HCO3 20.4 mmol/L (21.0-27.0); BLOOD GAS PCO2 45.2 mmHg (35.0-45.0)
[2023-09-24 13:38] LABS: BLOOD GAS BASE EXCESS -6.4 mmol/L (-3.0-3.0); BLOOD GAS PH 7.272 (7.350-7.450)
[2023-09-24 13:39] LABS: ALLEN'S TEST POSITIVE (P)
[2023-09-24] MEDS ORDERED: LORazepam 2 MG/ML VIAL IVP PRN (14:00)
[2023-09-24] MEDS: NOREPINEPHR 4 MG/250 mL NS 250 ML IV PRN (15:48)
[2023-09-24] MEDS: KCL 20 mEq in D5NS 1000 mL 1,000 ML IV ONE (15:51)
[2023-09-24] MEDS: LEVOTHYROXINE SODIUM 0.075 MG TABLET GT ONE (15:53)
[2023-09-24] MEDS: SIMETHICONE 80 MG TAB.CHEW GT SCH (15:53)
[2023-09-24] MEDS: BACLOFEN 10 MG TABLET GT SCH (15:53)
[2023-09-24] MEDS ORDERED: CHLORHEXIDINE GLUCONATE 15 ML/DOSE, 480 ML MM SCH (16:00)
[2023-09-24] MEDS: VANCOMYCIN HCL 1,000 MG in NS 250 ML IV SCH (16:41)
[2023-09-24] MEDS: ALBUMIN HUMAN 25% 50 ML IV SCH (17:30)
[2023-09-24] MEDS: FUROSEMIDE 20 MG/2 ML VIAL IVP ONE (17:39)
[2023-09-24] MEDS: PIPERACILLIN/TAZO 2.25G/DEX-IS 50 ML IV SCH (17:51)
[2023-09-24] MEDS: METHYLPREDNISOLONE SOD SUCC 40 MG/ML VIAL IVP SCH (17:53)
[2023-09-24] MEDS: EPOETIN ALFA 4,000 UNITS/ML VIAL SUBCUT SCH (18:02)
[2023-09-24 18:05] LABS: ABG O2 SAT% ESTIMATE 89.5 % (94.0-100.0); BLOOD GAS HCO3 21.2 mmol/L (21.0-27.0); BLOOD GAS PCO2 49.4 mmHg (35.0-45.0); BLOOD GAS PO2 65.5 mmHg (75.0-100.0)
[2023-09-24 18:10] LABS: ALLEN'S TEST POSITIVE (P); BLOOD GAS BASE EXCESS -6.3 mmol/L (-3.0-3.0); BLOOD GAS PH 7.251 (7.350-7.450)
[2023-09-24] MEDS: ALBUTEROL SULFATE 0.083% 2.5 MG/3 ML VIAL.NEB INH SCH (19:05)
[2023-09-24] MEDS ORDERED: OMEGA-3/DHA/EPA/FISH OIL 1 GM CAPSULE GT SCH (21:00)
[2023-09-24] MEDS: VALPROIC ACID ORAL SYRUP 250 MG/5 ML UDC GT SCH (21:00)
[2023-09-24] MEDS: DOCUSATE SODIUM 100 MG/10 ML UDC PO SCH (21:56)
[2023-09-24] MEDS: MIDODRINE HCL 5 MG TABLET (PROAMATINE) GT SCH (21:56)
[2023-09-24] MEDS: ACETAMINOPHEN 650 MG/20.3 ML UDC GT PRN (21:59)
[2023-09-24] MEDS: CHLORHEXIDINE GLUC 0.12% 15 ML MOUTHWASH UDC MM SCH (21:59)
[2023-09-24] MEDS: LACTULOSE 20 GM/30 ML UDC GT PRN (22:01)
[2023-09-24] MEDS: LevETIRAcetam 500 MG/5 ML UDC ORAL LIQUID GT SCH (22:01)
[2023-09-24] MEDS: THEOPHYLLINE ANHYDROUS 80 MG/15 ML UDC GT SCH (22:02)
[2023-09-24] MEDS: MILK OF MAGNESIA 30 ML UDC GT SCH (22:03)
[2023-09-24] MEDS: LACOSAMIDE 100 MG TABLET GT SCH (22:07)
[2023-09-24] MEDS: ALBUTEROL SULFATE 0.083% 2.5 MG/3 ML VIAL.NEB INH PRN (22:21)
[2023-09-24] MEDS: DIPHENHYDRAMINE INJ 50 MG/ML VIAL ONE (23:07)
[2023-09-24] MEDS: DIPHENHYDRAMINE INJ 50 MG/ML VIAL IM ONE (23:09)
[2023-09-24] MEDS ORDERED: NOREPINEPHR 4 MG/250 mL NS 250 ML IV PRN (23:30)
[2023-09-25] VITALS (53 sets, daily range): BP systolic 90–129; PULSE 50–111; RESP 20–37; TEMP 97–98.2; O2SAT 87–99
[2023-09-25] MEDS: NOREPINEPHR 4 MG/250 mL NS 250 ML IV PRN (00:03)
[2023-09-25 00:13] LABS: BILIRUBIN,URINE NEGATIVE (NEGATIVE); BLOOD, URINE 3+ (NEGATIVE); GLUCOSE,URINE NEGATIVE (NEGATIVE); KETONES,URINE NEGATIVE (NEGATIVE); LEUKOCYTE ESTERASE ,URINE 3+ (NEGATIVE); NITRITE, URINE POSITIVE (NEGATIVE); PH,URINE 7.5 (5.0-8.0); PROTEIN URINE 2+ (NEGATIVE); UROBILINOGEN,URINE 0.2 (0.2-1.0)
[2023-09-25 00:23] LABS: CLARITY/URINE SLIGHTLY CLOUDY (CLEAR); COLOR,URINE BROWN (YELLOW)
[2023-09-25 00:28] LABS: RBC,URINE 50-80 /HPF (0-3)
[2023-09-25 00:29] LABS: BACTERIA,URINE MODERATE /HPF (None Seen)
[2023-09-25 00:32] LABS: HEMATOCRIT 27.3 % (36-48); HEMOGLOBIN 8.7 g/dL (12.0-16.0)
[2023-09-25 05:15] LABS: BASOPHILS # (AUTO) 0.1 K/uL (0.0-0.2); BASOPHILS % (AUTO) 0.3 % (0.0-2.0); HEMATOCRIT 26.5 % (36-48); HEMOGLOBIN 8.7 g/dL (12.0-16.0); LYMPHOCYTES # (AUTO) 0.3 K/uL (1.0-5.5); LYMPHOCYTES % (AUTO) 1.4 % (20.5-51.5); MEAN CORPUSCULAR HEMOGLOBIN 31 pg (27-31); MEAN CORPUSCULAR HGB CONC 33 % (32-36); MEAN CORPUSCULAR VOLUME 95 fL (79.0-98.0); MONOCYTES # (AUTO) 0.2 K/uL (0.0-1.0); NEUTROPHILS % (AUTO) 97.3 % (40.0-70.0); PLATELET COUNT (AUTO) 63 K/uL (130-430); RED BLOOD CELL COUNT(AUTO) 2.78 MIL/uL (4.2-6.2); RED CELL DISTRIBUTION WIDTH 18.9 % (9.0-15.0); WHITE BLOOD COUNT (AUTO) 22.6 K/uL (4.8-10.8)
[2023-09-25 05:54] LABS: TOTAL IRON BIND. CAPACITY 336 ug/dL (250-450)
[2023-09-25 05:58] LABS: INR 1.5 (0.8-1.2)
[2023-09-25] MEDS: LANSOPRAZOLE 30 MG CAPSULE.DR GT SCH (06:09)
[2023-09-25] MEDS: LEVOTHYROXINE SODIUM 0.075 MG TABLET GT SCH (06:10)
[2023-09-25 06:54] LABS: CALCIUM 10.8 mg/dL (8.4-11.0); CREATININE 1.37 mg/dL (0.55-1.30); POTASSIUM 4.5 mmol/L (3.5-5.1)
[2023-09-25] MEDS ORDERED: MINERAL OIL 30 ML UDC GT PRN (09:00)
[2023-09-25] MEDS ORDERED: NON-FORMULARY MEDICATION (Cranberry Fruit (Cranberry) 425 MG) GT SCH (09:00)
[2023-09-25 09:54] LABS: BLOOD GAS HCO3 20.5 mmol/L (21.0-27.0); BLOOD GAS PCO2 41.7 mmHg (35.0-45.0); BLOOD GAS PO2 71.6 mmHg (75.0-100.0)
[2023-09-25 10:02] LABS: ALLEN'S TEST POSITIVE (P); BLOOD GAS BASE EXCESS -5.5 mmol/L (-3.0-3.0)
[2023-09-25] MEDS: LORATADINE 10 MG TABLET GT SCH (10:02)
[2023-09-25] MEDS: FERROUS SULFATE 300 MG/5 ML UDC GT SCH (10:03)
[2023-09-25] MEDS: FLUDROCORTISONE ACETATE 0.1 MG TABLET( FLORINEF) GT SCH (10:04)
[2023-09-25] MEDS: FENOFIBRATE NANOCRYSTALLIZED 48 MG TABLET (TRICOR) GT SCH (10:06)
[2023-09-25] MEDS: ASCORBIC ACID 500 MG TABLET GT SCH (10:06)
[2023-09-25 16:36] LABS: PROTHROMBIN TIME 20.1 SECS (9.5-12.5)
[2023-09-25] MEDS: KCL 20 mEq in D5/0.45NS 1000mL 1,000 ML IV SCH (17:13)
[2023-09-25] MEDS ORDERED: NOREPINEPHRINE BITARTRATE 16 MG in D5W 234 ML IV PRN (23:00)
[2023-09-25] MEDS: NOREPINEPHR 16 MG/250 mL NS 250 ML IV PRN (23:20)
[2023-09-26] VITALS (47 sets, daily range): BP systolic 90–169; PULSE 48–90; RESP 16–39; TEMP 96.5–98.2; O2SAT 90–100
[2023-09-26 05:06] LABS: BASOPHILS # (AUTO) 0.1 K/uL (0.0-0.2); BASOPHILS % (AUTO) 0.2 % (0.0-2.0); HEMATOCRIT 22.9 % (36-48); HEMOGLOBIN 7.4 g/dL (12.0-16.0); LYMPHOCYTES # (AUTO) 0.4 K/uL (1.0-5.5); LYMPHOCYTES % (AUTO) 1.7 % (20.5-51.5); MEAN CORPUSCULAR HEMOGLOBIN 31 pg (27-31); MEAN CORPUSCULAR HGB CONC 32 % (32-36); MEAN CORPUSCULAR VOLUME 95 fL (79.0-98.0); MONOCYTES # (AUTO) 0.4 K/uL (0.0-1.0); MONOCYTES % (AUTO) 1.5 % (1.7-9.3); NEUTROPHILS # (AUTO) 23.9 K/uL (1.8-7.7); NEUTROPHILS % (AUTO) 96.6 % (40.0-70.0); PLATELET COUNT (AUTO) 61 K/uL (130-430); RED BLOOD CELL COUNT(AUTO) 2.41 MIL/uL (4.2-6.2); RED CELL DISTRIBUTION WIDTH 19.3 % (9.0-15.0); WHITE BLOOD COUNT (AUTO) 24.7 K/uL (4.8-10.8)
[2023-09-26 05:10] LABS: PROTHROMBIN TIME 29.5 SECS (9.5-12.5)
[2023-09-26 05:29] LABS: ALBUMIN 1.9 g/dL (3.4-4.8); CALCIUM 10.2 mg/dL (8.4-11.0); CREATININE 1.82 mg/dL (0.55-1.30); POTASSIUM 5.4 mmol/L (3.5-5.1); TOTAL BILIRUBIN 0.8 mg/dL (0.0-1.0); TOTAL PROTEIN, SERUM 6.9 g/dL (6.4-8.3)
[2023-09-26 08:08] LABS: CALCIUM, IONIZED 5.2 mg/dL (4.5-5.6)
[2023-09-26 09:53] LABS: ABG O2 SAT% ESTIMATE 91.3 % (94.0-100.0); BLOOD GAS PCO2 34.5 mmHg (35.0-45.0); BLOOD GAS PH 7.321 (7.350-7.450); BLOOD GAS PO2 64.8 mmHg (75.0-100.0)
[2023-09-26 10:06] LABS: ALLEN'S TEST POSITIVE (P); BLOOD GAS BASE EXCESS -7.7 mmol/L (-3.0-3.0); BLOOD GAS HCO3 17.4 mmol/L (21.0-27.0)
[2023-09-26] MEDS: PHYTONADIONE 10 MG in NS 50 ML IV ONE (10:35)
[2023-09-26] MEDS ORDERED: *TPN PER PHARMACY XX PRN (13:00)
[2023-09-26] MEDS: 0.45% NACL 1,000 ML IV SCH (13:00)
[2023-09-26] MEDS: NACL 0.9% 1,000 ML IV SCH (16:15)
[2023-09-26] MEDS: FUROSEMIDE 20 MG/2 ML VIAL IVP ONE (16:16)
[2023-09-26] MEDS: SODIUM BICARBONATE 8.4% JECT 50 MEQ/50 ML SYRINGE IVP ONE (16:16)
[2023-09-26] MEDS: ALBUMIN HUMAN 25% 50 ML IV SCH (16:17)
[2023-09-26] MEDS: DOPamine PREMIX 250 ML IV PRN (16:21)
[2023-09-26] MEDS: PROPOFOL DRIP 100 ML IV PRN (22:50)
[2023-09-27] VITALS (47 sets, daily range): BP systolic 92–135; PULSE 45–72; RESP 13–58; TEMP 95.5–98.9; O2SAT 92–98
[2023-09-27 06:40] LABS: BASOPHILS % (AUTO) 0.3 % (0.0-2.0); EOSINOPHILS % (AUTO) 0.5 % (0.0-4.0); LYMPHOCYTES # (AUTO) 0.4 K/uL (1.0-5.5); LYMPHOCYTES % (AUTO) 4.6 % (20.5-51.5); MEAN CORPUSCULAR HEMOGLOBIN 32 pg (27-31); MEAN CORPUSCULAR HGB CONC 32 % (32-36); MEAN CORPUSCULAR VOLUME 98 fL (79.0-98.0); MONOCYTES # (AUTO) 0.2 K/uL (0.0-1.0); MONOCYTES % (AUTO) 2.6 % (1.7-9.3); NEUTROPHILS # (AUTO) 8.1 K/uL (1.8-7.7); RED BLOOD CELL COUNT(AUTO) 2.16 MIL/uL (4.2-6.2); RED CELL DISTRIBUTION WIDTH 19.7 % (9.0-15.0); WHITE BLOOD COUNT (AUTO) 8.8 K/uL (4.8-10.8)
[2023-09-27 06:54] LABS: PROTHROMBIN TIME 10.8 SECS (9.5-12.5)
[2023-09-27 07:01] LABS: ALBUMIN 2.3 g/dL (3.4-4.8); CALCIUM 9.7 mg/dL (8.4-11.0); CREATININE 1.85 mg/dL (0.55-1.30); PHOSPHORUS 7.2 mg/dL (2.7-4.5); POTASSIUM 5.3 mmol/L (3.5-5.1); TOTAL BILIRUBIN 0.8 mg/dL (0.0-1.0)
[2023-09-27 08:24] LABS: ABG O2 SAT% ESTIMATE 94.1 % (94.0-100.0); BLOOD GAS BASE EXCESS -12.7 mmol/L (-3.0-3.0); BLOOD GAS PO2 91.3 mmHg (75.0-100.0)
[2023-09-27 08:31] LABS: ALLEN'S TEST POSITIVE (P); BLOOD GAS HCO3 16.8 mmol/L (21.0-27.0); BLOOD GAS PH 7.126 (7.350-7.450)
[2023-09-27] MEDS: FUROSEMIDE 20 MG/2 ML VIAL IVP SCH (08:31)
[2023-09-27 09:11] LABS: HEMOGLOBIN 6.8 g/dL (12.0-16.0)
[2023-09-27 09:12] LABS: HEMATOCRIT 21.2 % (36-48); PLATELET COUNT (AUTO) 30 K/uL (130-430)
[2023-09-27] MEDS: SODIUM BICARBONATE 8.4% JECT 150 MEQ in D5W 1,000 ML IVP SCH (11:21)
[2023-09-27] MEDS: DIPHENHYDRAMINE HCL 12.5 MG/5 ML UDC NG ONE (14:27)
[2023-09-27 17:06] LABS: ABG O2 SAT% ESTIMATE 92.9 % (94.0-100.0); BLOOD GAS BASE EXCESS -11.2 mmol/L (-3.0-3.0); BLOOD GAS PCO2 49.7 mmHg (35.0-45.0)
[2023-09-27 17:27] LABS: BLOOD GAS PH 7.164 (7.350-7.450)
[2023-09-27 17:28] LABS: ALLEN'S TEST POSITIVE (P); BLOOD GAS HCO3 17.5 mmol/L (21.0-27.0)
[2023-09-27] MEDS ORDERED: SODIUM POLYSTYRENE SULFONATE 15 GM/60 ML UDBTL GT ONE (18:30)
[2023-09-27] MEDS: MEROPENEM 500 MG in NS 50 ML IV SCH (20:55)
[2023-09-27] MEDS: [UNRECOGNIZED DRUG - OTHER] IV SCH (22:14)
[2023-09-27] MEDS: MVI IV SCH (22:14)
[2023-09-27] MEDS: SODIUM CHLORIDE IV SCH (22:14)
[2023-09-27] MEDS: TPN CENTRAL IV SCH (22:14)
[2023-09-27] MEDS: TRACE ELEMENTS IV SCH (22:14)
[2023-09-28] VITALS (50 sets, daily range): BP systolic 109–155; PULSE 70–83; RESP 18–37; TEMP 96.4–97.8; O2SAT 84–95
[2023-09-28 06:12] LABS: HEMOGLOBIN 9.5 g/dL (12.0-16.0); MEAN CORPUSCULAR HEMOGLOBIN 32 pg (27-31); MEAN CORPUSCULAR HGB CONC 33 % (32-36); MEAN CORPUSCULAR VOLUME 97 fL (79.0-98.0); RED BLOOD CELL COUNT(AUTO) 2.99 MIL/uL (4.2-6.2); RED CELL DISTRIBUTION WIDTH 18.4 % (9.0-15.0); WHITE BLOOD COUNT (AUTO) 16.9 K/uL (4.8-10.8)
[2023-09-28 06:39] LABS: PLATELET COUNT (AUTO) 88 K/uL (130-430)
[2023-09-28 06:51] LABS: ALBUMIN 2.4 g/dL (3.4-4.8); CALCIUM 9.5 mg/dL (8.4-11.0); CREATININE 1.79 mg/dL (0.55-1.30); POTASSIUM 4.9 mmol/L (3.5-5.1); TOTAL BILIRUBIN 0.7 mg/dL (0.0-1.0); TOTAL PROTEIN, SERUM 7.1 g/dL (6.4-8.3)
[2023-09-28] MEDS: FUROSEMIDE 100 MG in D5W 90 ML IV SCH (13:41)
[2023-09-28 16:56] LABS: BLOOD GAS BASE EXCESS -17.9 mmol/L (-3.0-3.0); BLOOD GAS HCO3 21.1 mmol/L (21.0-27.0); BLOOD GAS PCO2 156.2 mmHg (35.0-45.0); BLOOD GAS PO2 75.8 mmHg (75.0-100.0)
[2023-09-28 17:01] LABS: ABG O2 SAT% ESTIMATE 73.6 % (94.0-100.0); BLOOD GAS PH 6.749 (7.350-7.450)
[2023-09-28 17:02] LABS: ALLEN'S TEST POSITIVE (P)
[2023-09-28] MEDS: TRACE ELEMENTS IV SCH (21:01)
[2023-09-28] MEDS: MVI IV SCH (21:01)
[2023-09-28] MEDS: [UNRECOGNIZED DRUG - OTHER] IV SCH (21:01)
[2023-09-28] MEDS: SODIUM CHLORIDE IV SCH (21:01)
[2023-09-28] MEDS: TPN CENTRAL IV SCH (21:01)
[2023-09-29] VITALS (23 sets, daily range): BP systolic 79–138; PULSE 58–74; RESP 23–47; TEMP 96.7–97.2; O2SAT 75–90
[2023-09-29 05:26] LABS: ALBUMIN 2.2 g/dL (3.4-4.8); CALCIUM 8.4 mg/dL (8.4-11.0); CREATININE 2.09 mg/dL (0.55-1.30); PHOSPHORUS 10.3 mg/dL (2.7-4.5); TOTAL BILIRUBIN 0.8 mg/dL (0.0-1.0); TOTAL PROTEIN, SERUM 6.4 g/dL (6.4-8.3)
[2023-09-29 06:14] LABS: HEMOGLOBIN 8.6 g/dL (12.0-16.0); MEAN CORPUSCULAR HEMOGLOBIN 31 pg (27-31); MEAN CORPUSCULAR HGB CONC 31 % (32-36); MEAN CORPUSCULAR VOLUME 100 fL (79.0-98.0); PLATELET COUNT (AUTO) 51 K/uL (130-430); WHITE BLOOD COUNT (AUTO) 9.7 K/uL (4.8-10.8)
[2023-09-29 08:10] LABS: ATYPICAL LYMPHOCYTES % 2 % (0-0); BAND % (MANUAL) 13 % (0-6); BASOPHILS % (MANUAL) 0 % (0-2); CORRECTED WHITE BLOOD COUNT 8.4 K/uL (4.5-11.0); EOSINOPHILS % (MANUAL) 0 % (0-7); LYMPHOCYTES % (MANUAL) 5 % (20-46)
[2023-09-29 08:11] LABS: MONOCYTES % (MANUAL) 6 % (0-11); MYELOCYTES % 1 % (0-0); PLATELET ESTIMATE DECREASED (ADEQUATE)
[2023-09-29 08:13] LABS: ANISOCYTOSIS 1+
[2023-09-29] MEDS ORDERED: TRACE ELEMENTS IV SCH (21:00)
[2023-09-29] MEDS ORDERED: SODIUM CHLORIDE IV SCH (21:00)
[2023-09-29] MEDS ORDERED: TPN CENTRAL IV SCH (21:00)
[2023-09-29] MEDS ORDERED: MVI IV SCH (21:00)
[2023-09-29] MEDS ORDERED: [UNRECOGNIZED DRUG - OTHER] IV SCH (21:00)
== END 2023-09-29 10:23 | DRG 870 ==
LOC: SED 09:28 → SIC 12:39
PROVIDERS: ADMIT Family Medicine; ATTEND Family Medicine
PROC: 5A1955Z Respiratory Ventilation, Greater than 96 Consecutive Hours (ICD-10-PCS; principal; 2023-09-24)
PROC: 06HY33Z Insertion of Infusion Device into Lower Vein, Percutaneous Approach (ICD-10-PCS; 2023-09-24)
PROC: B54BZZA Ultrasonography of Right Lower Extremity Veins, Guidance (ICD-10-PCS; 2023-09-24)
PROC: 30233N1 Transfusion of Nonautologous Red Blood Cells into Peripheral Vein, Percutaneous Approach (ICD-10-PCS; 2023-09-24)
PROC: 30233R1 Transfusion of Nonautologous Platelets into Peripheral Vein, Percutaneous Approach (ICD-10-PCS; 2023-09-27)
DX: A41.9 Sepsis, unspecified organism (principal); E43 Unspecified severe protein-calorie malnutrition; J18.9 Pneumonia, unspecified organism; D65 Disseminated intravascular coagulation [defibrination syndrome]; J80 Acute respiratory distress syndrome; R65.21 Severe sepsis with septic shock; Z99.11 Dependence on respirator [ventilator] status; N39.0 Urinary tract infection, site not specified; D61.818 Other pancytopenia; E87.20 Acidosis, unspecified; K56.7 Ileus, unspecified; Z20.822 Contact with and (suspected) exposure to COVID-19; E83.52 Hypercalcemia; L71.9 Rosacea, unspecified; R13.10 Dysphagia, unspecified; D64.9 Anemia, unspecified; G40.909 Epilepsy, unspecified, not intractable, without status epilepticus; Z86.73 Personal history of transient ischemic attack (TIA), and cerebral infarction without residual deficits; Z93.1 Gastrostomy status; Z93.0 Tracheostomy status; Z88.1 Allergy status to other antibiotic agents; Z88.8 Allergy status to other drugs, medicaments and biological substances; Z79.899 Other long term (current) drug therapy; Z68.38 Body mass index [BMI] 38.0-38.9, adult
CPT/HCPCS: 36415; 36600; 71045; 74018; 80048; 80053; 80076; 80164; 81000; 81001; 81015; 82306; 82330; 82803; 82948; 83051; 83519; 83540; 83550; 83605; 83735; 83880; 83970; 84100; 84478; 84484; 85007; 85014; 85025; 85027; 85384; 85610; 85730; 86886; 86900; 86901; 86920; 87040; 87070; 87081; 87086; 87205; 92950; 94002; 94003; 94640; 99291; J0885; J1030; J1200; J1265; J1940; J2185; J2543; J2704; J3370; J3430; J7050; J7060; J7131; P9021; P9034; P9046